=== PATIENT | male | born 1955 | race Caucasian/White ===

== ENCOUNTER 2021-09-15 10:16 | Emergency (ER) | payer OTHER, SELFPAY ==
[2021-09-15 10:17] VITALS: BP 161/89; PULSE 81; RESP 19; TEMP 36; O2SAT 94; BMI 31.6
--- NOTE | 2021-09-15 11:05 | RAD_ITS ---
STUDY: X-RAY - LEFT KNEE REASON FOR EXAM: Male, 66 years old. Pain following a fall. TECHNIQUE: 4 view(s) of the knee. COMPARISON: None. FINDINGS: Normal visualized distal femur. Normal visualized proximal tibia and fibula. Normal proximal tibiofibular articulation. Normal medial femorotibial compartment. Normal lateral femorotibial compartment. Normal patellofemoral articulation. Moderate size joint effusion. Prepatellar soft tissue swelling. RAD/Knee 4 or More Views IMPRESSION: Moderate size joint effusion with anterior knee swelling. Electronically Signed: Iván Andrew MD at 11:20 EDT , Service support ,
--- NOTE | 2021-09-15 11:51 | ED.VIS.LOWEX ---
HPI History of Present Illness Chief Complaint: Lower Extremity Injury Informant: patient Narrative Narrative: Patient fell through a luc[employer] board on a trailer couple days ago. He hit his left knee. No other injury. He states it swollen now and is a little bit more sore. No back pain. No break in the skin. No other injury. Motion and weightbearing makes it worse and rest makes it better. PFSH PFS Medical History Trigeminal neuralgia of right side of face Home Medications ciprofloxacin HCl 500 mg PO BID #20 tablet 05/21/15 [Rx Last Taken Unknown] hydrocodone-acetaminophen 1 - 2 tab PO Q4H PRN PRN #20 tablet 05/21/15 [Rx Last Taken Unknown] metronidazole 500 mg PO Q6H #40 tab 05/21/15 [Rx Last Taken Unknown] Allergy/AdvReac Type Severity Reaction Status Date / Time No Known Allergies Allergy Verified 09/15/21 10:19 Social History Smoking Status: Former smoker ROS ROS ED Cardiovascular Cardiovascular: Denies chest pain Respiratory/Chest Respiratory/Chest: Denies cough Gastrointestinal Gastrointestinal: Denies diarrhea or nausea Musculoskeletal Musculoskeletal: Reports other Details: See history of present illness. ; Denies back pain or neck pain Integumentary Denies Abrasions or rash Neurologic Neurologic: Denies paresthesias or weakness Hematologic/Lymphatic Hematologic/Lymphatic: Reports other Details: Patient is not on any anticoagulation. ; Denies easy bleeding or easy bruising EXAM Physical Exam Const Vital Signs: 09/15/21 10:17 Temperature 96.8 F L Temperature Source Temporal Pulse Rate 81 Respiratory Rate 19 H Blood Pressure 161/89 H Blood Pressure Mean 113 Pulse Ox 94 Oxygen Delivery Method Room Air Positive well nourished, well developed and obese General Appearance ED: well developed Nutritional Appearance: obese HEENT normocephalic and atraumatic Resp normal respiratory effort Cardio regular rate and regular rhythm GI non-tender Palpation: soft Extremity Extremity Narrative: Patient does have a visible effusion of the left knee. It has mild nonfocal tenderness. Extensor mechanism is intact. I see no abrasions punctures or lacerations. Distal pulses are intact. Distal sensation is intact. Neuro oriented x3 and no sensory deficits noted Sensorium / Orientation: alert Motor Exam: strength 5/5 throughout Psych mental status grossly normal Skin no wounds Lesions: no lesions Rashes: no rashes Trauma: Negative for abrasion, laceration or puncture MDM MDM MDM Narrative Medical decision making narrative: 4 view x-ray of the left knee . Looked at by me and read by radiology shows no sign of acute fracture. There is an effusion. Ice rest and time should get this better. Radiography Diagnostic Testing: Clinical Impression(s) from Imaging Studies Knee X-Ray 09/15/21 11:05 IMPRESSION: Moderate size joint effusion with anterior knee swelling. Electronically Signed: Iván Andrew MD at 11:20 EDT , Service support , Discharge Plan Triage Chief Complaint: Lower Extremity Injury ED Provider: Sloan Orr Dx/Rx/DC Orders Clinical Impression: Contusion of knee, left, Effusion of knee joint, left Instructions: ED Knee Effusion, ED Knee Sprain Prescriptions: No Action hydrocodone-acetaminophen 1 TABLET tablet 1 - 2 tab PO Q4H PRN PRN (Reason: Pain) Qty: 20 RF: 0 metronidazole 500 MG tablet 500 mg PO Q6H Qty: 40 RF: 0 ciprofloxacin HCl 500 MG tablet 500 mg PO BID Qty: 20 RF: 0 Primary Care Provider: Abelardo Lynn Referrals: Abelardo Lynn MD [Primary Care Provider] - 1 Week if not improving Disposition Disposition: Home, Self Care
[2021-09-15 12:27] VITALS: PULSE 76; RESP 17; O2SAT 95
== END 2021-09-15 12:31 | disposition home or self-care (01) ==
PROVIDERS: Emergency Provider Emergency Medicine; PCP Family Medicine
DX: S80.02XA Contusion of left knee, initial encounter (principal); M25.462 Effusion, left knee; W13.3XXA Fall through floor, initial encounter; Y93.9 Activity, unspecified; Y92.9 Unspecified place or not applicable; E66.9 Obesity, unspecified; Z68.31 Body mass index [BMI] 31.0-31.9, adult; G50.0 Trigeminal neuralgia; Z79.899 Other long term (current) drug therapy; Z87.891 Personal history of nicotine dependence
CPT/HCPCS: 73564; 99282

== ENCOUNTER → 2024-03-16 | Outpatient (CLI) | payer OTHER, SELFPAY ==
--- NOTE | 2024-03-16 10:08 | STRESSREP_ITS ---
Stress Test Report Date: 03/16/2024 Procedure: Exercise tolerance test/imaging study Indications: Dyspnea on exertion Consent: Per the patient Procedure: The patient exercised on a Micah protocol for 6 minutes achieving a peak heart rate of 121 bpm (80% predicted maximal heart rate) with a peak blood pressure 160/78 mmHg and a peak MET capacity of 7.0 METs. The baseline ECG demonstrated sinus rhythm with right bundle branch block. The peak exercise ECG was nondiagnostic secondary to baseline abnormality. Occasional PVCs noted during exercise. The functional capacity was considered average. There was significant shortness of breath reported during exercise. No chest pain. The examination was discontinued secondary to dyspnea. The patient was injected with 14.5 mCi of technetium 99m Cardiolite and subsequently rest SPECT Cardiolite nuclear imaging was obtained in the horizontal long, vertical long, and short axis views. Post-exercise, the patient was injected with 44.6 mCi of technetium 99m Cardiolite and subsequently stress SPECT Cardiolite nuclear imaging was obtained in the horizontal long, vertical long, and short axis views. A gated Cardiolite study at peak stress was obtained. Rest and stress SPECT Cardiolite nuclear imaging status post realignment, normalization, and attenuation correction, demonstrates a small to moderate apical defect which is predominantly fixed but with mild worsening post exercise. Gated images reveal apical hypokinesis. The reported LVEF is 41%. Impression: 1. Technically adequate exercise tolerance test 2. Peak exercise ECG nondiagnostic secondary to baseline changes 3. Occasional PVCs noted during exercise 4. Rest and stress SPECT Cardiolite nuclear imaging demonstrate a predominantly fixed apical defect consistent with prior apical infarct with mild amanda-infarct ischemia. 5. The gated Cardiolite study reports an LVEF of 41%. This note was generated with [employer] software. It may contain incorrect words, spelling, and punctuation that were not noted in checking the note before signing.
== END | disposition home or self-care (01) ==
PROVIDERS: PCP Family Medicine; Referring Provider Family Medicine; Visit Provider Family Medicine
DX: R06.09 Other forms of dyspnea (principal)
CPT/HCPCS: 78452; 93017; A9500; A4216

== ENCOUNTER 2024-06-05 09:43 | Inpatient (IN) | payer MEDICARE, SELFPAY ==
[2024-06-05] VITALS (17 sets, daily range): BP systolic 103–159; BP diastolic 6–100; PULSE 28–73; RESP 14–18; TEMP 36.4–36.8; O2SAT 93–98; BMI 34.2; BMI 34.6
--- NOTE | 2024-06-05 09:58 | EKG12_ITS ---
Test Reason : DIZZY/LOW HR Blood Pressure : / mmHG Vent. Rate : 029 BPM Atrial Rate : 029 BPM P-R Int : 152 ms QRS Dur : 158 ms QT Int : 628 ms P-R-T Axes : 063 023 -39 degrees QTc Int : 436 ms Critical Test Result: Low HR Marked sinus bradycardia -high grade AV block Left bundle branch block Abnormal ECG Confirmed by Mau Arreola ([id number]), sound editor FENG PHAN ([id number]) on 06/06/2024 12:51:24 PM Referred By: KIMMY/JOHANA Confirmed By:Mau Arreola
--- NOTE | 2024-06-05 09:59 | ED.RN ---
NO OLD EKGS
--- NOTE | 2024-06-05 10:05 | EX.ED.DYSGE1 ---
HPI History of Present Illness Chief Complaint: Dizziness Narrative Narrative: 69-year-old male who denies significant past medical history presents with shortness of breath that he has had for the last few months. Then, over the last few days he developed lightheadedness and near syncope. He denies any headaches. No chest pain. No fevers or chills but has had an occasional cough for months as well. Of note, he states that a few months ago he had a stress test, but never have the results. His primary care provider ordered it because of his shortness of breath. He does not have a history of congestive heart failure. He denies any leg swelling. Sometimes, his lightheadedness is worse with standing. He went to urgent care, and was noted to have bradycardia in the 30s. He does not take any medications. [facility] Medical History Trigeminal neuralgia of right side of face Home Medications ?Medication ?Instructions ?Recorded ?Last Taken ?Type NK 06/05/24 Unknown History Allergy/AdvReac Type Severity Reaction Status Date / Time No Known Allergies Allergy Verified 06/05/24 09:49 Social History Smoking Status: Former smoker ROS ROS ED ROS Narrative Constitutional: No fever, no chills. HEENT: No sore throat. No neck pain. No loss of vision. No rhinorrhea. Cardiovascular: No chest pain. No palpitations. No pedal edema. Respiratory: Occasional cough, positive shortness of breath times months. Abdominal: No abdominal pain. No nausea. No vomiting. Genitourinary: No dysuria. No hematuria. Musculoskeletal: No myalgias. No arthralgias. Neurologic: No headaches. No dizziness. Positive lightheadedness. Skin: No rash. No change in color. Psychiatric: No depression. No anxiety. EXAM Physical Exam Narrative Exam Narrative: Afebrile. Vital signs noted. HEENT: Normocephalic. Atraumatic. PERRL, EOMI. Neck soft and supple. No point tenderness or step off. Cardiovascular: Positive bradycardia no murmurs, rubs, or gallops appreciated. Respiratory: No tachypnea. Lungs clear to auscultation bilaterally. Gastrointestinal: Abdomen soft, nontender, with normoactive bowel sounds. No rebound or guarding. Neurological: Awake. Alert. Mentating well. Nonfocal, nonlateralizing. Skin: No rash. Normal color. No pallor. Musculoskeletal: No pedal edema appreciated. Full range of motion extremities. Const Vital Signs: 06/05/24 09:44 06/05/24 10:09 06/05/24 10:11 Temperature 97.6 F L Temperature Source Temporal Pulse Rate 29 L 31 L Respiratory Rate 17 18 Respiratory Effort Normal Non-Labored Respiratory Pattern Normal Blood Pressure 120/68 Blood Pressure Mean 85 Pulse Ox 96 98 Oxygen Delivery Method Room Air MDM MDM MDM Narrative Medical decision making narrative: Differential diagnosis includes but not limited to symptomatic bradycardia versus third-degree heart block versus dehydration. I have low concern for acute coronary syndrome or pulmonary embolism because the history and physical does not support the latter 2 diagnoses. Initially, there was difficulty in obtaining his blood pressure, but he has a palpable radial pulse. EKG was obtained and interpreted by myself independently as sinus bradycardia at 29 bpm with third-degree heart block. I did review his prior stress test which was as reviewed as normal with 41% ejection fraction. Initially 500 mL bolus was ordered, and he was placed on pacer pads. I contacted Dr. Mau Arreola with cardiology who is evaluating the patient in the ED. Laboratory work and chest x-ray are pending, but given his EKG findings, I feel that he probably requires admission, I reviewed his laboratory work, and he has slightly elevated white count of 12.0, hemoglobin normal at 14.8 with hematocrit 43.7, platelet count normal at 239. Sodium slightly low at 135 with chloride normal at 103, potassium 4.0, creatinine slightly elevated at 1.36 which is above his baseline, BUN normal at 15. Magnesium normal at 2.2. AST is low at 14 which I think is nonspecific with normal ALT of 23 and alk phos 76. High-sensitivity troponin normal at 59 initially. BNP is elevated at 618. Chest x-ray 1 view interpreted by myself independently shows chronic changes, but no blunting of the costophrenic angles, no pneumonia or pneumothorax. In discussion with Dr. Arreola with cardiology, patient requires admission and is currently getting an echocardiogram. Dr. Dee with cardiology will be placing pacemaker today. I will discuss the patient with the hospitalist for admission. It was not felt that he requires ICU because he is asymptomatic and has a higher heart rate in the 40s currently with a normal blood pressure of 120/68. Disposition is admit in stable condition. History & Record Review Discussion w/independent historian: Patient and Family Additional record(s) reviewed:: Prior ED visit and Prior labs Lab Data Attestation: I reviewed the patient's lab results. Labs: Laboratory Results - last 24 hr 06/05/24 10:00 WBC 12.0 H RBC 4.73 Hgb 14.8 Hct 43.7 MCV 92.4 MCH 31.3 MCHC 33.9 RDW Std Deviation 42.6 RDW Coeff of Gia 12.5 Plt Count 239 MPV 10.8 Immature Gran % (Auto) 0.400 Neut % (Auto) 65.3 Lymph % (Auto) 23.9 [place] % (Auto) 8.5 Eos % (Auto) 1.4 Baso % (Auto) 0.5 Absolute Neuts (auto) 7.8 H Absolute Lymphs (auto) 2.86 Nucleated RBC % 0 Sodium 135 L Potassium 4.0 Chloride 103 Carbon Dioxide 26.0 Anion Gap 6 BUN 15 Creatinine 1.36 H Estim Creat Clear Calc 67.02 Est GFR (MDRD) Af Amer 66 Est GFR (MDRD) Non-Af 55 L BUN/Creatinine Ratio 11.0 Glucose 325 H Calcium 8.8 Magnesium 2.2 Total Bilirubin 0.70 AST 14 L ALT 23 Alkaline Phosphatase 76 Troponin I High Sens 59 B-Natriuretic Peptide 618.1 H Total Protein 7.4 Albumin 3.4 Globulin 4.0 Albumin/Globulin Ratio 0.8 L Management Discussion w/another healthcare provider: Hospitalist (Dr. Jordy Colbert) and Glove Cutter (Dr. Mau Arreola) Discharge Plan Dx/Rx/DC Orders Clinical Impression: Third degree heart block, Bradycardia, Acute kidney injury, Elevated brain natriuretic peptide (BNP) level Disposition Disposition: Acute Care Hospital [facility]
[2024-06-05 10:13] LABS: Absolute Lymphocyte Count 2.86 X10^3/uL (0.83-4.51); Absolute Neutrophil Count 7.8 X10^3/uL (2.0-7.7); Basophil# 0.06 X10^3/uL; Basophil% 0.5 % (0-1); Eosinophil# 0.17 X10^3/uL; Eosinophils% 1.4 % (0-5); Hematocrit 43.7 % (40-54); Hemoglobin 14.8 g/dL (13.0-16.5); Lymphocyte # 2.86 X10^3/ul (0.83-4.51); Lymphocyte % 23.9 % (19-41); Mean Corp Hgb Conc 33.9 g/dL (32-36); Mean Corpuscular Hgb 31.3 pg (27.0-32.0); Mean Corpuscular Volume 92.4 fL (80-94); Mean Platelet Vol. 10.8 fl (6.2-12.0); Monocyte# 1.02 X10^3/uL; Monocyte% 8.5 % (0-10); NRBC Flagged by Analyzer 0 % (0-5); Neutrophil # 7.83 X10^3/uL (2.7-7.7); Neutrophil % 65.3 % (47-70); Platelet Count 239 K/mm3 (150-450); RBC Distribution Width CV 12.5 % (11.6-14.6); RBC Distribution Width SD 42.6 fl (35.1-43.9); Red Blood Count 4.73 M/mm3 (4.6-6.2)
[2024-06-05] MEDS: 0.9% Normal Saline (500mL Bag) 500 ML 1000 ML IV (10:14)
--- NOTE | 2024-06-05 10:14 | ED.RN ---
tania gracia in at bedside to see pt. pacer pads on.
--- NOTE | 2024-06-05 10:21 | ED.RN ---
This RN at bedside with Dr. Arreola. Dr. Arreola wanted to walk patient. This RN assisted pt. with ambulating while Dr. arreola watches heart rhythm. Rate varied between 33-40 while walking. Pt. dizzy/sob while walking, pt. assisted back to bed with no problems.
--- NOTE | 2024-06-05 10:26 | RAD_ITS ---
STUDY: X-RAY CHEST REASON FOR EXAM: Male, 69 years old. Shortness of breath . TECHNIQUE: Single AP portable view of the chest. COMPARISON: None. FINDINGS: EKG electrodes are seen. Minimal increased markings at the lung bases suggestive of linear atelectasis. There is no demonstrated pleural abnormality. Normal size heart. Normal mediastinum and erika. Normal visualized pulmonary arteries. Normal visualized aortic arch and descending thoracic aorta. Normal visualized thoracic spine. Normal visualized ribs, clavicles, and shoulders. There is no demonstrated abnormality of the visualized soft tissue structures of the upper abdomen. RAD/Chest 1 View (Portable) IMPRESSION: Minimal increased linear markings at the lung bases suggestive of atelectasis. Electronically Signed: Iván Andrew MD at 10:59 EDT ,
[2024-06-05 10:32] LABS: ALB/GLOB Ratio 0.8 RATIO (0.9-2.4); AST(SGOT) 14 U/L (15-37); Alanine Aminotransfer ALT/SGPT 23 U/L (16-61); Albumin, Serum 3.4 g/dL (3.2-5.0); Alkaline Phosphatase 76 U/L (45-117); Anion Gap 6 (5-15); BUN 15 mg/dL (7-18); Calcium,Total 8.8 mg/dL (8.5-10.1); Chloride 103 mmol/L (98-107); Creatinine, Serum 1.36 mg/dL (0.70-1.30); EST Glomerular Filtration Rate 55 mL/min (>60); Est Glom Filt Rate - Afr Amer 66 mL/min (>60); Estimated Creatinine Clearance 67.02 ml/min; Glucose 325 mg/dL (74-106); Magnesium 2.2 mg/dL (1.6-2.6); Protein, Total 7.4 g/dL (6.4-8.2); Sodium Level 135 mmol/L (136-145); Troponin-I HS (w/2H Reflex) 59 pg/mL (3.0-78.0)
--- NOTE | 2024-06-05 10:36 | ECHOD_ITS ---
Reason For Study: Arrhythmia, Bradycardia Procedure This was a 2D Doppler, Color Flow transthoracic echocardiogram. Exam performed portable in ED. Left Ventricle Normal LV size. The estimated ejection fraction is 55 %. No regional wall motion abnormalities noted. Right Ventricle Normal RV size. Normal systolic function. Atria Normal left atrium. Normal right atrium. Mitral Valve Normal mitral valve. Mild-Moderate (1-2+) eccentric mitral valve insufficiency. Tricuspid Valve Normal tricuspid valve. Aortic Valve The aortic valve is not well visualized. Great Vessels Normal aortic root. The pulmonary artery is normal size. Inferior vena cava collapse with respiration. Pericardium/Pleural No pericardial effusion. MMode/2D Measurements & Calculations LVIDd: 6.0 cm IVSd: 0.92 cm Ao root diam: 4.0 cm LVIDs: 3.9 cm LVPWd: 1.1 cm RVDd: 4.0 cm FS: 36.1 % LAV(MOD-bp): 84.7 ml LVAd ap4: 43.4 cm2 LVAd ap2: 36.3 cm2 LAV(MOD-bp) Indexed: 35.3 ml/m2 LVLd ap4: 9.5 cm LVLd ap2: 8.8 cm LAV(MOD-sp2): 83.6 ml EDV(MOD-sp4): 162.0 ml EDV(MOD-sp2): 125.9 ml LAV(MOD-sp4): 78.6 ml EDV(sp4-el): 168.2 ml EDV(sp2-el): 127.0 ml LVAs ap4: 22.4 cm2 LVAs ap2: 17.5 cm2 LVLs ap4: 7.6 cm LVLs ap2: 7.0 cm ESV(MOD-sp4): 55.1 ml ESV(MOD-sp2): 38.5 ml ESV(sp4-el): 55.5 ml ESV(sp2-el): 37.2 ml EF(MOD-sp4): 66.0 % EF(MOD-sp2): 69.4 % EF(sp4-el): 67.0 % SV(MOD-sp4): 106.9 ml SV(MOD-sp2): 87.4 ml SV(sp4-el): 112.6 ml LA dimension(2D): 4.5 cm LA A4 area: 23.9 cm2 RA A4 area: 17.3 cm2 Time Measurements MV dec time: 0.17 sec Doppler Measurements & Calculations MV E max renard: 98.2 cm/sec Lat Peak E' Renard: 15.0 cm/sec Med Peak E' Renard: 6.2 cm/sec MV A max renard: 91.7 cm/sec E/E' lat: 6.5 E/E' med: 15.7 MV E/A: 1.1 MV dec slope: 578.7 cm/sec2 Ao V2 max: 199.6 cm/sec LV V1 max: 143.6 cm/sec Ao max P.9 mmHg LV V1 max P.3 mmHg Ao V2 mean: 129.2 cm/sec Ao mean P.7 mmHg Ao V2 VTI: 36.4 cm PA V2 max: 105.2 cm/sec ECHO/Echo Complete Interpretation Summary Normal LV size. The estimated ejection fraction is 55 %. Mild-Moderate (1-2+) eccentric mitral valve insufficiency. Ordering Physician: Mau Arreola Referring Physician: Abelardo Lynn Performed By: Susanna Harris RDCS
[2024-06-05 10:40] LABS: BNP,B-Type NATRIURETIC PEPTIDE 618.1 pg/mL (0-100)
--- NOTE | 2024-06-05 11:10 | PCM.HP.STD ---
[facility] - General General Date of Admission: 06/05/24 Date of Service: 06/05/24 Chief Complaint: Lightheadedness HPI Narrative CALIN LIRA, is a 69 M in relatively good health with no chronic medical comorbidities who presented with lightheadedness. Patient symptoms started a week prior to his admission. He has noticed increasing lightheadedness with activity. Also did complain of some shortness of breath. In view of persistent symptoms patient presented to the emergency department. EKG obtained demonstrated significant bradycardia with third-degree heart block. Patient was also found to have elevated glucose levels. Denies being diabetic however did admit to polydipsia as well as polyuria. Decision was made to admit patient to a monitored bed for patient to undergo emergency pacemaker placement [facility], [facility] Medical History Trigeminal neuralgia of right side of face Home Medications ?Medication ?Instructions ?Recorded ?Last Taken ?Type NK 06/05/24 Unknown History Allergy/AdvReac Type Severity Reaction Status Date / Time No Known Allergies Allergy Verified 06/05/24 09:49 Social History Smoking Status: Former smoker Vital Signs Vital Signs Vital Signs: 06/05/24 09:44 06/05/24 10:09 06/05/24 10:11 Temperature 97.6 F L Temperature Source Temporal Pulse Rate 29 L 31 L Respiratory Rate 17 18 Respiratory Effort Normal Non-Labored Respiratory Pattern Normal Blood Pressure 120/68 Blood Pressure Mean 85 Pulse Ox 96 98 Oxygen Delivery Method Room Air Weight Weight: 117.934 kg Body Mass Index (BMI) 34.2 Physical Exam Narrative GENERAL: cooperative HEENT: Atraumatic; normocephalic EYES; Anicteric, Normal Conjunctiva NECK; supple, normal thyroid, RESPIRATORY: Diminished to auscultation CARDIOVASCULAR: Bradycardic GI: soft, normoactive bowel sounds, : No Renal angle tenderness; EXTREMITIES: No edema, no clubbing, MUSCULOSKELETAL: no muscle wasting NEURO: Awake; no lateralizing signs. SKIN: No Rash PSYCH; Flat affect Results Lab / Micro Data 06/05/24 10:00 06/05/24 10:00 Labs: Laboratory Results - last 24 hr 06/05/24 10:00: WBC 12.0 H, RBC 4.73, Hgb 14.8, Hct 43.7, MCV 92.4, MCH 31.3, MCHC 33.9, RDW Std Deviation 42.6, RDW Coeff of Gia 12.5, Plt Count 239, MPV 10.8, Immature Gran % (Auto) 0.400, Neut % (Auto) 65.3, Lymph % (Auto) 23.9, [place] % (Auto) 8.5, Eos % (Auto) 1.4, Baso % (Auto) 0.5, Absolute Neuts (auto) 7.8 H, Absolute Lymphs (auto) 2.86, Nucleated RBC % 0, Sodium 135 L, Potassium 4.0, Chloride 103, Carbon Dioxide 26.0, Anion Gap 6, BUN 15, Creatinine 1.36 H, Estim Creat Clear Calc 67.02, Est GFR (MDRD) Af Amer 66, Est GFR (MDRD) Non-Af 55 L, BUN/Creatinine Ratio 11.0, Glucose 325 H, Calcium 8.8, Magnesium 2.2, Total Bilirubin 0.70, AST 14 L, ALT 23, Alkaline Phosphatase 76, Troponin I High Sens 59, B-Natriuretic Peptide 618.1 H, Total Protein 7.4, Albumin 3.4, Globulin 4.0, Albumin/Globulin Ratio 0.8 L Imaging Radiology Impression Chest X-Ray 06/05/24 10:26 IMPRESSION: Minimal increased linear markings at the lung bases suggestive of atelectasis. Electronically Signed: Iván Andrew MD at 10:59 EDT , Assessment & Plan Assessment/Plan (1) Bradycardia: (2) Third degree heart block: (3) Acute kidney injury: PLAN: Plan Patient is a 69-year-old gentleman presenting with progressive shortness of breath as well as lightheadedness found to be bradycardic EKG demonstrated third-degree heart block 1. Pericardial secondary to third-degree heart block ? Patient has been admitted to a monitored bed placed on continuous telemetry monitoring consult was placed to cardiology plan is for patient to undergo pacemaker placement 2. Acute kidney injury ? Patient's baseline creatinine 1.1 creatinine on admission was 1.26 started on IV hydration with subsequent monitoring of electrolytes 3. Mild hyponatremia ?Secondary to suspected hypovolemic hyponatremia patient is being resuscitated with IV fluid 4. Hyperglycemia ? Patient is not a known diabetic patient. Ordered hemoglobin A1c please on Accu-Cheks before meals and at bedtime with sliding scale coverage 5. Class I obesity with BMI of 34.3 ? Weight loss advised 6. DVT prophylaxis ? Low risk Time spent in the patient's overall evaluation,decision-making process, review of diagnostic data, adjustment of management, discussion with other providers, nursing nursing and ancillary staff involved in patient's care documentation, 75 Minutes Advance planning; did discuss with the patient and family regarding advanced directives as well as CODE STATUS. Did explain the various scenarios involved ( FULL CODE, DNR CCA, DNR CCA with no intubation, and DNR CC and what each meant) patient elected to remain full code with CPR and intubation if needed. Order was placed. Time spent on discussion 18 minutes. Charges/Coding Multi Select Codes Visit Charges Visit Charges: 38782 Init Hosp Hospitalists' Procedures Procedures: 71088 Advncd Care Plan 30 Min
--- NOTE | 2024-06-05 11:16 | PCM.CONS.C ---
Assessment & Plan Assessment/Plan (1) High-grade atrioventricular block: PLAN: Patient's heart rate is 30 bpm it did slightly increase to 40 with increase in his atrial rate with ambulation. He denies any syncope or near syncope he is having dyspnea on exertion and some mild dizziness with activity. This started May 31, 2024 it has not progressed but has not resolved either. The patient is on no rate modulating medications he is taking no supplements and he has had no dietary modifications in the last several weeks. He denies any illicit drug use. The patient did have a stress test done January 2024 which showed adequate chronotropic response with a right bundle branch block at rest. I do not have an old EKG to compare the current EKG shows 4-1 AV conduction with a wide QRS complex. The patient stress test did show apical scar with questionable amanda-infarct ischemia. There is no prior history of coronary artery disease or any type of infarct or Takotsubo syndrome. A 2D echocardiogram is being done stat. The patient is being evaluated for urgent permanent pacemaker implantation. (2) Elevated brain natriuretic peptide (BNP) level: PLAN: BNP is slightly elevated as would be expected given his heart rate and dyspnea on exertion. He does have mild renal insufficiency with a creatinine increased to 1.36. (3) Acute kidney injury: PLAN: His creatinine is 1.36 is still has adequate glomerular filtration rate. Previous creatinine was 1.09. PLAN: Plan 1. Stat 2D echocardiogram. 2. Evaluate for urgent permanent pacemaker implantation by Dr. Dee. HPI Consult Data Date of Consult: 06/05/24 HPI Narrative Reason for Consultation: Bradycardia with symptoms. HPI Narrative: CALIN LIRA, is a 69 M who presents to the emergency department at [facility] with a heart rate of 30. His EKG is consistent with a high-grade AV block appears that he is in approximately 4-1 conduction. The patient reports that on May 01 his blood pressure machine noted that his heart rate was 30. He had taken his blood pressure because he felt dizzy upon trying to walk around and is noted some dyspnea on exertion. He denies any syncope or near syncope. He reports he had a stress test that he was told was normal January 2024. However, upon evaluation it was found the stress test did show normal chronotropic response to his heart rate however he had an apical scar with amanda-infarct ischemia on the nuclear scan. He denied any chest symptoms and denies any chest pain at this time. His EKG shows a wide-complex QRS. His previous EKG showed a right bundle branch block on his stress test. The patient is on no medications in his home environment. He denies tobacco use or any illicit drugs. He denies using any cldr-qwd-luqnkzl supplements. He has had no change in his dietary situation or oral intake in any way. He occasionally drinks a beer. The patient's blood work suggest some mild renal insufficiency the creatinine is gone from 1.09 historically to 1.36. His BNP is slightly elevated consistent with his dyspnea on exertion. His atrial rate was in the 100 to 120 bpm range. Ventricular rate 30 in the emergency department at rest. I did walk him in the spivey he walked about 50 feet became short of breath and his heart rate went from 30-40. There was no increase in AV conduction but the atrial rate increased. The patient reports his blood pressures been adequately controlled on no medical therapy. He does not smoke he quit smoking over 30 years ago, he is not diabetic, he does not know his lipid status, he does have a hip family history of brother with bypass graft surgery under age 60. [facility] Medical History Trigeminal neuralgia of right side of face Home Medications ?Medication ?Instructions ?Recorded ?Last Taken ?Type NK 06/05/24 Unknown History Allergy/AdvReac Type Severity Reaction Status Date / Time No Known Allergies Allergy Verified 06/05/24 09:49 Social History Smoking Status: Former smoker ROS Constitutional Constitutional: Reports as per HPI Eyes Eyes: Reports systems reviewed and no addt'l complaints, except as documented ENT HEENT: Reports systems reviewed and no addt'l complaints, except as documented Cardiovascular Cardiovascular: Reports as per HPI Respiratory/Chest Respiratory/Chest: Reports as per HPI Gastrointestinal Gastrointestinal: Reports systems reviewed and no addt'l complaints, except as documented Genitourinary Genitourinary: Reports systems reviewed and no addt'l complaints, except as documented Musculoskeletal Musculoskeletal: Reports systems reviewed and no addt'l complaints, except as documented Integumentary Integumentary: Reports systems reviewed and no addt'l complaints, except as documented Neurologic Neurologic: Reports systems reviewed and no addt'l complaints, except as documented Psychiatric Psychiatric: Reports systems reviewed and no addt'l complaints, except as documented Endocrine Endocrinology: Reports as per HPI Hematologic/Lymphatic Hematologic/Lymphatic: Reports systems reviewed and no addt'l complaints, except as documented Allergic/Immunologic Allergic/Immunologic: Reports systems reviewed and no addt'l complaints, except as documented Physical Exam Const alert and oriented x3 HEENT normocephalic Eyes EOMs intact bilaterally Neck Neck Narrative: A waves noted on his JVD at 30 degrees. Chest inspection of chest normal Resp normal respiratory effort and clear to auscultation bilaterally Auscultation: crackles bilateral base Cardio Rate: bradycardia Rhythm: abnormal rhythm regularly irregular Heart Sounds: S1 normal and S2 normal; Negative for click, gallop or murmur Peripheral Pulses: radial pulses present bilateral 2+ and posterior tibial pulses present bilateral 2+ GI normal to inspection, nondistended, normoactive bowel sounds Extremity normal to inspection General Extremity: Negative for edema Skin no rashes or lesions noted Neuro Neuro Narrative: Alert and oriented x 3 Psych mental status grossly normal Risk Stratification Risk Stratification Applicable: No Charges/Coding Visit Charges Inpatient E&M: 82224 Init Hosp L3 Objective Data Vital Signs: Vital Signs Temp Pulse Resp BP Pulse Ox O2 Del Method 97.6 F L 31 L 18 120/68 98 Room Air 06/05/24 09:44 06/05/24 10:09 06/05/24 10:09 06/05/24 10:09 06/05/24 10:09 06/05/24 10:09 Oxygen Delivery Method Room Air Weight: 260 lb Body Mass Index (BMI) 34.2 Intake & Output: Intake and Output for Last 24 Hours 06/03/24 06/04/24 06/05/24 23:59 23:59 23:59 Intake Total 0 / 0 Balance 0 / 0 Lab / Micro Data Attestation: I reviewed the patient's lab results. 06/05/24 10:00 06/05/24 10:00 Labs: Laboratory Results - last 24 hr 06/05/24 10:00: WBC 12.0 H, RBC 4.73, Hgb 14.8, Hct 43.7, MCV 92.4, MCH 31.3, MCHC 33.9, RDW Std Deviation 42.6, RDW Coeff of Gia 12.5, Plt Count 239, MPV 10.8, Immature Gran % (Auto) 0.400, Neut % (Auto) 65.3, Lymph % (Auto) 23.9, [place] % (Auto) 8.5, Eos % (Auto) 1.4, Baso % (Auto) 0.5, Absolute Neuts (auto) 7.8 H, Absolute Lymphs (auto) 2.86, Nucleated RBC % 0, Sodium 135 L, Potassium 4.0, Chloride 103, Carbon Dioxide 26.0, Anion Gap 6, BUN 15, Creatinine 1.36 H, Estim Creat Clear Calc 67.02, Est GFR (MDRD) Af Amer 66, Est GFR (MDRD) Non-Af 55 L, BUN/Creatinine Ratio 11.0, Glucose 325 H, Calcium 8.8, Magnesium 2.2, Total Bilirubin 0.70, AST 14 L, ALT 23, Alkaline Phosphatase 76, Troponin I High Sens 59, B-Natriuretic Peptide 618.1 H, Total Protein 7.4, Albumin 3.4, Globulin 4.0, Albumin/Globulin Ratio 0.8 L Rhythm Strip Rhythm Strip: High-grade AV block Rate: 30 Cardiology Labs/Tests 06/05/24 10:00: WBC 12.0 H, RBC 4.73, Hgb 14.8, Hct 43.7, MCV 92.4, MCH 31.3, MCHC 33.9, Plt Count 239, MPV 10.8, Immature Gran % (Auto) 0.400, Neut % (Auto) 65.3, Lymph % (Auto) 23.9, [place] % (Auto) 8.5, Eos % (Auto) 1.4, Baso % (Auto) 0.5, Absolute Neuts (auto) 7.8 H, Nucleated RBC % 0, Sodium 135 L, Potassium 4.0, Chloride 103, Carbon Dioxide 26.0, Anion Gap 6, BUN 15, Creatinine 1.36 H, Est GFR (MDRD) Af Amer 66, Est GFR (MDRD) Non-Af 55 L, BUN/Creatinine Ratio 11.0, Glucose 325 H, Calcium 8.8, Magnesium 2.2, Total Bilirubin 0.70, B-Natriuretic Peptide 618.1 H Rhythm: EKG: ECHO: Stress Test: Cardiac Cath: PCI: CT Surgery: Holter monitor: EPS: PPM: CXR: Chest CT Scan: Radiography Diagnostic Testing: Radiology Impression Chest X-Ray 06/05/24 10:26 IMPRESSION: Minimal increased linear markings at the lung bases suggestive of atelectasis. Electronically Signed: Iván Andrew MD at 10:59 EDT ,
[2024-06-05 12:05] LABS: Reflex Troponin-HS? (from REC) Y
[2024-06-05 12:54] LABS: Troponin-I HS 58 pg/mL (3.0-78.0)
--- NOTE | 2024-06-05 15:07 | CL.IE_ITS ---
Patient: CALIN LIRA Study Date: 06/05/2024 Performing: Jimenez Dee MD : 1955 Age: 69 Gender: male PROCEDURES PERFORMED LP13-(32780)TEMPORARY INTRAVENTRICULAR PACING LP04-(58779)INITIAL PACER INSERT+DUAL LEADS INDICATIONS complete heart block PROCEDURE DETAILS The patient was brought to the Catheterization Lab in the postabsorptive nonsedated state. Informed consent was obtained prior to anesthetic was given subcutaneously to the right groin region with Lidocaine 2%. Incision was made to the left subclavicular area. Access was achieved and a guidewire was advanced into the left subclavian vein. A peel-away sheath was inserted into the left subclavian vein. PPM ventricular lead was inserted / positioned to right ventricular apex. PPM ventricular lead testing performed. PPM ventricular lead testing performed. PPM atrial lead was inserted / positioned to the right atrial appendage. PPM atrial lead testing performed. PPM generator was attached to the lead(s) and inserted into the pocket. PPM generator was then interrogated by the senior db2 systems programmer. Device pocket was irrigated with antibiotic, Ancef 1gm. Subcutaneous closure was completed with 3-0 Vicryl. Skin closure was completed. Steri-strips applied to left subclavicular incision. Pressure dressing applied to left chest. Instrument, sponge, and needle counts were noted to be normal. The patient tolerated the procedure well. Estimated Blood Loss: 4 ml's IMPLANTED / EX-PLANTED DEVICES IMPLANTED DEVICE(S): PPM Ventricular lead - Printed Circuit Board Assembler: [employer], Model # 7842 , Serial # [id number] PPM Atrial lead - Printed Circuit Board Assembler: [employer], Model # 7841 , Serial # [id number] PPM Generator - Printed Circuit Board Assembler: [employer], Model # [id number] , Serial # [id number] DEVICE PARAMETERS ATRIAL LEAD PARAMETERS: P wave- 4.2 (mV) Current- 1.4 (mA) threshold- 583 (V) VENTRICULAR LEAD PARAMETERS: Current- .7 (mA) threshold- 948 (V) CS LEAD PARAMETERS: 10V test, no diaphragmatic capture DEVICE PARAMETERS: 60 Mode- ddd Lower rate- 60 Upper rate- 130 CONCLUSIONS / RECOMMENDATIONS Device Conclusions: Successful implantation of a dual chamber pacemaker Device Recommendations: Follow up with Primary Care Physician PROCEDURE MEDICATIONS Versed 1 mg IV Fentanyl 50 mcg IV Fentanyl 25 mcg IV Versed 1 mg IV Oxygen: 2 L/min via nasal cannula Ancef 2 Gm IV @ 06/05/2024 13:20:21 Signed By Jimenez Dee MD On 06/05/2024 15:07:19 Jimenez Dee MD
[2024-06-05] MEDS: 0.9% Normal Saline (1000mL) 1,000 ML 150 ML IV ×2 (16:21→23:13)
[2024-06-05] MEDS: Insulin Lispro 100 UNIT/ML INSULN.PEN SC ×2 (17:08→21:50)
[2024-06-05 17:21] LABS: Bedside Glucose 191 mg/dL (74-106)
[2024-06-05] MEDS: Acetaminophen 325 MG Tablet PO (21:58)
[2024-06-05] MEDS: MELATONIN 3 MG TABLET PO (22:09)
[2024-06-05 22:12] LABS: Bedside Glucose 230 mg/dL (74-106)
[2024-06-06 03:56] VITALS: BMI 34.9
[2024-06-06 04:00] VITALS: BP 155/79; PULSE 65; RESP 17; TEMP 36.4; O2SAT 94
[2024-06-06] MEDS: Acetaminophen 325 MG Tablet 650 MG PO (04:08)
--- NOTE | 2024-06-06 05:55 | RAD_ITS ---
INDICATION: Post permanant ICD/Pacemaker -- inspiration/expiration. Arms Down. Wet read to EXAMINATION/TECHNIQUE: X-RAY - XR Chest 2 Views 3 images. COMPARISON: 06/05/2024 FINDINGS: LINES/DEVICES: New pacemaker device overlying the left chest with dual leads terminating over the region of the right atrium and right ventricle. LUNGS: No consolidation. No pneumothorax. MEDIASTINUM: Unremarkable. CARDIAC SILHOUETTE: Not enlarged. BONES AND SOFT TISSUES: No acute abnormalities. RAD/Chest 3 View IMPRESSION: Pacemaker as described. No pneumothorax. Electronically Signed: Denisse Valdovinos MD at 4:55 EDT ,
[2024-06-06] MEDS: 0.9% Normal Saline (1000mL) 1,000 ML 150 ML IV (05:58)
[2024-06-06] MEDS: 0.9% Saline Lock 10 ML Syringe IV (05:58)
[2024-06-06] MEDS: Insulin Lispro 100 UNIT/ML INSULN.PEN SC ×2 (06:36→13:25)
[2024-06-06 06:43] LABS: Absolute Lymphocyte Count 1.77 X10^3/uL (0.83-4.51); Absolute Neutrophil Count 5.4 X10^3/uL (2.0-7.7); Basophil# 0.03 X10^3/uL; Basophil% 0.4 % (0-1); Eosinophil# 0.15 X10^3/uL; Eosinophils% 1.9 % (0-5); Hematocrit 38.8 % (40-54); Hemoglobin 12.9 g/dL (13.0-16.5); Lymphocyte # 1.77 X10^3/ul (0.83-4.51); Lymphocyte % 21.9 % (19-41); Mean Corp Hgb Conc 33.2 g/dL (32-36); Mean Corpuscular Hgb 30.3 pg (27.0-32.0); Mean Corpuscular Volume 91.1 fL (80-94); Mean Platelet Vol. 10.2 fl (6.2-12.0); Monocyte# 0.71 X10^3/uL; Monocyte% 8.8 % (0-10); NRBC Flagged by Analyzer 0 % (0-5); Neutrophil % 66.6 % (47-70); Platelet Count 176 K/mm3 (150-450); RBC Distribution Width CV 12.5 % (11.6-14.6); RBC Distribution Width SD 40.8 fl (35.1-43.9); Red Blood Count 4.26 M/mm3 (4.6-6.2); White Blood Count 8.1 K/mm3 (4.4-11.0)
[2024-06-06 06:55] LABS: Bedside Glucose 189 mg/dL (74-106)
[2024-06-06 07:20] LABS: Anion Gap 5 (5-15); BUN 11 mg/dL (7-18); BUN/Creat Ratio 12.5 RATIO (10-20); Calcium,Total 8.3 mg/dL (8.5-10.1); Chloride 110 mmol/L (98-107); Creatinine, Serum 0.88 mg/dL (0.70-1.30); EST Glomerular Filtration Rate 91 mL/min (>60); Est Glom Filt Rate - Afr Amer 110 mL/min (>60); Estimated Creatinine Clearance 104.61 ml/min; Glucose 192 mg/dL (74-106); Magnesium 2.1 mg/dL (1.6-2.6); Phosphorus 3.6 mg/dL (2.5-4.9); Sodium Level 138 mmol/L (136-145)
--- NOTE | 2024-06-06 07:47 | PCM.PN.HOSP ---
Reason for Visit Reason for Visit: Diagnoses Atrioventricular block, complete (06/05/24) Other atrioventricular block (06/05/24) Acute kidney failure, unspecified (06/05/24) Bradycardia, unspecified (06/05/24) Other specified abnormal findings of blood chemistry (06/05/24) Subjective Subjective Patient underwent successful implantation of a dual chamber pacemaker by Dr. Dee on 06/06/2024 Objective Data Objective Data Vital Signs: Vital Signs Temp Pulse Resp BP Pulse Ox O2 Del Method 97.5 F L 65 17 155/79 H 94 Room Air 06/06/24 04:00 06/06/24 04:00 06/06/24 04:00 06/06/24 04:00 06/06/24 04:00 06/06/24 04:00 Oxygen Delivery Method Room Air Weight: 120.3 kg Body Mass Index (BMI) 34.9 Intake & Output: Intake and Output for Last 24 Hours 06/04/24 06/05/24 06/06/24 23:59 23:59 23:59 Intake Total 1440 / 1440 1300 / 1300 Output Total 1250 / 1250 1175 / 1175 Balance 190 / 190 125 / 125 Lab / Micro Data 06/06/24 06:27 06/06/24 06:27 Labs: Laboratory Results - last 24 hr 06/05/24 10:00: WBC 12.0 H, RBC 4.73, Hgb 14.8, Hct 43.7, MCV 92.4, MCH 31.3, MCHC 33.9, RDW Std Deviation 42.6, RDW Coeff of Gia 12.5, Plt Count 239, MPV 10.8, Immature Gran % (Auto) 0.400, Neut % (Auto) 65.3, Lymph % (Auto) 23.9, [place] % (Auto) 8.5, Eos % (Auto) 1.4, Baso % (Auto) 0.5, Absolute Neuts (auto) 7.8 H, Absolute Lymphs (auto) 2.86, Nucleated RBC % 0, Sodium 135 L, Potassium 4.0, Chloride 103, Carbon Dioxide 26.0, Anion Gap 6, BUN 15, Creatinine 1.36 H, Estim Creat Clear Calc 67.02, Est GFR (MDRD) Af Amer 66, Est GFR (MDRD) Non-Af 55 L, BUN/Creatinine Ratio 11.0, Glucose 325 H, Calcium 8.8, Magnesium 2.2, Total Bilirubin 0.70, AST 14 L, ALT 23, Alkaline Phosphatase 76, Troponin I High Sens 59, B-Natriuretic Peptide 618.1 H, Total Protein 7.4, Albumin 3.4, Globulin 4.0, Albumin/Globulin Ratio 0.8 L 06/05/24 12:20: Troponin I High Sens 58 06/05/24 16:59: POC Glucose 191 H 06/05/24 21:45: POC Glucose 230 H 06/06/24 06:27: WBC 8.1, RBC 4.26 L, Hgb 12.9 L, Hct 38.8 L, MCV 91.1, MCH 30.3, MCHC 33.2, RDW Std Deviation 40.8, RDW Coeff of Gia 12.5, Plt Count 176, MPV 10.2, Immature Gran % (Auto) 0.400, Neut % (Auto) 66.6, Lymph % (Auto) 21.9, [place] % (Auto) 8.8, Eos % (Auto) 1.9, Baso % (Auto) 0.4, Absolute Neuts (auto) 5.4, Absolute Lymphs (auto) 1.77, Nucleated RBC % 0, Sodium 138, Potassium 4.0, Chloride 110 H, Carbon Dioxide 23.0, Anion Gap 5, BUN 11, Creatinine 0.88, Estim Creat Clear Calc 104.61, Est GFR (MDRD) Af Amer 110, Est GFR (MDRD) Non-Af 91, BUN/Creatinine Ratio 12.5, Glucose 192 H, Calcium 8.3 L, Phosphorus 3.6, Magnesium 2.1 06/06/24 06:33: POC Glucose 189 H Radiography Diagnostic Testing: Radiology Impression Chest X-Ray 06/05/24 10:26 IMPRESSION: Minimal increased linear markings at the lung bases suggestive of atelectasis. Electronically Signed: Iván Andrew MD at 10:59 EDT , Echocardiogram 06/05/24 10:36 Interpretation Summary Normal LV size. The estimated ejection fraction is 55 %. Mild-Moderate (1-2+) eccentric mitral valve insufficiency. Ordering Physician: Mau Arreola Referring Physician: Abelardo Lynn Performed By: Susanna Harris RDCS Chest X-Ray 06/06/24 05:55 IMPRESSION: Pacemaker as described. No pneumothorax. Electronically Signed: Denisse Valdovinos MD at 4:55 EDT , Rhythm Strip Rhythm Strip: High-grade AV block Rate: 30 Physical Exam Narrative GENERAL: cooperative HEENT: Atraumatic; normocephalic EYES; Anicteric, Normal Conjunctiva NECK; supple, normal thyroid, RESPIRATORY: Diminished to auscultation CARDIOVASCULAR: Bradycardic GI: soft, normoactive bowel sounds, : No Renal angle tenderness; EXTREMITIES: No edema, no clubbing, MUSCULOSKELETAL: no muscle wasting NEURO: Awake; no lateralizing signs. SKIN: No Rash PSYCH; Flat affect Assessment & Plan Assessment/Plan (1) Bradycardia: (2) Third degree heart block: (3) Acute kidney injury: PLAN: Plan Patient is a 69-year-old gentleman presenting with progressive shortness of breath as well as lightheadedness found to be bradycardic EKG demonstrated third-degree heart block 1. Bradycardia secondary to third-degree heart block ? Patient has been admitted to a monitored bed placed on continuous telemetry monitoring consult was placed to cardiology plan is for patient to undergo pacemaker placement ? 06/06/2024atient underwent successful implantation of a dual chamber pacemaker by Dr. Dee on 06/06/2024 2. Acute kidney injury ? Patient's baseline creatinine 1.1 creatinine on admission was 1.26 started on IV hydration with subsequent monitoring of electrolytes 3. Mild hyponatremia ?Secondary to suspected hypovolemic hyponatremia patient is being resuscitated with IV fluid 4. Hyperglycemia ? Patient is not a known diabetic patient. Ordered hemoglobin A1c please on Accu-Cheks before meals and at bedtime with sliding scale coverage 5. Class I obesity with BMI of 34.3 ? Weight loss advised 6. DVT prophylaxis ? Low risk Time spent in the patient's overall evaluation,decision-making process, review of diagnostic data, adjustment of management, discussion with other providers, nursing nursing and ancillary staff involved in patient's care documentation, 40 Minutes Charges/Coding Visit Charges Inpatient E&M: 87881 Subs Hosp L2
[2024-06-06 08:10] VITALS: BP 125/72; PULSE 58; RESP 14; TEMP 36.6; O2SAT 93
--- NOTE | 2024-06-06 09:24 | PCM.PN.CARD ---
Subjective Subjective Patient resting comfortably in bed. Denies any syncope or near syncope telemetry shows AV sequential paced rhythm at 60 bpm and occasional atrial tracking with ventricular pacing noted as well. Patient denies any shortness of breath denies any PND orthopnea. Device rep is at the bedside doing the device interrogation. Chest x-ray showed no pneumothorax and appropriate lead placement by radiology report. Objective Data Vital Signs: Vital Signs Temp Pulse Resp BP Pulse Ox O2 Del Method 97.8 F 58 L 14 125/72 H 93 Room Air 06/06/24 08:10 06/06/24 08:10 06/06/24 08:10 06/06/24 08:10 06/06/24 08:10 06/06/24 08:10 Oxygen Delivery Method Room Air Weight: 265 lb 3.457 oz Body Mass Index (BMI) 34.9 Intake & Output: Intake and Output for Last 24 Hours 06/04/24 06/05/24 06/06/24 23:59 23:59 23:59 Intake Total 1440 / 1440 1300 / 1300 Output Total 1250 / 1250 1175 / 1175 Balance 190 / 190 125 / 125 Lab / Micro Data Attestation: I reviewed the patient's lab results. 06/06/24 06:27 06/06/24 06:27 Labs: Laboratory Results - last 24 hr 06/05/24 10:00: WBC 12.0 H, RBC 4.73, Hgb 14.8, Hct 43.7, MCV 92.4, MCH 31.3, MCHC 33.9, RDW Std Deviation 42.6, RDW Coeff of Gia 12.5, Plt Count 239, MPV 10.8, Immature Gran % (Auto) 0.400, Neut % (Auto) 65.3, Lymph % (Auto) 23.9, [place] % (Auto) 8.5, Eos % (Auto) 1.4, Baso % (Auto) 0.5, Absolute Neuts (auto) 7.8 H, Absolute Lymphs (auto) 2.86, Nucleated RBC % 0, Sodium 135 L, Potassium 4.0, Chloride 103, Carbon Dioxide 26.0, Anion Gap 6, BUN 15, Creatinine 1.36 H, Estim Creat Clear Calc 67.02, Est GFR (MDRD) Af Amer 66, Est GFR (MDRD) Non-Af 55 L, BUN/Creatinine Ratio 11.0, Glucose 325 H, Calcium 8.8, Magnesium 2.2, Total Bilirubin 0.70, AST 14 L, ALT 23, Alkaline Phosphatase 76, Troponin I High Sens 59, B-Natriuretic Peptide 618.1 H, Total Protein 7.4, Albumin 3.4, Globulin 4.0, Albumin/Globulin Ratio 0.8 L 06/05/24 12:20: Troponin I High Sens 58 06/05/24 16:59: POC Glucose 191 H 06/05/24 21:45: POC Glucose 230 H 06/06/24 06:27: WBC 8.1, RBC 4.26 L, Hgb 12.9 L, Hct 38.8 L, MCV 91.1, MCH 30.3, MCHC 33.2, RDW Std Deviation 40.8, RDW Coeff of Gia 12.5, Plt Count 176, MPV 10.2, Immature Gran % (Auto) 0.400, Neut % (Auto) 66.6, Lymph % (Auto) 21.9, [place] % (Auto) 8.8, Eos % (Auto) 1.9, Baso % (Auto) 0.4, Absolute Neuts (auto) 5.4, Absolute Lymphs (auto) 1.77, Nucleated RBC % 0, Sodium 138, Potassium 4.0, Chloride 110 H, Carbon Dioxide 23.0, Anion Gap 5, BUN 11, Creatinine 0.88, Estim Creat Clear Calc 104.61, Est GFR (MDRD) Af Amer 110, Est GFR (MDRD) Non-Af 91, BUN/Creatinine Ratio 12.5, Glucose 192 H, Calcium 8.3 L, Phosphorus 3.6, Magnesium 2.1 06/06/24 06:33: POC Glucose 189 H Rhythm Strip Rhythm Strip: AV Paced rhythm Rate: 60 Cardiology Labs/Tests 06/05/24 10:00: WBC 12.0 H, RBC 4.73, Hgb 14.8, Hct 43.7, MCV 92.4, MCH 31.3, MCHC 33.9, Plt Count 239, MPV 10.8, Immature Gran % (Auto) 0.400, Neut % (Auto) 65.3, Lymph % (Auto) 23.9, [place] % (Auto) 8.5, Eos % (Auto) 1.4, Baso % (Auto) 0.5, Absolute Neuts (auto) 7.8 H, Nucleated RBC % 0, Sodium 135 L, Potassium 4.0, Chloride 103, Carbon Dioxide 26.0, Anion Gap 6, BUN 15, Creatinine 1.36 H, Est GFR (MDRD) Af Amer 66, Est GFR (MDRD) Non-Af 55 L, BUN/Creatinine Ratio 11.0, Glucose 325 H, Calcium 8.8, Magnesium 2.2, Total Bilirubin 0.70, B-Natriuretic Peptide 618.1 H 06/06/24 06:27: WBC 8.1, RBC 4.26 L, Hgb 12.9 L, Hct 38.8 L, MCV 91.1, MCH 30.3, MCHC 33.2, Plt Count 176, MPV 10.2, Immature Gran % (Auto) 0.400, Neut % (Auto) 66.6, Lymph % (Auto) 21.9, [place] % (Auto) 8.8, Eos % (Auto) 1.9, Baso % (Auto) 0.4, Absolute Neuts (auto) 5.4, Nucleated RBC % 0, Sodium 138, Potassium 4.0, Chloride 110 H, Carbon Dioxide 23.0, Anion Gap 5, BUN 11, Creatinine 0.88, Est GFR (MDRD) Af Amer 110, Est GFR (MDRD) Non-Af 91, BUN/Creatinine Ratio 12.5, Glucose 192 H, Calcium 8.3 L, Phosphorus 3.6, Magnesium 2.1 Rhythm: EKG: ECHO: Stress Test: Cardiac Cath: PCI: CT Surgery: Holter monitor: EPS: PPM: CXR: Chest CT Scan: Radiography Diagnostic Testing: Radiology Impression Chest X-Ray 06/05/24 10:26 IMPRESSION: Minimal increased linear markings at the lung bases suggestive of atelectasis. Electronically Signed: Iván Andrew MD at 10:59 EDT , Echocardiogram 06/05/24 10:36 Interpretation Summary Normal LV size. The estimated ejection fraction is 55 %. Mild-Moderate (1-2+) eccentric mitral valve insufficiency. Ordering Physician: Mau Arroela Referring Physician: Abelardo Lynn Performed By: Susanna Harris RDCS Chest X-Ray 06/06/24 05:55 IMPRESSION: Pacemaker as described. No pneumothorax. Electronically Signed: Denisse Valdovinos MD at 4:55 EDT , Physical Exam Const alert and oriented x3 HEENT normocephalic Eyes EOMs intact bilaterally Neck no JVD Chest Chest: left pectoral incision Resp normal respiratory effort and clear to auscultation bilaterally Cardio regular rate, regular rhythm, S1 normal heart sound, S2 normal heart sound, no murmurs, no rub and no gallops GI soft to palpation Extremity no pedal edema Neuro Neuro Narrative: Alert and oriented x 3 Psych mental status grossly normal Assessment & Plan Assessment/Plan (1) High-grade atrioventricular block: PLAN: Patient status post permanent pacemaker implantation 06/05/[address] Dee. Telemetry shows AV sequentially paced rhythm at 60 bpm. Chest x-ray shows no pneumothorax and leads in appropriate position per radiology report. Device labor service representative is in the room currently interrogating the device. Provide device interrogation is appropriate the patient can be discharged to home. He will follow-up with the [facility] in 1 to week to 10 days with Cara Nunez RN. PLAN: Plan 1. Discharge to home provided device check checks out appropriate. Dr. Dee to be notified of outcome of the device check. 2. Will follow-up with the [facility] in 7 to 10 days. Cara Nunez RN will notify the patient of the appropriate follow-up next week. 3. Patient is to avoid lifting anything with his left arm until he is reevaluated in the [facility]. He should be able to return to gainful employment after his evaluation in the device clinic in 7 to 10 days. Charges/Coding Visit Charges Inpatient E&M: 13083 Subs Hosp L2
--- NOTE | 2024-06-06 10:00 | CASEMGMT ---
RN CM Face to Face with patient for initial transition planning/care coordination assessment. RN CM introduced self and role at [facility]. Patient lying in bed in no distress, alert and oriented. Pt sitting at bedside, pt agreeable to discussing DC plan with in present. Patient willing to participate in assessment and is able to answer all questions appropriately. Care providers, pharmacy, and demographics verified. PCP: Shane Specialists: Denies Preferred Pharmacy: [facility] Insurance: [facility] Prescription Benefit: Yes Living Will/HPOA: Yes, HCPOA LNOK: , Step-daughter Living Arrangements: Pt lives with in a house with 2 steps to enter. Pt states I with ADLs and IADLs. Transportation: Pt drives self, states able to drive him home upon DC. DME/HHC: Pt denies DME at home, denies Hx of SNF or HHC. Patient wishes to discharge home, denies need for home health at this time. Patient states he has no further needs or concerns at this time. CM to follow for discharge planning needs that may arise. Disposition Plan: Home, will follow plan of care. Marlin Hudson MBA, RN, CM
--- NOTE | 2024-06-06 10:15 | DCINST_ITS ---
Discharge Instructions Diet Discharge Diet: No restrictions (as you feel able. No excessive stretching. No lifting your arm over your head (keep elbow below shoulder level) until seen for your pacemaker check. Do not lift your elbow away from your side until you are seen for your first visit. Keep the arm sling on if it helps remind you not to lift your arm.) Activity Discharge Activity: May Not Drive May shower in (days): 2 Additional Activity Instructions:: May shower or bathe on [day 3]. Do not scrub the incision or soak in the tub. Just wash with soap and let the water run over the incision. Gently pat dry with towel. Medications: Take your pain medication as directed. Refer to your discharge instruction sheet for a list of medications you are to take. Dressing / Incision Call your doctor if your incision/area has: Continuous Slow Oozing, Sudden Increased Bleeding, Increased Pain/ Swelling, Increased Redness, Foul Smelling Discharge and Swelling at the incision site Call your doctor if you observe: Fever of 101 or Higher, Shortness of breath, Dizziness, Fainting spells, Swelling in the ankles, Chest pain, Prolonged hiccupping and Increased palpitations (irregular heartbeat) Suture Line Care: Avoid Pulling/Pushing and Avoid Pinching/Bending Cleanse incision/area with: Do not get Incision Wet and Keep Dressing Clean & Dry Additional Dressing/Incision Instructions:: When dressing is removed, wash and dry incision. Keep covered with a light bandage if it is rubbing against your clothing. Do not cover the incision with an airtight bandage. Change the bandage daily. Do not remove steri strips. The strips will fall off on their own. Follow Up Care Please Follow Up With: Jimenez Dee MD When: Pacer follow-up on June 13 at 10 AM with a heart group office. Test Results: Test results from this visit will be discussed in further detail at your follow- up appointment, if applicable. Discharge Plan Admission Admit Date/Time: 06/05/24 10:56 Attending Provider: Jordy Colbert Primary Care Provider: Abelardo Lynn Consulting Providers: Mau Arreola Discharge Orders/Prescriptions Prescriptions: No Action NK Referrals / Follow Up: Abelardo Lynn MD [Primary Care Provider] -
--- NOTE | 2024-06-06 10:50 | PCM.DC.SUM ---
Providers Date of Admission: 06/05/24 Date of Discharge: 06/06/24 Primary Care Physician: Dr. Abelardo Lynn MD Consultations 06/05/24 15:34 Consult: Cardiology Routine Consulting Provider: Mau Arreola Reason for Consult: Third-degree heart block EMERGENT Consult: Yes MD Notified: Yes Date Notified: 06/05/24 Time Notified: 11:08 Method of Notification: ED Physician Initiated Reason For Visit: THIRD DEGREE HEART BLOCK Diagnosis Discharge Diagnosis (1) Bradycardia: Status: Acute Code(s): R00.1 - Bradycardia, unspecified (2) Third degree heart block: Status: Acute Code(s): I44.2 - Atrioventricular block, complete (3) Acute kidney injury: Status: Acute Code(s): N17.9 - Acute kidney failure, unspecified Plan Patient is a 69-year-old gentleman presenting with progressive shortness of breath as well as lightheadedness found to be bradycardic EKG demonstrated third-degree heart block 1. Bradycardia secondary to third-degree heart block ? Patient has been admitted to a monitored bed placed on continuous telemetry monitoring consult was placed to cardiology plan is for patient to undergo pacemaker placement ? 06/06/2024atient underwent successful implantation of a dual chamber pacemaker by Dr. Dee on 06/06/2024 2. Acute kidney injury ? Patient's baseline creatinine 1.1 creatinine on admission was 1.26 started on IV hydration with subsequent monitoring of electrolytes 3. Mild hyponatremia ?Secondary to suspected hypovolemic hyponatremia patient is being resuscitated with IV fluid 4. Hyperglycemia ? Patient is not a known diabetic patient. Ordered hemoglobin A1c please on Accu-Cheks before meals and at bedtime with sliding scale coverage 5. Class I obesity with BMI of 34.3 ? Weight loss advised 6. DVT prophylaxis ? Low risk Time spent in the patient's overall evaluation,decision-making process, review of diagnostic data, adjustment of management, discussion with other providers, nursing nursing and ancillary staff involved in patient's care documentation, 40 Minutes Medications at Discharge Home Medications atorvastatin 40 mg tablet (Lipitor) 40 mg PO QHS #60 tabs 06/06/24 insulin glargine 100 unit/mL (3 mL) subcutaneous pen (Basaglar KwikPen U-100 Insulin) 10 unit (0.1 mL) subcut QPM #45 mL 06/06/24 metformin 1,000 mg tablet 1,000 mg PO BID #120 tabs 06/06/24 pen needle, diabetic 31 gauge x 32 #100 ea 06/06/24 Physical Exam Narrative GENERAL: cooperative HEENT: Atraumatic; normocephalic EYES; Anicteric, Normal Conjunctiva NECK; supple, normal thyroid, RESPIRATORY: Diminished to auscultation CARDIOVASCULAR: Bradycardic GI: soft, normoactive bowel sounds, : No Renal angle tenderness; EXTREMITIES: No edema, no clubbing, MUSCULOSKELETAL: no muscle wasting NEURO: Awake; no lateralizing signs. SKIN: No Rash PSYCH; Flat affect Weight / BMI Weight Weight: 120.3 kg Body Mass Index (BMI) 34.9 ABG / Lab / Microbiology Data 06/06/24 06:27 06/06/24 06:27 Laboratory: Laboratory Results - last 24 hr 06/05/24 12:20: Troponin I High Sens 58 06/05/24 16:59: POC Glucose 191 H 06/05/24 21:45: POC Glucose 230 H 06/06/24 06:27: WBC 8.1, RBC 4.26 L, Hgb 12.9 L, Hct 38.8 L, MCV 91.1, MCH 30.3, MCHC 33.2, RDW Std Deviation 40.8, RDW Coeff of Gia 12.5, Plt Count 176, MPV 10.2, Immature Gran % (Auto) 0.400, Neut % (Auto) 66.6, Lymph % (Auto) 21.9, Harmon % (Auto) 8.8, Eos % (Auto) 1.9, Baso % (Auto) 0.4, Absolute Neuts (auto) 5.4, Absolute Lymphs (auto) 1.77, Nucleated RBC % 0, Sodium 138, Potassium 4.0, Chloride 110 H, Carbon Dioxide 23.0, Anion Gap 5, BUN 11, Creatinine 0.88, Estim Creat Clear Calc 104.61, Est GFR (MDRD) Af Amer 110, Est GFR (MDRD) Non-Af 91, BUN/Creatinine Ratio 12.5, Glucose 192 H, Calcium 8.3 L, Phosphorus 3.6, Magnesium 2.1 06/06/24 06:33: POC Glucose 189 H Radiography Diagnostic Testing: Radiology Impression Chest X-Ray 06/05/24 10:26 IMPRESSION: Minimal increased linear markings at the lung bases suggestive of atelectasis. Electronically Signed: Iván Andrew MD at 10:59 EDT , Echocardiogram 06/05/24 10:36 Interpretation Summary Normal LV size. The estimated ejection fraction is 55 %. Mild-Moderate (1-2+) eccentric mitral valve insufficiency. Ordering Physician: Mau Arreola Referring Physician: Abelardo Lynn Performed By: Susanna Harris RDCS Chest X-Ray 06/06/24 05:55 IMPRESSION: Pacemaker as described. No pneumothorax. Electronically Signed: Denisse Valdovinos MD at 4:55 EDT , D/C Instructions Discharge Diet: 1800 Calorie Control Diet Discharge Activity: Return to Normal Activity May shower in (days): 2 Additional Activity Instructions: May shower or bathe on [day 3]. Do not scrub the incision or soak in the tub. Just wash with soap and let the water run over the incision. Gently pat dry with towel. Medications: Take your pain medication as directed. Refer to your discharge instruction sheet for a list of medications you are to take. Call your doctor if your incision/area has: Continuous Slow Oozing, Sudden Increased Bleeding, Increased Pain/ Swelling, Increased Redness, Foul Smelling Discharge and Swelling at the incision site Call your doctor if you observe: Fever of 101 or Higher, Shortness of breath, Dizziness, Fainting spells, Swelling in the ankles, Chest pain, Prolonged hiccupping and Increased palpitations (irregular heartbeat) Suture Line Care: Avoid Pulling/Pushing and Avoid Pinching/Bending Cleanse incision/area with: Do not get Incision Wet and Keep Dressing Clean & Dry Additional Dressing/Incision Instructions: When dressing is removed, wash and dry incision. Keep covered with a light bandage if it is rubbing against your clothing. Do not cover the incision with an airtight bandage. Change the bandage daily. Do not remove steri strips. The strips will fall off on their own. Please Follow Up With: Jimenez Dee MD When: Pacer follow-up on June 13 at 10 AM with a heart group office. Meaningful Use Info Meaningful Use Meaningful Use Diagnoses (Choose all that apply): None applicable Ischemic Stroke Statin Dosing Therapy Reference: STATIN DOSE THERAPY REFERENCE: * Patients > 75 years receive moderate or high dose statin therapy. * Patients 75 years or YOUNGER should receive HIGH intensity statin dose unless contraindicated. You will be required to document reason for non-treatment if statin daily dose does not meet guidelines. HIGH DOSE STATIN THERAPY DAILY Atorvastatin > than or = to 40 mg Rosuvastatin > than or = to 20 mg Amlodipine + Atorvastatin > than or = to 2.5/40 mg Ezetimibe + Simvastatin 10/80 mg Simvastatin 80mg Discharge Plan Admission Admit Date/Time: 06/05/24 10:56 Attending Provider: Jordy Colbert Primary Care Provider: Abelardo Lynn Consulting Providers: Mau Arreola Instructions Patient Instructions: Living with a Pacemaker, Pacemaker Implant Dc Discharge Orders/Prescriptions Prescriptions: New metformin 1,000 mg tablet 1,000 mg PO BID Qty: 120 0RF insulin glargine [Basaglar KwikPen U-100 Insulin] 100 unit/mL (3 mL) insulin pen 10 unit subcut QPM Qty: 45 0RF (DME) pen needle, diabetic 31 gauge x 5/32 needle See Rx Instructions .ROUTE .MEDSUPPLY Qty: 100 0RF Rx Instructions: As directed atorvastatin [Lipitor] 40 mg tablet 40 mg PO QHS Qty: 60 0RF Other Ambulatory Orders: Glucometer (Routine) Timeframe: 1 Day Location: Determined by Patient Ordered By: Dr. Jordy Colbert Referrals / Follow Up: Mau Arreola MD [Med Staff - Active Staff] - Within 2 Weeks Abelardo Lynn MD [Primary Care Provider] - Within 1 Week Disposition Disposition (needs filled in before D/C Order can be placed): Home, Self Care Charges/Coding Visit Charges Inpatient E&M: 04094 Disch Hosp >30min
[2024-06-06 11:26] LABS: Hemoglobin A1c 9.4 % (3.8-5.6)
[2024-06-06 12:14] LABS: Bedside Glucose 192 mg/dL (74-106)
--- NOTE | 2024-06-06 13:07 | CHAPLAIN ---
Type of Pastoral Visit _x__ Initial Visit ___ Follow-up Visit ___ On-call Visit ___ General Patient Visit ___ Spiritual Assessment ___ Family Conference ___ Bereavement ___ Rapid Response ___ Code Blue ___ Other (describe below) Pastoral Care Referral From _x__ Patient _x__ Family ___ Nurse ___ Physician ___ Independent Trader ___ Audit Specialist ___ Other (describe below) Sacrament/Intervention _x__ Active listening ___ Anointing ___ Quaker ___ Bereavement ___ Communion _x__ Giulia exploration ___ ___ Life review _x__ Prayer ___ Reconciliation ___ Sacrament of Sick _x__ Supportive presence ___ Wedding ___ Other (describe below) Pastoral Comments patient and spouse are in the room and both give details of the day yesterday and the quick response for medical intervention; spouse left the room and pt continued to talk about his experience and how this may change his perspective on life; pt is open and is processing his giulia, his understanding of life and purpose, and his personal life moving forward; pt has questions; pt welcomed prayer and the presence of roller for this reflection time
[2024-06-06 13:17] VITALS: BP 148/82; PULSE 75; RESP 15; TEMP 36.5; O2SAT 92
[2024-06-06 13:23] LABS: Cholesterol 160 mg/dL (200); High Density Lipoprotein 37 mg/dL; Triglycerides 144 mg/dL; Very Low Density Lipoprotein 29 mg/dL (5-40)
--- NOTE | 2024-06-06 13:23 | CASEMGMT ---
Pt discharge in, pt will need glucometer at DC. Pt DC on insulin, [facility] retail pharmacy called, co-pay is $83.28. Script for glucometer obtained and provided to pt. LUCAS GARCIA updated Pt regarding cost of insulin. Pt denies further needs or help at DC. Pt had no further questions or concerns.
--- NOTE | 2024-06-06 13:37 | PHA.DC.MC.R ---
Pharmacy [facility] Service has performed discharge medication reconciliation and counseling for this patient. 1. ATORVASTATIN 40MG PO QHS 2. INSULIN GLARGINE 10UNITS PM 3. METFORMIN 1000MG PO BID The patient's discharge medication list was reviewed for discrepancies and discrepancies were resolved. The patient was counseled on the following discharge medications and changes in medications for homegoing were reviewed. The Reason for Use, instructions for use, and potential side effects were reviewed for all new medications. The patient's questions regarding all of their medications were answered. The patient was able to verbally demonstrate an understanding of their discharge medications. Patient counseled to by rn pediatric icuNathan. Medications at Discharge Home Medications atorvastatin 40 mg tablet (Lipitor) 40 mg PO QHS #60 tabs 06/06/24 insulin glargine 100 unit/mL (3 mL) subcutaneous pen (Basaglar KwikPen U-100 Insulin) 10 unit (0.1 mL) subcut QPM #45 mL 06/06/24 metformin 1,000 mg tablet 1,000 mg PO BID #120 tabs 06/06/24 pen needle, diabetic 31 gauge x /32 #100 ea 06/06/24
== END 2024-06-06 16:14 | disposition home or self-care (01) | DRG 243 ==
LOC: ED 11:05 → PCU 11:16
PROVIDERS: Admitting Provider Internal Medicine; Emergency Provider Emergency Medicine; PCP Family Medicine; Visit Provider Internal Medicine
DX: I44.2 Atrioventricular block, complete (principal); N17.9 Acute kidney failure, unspecified; E87.1 Hypo-osmolality and hyponatremia; E66.9 Obesity, unspecified; R73.9 Hyperglycemia, unspecified; Z68.34 Body mass index [BMI] 34.0-34.9, adult; Z87.891 Personal history of nicotine dependence; Z95.0 Presence of cardiac pacemaker
CPT/HCPCS: 33208; 33210; 36415; 71045; 71047; 80048; 80053; 80061; 82962; 83036; 83735; 83880; 84100; 84484; 85025; 93005; 93306; 94668; 99152; 99153; 99252; 99285; J7030; J7040; J7050; A4216; C1894; G0463

== ENCOUNTER 2025-10-09 07:48 | Inpatient (IN) | payer MEDICARE, OTHER, SELFPAY ==
[2025-10-09] VITALS (16 sets, daily range): BP systolic 96–138; BP diastolic 63–86; PULSE 64–87; RESP 12–24; TEMP 36.5–37; O2SAT 93–100; BMI 29.4; BMI 29.0
--- NOTE | 2025-10-09 07:50 | CT_ITS ---
PROCEDURE: STROKE BRAIN/HEAD WITHOUT CONT 10/09/2025 REASON FOR EXAM: NEURO DEFICIT, ACUTE, STROKE SUSPECTED TECHNIQUE: Procedure Code: CTBR.ST Modality: CT Procedure: STROKE BRAIN/HEAD WITHOUT CONT Coronal and Sagittal reconstruction series were provided. One or more dose reduction techniques were used (e.g., Automated exposure control, adjustment of the mA and/or kV according to patient size, use of iterative reconstruction technique. RADIATION DOSE SUMMARY: CTDlvol: 47.06 mGy DLP: 872.68 mGycm COMPARISON: None FINDINGS: Brain: Within normal limits for age punctate calcifications seen in the basal ganglia bilaterally. This is a normal variant for the patient's age. CSF Spaces: Mild generalized cerebral atrophy Sinuses/Mastoids: Clear at visualized levels Bones: Unremarkable. CT/STROKE Brain/Head without Cont IMPRESSION: Mild cerebral atrophy. No acute abnormality is seen. Stroke Alert: The critical findings in the findings and impression above were relayed directl y by me by telephone to Bernardino Pizano on 10/09/2025 at 8:04 am with readback verification. Reading Location: [id number]
--- NOTE | 2025-10-09 07:53 | EKG12_ITS ---
Test Reason : STROKE ALERT Blood Pressure : */* mmHG Vent. Rate : 74 BPM Atrial Rate : 74 BPM P-R Int : 158 ms QRS Dur : 168 ms QT Int : 500 ms P-R-T Axes : 42 -70 97 degrees QTcB Int : 555 ms Atrial-sensed ventricular-paced rhythm with occasional Premature ventricular complexes Abnormal ECG Confirmed by Mau Arreola ([id number]), medical transcription editor YENIFER PALMER ([id number]) on 10/10/2025 10:32:00 AM Referred By: Confirmed By: Mau Arreola
--- NOTE | 2025-10-09 07:54 | EDS_ITS ---
HPI History of Present Illness Chief Complaint: Confusion Informant: patient Onset/Context/Timing Onset: Today Context: Sudden Onset Timing: Continuous Onset: This morning Associated Symptoms Associated Symptoms: Positive for Headache; Negative for Nausea, Vomiting or Chest Pain Narrative Narrative: Patient presents with difficulty breathing that began this morning. Patient states he went to bed last night and was fine. Patient states he got up this morning and was trying to read but could not make out the words. Patient denies any loss of vision. Patient states he can see the words but he cannot process what the words say or mean. Patient admits to a mild left-sided headache. Isaiah rader denies any paresthesias or weakness. Patient denies any chest pain or shortness of breath. Patient denies any nausea or vomiting. [facility] Medical History Type 2 diabetes mellitus Presence of cardiac pacemaker Trigeminal neuralgia of right side of face Home Medications Medication Instructions Recorded Last Taken Type atorvastatin 40 mg tablet (Lipitor) 40 mg PO QHS #60 t abs 06/06/24 Unknown Rx pen needle, diabetic 31 gauge x #100 ea 06/06/24 Unkno wn Rx " metformin 500 mg tablet,extended 500 mg PO BID 4 Unknown History release 24 hr insulin glargine 100 unit/mL (3 16 unit subcut QPM 10/23 Unknown History mL) subcutaneous pen (Lantus Solostar U-100 Insulin) Allergy/AdvReac Type Severity Reaction Status Date / Time No Known Allergies Allergy Verified 07/09/25 09:12 Family History Father Heart disease Surgical History History of hand surgery Social History Smoking Status: Former smoker alcohol intake: current substance use type: does not use caffeine: Yes ROS ROS ED Constitutional Constitutional ED: Denies chills or fever(s) Eyes Eyes: Denies blurry vision or change in vision ENT ENT ED: Denies rhinorrhea or sore throat Cardiovascular Cardiovascular: Denies chest pain or palpitations Respiratory/Chest Respiratory/Chest: Denies cough or dyspnea Gastrointestinal Gastrointestinal: Denies nausea or vomiting Genitourinary Genitourinary ED: Denies dysuria or hematuria Musculoskeletal Musculoskeletal: Denies back pain or neck pain Integumentary Denies abscess or rash Neurologic Neurologic: Reports headache(s); Denies weakness Allergic/Immunologic Allergic/Immunologic ED: Denies mouth swelling or urticaria EXAM Physical Exam Const Vital Signs: 10/09/25 07:50 Temperature 98.6 F Temperature Source Oral Pulse Rate 87 Respiratory Rate 16 Blood Pressure 128/86 H Blood Pressure Mean 100 Pulse Ox 100 Positive well nourished and well developed General Appearance ED: well developed and NAD HEENT Reports moist mucous membranes Neck supple and no JVD Resp normal respiratory effort and clear to auscultation bilaterally Cardio Rate: regular rate Rhythm: regular rhythm GI soft to palpation, non-tender and non-distended Neuro oriented x3, CN's II-XII intact bilaterally and no sensory deficits noted Briana Coma Scale: document GCS findings Spontaneous Obeys Commands Oriented 15 Sensorium / Orientation: alert Speech: speech normal Motor Exam: strength 5/5 throughout Psych mental status grossly normal MDM MDM MDM Narrative Medical decision making narrative: Stroke alert was called in triage. Stroke order set was used. Differential diagnose includes stroke, intracranial bleeding, cardiac dysrhythmia, cardiac ischemia, pneumonia, bronchitis, electrolyte abnormality, dehydration, and coagulopathy. CT scan of the brain will be obtained to assess for intracranial bleeding and stroke. CTA of the head and neck will be obtained to assess for vascular stenosis and large vessel occlusion. Chest x-ray will be obtained to assess for pneumonia or bronchitis. EKG will be obtained to assess for cardiac dysrhythmia and cardiac ischemia. CBC will be obtained to assess for leukocytosis and anemia. Basic metabolic profile will be obtained to assess for electrolyte abnormality and renal function. PT with INR and PTT will be obtained to assess for coagulopathy. High-sensitivity troponin will be obtained to assess for cardiac ischemia. 2-hour repeat high-sensitivity troponin will be obtained to assess for ongoing cardiac ischemia. Discharge Plan Triage Chief Complaint: Confusion ED Provider: Bernardino Pizano Dx/Rx/DC Orders Prescriptions: No Action metformin 500 mg tablet extended release 24 hr 500 mg PO BID insulin glargine [Lantus Solostar U-100 Insulin] 100 unit/mL (3 mL) insulin pen 16 unit subcut QPM (DME) pen needle, diabetic 31 gauge x 5/32" needle See Rx Instructions .ROUTE .MEDSUPPLY Qty: 100 0RF Rx Instructions: As directed atorvastatin [Lipitor] 40 mg tablet 40 mg PO QHS Qty: 60 0RF Primary Care Provider: Abelardo Lynn Referrals: Abelardo Lynn MD [Primary Care Provider, [facility]] Print Language: Portuguese NIHSS NIHSS 1a. Level of Consciousness: 0 - Alert; keenly responsive 1b. LOC Questions: 0 - Answers BOTH questions correctly 1c. LOC Commands: 0 - Performs BOTH tasks correctly 2. Best Gaze: 0 - Normal 3. Visual: 0 - No visual loss 4. Facial Palsy: 0 - Normal symmetrical movements 5a. Left Arm: 0 - No drift; arm holds 90 (or 45) degrees for full 10 seconds 5b. Right Arm: 0 - No drift; arm holds 90 (or 45) degrees for full 10 seconds 6a. Left Le - No drift; leg holds 30-degree position for full 5 seconds 6b. Right Le - No drift; leg holds 30-degree position for full 5 seconds 7. Limb Ataxia: 0 - Absent 8. Sensory: 0 - Normal; no sensory loss 9. Best Language: 1 - [id number] aphasia; 10. Dysarthria: 0 - Normal Total: 1 Stroke Questions Stroke Team Activated: Yes Reviewed Inclusion/Exclusion criteria: Yes
--- NOTE | 2025-10-09 07:54 | CT_ITS ---
PROCEDURE: STROKE CTA HEAD AND NECK W/CON 10/09/2025 REASON FOR EXAM: NEURO DEFICIT, ACUTE, STROKE SUSPECTED TECHNIQUE: Procedure Code: CTCTA.ST.HN Modality: CT Procedure: STROKE CTA HEAD AND NECK W/CON Multiplanar Sagittal and Coronal images were obtained. CONTRAST: 100 cc Isovue 370 One or more dose reduction techniques were used (e.g., Automated exposure control, adjustment of the mA and/or kV according to patient size, use of iterative reconstruction technique). RADIATION DOSE SUMMARY: DLP: 965 mGycm COMPARISON: None FINDINGS: Aortic Arch: Patent Brachiocephalic and Subclavians: Patent RIGHT Carotid: Right CCA: Patent Right ICA: Patent Maximum stenosis (NASCET): 0 % Right ECA: Patent LEFT Carotid: Left CCA: Patent Left ICA: Patent Maximum stenosis (NASCET): 0 % Left ECA: Patent Vertebrals: Patent RIGHT Vertebral: Patent LEFT Vertebral: Patent Anatomy: The ascending aorta is dilated to 4.1 cm in AP diameter. Aneurysm or avm: None Anterior cerebral arteries: Patent Middle cerebral arteries: Patent Basilar artery: Patent Posterior cerebral arteries: Patent Other major branches of the posterior circulation: Patent Major venous structures: Patent Other findings: Neck: There is pathologic adenopathy in the upper mediastinum with the largest node measuring 1.4 by 2.7 cm in the right paratracheal space, image 98/570. Lungs: Bones: Cardiac wires and a left-sided device are noted. CT/STROKE CTA Head AND Neck W/Con IMPRESSION: There is pathologic adenopathy in the upper mediastinum with the largest node m easuring 1.4 by 2.7 cm in the right paratracheal space, image 98/570. The ascending aorta is dilated to 4.1 cm in AP diameter. There is no significant stenosis or occlusion identified in the carotid system in the head or neck. Reading Location: [facility]
--- NOTE | 2025-10-09 07:54 | ED.VIS.STROK ---
HPI History of Present Illness Chief Complaint: Confusion Informant: patient Onset/Context/Timing Onset: Today Context: Sudden Onset Timing: Continuous Onset: This morning (last known well was 10:30 PM last night) Associated Symptoms Associated Symptoms: Positive for Headache; Negative for Nausea, Vomiting or Chest Pain Narrative Narrative: Patient presents with difficulty breathing that began this morning. Patient states he went to bed last night at 10:30 PM and was fine. Patient states he got up this morning and was trying to read but could not make out the words. Patient denies any loss of vision. Patient states he can see the words but he cannot process what the words say or mean. Patient admits to a mild left-sided headache. Patient denies any paresthesias or weakness. Patient denies any chest pain or shortness of breath. Patient denies any nausea or vomiting. [facility] Medical History Type 2 diabetes mellitus Presence of cardiac pacemaker Trigeminal neuralgia of right side of face Home Medications Medication Instructions Recorded Last Taken Type atorvastatin 40 mg tablet (Lipitor) 40 mg PO QHS #60 tabs 06/06/24 Unknown Rx pen needle, diabetic 31 gauge x #100 ea 06/06/24 Unknown Rx 5/32" metformin 500 mg tablet,extended 500 mg PO BID 07/24/24 Unknown History release 24 hr insulin glargine 100 unit/mL (3 16 unit subcut QPM 07/09/25 Unknown History mL) subcutaneous pen (Lantus Solostar U-100 Insulin) Allergy/AdvReac Type Severity Reaction Status Date / Time No Known Allergies Allergy Verified 10/09/25 08:08 Family History Father Heart disease Surgical History History of hand surgery Social History Smoking Status: Former smoker alcohol intake: current substance use type: does not use caffeine: Yes ROS ROS ED Constitutional Constitutional ED: Denies chills or fever(s) Eyes Eyes: Denies blurry vision or change in vision ENT ENT ED: Denies rhinorrhea or sore throat Cardiovascular Cardiovascular: Denies chest pain or palpitations Respiratory/Chest Respiratory/Chest: Denies cough or dyspnea Gastrointestinal Gastrointestinal: Denies nausea or vomiting Genitourinary Genitourinary ED: Denies dysuria or hematuria Musculoskeletal Musculoskeletal: Denies back pain or neck pain Integumentary Denies abscess or rash Neurologic Neurologic: Reports headache(s); Denies weakness Allergic/Immunologic Allergic/Immunologic ED: Denies mouth swelling or urticaria EXAM Physical Exam Const Vital Signs: 10/09/25 07:50 10/09/25 07:53 10/09/25 07:53 Temperature 98.6 F Temperature Source Oral Pulse Rate 87 87 Respiratory Rate 16 16 Blood Pressure 128/86 H 138/86 H Blood Pressure Mean 100 103 Pulse Ox 100 98 99 Oxygen Delivery Method Room Air 10/09/25 08:03 10/09/25 08:23 10/09/25 08:30 Temperature 98.6 F Temperature Source Oral Pulse Rate 87 79 75 Respiratory Rate 16 20 H 12 Blood Pressure 128/86 H 117/74 106/75 Blood Pressure Mean 100 88 85 Pulse Ox 99 98 100 Oxygen Delivery Method Room Air 10/09/25 09:00 10/09/25 09:30 10/09/25 09:53 Temperature 98 F Temperature Source Pulse Rate 71 75 75 Respiratory Rate 20 H 16 14 Blood Pressure 98/78 105/74 105/74 Blood Pressure Mean 84 84 84 Pulse Ox 98 97 99 Oxygen Delivery Method Room Air Room Air 10/09/25 10:00 Temperature Temperature Source Pulse Rate 67 Respiratory Rate 24 H Blood Pressure 104/67 Blood Pressure Mean 77 Pulse Ox 96 Oxygen Delivery Method Positive well nourished and well developed General Appearance ED: well developed and NAD HEENT Reports moist mucous membranes Neck supple and no JVD Resp normal respiratory effort and clear to auscultation bilaterally Cardio Rate: regular rate Rhythm: regular rhythm GI soft to palpation, non-tender and non-distended Neuro oriented x3, CN's II-XII intact bilaterally and no sensory deficits noted Briana Coma Scale: document GCS findings Spontaneous Obeys Commands Oriented 15 Sensorium / Orientation: alert Speech: speech normal Motor Exam: strength 5/5 throughout Psych mental status grossly normal MDM MDM MDM Narrative Medical decision making narrative: Stroke alert was called in triage. Stroke order set was used. Differential diagnose includes stroke, intracranial bleeding, cardiac dysrhythmia, cardiac ischemia, pneumonia, bronchitis, electrolyte abnormality, dehydration, and coagulopathy. CT scan of the brain will be obtained to assess for intracranial bleeding and stroke. CTA of the head and neck will be obtained to assess for vascular stenosis and large vessel occlusion. Chest x-ray will be obtained to assess for pneumonia or bronchitis. EKG will be obtained to assess for cardiac dysrhythmia and cardiac ischemia. CBC will be obtained to assess for leukocytosis and anemia. Basic metabolic profile will be obtained to assess for electrolyte abnormality and renal function. PT with INR and PTT will be obtained to assess for coagulopathy. High-sensitivity troponin will be obtained to assess for cardiac ischemia. 2-hour repeat high-sensitivity troponin will be obtained to assess for ongoing cardiac ischemia. Lab Data Attestation: I reviewed the patient's lab results. Lab results narrative: CBC was reviewed and was within normal limits. Basic metabolic profile was reviewed and was within normal limits. Initial high-sensitivity troponin was reviewed and was slightly elevated at 31. PT with INR and PTT were reviewed. Pro time was 15.1 and INR is 1.2. PTT was normal at 28.2. Labs: Laboratory Results - last 24 hr 10/09/25 08:15 WBC 8.2 RBC 4.22 L Hgb 13.4 Hct 40.5 MCV 96.0 H MCH 31.8 MCHC 33.1 RDW Std Deviation 43.8 RDW Coeff of Gia 12.5 Plt Count 185 MPV 10.2 Immature Gran % (Auto) 0.200 Neut % (Auto) 69.1 Lymph % (Auto) 18.8 L [place] % (Auto) 9.6 Eos % (Auto) 1.8 Baso % (Auto) 0.5 Absolute Neuts (auto) 5.7 Absolute Lymphs (auto) 1.55 Nucleated RBC % 0 PT 15.1 H INR 1.2 APTT 28.2 Sodium 137 Potassium 4.2 Chloride 102 Carbon Dioxide 25.0 Anion Gap 10 BUN 21 H Creatinine 0.94 Estim Creat Clear Calc 88.82 Est GFR (MDRD) Non-Af 86 BUN/Creatinine Ratio 22.2 H Glucose 135 H Calcium 9.3 Troponin T High Sens 31 H Radiography Chest X-Ray - ED: 1 View, Read by ED Physician, Read by Radiologist, No Acute Disease and Cardiomegaly Diagnostic Testing: Clinical Impression(s) from Imaging Studies Brain CT 10/09/25 07:50 IMPRESSION: Mild cerebral atrophy. No acute abnormality is seen. Stroke Alert: The critical findings in the findings and impression above were relayed directly by me by telephone to Bernardino Pizano on 10/09/2025 at 8:04 am with readback verification. Reading Location: [facility] Head/Neck CTA 10/09/25 07:54 IMPRESSION: There is pathologic adenopathy in the upper mediastinum with the largest node measuring 1.4 by 2.7 cm in the right paratracheal space, image 98/570. The ascending aorta is dilated to 4.1 cm in AP diameter. There is no significant stenosis or occlusion identified in the carotid system in the head or neck. Reading Location: [facility] Chest X-Ray 10/09/25 08:35 IMPRESSION: Mild cardiomegaly. Increased markings at the lung bases as compared to prior study worse at the right lung base suggestive of atelectasis and/or scarring. Reading Location: [facility] CT scan of the brain was obtained. There is no acute intracranial abnormality. There is mild atrophy noted. This was interpreted by the radiologist and was also independently reviewed by myself. CTA of the head and neck was obtained. There is pathologic adenopathy in the upper mediastinum. The ascending aorta is dilated to 4.1 cm. There is no significant stenosis or vascular occlusion noted. This was interpreted by the radiologist and was also independently reviewed by myself. EKG Initial EKG: Attestation: I personally reviewed and interpreted this EKG as follows: Interpretation: Paced (74) and LBBB Comments: EKG was obtained. On my independent interpretation, it shows a atrial sensed ventricular paced rhythm with a rate of 74. GA interval was normal at 158 ms. QRS interval was prolonged at 168 ms. QTc interval was slightly prolonged at 555 ms. There is left axis deviation at -70. There is a left bundle branch block pattern noted. Prior EKG tracings: available for review Prior: Unchanged (06/05/2024) Management Discussion w/another healthcare provider: Hospitalist, Control Supervisor and Radiologist Treatment and Re-Evaluation Narrative: Stroke alert was called. Patient was advised of his findings. Patient states he is starting to feel better and able to read a little bit better. Case was discussed with stroke neurologist. She recommended admission to the hospital for further stroke workup. Case was discussed with the hospitalist. He will admit the patient to his service. Patient and spouse understood and were agreeable with plan. All questions were answered. Discharge Plan Dx/Rx/DC Orders Clinical Impression: Receptive aphasia, Type 2 diabetes mellitus, Presence of cardiac pacemaker Disposition Disposition: [facility] NIHSS NIHSS 1a. Level of Consciousness: 0 - Alert; keenly responsive 1b. LOC Questions: 0 - Answers BOTH questions correctly 1c. LOC Commands: 0 - Performs BOTH tasks correctly 2. Best Gaze: 0 - Normal 3. Visual: 0 - No visual loss 4. Facial Palsy: 0 - Normal symmetrical movements 5a. Left Arm: 0 - No drift; arm holds 90 (or 45) degrees for full 10 seconds 5b. Right Arm: 0 - No drift; arm holds 90 (or 45) degrees for full 10 seconds 6a. Left Le - No drift; leg holds 30-degree position for full 5 seconds 6b. Right Le - No drift; leg holds 30-degree position for full 5 seconds 7. Limb Ataxia: 0 - Absent 8. Sensory: 0 - Normal; no sensory loss 9. Best Language: 1 - Mwlo-ja-epinxkkj aphasia; 10. Dysarthria: 0 - Normal Total: 1 Stroke Questions Stroke Team Activated: Yes Reviewed Inclusion/Exclusion criteria: Yes IV Thrombolytic Administered: No No contraindications from thrombolytic administration: No
[2025-10-09 08:26] LABS: Hematocrit 40.5 % (40-54); Hemoglobin 13.4 g/dL (13.0-16.5); Immature Granulocytes Count 0.020 X10^3/uL (0.0-0.0); Mean Corp Hgb Conc 33.1 g/dL (32-36); Mean Corpuscular Volume 96.0 fL (80-94); Mean Platelet Vol. 10.2 fl (6.2-12.0); NRBC Flagged by Analyzer 0 % (0-5); Platelet Count 185 K/mm3 (150-450); RBC Distribution Width CV 12.5 % (11.6-14.6); RBC Distribution Width SD 43.8 fl (35.1-43.9); Red Blood Count 4.22 M/mm3 (4.6-6.2); White Blood Count 8.2 K/mm3 (4.4-11.0)
[2025-10-09 08:34] LABS: Partial Thromboplast Time 28.2 Seconds (24.1-36.2); Prothrombin Time (Protime)PT. 15.1 SECONDS (11.7-14.9)
--- NOTE | 2025-10-09 08:35 | RAD_ITS ---
PROCEDURE: CHEST 1 VIEW 10/09/2025 REASON FOR EXAM: NEURO DEFICIT, ACUTE, STROKE SUSPECTED TECHNIQUE: Frontal view of the chest. COMPARISON: June 06, 2024. FINDINGS: Hardware: EKG electrodes are seen. A left-sided dual-chamber pacemaker is present. Heart: Mild cardiomegaly. Lungs: Increased markings at the lung bases worse at the right lung base. These have progressed as compared to prior study. This may represent either scarring and/or atelectasis. Bones: Degenerative changes are identified within the thoracic spine. RAD/Chest 1 View IMPRESSION: Mild cardiomegaly. Increased markings at the lung bases as compared to prior study worse at the ri ght lung base suggestive of atelectasis and/or scarring. Reading Location: [id number]
[2025-10-09 08:54] LABS: Anion Gap 10 (5-15); BUN 21 mg/dL (4-19); BUN/Creat Ratio 22.2 RATIO (10-20); Calcium,Total 9.3 mg/dL (7.6-11.0); Carbon Dioxide 25.0 mmol/L (21.0-32.0); Chloride 102 mmol/L (98-108); Estimated Creatinine Clearance 88.82 ml/min (50-250); Glucose 135 mg/dL (70-99); Potassium 4.2 mmol/L (3.3-5.1); Troponin T High Sensitivity 31 ng/L (<=22)
--- NOTE | 2025-10-09 10:29 | HP.PCM.HOS_ITS ---
HPI - General General Date of Admission: 10/09/25 Date of Service: 10/09/25 Chief Complaint: Reading difficulty HPI Narrative CALIN LIRA, is a 70 M was brought to ED for not able to read after he woke up. His went to bed normal at 10:30 PM and was fine. LKW 10:30 PM on 10/08/2025. When he woke up in the morning he was not able to read or words could not make any sense. As per the he has a speech, verbalization, diction and forming the words and sentences were normal though he was realing with more stress with some slurring. No other focal neurological symptoms including loss of vision, focal weakness, paresthesia or change in sensation, disequilibrium. His denies that he was confused but may be more stressed out. No acute change in health in the last 1 or 2 weeks: Denies URI symptoms or fever. Mild headache on right side but was not severe or intense and does not have a history of chronic headache syndrome. Stroke alert was called in ED triage. Patient further admitted after initial blood work and imaging. Not candidate for IV thrombolytics/tenecteplase as his symptoms of bleeding was improving in the ED and NIH stroke scale of 1. [facility] Medical History Type 2 diabetes mellitus Presence of cardiac pacemaker Trigeminal neuralgia of right side of face Home Medications Medication Instructions Recorded Last Taken Type atorvastatin 40 mg tablet (Lipitor) 40 mg PO QHS #60 t abs 06/06/24 10/08/25 Rx pen needle, diabetic 31 gauge x #100 ea 06/06/24 Unkno wn Rx " metformin 500 mg tablet,extended 500 mg PO BID 4 10/09/25 History release 24 hr insulin glargine 100 unit/mL (3 16 unit subcut QPM 10/2310/08/25 History mL) subcutaneous pen (Lantus Solostar U-100 Insulin) Allergy/AdvReac Type Severity Reaction Status Date / Time No Known Allergies Allergy Verified 10/09/25 08:08 Family History Father Heart disease Surgical History History of hand surgery Social History Smoking Status: Former smoker alcohol intake: current substance use type: does not use caffeine: Yes ROS ROS Narrative Constitutional: Denies acute onset of fatigue and weakness. No fever. HEENT: Reports systems reviewed and no addt'l complaints, except as documented Respiratory/Chest: No acute shortness of breath or respiratory distress or wheezing. CVS: No chest pain, pressure or tightness. Has pacemaker inserted in 2023. Gastrointestinal: Denies coffee ground emesis, hematemesis or vomiting. No abdominal pain Genitourinary: Denies burning urination or new urinary tract symptoms Musculoskeletal: Denies acute joint pain or limited range of motion. No acute injury Neurologic: Denies seizure-like symptoms. Rest as described in HPI skin: No ulcer. No rash Endocrinology: Reports systems reviewed and no addt'l complaints, except as documented Hematologic/Lymphatic: Reports systems reviewed and no addt'l complaints, except as documented Rest 14 ROS are negative except as mentioned in HPI Vital Signs Vital Signs Vital Signs: 10/09/25 07:50 10/09/25 07:53 10/09/25 07:53 Temperature 98.6 F Temperature Source Oral Pulse Rate 87 87 Respiratory Rate 16 16 Blood Pressure 128/86 H 138/86 H Blood Pressure Mean 100 103 Pulse Ox 100 98 99 Oxygen Delivery Method Room Air 10/09/25 08:03 10/09/25 08:23 10/09/25 08:30 Temperature 98.6 F Temperature Source Oral Pulse Rate 87 79 75 Respiratory Rate 16 20 H 12 Blood Pressure 128/86 H 117/74 106/75 Blood Pressure Mean 100 88 85 Pulse Ox 99 98 100 Oxygen Delivery Method Room Air 10/09/25 09:00 10/09/25 09:30 10/09/25 09:53 Temperature 98 F Temperature Source Pulse Rate 71 75 75 Respiratory Rate 20 H 16 14 Blood Pressure 98/78 105/74 105/74 Blood Pressure Mean 84 84 84 Pulse Ox 98 97 99 Oxygen Delivery Method Room Air Room Air 10/09/25 10:00 Temperature Temperature Source Pulse Rate 67 Respiratory Rate 24 H Blood Pressure 104/67 Blood Pressure Mean 77 Pulse Ox 96 Oxygen Delivery Method Weight Weight: 223 lb Body Mass Index (BMI) 29.4 Physical Exam Narrative General: Alert, Oriented x3, Cooperative. BMI 29.0 kg/m² HEENT: Atraumatic, PERRLA, EOMI, Normocephalic. Oral: No Gingival or Mucosal Lesions/ Ulcerations Neck: Supple, No JVD, Negative Carotid Bruits Chest wall/Lungs: Air entry diminished in bilateral lung bases. No crepitation/rhonchi Cardiovascular: Regular rate and rhythm, Normal S1,S2, No M/G/R Abdomen: Bowel Sounds Present, Soft, Non Tender, Non-Distended : No dysuria. No renal angle tenderness. No suprapubic tenderness. Extremities: No edema, Capillary Refill Less than 3 Seconds Skin: No rashes, No breakdown Musculoskeletal: No Tenderness to Palpation of Joints or Extremities. NIH stroke scale 0. Can read the writing and picture. Neurological: Cranial nerves II-XII grossly intact, DTR 2+/4. No acute focal neurological deficit. Psych/Mental Status: Normal Affect, Appropriate. Results Lab / Micro Data 10/09/25 08:15 10/09/25 08:15 Labs: Laboratory Results - last 24 hr 10/09/25 08:15: WBC 8.2, RBC 4.22 L, Hgb 13.4, Hct 40.5, MCV 96.0 H, MCH 31.8, MCHC 33.1, RDW Std Deviation 43.8, RDW Coeff of Gia 12.5, Plt Count 185, MPV 10.2, Immature Gran % (Auto) 0.200, Neut % (Auto) 69.1, Lymph % (Auto) 18.8 L, [place] % (Auto) 9.6, Eos % (Auto) 1.8, Baso % (Auto) 0.5, Absolute Neuts (auto) 5.7, Absolute Lymphs (auto) 1.55, Nucleated RBC % 0, PT 15.1 H, INR 1.2, APTT 28.2, Sodium 137, Potassium 4.2, Chloride 102, Carbon Dioxide 25.0, Anion Gap 10, BUN 21 H, Creatinine 0.94, Estim Creat Clear Calc 88.82, Est GFR (MDRD) Non- Af 86, BUN/Creatinine Ratio 22.2 H, Glucose 135 H, Calcium 9.3, Troponin T High Sens 31 H Imaging Radiology Impression Brain CT 10/09/25 07:50 IMPRESSION: Mild cerebral atrophy. No acute abnormality is seen. Stroke Alert: The critical findings in the findings and impression above were relayed directly by me by telephone to Bernardino Pizano on 10/09/2025 at 8:04 am with readback verification. Reading Location: [facility] Head/Neck CTA 10/09/25 07:54 IMPRESSION: There is pathologic adenopathy in the upper mediastinum with the largest node measuring 1.4 by 2.7 cm in the right paratracheal space, image 98/570. The ascending aorta is dilated to 4.1 cm in AP diameter. There is no significant stenosis or occlusion identified in the carotid system in the head or neck. Reading Location[facility] Chest X-Ray 10/09/25 08:35 IMPRESSION: Mild cardiomegaly. Increased markings at the lung bases as compared to prior study worse at the right lung base suggestive of atelectasis and/or scarring. Reading Location: [facility] Assessment & Plan Assessment/Plan (1) Receptive aphasia: PLAN: Plan This is a 70-year-old gentleman being admitted after he could not read in the morning. LKW 10:30 PM on 09/07/2025 1. Mild to moderate aphasia, resolved possible TIA: Patient is being admitted in PCU. CT brain and CT head and neck does not show any acute abnormality or LVO. Ascending aorta dilated 4.1 cm in AP diameter. Pathologic adenopathy in upper mediastinum largest node measuring 1.4 x 2.7 cm right paratracheal space. PT, OT, speech therapy/swallow evaluation and management, nursing NIH stroke scale, BP and glucose monitoring and control as per stroke protocol. TSH, A1c fasting lipid profile tomorrow AM. MRI brain and 2D echo with bubble contrast study ordered. Serial troponins 31, 3331 does not show significant delta change therefore ACS ruled out. Patient does not have chest pain 2. Trigeminal neuralgia: Patient had history of trigeminal neuralgia in the past. Currently no acute symptoms; in remission. 3. Abnormal finding in CTA neck: As mentioned above. Advised follow-up with PCP to have outpatient CT chest for adenopathy in the upper mediastinum. He also had ascending aorta mild dilatation/ectasia 4. DM type II: Patient on Lantus insulin at home regimen. Accu-Chek before meals and at bedtime with Humalog sliding scale coverage and hypoglycemia protocol. 5. DVT prophylaxis, high risk: Lovenox 40 mL subcu daily. Bilateral SCDs Living will/advanced directive/end of life care: Patient does have living will or advanced directive. After discussion of benefits/risks procedures involved with full code, DNR CC arrest and DNR CC, the patient opted for DNR CC arrest with no intubation. Initially had different opinion of full code and he said he does not have much medical comorbidity but patient adamant of DNR CC arrest with no intubation and does not want to be vegetable. The patient doesn't want artificial life support including intubation, tube feed, ventilator and/chest compression, central venous catheter, vasopressor and DC shock if needed Total time spent in [id number] encounter in discussion of advanced directive 17 minutes. Laboratory Results 10/09/25 08:15: WBC 8.2, RBC 4.22 L, Hgb 13.4, Hct 40.5, MCV 96.0 H, MCH 31.8, MCHC 33.1, RDW Std Deviation 43.8, RDW Coeff of Gai 12.5, Plt Count 185, MPV 10.2, Immature Gran % (Auto) 0.200, Neut % (Auto) 69.1, Lymph % (Auto) 18.8 L, [place] % (Auto) 9.6, Eos % (Auto) 1.8, Baso % (Auto) 0.5, Absolute Neuts (auto) 5.7, Absolute Lymphs (auto) 1.55, Nucleated RBC % 0, PT 15.1 H, INR 1.2, APTT 28.2, Sodium 137, Potassium 4.2, Chloride 102, Carbon Dioxide 25.0, Anion Gap 10, BUN 21 H, Creatinine 0.94, Estim Creat Clear Calc 88.82, Est GFR (MDRD) Non- Af 86, BUN/Creatinine Ratio 22.2 H, Glucose 135 H, Calcium 9.3, Troponin T High Sens 31 H 10/09/25 10:11: Troponin T Hi Sens 2 Hr 33 H 10/09/25 11:59: Troponin T Hi Sens 4Hr 31 H Clinical Impression(s) from Imaging Studies Brain CT 10/09/25 07:50 IMPRESSION: Mild cerebral atrophy. No acute abnormality is seen. Head/Neck CTA 10/09/25 07:54 IMPRESSION: There is pathologic adenopathy in the upper mediastinum with the largest node measuring 1.4 by 2.7 cm in the right paratracheal space, image 98/570. The ascending aorta is dilated to 4.1 cm in AP diameter. There is no significant stenosis or occlusion identified in the carotid system in the head or neck. Reading Location: [facility] Chest X-Ray 10/09/25 08:35 IMPRESSION: Mild cardiomegaly. Increased markings at the lung bases as compared to prior study worse at the right lung base suggestive of atelectasis and/or scarring. Charges/Coding Visit Charges Inpatient E&M: 43569 Init Hosp L3 Procedures Hospitalists Procedures: 47517 Advncd Care Plan 30 Min D/C Safety Score for UGIB Assessment [place] Bleeding Score (GBS): Stratifies upper GI bleeding patients who are "low-risk" and candidates for outpatient management. Sex: Male Hemoglobin, BUN, Recent Vital Signs: Hgb 13.4 g/dL (13.0-16.5) 10/09/25 08:15 BUN 21 mg/dL (4-19) H 10/09/25 08:15 Pulse Rate 67 Blood Pressure 104/67 Total Risk Score: 3 Score Interpretation: Score of 0: A GBS of 0 is a “Low Risk” GI bleed, and is highly sensitive (99.6% in a 2007 retrospective study) for predicting which patients did not require any “medical intervention”: blood transfusion, endoscopy, or surgery. This was confirmed in a 2009 [facility] study where patients with a score of 0 were actually discharged and had no GI bleeding mortality at 6 month followup Score above 0: A GBS greater than zero suggests a “High Risk” GI bleed that is likely to require “medical intervention”: transfusion, endoscopy, or surgery. A higher GBS also correlated with a higher likelihood of needing intervention Scores >/= 6 are associated with >50% risk of needing intervention D/C Safety Score for LGIB Assessment Assessment Tool: Readmission and adverse event risk in patients with acute lower GI bleeding. Age, in years: >/= 70 Sex: Male Hemoglobin and Recent Vital Signs: Hgb 13.4 g/dL (13.0-16.5) 10/09/25 08:15 Pulse Rate 67 10/09/25 10:00 Blood Pressure 104/67 10/09/25 10:00 Probability of safe discharge: 98% Total Risk Score: 3 Score Interpretation: Probability Percentage of safe discharge (absence of rebleeding, blood transfusion, therapeutic intervention, 28 day readmission, or ) Score of 8 or below: Consider discharge, with appropriate precautions. Score of 9 or above: Discharge NOT recommended. Consider admission with further workup and resuscitation as necessary.
[2025-10-09 10:46] LABS: Troponin T High Sens 2 HR 33 ng/L (<=22)
[2025-10-09 12:36] LABS: Troponin T High Sens 4 HR 31 ng/L (<=22)
--- NOTE | 2025-10-09 13:10 | ECHOCS_ITS ---
Reason For Study : TIA/CVA Procedure This was a 2D Doppler, Color Flow transthoracic echocardiogram. Contrast injection was performed. Exam performed portable in patient room. Left Ventricle Normal left ventricular thickness. Moderate to severely dilated LV cavity. Severe LV systolic dysfunction. Estimated LVEF 5%. Stage III diastolic dysfunction. Right Ventricle Normal RV size. Moderate global right ventricular systolic dysfunction. Atria The left atrium is severely enlarged. ICD or pacer leads identified within the right atrium. Bubble contrast study is negative for PFO/ASD. Mitral Valve Severe (4+) mitral valve insufficiency. Tricuspid Valve Mild (1+) tricuspid valve insufficiency. Right ventricular systolic pressure estimated to be 55 mmHg. Aortic Valve Mild-Moderate (1-2+) aortic valve insufficiency. Pulmonic Valve The pulmonic valve is not well visualized. Great Vessels Normal sized aortic root. Pericardium/Pleural No pericardial effusion. Medication Performed a rapid injection of agitated mix of 9 cc saline and 1cc air to assess for atrial septal defect. Diluted definity 1ml given slow IV push to enhance endocardial definition. MMode/2D Measurements & Calculations LVIDd: 6.4 cm IVSd: 1.1 cm Ao root diam: 3.7 cm LVIDs: 6.0 cm LVPWd: 1.0 cm RVDd: 4.8 cm FS: 6.7 % LAV(MOD-bp): 88.7 ml LVAd ap4: 48.5 cm2 SV(MOD-sp4): 26.6 ml LAV(MOD-bp) Indexed: 40.4 ml/m2 LVLd ap4: 9.3 cm SI(MOD-sp4): 12.1 ml/m2 LAV(MOD-sp2): 95.4 ml EDV(MOD-sp4): 207.7 ml LAV(MOD-sp4): 74.1 ml EDV(sp4-el): 213.6 ml LVAs ap4: 45.7 cm2 LVLs ap4: 9.3 cm ESV(MOD-sp4): 181.2 ml ESV(sp4-el): 189.9 ml EF(MOD-sp4): 12.8 % EF(sp4-el): 11.1 % SV(sp4-el): 23.7 ml LA A4 area: 25.9 cm2 LA dimension(2D): 5.8 cm RA A4 area: 19.0 cm2 TAPSE: 1.4 cm Time Measurements MV dec time: 0.14 sec Doppler Measurements & Calculations MV E max renard: 89.2 cm/sec Lat Peak E' Renard: 4.9 cm/sec Med Peak E' Renard: 3.5 cm/sec MV A max renard: 45.4 cm/sec E/E' lat: 18.0 E/E' med: 25.4 MV E/A: 2.0 MV V2 max: 108.8 cm/sec MV dec slope: 633.3 cm/sec2 Ao V2 max: 117.8 cm/sec MV max P.7 mmHg Ao max P.5 mmHg MV V2 mean: 65.1 cm/sec Ao V2 mean: 91.2 cm/sec MV mean P.9 mmHg Ao mean P.5 mmHg MV V2 VTI: 27.1 cm Ao V2 VTI: 21.9 cm AI max renard: 319.5 cm/sec LV V1 max: 82.4 cm/sec PA V2 max: 56.9 cm/sec AI max P.8 mmHg LV V1 max P.7 mmHg AI dec slope: 158.4 cm/sec2 AI P1/2t: 590.7 msec PI end-d renard: 178.0 cm/sec TR max renard: 318.8 cm/sec TR max P.6 mmHg ECHO/Echo Complete W/ Contrast Interpretation Summary Moderate to severely dilated LV cavity. Severe LV systolic dysfunction. Estimat ed LVEF 5%. Stage III diastolic dysfunction. Moderate global right ventricular systolic dysfunction. The left atrium is severely enlarged. Severe (4+) mitral valve insufficiency. Mild (1+) tricuspid valve insufficiency. Right ventricular systolic pressure estimated to be 55 mmHg. Mild-Moderate (1-2+) aortic valve insufficiency. Bubble contrast study is negative for PFO/ASD. Ordering Physician: Nael Quintero Referring Physician: Abelardo Lynn Performed By: Eugenia Coley RDCS, MALU
[2025-10-09] MEDS: 0.9% Normal Saline (1000mL) 1,000 ML 75 ML IV (14:11)
--- NOTE | 2025-10-09 14:28 | CASEMGMT ---
Care Management Face to Face with patient for initial transition planning/care coordination assessment in the ED. This blog writer introduced self and role at [facility]. Patient alert and oriented. Patient willing to participate in assessment and is able to answer all questions appropriately. Care providers, pharmacy, and demographics verified. Admitting Diagnosis: Receptive Aphasia Other diagnosis history: Type 2 diabetes, cardiac pacemaker PCP: Shane Specialists: [facility] Pharmacy: [facility] Insurance: Medicare Prescription Benefit: yes Living Will/HPOA: completed LNOK: Living Arrangements: patient lives with in a one story home, independent with ADLs and IADLs Transportation: patient drives DME: blood pressure cuff HHC: none SNF/Rehab: none Community Resources: none Behavioral Health History: none Patient goals: Patient wishes to discharge home, denies need for home health care at this time. Patient denies any further needs or concerns at this time. Disposition Plan: admission to acute; RN CM/SW to follow for discharge planning needs that may arise. Natalie Wheeler, COGNOS LEAD, REDUCTION PLANT SUPERVISOR
[2025-10-09] MEDS: Insulin Glargine-YFGN 100 UNIT/ML Pen 16 UNIT SC (21:01)
[2025-10-10] VITALS (14 sets, daily range): BP systolic 94–113; BP diastolic 60–78; PULSE 67–85; RESP 16–20; TEMP 36.4–36.8; O2SAT 93–97; BMI 29.0; BMI 28.9
--- NOTE | 2025-10-10 04:11 | NURSING ---
Pt has complaint of heartburn that has been persistant for 20 minutes at this time. This RN notified MD, supported pt with 2L NC to help decrease cardiac demand and ordered EKG.
--- NOTE | 2025-10-10 04:21 | EKG12_ITS ---
Test Reason : CP Blood Pressure : */* mmHG Vent. Rate : 73 BPM Atrial Rate : 73 BPM P-R Int : 162 ms QRS Dur : 212 ms QT Int : 514 ms P-R-T Axes : 48 -71 97 degrees QTcB Int : 566 ms Atrial-sensed ventricular-paced rhythm with occasional Premature ventricular complexes Abnormal ECG When compared with ECG of 09-Oct-2025 08:29, MANUAL COMPARISON REQUIRED DATA IS UNCONFIRMED Confirmed by Mau Arreola ([id number]), video editor YENIFER PALMER ([id number]) on 10/10/2025 8:36:06 AM Referred By: DR CHAPMAN Confirmed By: Mau Arreola
[2025-10-10 06:27] LABS: Cholesterol 105 mg/dL (<=200); Low Density Lipoprotein Calc. 42 mg/dL; Triglycerides 73 mg/dL; Very Low Density Lipoprotein 15 mg/dL (5-40); cholesterol:hdl ratio screen 2.20
--- NOTE | 2025-10-10 07:00 | MRI_ITS ---
PROCEDURE: MRI BRAIN W/WO CONTRAST 10/10/2025 REASON FOR EXAM: SUSPECTED STROKE TECHNIQUE: Procedure Code: MRIBRWW Modality: MR Procedure: BRAIN W/WO CONTRAST Multiplanar and multisequence images were obtained. CONTRAST: Clariscan VOLUME: 20 mL COMPARISON: CT head/angiography 10/09/2025. FINDINGS: Small areas of cortical-subcortical restricted diffusion in the posterior left temporo-occipital lobes compatible with acute infarcts. Additional punctate focus of probable acute infarct in the superior left cerebellar hemisphere. No significant mass-effect or midline shift. No evidence of acute intracranial hemorrhage/hemorrhagic conversion. Mild age-appropriate generalized brain parenchymal volume loss and chronic microangiopathic changes elsewhere in the supratentorial white matter. Major intracranial vascular flow voids appear grossly preserved. Postoperative changes of right lateral suboccipital craniotomy. Nonspecific small fluid collection at the craniotomy surgical bed. Grossly unremarkable orbits. Well-aerated paranasal sinuses and bilateral mastoid air cells. No intracranial mass lesion or pathologic enhancement. MRI/Brain W/WO Contrast IMPRESSION: Acute cortical-subcortical infarcts in the left posterior temporo-parietal lobe s. Additional punctate focus of acute infarct in the superior left cerebellar hemisphere. No mass-effect or hemorrhage. Reading Location: [id number]
--- NOTE | 2025-10-10 09:16 | PCM.CONS.C ---
Assessment & Plan Assessment/Plan (1) High-grade atrioventricular block: PLAN: Patient carries a history of diagnosis of complete AV block. He has a permanent pacemaker in place is current rate is 68 bpm and is atrially sensed and ventricularly paced. We will have the device interrogated this afternoon to determine if he is having any high rate responses such as atrial fibrillation that could explain some of his deterioration. 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 If he does have atrial fibrillation he would need to be on oral anticoagulation. (2) Type 2 diabetes mellitus: QUALIFIERS: Diabetes mellitus mcc insulin use: with manager intermediate use Diabetes mellitus complication status: without complication Qualified Code(s): E11.9 - Type 2 diabetes mellitus without complications; Z79.4 - senior living (current) use of insulin PLAN: Patient's hemoglobin A1c is 5.6 representing excellent control. Given his current LV function I would recommend we stop the metformin or decrease the metformin and add Jardiance 10 mg daily to his medical regiment. I will defer this decision to the primary service. (3) LV dysfunction: PLAN: Patient's EF was estimated 5% by echo I reviewed the echo myself visually it looks to me to be in the 10% range but it is severely globally dilated and depressed. I cannot come up with an etiology of this deterioration in his LV function. Clinically he does not appear to be impaired. He climbed a 20 foot ladder into a deer recruitment intern the last 48 hours. He also was riding his bicycle and has had no change in his exercise tolerance. He denies any PND orthopnea denies any lower extremity edema. The patient does report a cough and he does have some crackles in his lung bases. His chest x-ray did not show any signs of edema but his CT scan did show what were described as pathologic lymph nodes in his upper mediastinum. At this time given his blood pressure in the 100–110 systolic range we will try to gingerly start guideline directed medical therapy starting with low-dose lisinopril and then adding metoprolol. PLAN: Plan 1. Recommend further evaluation of the pathologic described lymph nodes in the mediastinum per the primary service. 2. Request primary service to determine dosing of metformin so that we can add Jardiance to his medical regimen. 3. Will start lisinopril 10 mg daily and add metoprolol this afternoon with hold parameters. 4. Will titrate guideline directed medical therapy and after 6 weeks we will reinvestigate with limited echocardiogram for LV recovery. 5. Will obtain pacemaker device check today to look for health trans as a marker for decompensation for heart failure. Will also check for atrial fibrillation. 6. If atrial fibrillation is documented on the device check would recommend oral anticoagulation therapy. 7. Will follow-up with you with further recommendations once some of this investigation and response to therapy is available. 8. Dr. Arthur will be assuming the inpatient service tomorrow. 9. I did discuss these plans with the patient's family he is not happy about having to stay in the hospital. HPI Consult Data Date of Consult: 10/10/25 HPI Narrative Reason for Consultation: New LV dysfunction on echo. HPI Narrative: CALIN LIRA, is a 70 M who presents presented with an inability to over read. This was on 10/09/2025. Workup is failed to show any significant carotid or interval cerebral vascular disease. CT of the brain did not show any definitive infarcts. MRI is planned for later today. An echocardiogram shows that his ejection fraction was measured at 5%. This is a drop from 55% in May 2024. The patient does have a history of conduction system disease with complete heart block resulting in acute renal failure that was treated back in May 2024 with DDD pacemaker implant. The last device check showed that his heart failure indices were normal on his device September 12, 2025. And he had less than 1% atrial high rates. The patient's chest x-ray on exam on admission was negative for edema. He does have a history of diabetes his hemoglobin A1c is 5.6. His lipids are at goal. The patient's troponins were . His GFR is 86. ECGs have shown AV paced rhythms. His telemetry has shown atrial sensed ventricular paced rhythms currently is at 68 bpm. The patient actually went deer hunting on Wednesday evening where he climbed a 20 foot ladder up to his deer stand he did get some shortness of breath but that is normal for him. He rode his electric bicycle out to his deer stand. He specifically denies any change in his exercise tolerance. He denies any PND orthopnea. The patient denies any recent viral infection although his family member did report that he has been having a cough. He denies that this is increased with recumbency but it does occur when he is sitting down and resting and does not occur when he is up moving around. He denies any fevers or chills and denies any lower extremity edema. [facility] Medical History Type 2 diabetes mellitus Presence of cardiac pacemaker Trigeminal neuralgia of right side of face Home Medications Medication Instructions Recorded Last Taken Type atorvastatin 40 mg tablet (Lipitor) 40 mg PO QHS #60 tabs 06/06/24 10/08/25 Rx pen needle, diabetic 31 gauge x #100 ea 06/06/24 Unknown Rx " metformin 500 mg tablet,extended 500 mg PO BID 07/24/24 10/09/25 History release 24 hr insulin glargine 100 unit/mL (3 16 unit subcut QPM 07/09/25 10/08/25 History mL) subcutaneous pen (Lantus Solostar U-100 Insulin) Allergy/AdvReac Type Severity Reaction Status Date / Time No Known Allergies Allergy Verified 10/09/25 08:08 Family History Father Heart disease Surgical History History of hand surgery Social History Smoking Status: Former smoker alcohol intake: current substance use type: does not use caffeine: Yes ROS Constitutional Constitutional: Reports as per HPI Eyes Eyes: Reports systems reviewed and no addt'l complaints, except as documented ENT HEENT: Reports systems reviewed and no addt'l complaints, except as documented Cardiovascular Cardiovascular: Reports as per HPI Respiratory/Chest Respiratory/Chest: Reports as per HPI Gastrointestinal Gastrointestinal: Reports systems reviewed and no addt'l complaints, except as documented Genitourinary Genitourinary: Reports as per HPI Musculoskeletal Musculoskeletal: Reports as per HPI Integumentary Integumentary: Reports systems reviewed and no addt'l complaints, except as documented Neurologic Neurologic: Reports as per HPI Psychiatric Psychiatric: Reports systems reviewed and no addt'l complaints, except as documented Endocrine Endocrinology: Reports as per HPI Hematologic/Lymphatic Hematologic/Lymphatic: Reports systems reviewed and no addt'l complaints, except as documented Allergic/Immunologic Allergic/Immunologic: Reports systems reviewed and no addt'l complaints, except as documented Physical Exam Const alert and oriented x3 HEENT normocephalic Eyes EOMs intact bilaterally Neck no JVD and no carotid bruits Chest inspection of chest normal Resp normal respiratory effort Auscultation: crackles bilateral base Cardio Rate: regular rate Rhythm: regular rhythm Heart Sounds: S1 normal and S2 normal; Negative for click, gallop or murmur GI soft to palpation Extremity no pedal edema Neuro Neuro Narrative: Alert and oriented x 3 Psych mental status grossly normal Charges/Coding Visit Charges Inpatient E&M: 24646 Init Hosp L3 Objective Data Vital Signs: Vital Signs Temp Pulse Resp BP Pulse Ox O2 Del Method 97.5 F L 75 18 113/73 94 Room Air 10/10/25 03:30 10/10/25 07:20 10/10/25 07:20 10/10/25 07:20 10/10/25 07:20 10/10/25 08:15 Oxygen Delivery Method Room Air Weight: 219 lb 2.232 oz Body Mass Index (BMI) 28.9 Intake & Output: Intake and Output for Last 24 Hours 10/08/25 10/09/25 10/10/25 23:59 23:59 23:59 Intake Total 480 / 480 1000 / 1000 Balance 480 / 480 1000 / 1000 Lab / Micro Data Attestation: I reviewed the patient's lab results. 10/09/25 08:15 10/09/25 08:15 Labs: Laboratory Results - last 24 hr 10/09/25 10:11: Troponin T Hi Sens 2 Hr 33 H 10/09/25 11:59: Troponin T Hi Sens 4Hr 31 H 10/09/25 13:19: POC Glucose 101 10/09/25 17:32: POC Glucose 128 H 10/09/25 21:00: POC Glucose 119 H 10/10/25 05:07: Hemoglobin A1c 5.6, Triglycerides 73, Cholesterol 105, LDL Cholesterol, Calc 42, VLDL Cholesterol 15, HDL Cholesterol 48, Cholesterol/HDL Ratio 2.20, TSH 3.550 Rhythm Strip Rhythm Strip: Atrial sensed ventricular paced rhythm Rate: 68 Cardiology Labs/Tests 10/10/25 05:07: Hemoglobin A1c 5.6, Triglycerides 73, Cholesterol 105, VLDL Cholesterol 15, HDL Cholesterol 48, Cholesterol/HDL Ratio 2.20 Rhythm: EKG: ECHO: Stress Test: Cardiac Cath: PCI: CT Surgery: Holter monitor: EPS: PPM: CXR: Chest CT Scan: Radiography Diagnostic Testing: Radiology Impression Echocardiogram 10/09/25 13:10 Interpretation Summary Moderate to severely dilated LV cavity. Severe LV systolic dysfunction. Estimated LVEF 5%. Stage III diastolic dysfunction. Moderate global right ventricular systolic dysfunction. The left atrium is severely enlarged. Severe (4+) mitral valve insufficiency. Mild (1+) tricuspid valve insufficiency. Right ventricular systolic pressure estimated to be 55 mmHg. Mild-Moderate (1-2+) aortic valve insufficiency. Bubble contrast study is negative for PFO/ASD. Ordering Physician: Nael Quintero Referring Physician: Abelardo Lynn Performed By: Eugenia Coley, FELICIANO, RVT A Risk Score for UA/STEMI Assesmment (YES = 1) Risk Stratification Applicable: No
--- NOTE | 2025-10-10 10:08 | CASEMGMT ---
Social Work Per physician pt negative for stroke, therefore PHQ9 not completed. DEWAYNE Meehan
--- NOTE | 2025-10-10 10:20 | CT_ITS ---
PROCEDURE: CHEST WITH CONTRAST 10/10/2025 REASON FOR EXAM: PATHOLGIC MEDIASTINAL ADENOPATHY ON CTA NECK TECHNIQUE: Procedure Code: CTCHW Modality: CT Procedure: CHEST WITH CONTRAST Coronal and Sagittal reconstruction series were provided. CONTRAST: Isovue 370 VOLUME: 100 mL One or more dose reduction techniques were used (e.g., Automated exposure control, adjustment of the mA and/or kV according to patient size, use of iterative reconstruction technique). RADIATION DOSE SUMMARY: CTDlvol: 18.5 mGy DLP: 608.56 mGycm COMPARISON: Prior chest radiograph dated October 09, 2000 25. FINDINGS: Hardware: EKG electrodes are seen. Lymph nodes: Mildly enlarged mediastinal lymph nodes. Enlargement of the right hilar lymph node. Heart and Vasculature: Dual-chamber pacemaker is seen. Borderline cardiomegaly. Mild coronary artery calcification. Lungs and Airways: Small bilateral pleural effusions right slightly greater than left with evidence of increased interstitial markings and subpleural cystic changes worse in the right lower lobe suggestive of chronic interstitial fibrosis. Upper Abdomen: Gallstones. Multiple calcified splenic granulomas. Bones: Degenerative changes of the thoracic spine. CT/Chest WITH Contrast IMPRESSION: Coronary artery calcification (CAC) is is present Mediastinal and right hilar lymphadenopathy. Bilateral pleural effusions right greater than left with evidence of chronic in terstitial fibrosis worse in the right lower lobe. Reading Location: [place] [id number]
[2025-10-10 10:27] LABS: Pro- Brain NATRIURETIC PEPTIDE 4295 pg/mL (<=900)
--- NOTE | 2025-10-10 10:37 | CASEMGMT ---
SNEED Met with patient to complete SNEED form. SNEED form and its content were verbally explained and patient's questions were answered to the best of my ability. Patient voiced understanding and signed SNEED form. Patient provided a copy of signed SNEED form and original placed in patient's chart. Patient had no further questions. Laurel Marsh, Discharge Planning Asst
[2025-10-10 11:57] LABS: Anion Gap 13 (5-15); BUN 15 mg/dL (4-19); BUN/Creat Ratio 17.7 RATIO (10-20); Calcium,Total 8.9 mg/dL (7.6-11.0); Carbon Dioxide 21.3 mmol/L (21.0-32.0); Chloride 105 mmol/L (98-108); Estimated Creatinine Clearance 96.31 ml/min (50-250); Glucose 103 mg/dL (70-99); Potassium 4.1 mmol/L (3.3-5.1)
--- NOTE | 2025-10-10 12:18 | PN.HOSP_ITS ---
Reason for Visit Chief Complaint: Reading difficulty Objective Data Objective Data Vital Signs: Vital Signs Temp Pulse Resp BP Pulse Ox O2 Del Method 98.2 F 77 18 106/77 96 Room Air 10/10/25 11:05 10/10/25 11:05 10/10/25 11:05 10/10/25 11:05 10/10/25 11:05 10/10/25 11:05 Oxygen Delivery Method Room Air Weight: 219 lb 2.232 oz Body Mass Index (BMI) 28.9 Intake & Output: Intake and Output for Last 24 Hours 10/08/25 10/09/25 10/10/25 23:59 23:59 23:59 Intake Total 480 / 480 1500 / 1500 Balance 480 / 480 1500 / 1500 Lab / Micro Data 10/09/25 08:15 10/10/25 05:07 Labs: Laboratory Results - last 24 hr 10/09/25 11:59: Troponin T Hi Sens 4Hr 31 H 10/09/25 13:19: POC Glucose 101 10/09/25 17:32: POC Glucose 128 H 10/09/25 21:00: POC Glucose 119 H 10/10/25 05:07: Sodium 140, Potassium 4.1, Chloride 105, Carbon Dioxide 21.3, Anion Gap 13, BUN 15, Creatinine 0.86, Estim Creat Clear Calc 96.31, Est GFR (MDRD) Non-Af 92, BUN/Creatinine Ratio 17.7, Glucose 103 H, Hemoglobin A1c 5.6, Calcium 8.9, NT pro BNP II 4295 H, Triglycerides 73, Cholesterol 105, LDL Cholesterol, Calc 42, VLDL Cholesterol 15, HDL Cholesterol 48, Cholesterol/HDL Ratio 2.20, TSH 3.550 10/10/25 11:25: POC Glucose 148 H Radiography Diagnostic Testing: Radiology Impression Echocardiogram 10/09/25 13:10 Interpretation Summary Moderate to severely dilated LV cavity. Severe LV systolic dysfunction. Estimated LVEF 5%. Stage III diastolic dysfunction. Moderate global right ventricular systolic dysfunction. The left atrium is severely enlarged. Severe (4+) mitral valve insufficiency. Mild (1+) tricuspid valve insufficiency. Right ventricular systolic pressure estimated to be 55 mmHg. Mild-Moderate (1-2+) aortic valve insufficiency. Bubble contrast study is negative for PFO/ASD. Ordering Physician: Nael Quintero Referring Physician: Abelardo Lynn Performed By: Eugenia Coley, RDCS, RVT Chest CT 10/10/25 10:20 IMPRESSION: Coronary artery calcification (CAC) is is present Mediastinal and right hilar lymphadenopathy. Bilateral pleural effusions right greater than left with evidence of chronic interstitial fibrosis worse in the right lower lobe. Reading Location: [place] [address] Rhythm Strip Rhythm Strip: Atrial sensed ventricular paced rhythm Rate: 68 Physical Exam Narrative Clinically no acute change. Patient did not have a recent or in last 6-month and a cardiac event but echo done for stroke protocol found EF 5% patient denies any acute chest pain or shortness of breath last 6 months. 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 BMI 29.0 kg/m² HEENT: Atraumatic, PERRLA, EOMI, Normocephalic. Oral: No Gingival or Mucosal Lesions/ Ulcerations Neck: Supple, No JVD, Negative Carotid Bruits Chest wall/Lungs: Air entry diminished in bilateral lung bases. No crepitation/rhonchi Cardiovascular: Regular rate and rhythm, Normal S1,S2, No M/G/R Abdomen: Bowel Sounds Present, Soft, Non Tender, Non-Distended : No dysuria. No renal angle tenderness. No suprapubic tenderness. Extremities: No edema, Capillary Refill Less than 3 Seconds Skin: No rashes, No breakdown Musculoskeletal: No Tenderness to Palpation of Joints or Extremities. NIH stroke scale 0. Can read the writing and picture. Neurological: Cranial nerves II-XII grossly intact, DTR 2+/4. No acute focal neurological deficit. Psych/Mental Status: Normal Affect, Appropriate. Assessment & Plan Assessment/Plan (1) Receptive aphasia: PLAN: Plan This is a 70-year-old gentleman being admitted after he could not read in the morning. LKW 10:30 PM on 09/07/2025 1. Mild to moderate aphasia, resolved possible TIA: Patient is being admitted in PCU. CT brain and CT head and neck does not show any acute abnormality or LVO. Ascending aorta dilated 4.1 cm in AP diameter. Pathologic adenopathy in upper mediastinum largest node measuring 1.4 x 2.7 cm right paratracheal space. PT, OT, speech therapy/swallow evaluation and management, nursing NIH stroke scale, BP and glucose monitoring and control as per stroke protocol. TSH, A1c fasting lipid profile tomorrow AM. MRI brain and 2D echo with bubble contrast study ordered. Serial troponins 31, 3331 does not show significant delta change therefore ACS ruled out. Patient does not have chest pain 10/10: Discussed with the equipment service technician and found that MRI will be done later today when specific person for pacemaker is available. A1c 5.6%. Twelve-lead EKG shows paced rhythm. Patient had some chest tightness last night and Maalox was ordered. Twelve-lead EKG was done which did not show acute changes but paced rhythm. 10/10: chronic combined HFrEF and HFpEF: Echo which was done as a stroke protocol found moderately to severely dilated LV cavity with severe LV systolic dysfunction EF 5%. Stage III diastolic dysfunction. Moderate global RV systolic dysfunction, 4+ MR 1+ TR RVSP 55 mmHg and 1-2+ AI. Bubble contrast study negative for PFO. Yesterday after the echo reporting I discussed with Dr. Armas and confirmed about the echo report. Meat Counter Worker Dr. Jasso is consulted. Previous echo in June 21 reported EF 55% with diastolic dysfunction. Patient denies any recent cardiac event including IA or myocarditis or pericarditis since then. Patient has good exercise capacity. Patient does not have features of acute heart failure including leg swelling shortness of breath pulmonary edema. Dr. ArreolaOrdered proBNP and found elevated at 4295. Lipid profile LDL 42, HDL 48 in normal limit. TSH normal. Serial troponins 31, 33 and 31 are flat intermittent therefore ACS ruled out. He ordered limited echo. Patient wanted to go home but advised to stay 2. Trigeminal neuralgia: Patient had history of trigeminal neuralgia in the past. Currently no acute symptoms; in remission. 3. Abnormal finding in CTA neck: As mentioned above. Advised follow-up with PCP to have outpatient CT chest for adenopathy in the upper mediastinum. He also had ascending aorta mild dilatation/ectasia 4. DM type II: Patient on Lantus insulin at home regimen. Accu-Chek before meals and at bedtime with Humalog sliding scale coverage and hypoglycemia protocol. 5. DVT prophylaxis, high risk: Lovenox 40 mL subcu daily. Bilateral SCDs Living will/advanced directive/end of life care: Patient does have living will or advanced directive. After discussion of benefits/risks procedures involved with full code, DNR CC arrest and DNR CC, the patient opted for DNR CC arrest with no intubation. Initially had different opinion of full code and he said he does not have much medical comorbidity but patient adamant of DNR CC arrest with no intubation and does not want to be vegetable. The patient doesn't want artificial life support including intubation, tube feed, ventilator and/chest compression, central venous catheter, vasopressor and DC shock if needed Total time spent in [id number] encounter in discussion of advanced directive 17 minutes. Laboratory Results 10/09/25 08:15: WBC 8.2, RBC 4.22 L, Hgb 13.4, Hct 40.5, MCV 96.0 H, MCH 31.8, MCHC 33.1, RDW Std Deviation 43.8, RDW Coeff of Gia 12.5, Plt Count 185, MPV 10.2, Immature Gran % (Auto) 0.200, Neut % (Auto) 69.1, Lymph % (Auto) 18.8 L, [place] % (Auto) 9.6, Eos % (Auto) 1.8, Baso % (Auto) 0.5, Absolute Neuts (auto) 5.7, Absolute Lymphs (auto) 1.55, Nucleated RBC % 0, PT 15.1 H, INR 1.2, APTT 28.2, Sodium 137, Potassium 4.2, Chloride 102, Carbon Dioxide 25.0, Anion Gap 10, BUN 21 H, Creatinine 0.94, Estim Creat Clear Calc 88.82, Est GFR (MDRD) Non- Af 86, BUN/Creatinine Ratio 22.2 H, Glucose 135 H, Calcium 9.3, Troponin T High Sens 31 H 10/09/25 10:11: Troponin T Hi Sens 2 Hr 33 H 10/09/25 11:59: Troponin T Hi Sens 4Hr 31 H Clinical Impression(s) from Imaging Studies Brain CT 10/09/25 07:50 IMPRESSION: Mild cerebral atrophy. No acute abnormality is seen. Stroke Alert: The critical findings in the findings and impression above were relayed directly by me by telephone to Bernardino Pizano on 10/09/2025 at 8:04 am with readback verification. Reading Location: [id number] Head/Neck CTA 10/09/25 07:54 IMPRESSION: There is pathologic adenopathy in the upper mediastinum with the largest node measuring 1.4 by 2.7 cm in the right paratracheal space, image 98/570. The ascending aorta is dilated to 4.1 cm in AP diameter. There is no significant stenosis or occlusion identified in the carotid system in the head or neck. Reading Location: [facility] Chest X-Ray 10/09/25 08:35 IMPRESSION: Mild cardiomegaly. Increased markings at the lung bases as compared to prior study worse at the right lung base suggestive of atelectasis and/or scarring. Reading Location: [id number] Echocardiogram 10/09/25 13:10 Interpretation Summary Moderate to severely dilated LV cavity. Severe LV systolic dysfunction. Estimated LVEF 5%. Stage III diastolic dysfunction. Moderate global right ventricular systolic dysfunction. The left atrium is severely enlarged. Severe (4+) mitral valve insufficiency. Mild (1+) tricuspid valve insufficiency. Right ventricular systolic pressure estimated to be 55 mmHg. Mild-Moderate (1-2+) aortic valve insufficiency. Bubble contrast study is negative for PFO/ASD. Ordering Physician: Nael Quintero Referring Physician: Abelardo Lynn Performed By: Eugenia Coley, FELICIANO, RVT Chest CT 10/10/25 10:20 IMPRESSION: Coronary artery calcification (CAC) is is present Mediastinal and right hilar lymphadenopathy. Bilateral pleural effusions right greater than left with evidence of chronic interstitial fibrosis worse in the right lower lobe. Reading Location: [id number] Charges/Coding Addendum Addendum: Total time of the visit including total time spent in counseling or coordination of care, (more than 50% of the total time, spent in obtaining medical information from nurses and other ancillary care providers ,explaining to the patient about labs, imaging, diagnosis and management of active complex medical conditions), discussion with supervisor backfilling for abnormal echo, clinical update given to patient and his review of labs and imaging is 40 minutes. Visit Charges Inpatient E&M: 12797 Subs Hosp L3 NIHSS NIHSS Nursing Documentation NIHSS Nursing Documentation: NIHSS: Ischemic Stroke/TIA Start: 10/09/25 11:32 Text: For PCU Patients: NIH and Neuro Check every 4 Status: Active hours, PRN and with change in RN caregiver. Freq: [id number] Protocol: Activity Type Activity Date Activity User E-sign Co-sign Detail Recorded Client Recorded Date Recorded By Document 10/10/25 11:05 pcu 10/10/25 11:09 10/10/25 11:05 NIH Stroke Scale [NIHSS] A score of 0 is "normal" or asymptomatic . Total possible score is 42. Inpatient: RN or Physician to activate a stroke alert for onset of new stroke symptoms or with NIHSS increase >/= 3 points. Following change in neurological status, NIHSS will be performed per physician order or more frequently PRN. -1a. Level of Consciousness 0 - Alert; keenly responsive -1b. LOC Questions 0 - Answers BOTH questions correctly -1c. LOC Commands 0 - Performs BOTH tasks correctly -2. Best Gaze 0 - Normal -3. Visual 0 - No visual loss -4. Facial Palsy 0 - Normal symmetrical movements -5a. Left Arm 0 - No drift; arm holds 90 ( or 45) degrees for full 10 seconds -5b. Right Arm 0 - No drift; arm holds 90 ( or 45) degrees for full 10 seconds -6a. Left Leg 0 - No drift; leg holds 30- degree position for full 5 seconds -6b. Right Leg 0 - No drift; leg holds 30- degree position for full 5 seconds -7. Limb Ataxia 0 - Absent -8. Sensory 0 - Normal; no sensory loss -9. Best Language 0 - No aphasia; normal -10. Dysarthria 0 - Normal -11. Extinction and Inattention 0 - No abnormality -Total 0 Query Text:A score of 0 is "normal" or asymptomatic. Total possible score is 42 . ED: Notify Physician for NIHSS increase by > / = 3 points. Inpatient: RN or Physician to activate a stroke alert for NIHSS increase of > / = 3 points. Coma Scale [Assess] -Eye Opening Spontaneous -Motor Obeys Commands -Verbal Oriented [Total] -Coma Scale Total 15
--- NOTE | 2025-10-10 12:56 | STROKE.CONS ---
Assessment and Plan: Stroke Assessment/Plan Transient difficulties with reading and speech may represent stroke/TIA though non-ischemic etiologies remain possible. His exam has since resolved with NIHSS 0. - Agree with ASA 81mg daily + high intensity statin - CTA without significant vascular lesions, MRI Brain pending - PPM interrogation planned for this afternoon HPI Consult Data Date of Consult: 10/10/25 HPI Narrative HPI Narrative: CALIN LIRA, is a 70 M who presents [ ] FOR[facility]LY [facility], [facility]–1983 Medical History Type 2 diabetes mellitus Presence of cardiac pacemaker Trigeminal neuralgia of right side of face Home Medications Medication Instructions Recorded Last Taken Type atorvastatin 40 mg tablet (Lipitor) 40 mg PO QHS #60 tabs 06/06/24 10/08/25 Rx pen needle, diabetic 31 gauge x #100 ea 06/06/24 Unknown Rx " metformin 500 mg tablet,extended 500 mg PO BID 07/24/24 10/09/25 History release 24 hr insulin glargine 100 unit/mL (3 16 unit subcut QPM 07/09/25 10/08/25 History mL) subcutaneous pen (Lantus Solostar U-100 Insulin) Allergy/AdvReac Type Severity Reaction Status Date / Time No Known Allergies Allergy Verified 10/09/25 08:08 Family History Father Heart disease Surgical History History of hand surgery Social History Smoking Status: Former smoker alcohol intake: current substance use type: does not use caffeine: Yes Vital Signs Vital Signs Vital Signs: 10/09/25 14:20 10/09/25 17:30 10/09/25 17:30 Temperature 97.8 F 98.3 F Temperature Source Oral Oral Pulse Rate 64 72 Respiratory Rate 18 16 Respiratory Effort Normal Non-Labored Respiratory Depth Normal Respiratory Pattern Normal Blood Pressure 97/77 96/73 Blood Pressure Mean 83 80 Blood Pressure Source Monitor Monitor Blood Pressure Position Semi-Fowlers Semi-Fowlers Blood Pressure Location Right Arm Right Arm Pulse Ox 93 94 Oxygen Delivery Method Room Air Room Air Room Air 10/09/25 18:04 10/09/25 19:00 10/09/25 19:32 Temperature 98.4 F Temperature Source Oral Pulse Rate 79 78 Respiratory Rate 16 Respiratory Effort Respiratory Depth Respiratory Pattern Blood Pressure 100/77 Blood Pressure Mean 84 Blood Pressure Source Monitor Blood Pressure Position Semi-Fowlers Blood Pressure Location Right Arm Pulse Ox 98 95 Oxygen Delivery Method Room Air Room Air 10/09/25 19:35 10/09/25 23:30 10/10/25 03:00 Temperature 97.7 F L Temperature Source Oral Pulse Rate 72 72 Respiratory Rate 16 Respiratory Effort Normal Non-Labored Respiratory Depth Normal Respiratory Pattern Normal Blood Pressure 100/63 Blood Pressure Mean 75 Blood Pressure Source Monitor Blood Pressure Position Semi-Fowlers Blood Pressure Location Right Arm Pulse Ox 94 Oxygen Delivery Method Room Air Room Air 10/10/25 03:28 10/10/25 03:30 10/10/25 07:20 Temperature 97.5 F L Temperature Source Oral Pulse Rate 67 75 Respiratory Rate 16 18 Respiratory Effort Respiratory Depth Respiratory Pattern Blood Pressure 101/73 113/73 Blood Pressure Mean 82 86 Blood Pressure Source Monitor Blood Pressure Position Semi-Fowlers Blood Pressure Location Right Arm Pulse Ox 97 94 Oxygen Delivery Method Room Air Room Air Room Air 10/10/25 08:15 10/10/25 08:20 10/10/25 11:05 Temperature 98.2 F Temperature Source Oral Pulse Rate 77 Respiratory Rate 18 Respiratory Effort Normal Non-Labored Normal Non-Labored Respiratory Depth Normal Normal Respiratory Pattern Normal Normal Blood Pressure 106/77 Blood Pressure Mean 86 Blood Pressure Source Blood Pressure Position Blood Pressure Location Pulse Ox 96 Oxygen Delivery Method Room Air Room Air Room Air 10/10/25 12:30 Temperature Temperature Source Pulse Rate 78 Respiratory Rate Respiratory Effort Respiratory Depth Respiratory Pattern Blood Pressure 99/74 Blood Pressure Mean 82 Blood Pressure Source Blood Pressure Position Blood Pressure Location Pulse Ox 95 Oxygen Delivery Method Room Air Weight Weight: 99.4 kg Body Mass Index (BMI) 28.9 EEG Results Procedure Details EEG Procedure Details: CALIN LIRA is a 70 year old M with a past medical history of , who presents for evaluation of Electroencephalogram on DATE at TIME Lab / Micro Data 10/09/25 08:15 10/10/25 05:07 Labs: Laboratory Results - last 24 hr 10/09/25 13:19: POC Glucose 101 10/09/25 17:32: POC Glucose 128 H 10/09/25 21:00: POC Glucose 119 H 10/10/25 05:07: Sodium 140, Potassium 4.1, Chloride 105, Carbon Dioxide 21.3, Anion Gap 13, BUN 15, Creatinine 0.86, Estim Creat Clear Calc 96.31, Est GFR (MDRD) Non-Af 92, BUN/Creatinine Ratio 17.7, Glucose 103 H, Hemoglobin A1c 5.6, Calcium 8.9, NT pro BNP II 4295 H, Triglycerides 73, Cholesterol 105, LDL Cholesterol, Calc 42, VLDL Cholesterol 15, HDL Cholesterol 48, Cholesterol/HDL Ratio 2.20, TSH 3.550 10/10/25 11:25: POC Glucose 148 H Rhythm Strip Rhythm Strip: Atrial sensed ventricular paced rhythm Rate: 68 Imaging Radiology Impression Echocardiogram 10/09/25 13:10 Interpretation Summary Moderate to severely dilated LV cavity. Severe LV systolic dysfunction. Estimated LVEF 5%. Stage III diastolic dysfunction. Moderate global right ventricular systolic dysfunction. The left atrium is severely enlarged. Severe (4+) mitral valve insufficiency. Mild (1+) tricuspid valve insufficiency. Right ventricular systolic pressure estimated to be 55 mmHg. Mild-Moderate (1-2+) aortic valve insufficiency. Bubble contrast study is negative for PFO/ASD. Ordering Physician: Nael Quintero Referring Physician: Abelardo Lynn Performed By: Eugenia Coley, FELICIANO, RVT Chest CT 10/10/25 10:20 IMPRESSION: Coronary artery calcification (CAC) is is present Mediastinal and right hilar lymphadenopathy. Bilateral pleural effusions right greater than left with evidence of chronic interstitial fibrosis worse in the right lower lobe. Reading Location: [place] [address] Active Medications Active Medications Active Medications: Current Medications Generic Name Dose Route Start Last Admin Trade Name Freq PRN Reason Stop Dose Admin Acetaminophen 650 mg 10/09/25 11:32 10/09/25 21:05 Acetaminophen 325 Mg Tablet PO 650 mg Q4H PRN PRN Administration Pain 1-10 Or Fever>99.6 Al Hydroxide/Mg Hydroxide 15 ml 10/10/25 04:09 Mag Hydrox/Al Hydrox/Simeth 30 Ml Udc PO Q4H PRN PRN DYSPEPSIA/INDIGESTION Aspirin 81 mg 10/10/25 08:00 10/10/25 08:05 Aspirin 81 Mg Tab.Chew PO 81 mg BREAKFAST MIRTA Administration Atorvastatin Calcium 80 mg 10/09/25 22:00 10/09/25 20:58 Atorvastatin Calcium 80 Mg Tablet PO 80 mg QHS MIRTA Administration Empagliflozin 10 mg 10/10/25 13:00 Empagliflozin 10 Mg Tablet PO DAILY [facility] Enoxaparin Sodium 40 mg 10/09/25 11:32 10/10/25 08:05 Enoxaparin 40 Mg/0.4 Ml Syringe SC 40 mg Q24 MIRTA Administration Famotidine 20 mg 10/09/25 22:00 10/10/25 08:05 Famotidine 20 Mg Tablet PO Not Given BID MIRTA Glucagon 1 mg 10/09/25 13:11 Glucagon 1 Mg/Ml Syringe IM X1 PRN Hypoglycemia Protocol Dextrose 250 mls @ 0 mls/hr 10/09/25 13:11 Dextrose 10%-Water IV .Q0M PRN HYPOGLYCEMIA Protocol As Directed Insulin Glargine 16 unit 10/09/25 21:00 10/09/25 21:01 Insulin Glargine-Yfgn 100 Unit/Ml Pen SC 16 unit QPM MIRTA Administration Lisinopril 5 mg 10/10/25 10:00 10/10/25 11:11 Lisinopril 5 Mg Tablet PO 5 mg DAILY IMRTA Administration Protocol Metoprolol Succinate 12.5 mg 10/10/25 12:00 Metoprolol(Xl)Succ 25 Mg Tablet PO DAILY [facility] Protocol Ondansetron HCl 4 mg 10/09/25 11:32 Ondansetron 4 Mg/2 Ml Vial IV Q6H PRN PRN NAUSEA/VOMITING Senna/Docusate Sodium 2 tablet 10/09/25 11:32 Senna/Docusate Sodium 1 Tablet PO BID PRN PRN Constipation Sodium Chloride 10 - 40 ml 10/09/25 12:53 0.9% Saline Lock 10 Ml Syringe IV UD PRN SALINE FLUSH NIHSS NIHSS Nursing Documentation NIHSS Nursing Documentation: NIHSS: Ischemic Stroke/TIA Start: 10/09/25 11:32 Text: For PCU Patients: NIH and Neuro Check every 4 Status: Active hours, PRN and with change in RN caregiver. Freq: [id number] Protocol: Activity Type Activity Date Activity User E-sign Co-sign Detail Recorded Client Recorded Date Recorded By Document 10/10/25 11:05 [facility] 10/10/25 11:09 10/10/25 11:05 NIH Stroke Scale [NIHSS] A score of 0 is "normal" or asymptomatic . Total possible score is 42. Inpatient: RN or Physician to activate a stroke alert for onset of new stroke symptoms or with NIHSS increase >/= 3 points. Following change in neurological status, NIHSS will be performed per physician order or more frequently PRN. -1a. Level of Consciousness 0 - Alert; keenly responsive -1b. LOC Questions 0 - Answers BOTH questions correctly -1c. LOC Commands 0 - Performs BOTH tasks correctly -2. Best Gaze 0 - Normal -3. Visual 0 - No visual loss -4. Facial Palsy 0 - Normal symmetrical movements -5a. Left Arm 0 - No drift; arm holds 90 ( or 45) degrees for full 10 seconds -5b. Right Arm 0 - No drift; arm holds 90 ( or 45) degrees for full 10 seconds -6a. Left Leg 0 - No drift; leg holds 30- degree position for full 5 seconds -6b. Right Leg 0 - No drift; leg holds 30- degree position for full 5 seconds -7. Limb Ataxia 0 - Absent -8. Sensory 0 - Normal; no sensory loss -9. Best Language 0 - No aphasia; normal -10. Dysarthria 0 - Normal -11. Extinction and Inattention 0 - No abnormality -Total 0 Query Text:A score of 0 is "normal" or asymptomatic. Total possible score is 42 . ED: Notify Physician for NIHSS increase by > / = 3 points. Inpatient: RN or Physician to activate a stroke alert for NIHSS increase of > / = 3 points. Coma Scale [Assess] -Eye Opening Spontaneous -Motor Obeys Commands -Verbal Oriented [Total] -Coma Scale Total 15
[2025-10-10] MEDS: Metoprolol(XL)Succ 25 MG Tablet 12.5 MG PO (14:12)
[2025-10-10] MEDS: 0.9% Saline Lock 10 ML Syringe IV (22:03)
[2025-10-11 02:49] VITALS: BMI 28.8
[2025-10-11 04:09] VITALS: BMI 28.8
[2025-10-11 04:15] VITALS: BP 97/66; PULSE 63; RESP 17; TEMP 36.2; O2SAT 95
[2025-10-11 09:23] VITALS: BP 101/74; PULSE 66; RESP 18; TEMP 36.4; O2SAT 96
[2025-10-11 09:27] VITALS: PULSE 66
[2025-10-11] MEDS: Metoprolol(XL)Succ 25 MG Tablet 12.5 MG PO (09:27)
--- NOTE | 2025-10-11 09:51 | ECHOLC_ITS ---
Reason For Study Reason For Study: CHF Procedure This was a 2D Doppler, Color Flow transthoracic echocardiogram. Contrast injection was performed. Exam performed portable in patient room. Medication Diluted definity 2.0ml given slow IV push to enhance endocardial definition. MMode/2D Measurements & Calculations LVIDd: 6.9 cm IVSd: 0.96 cm Ao root diam: 4.2 cm LVIDs: 6.4 cm LVPWd: 1.0 cm RVDd: 3.6 cm FS: 6.9 % LAV(MOD-bp): 126.8 ml LVAd ap4: 62.4 cm2 SV(MOD-sp4): 44.5 ml LAV(MOD-bp) Indexed: 56.8 ml/m2 LVLd ap4: 10.4 cm SI(MOD-sp4): 19.9 ml/m2 LAV(MOD-sp2): 132.9 ml EDV(MOD-sp4): 308.2 ml LAV(MOD-sp4): 119.5 ml EDV(sp4-el): 318.2 ml LVAs ap4: 57.3 cm2 LVLs ap4: 10.4 cm ESV(MOD-sp4): 263.7 ml ESV(sp4-el): 269.3 ml EF(MOD-sp4): 14.4 % EF(sp4-el): 15.4 % SV(sp4-el): 48.9 ml LA dimension(2D): 5.7 cm LA A4 area: 31.2 cm2 RA A4 area: 18.5 cm2 ECHO/Echo Limited w/Contrast Interpretation Summary Limited study performed to reassess LV function. LVEF is 10% with severe global hypokinesis. Ordering Physician: Mau Arreola Referring Physician: Abelardo Lynn Performed By: Vidhi Hughes, FELICIANO, RVT
[2025-10-11 10:24] VITALS: O2SAT 94; O2SAT 97
--- NOTE | 2025-10-11 11:38 | DCINST_ITS ---
Discharge Instructions DC O2, CPAP, BIPAP needs Home O2 Discharge instructions: No Dressing / Incision Discharge Activity: Return to Normal Activity Weight Bearing Status: Weight bearing as tolerated Dressing / Incision Call your doctor if you observe: Fever of 101 or Higher, Coldness, Increased Pain, Numbness or Tingling, Change in Color, Inability to urinate, Inability to have a bowel movement, Shortness of breath, Dizziness, Fainting spells, Swelling in the ankles, Chest pain, Prolonged hiccupping, Increased palpitations (irregular heartbeat) and Calf discomfort Follow Up Care When: IN 2 WEEKS Test Results: Test results from this visit will be discussed in further detail at your follow- up appointment, if applicable. Discharge Plan Admission Admit Date/Time: 10/10/25 11:56 Primary Reason for Your Visit: Receptive aphasia. Severe LV dysfunction Attending Provider: Nael Quintero Primary Care Provider: Abelardo Lynn Consulting Providers: Mau Arreola Instructions Additional Instructions / Restrictions: Outpatient speech therapy 3 times a week. Prescription signed. Discharge Orders/Prescriptions Prescriptions: New atorvastatin 80 mg Tablet 80 mg PO QHS 30 Days Qty: 30 2RF aspirin 81 mg Tablet,Chewable 81 mg PO BREAKFAST 30 Days Qty: 30 2RF Jardiance 10 mg Tablet 10 mg PO DAILY 30 Days Qty: 30 2RF lisinopril 5 mg Tablet 5 mg PO DAILY 30 Days Qty: 30 2RF Rx Instructions: Mild decrease lisinopril 2.5 mg daily if SBP is less than 100 mmHg consistently for 3 days metoprolol succinate 25 mg Tablet Extended Release 24 Hr 12.5 mg PO DAILY 30 Days Qty: 15 2RF Continued insulin glargine [Lantus Solostar U-100 Insulin] 100 unit/mL (3 mL) insulin pen 16 unit subcut QPM Discontinued metformin 500 mg tablet extended release 24 hr 500 mg PO BID (DME) pen needle, diabetic 31 gauge x 5/32" needle See Rx Instructions .ROUTE .MEDSUPPLY Qty: 100 0RF Rx Instructions: As directed atorvastatin [Lipitor] 40 mg tablet 40 mg PO QHS Qty: 60 0RF Referrals / Follow Up: Mau Arreola MD [Med Staff - Active Staff, Cardiology] - Within 2 Weeks Abelardo Powell MD [Non-Staff -Ordering Privileges, Neurology] - Within 1 Month Referral Note: For stroke Abelardo Lynn MD [Primary Care Provider, Family Practice] Disposition Disposition (needs filled in before D/C Order can be placed): Home, Self Care
[2025-10-11 13:06] VITALS: BMI 28.8
--- NOTE | 2025-10-11 14:09 | DS.PCM_ITS ---
Providers Date of Admission: 10/10/25 Date of Discharge: 10/11/25 Primary Care Physician: Dr. Abelardo Lynn MD Consultations 10/09/25 11:32 Consult: Tele-Neurology Routine Consulting Provider: [facility] Reason for Consult: Acute Ischemic Stroke/TIA EMERGENT Consult: No Notified: Yes Date Notified: 10/09/25 Time Notified: 10:20 Method of Notification: Answering Service Nursing Unit Staff Notify [facility] of Tele-Neurology Consult: Yes 10/10/25 08:34 Consult: Cardiology Routine Consulting Provider: Mau Arreola Reason for Consult: Recent decrease in EF 5%, HF EMERGENT Consult: No Notified: Yes Date Notified: 10/10/25 Time Notified: 08:34 Method of Notification: Text Reason For Visit: STROKE RULE OUT Diagnosis Discharge Diagnosis (1) Receptive aphasia: Status: Acute Code(s): R47.01 - Aphasia Plan This is a 70-year-old gentleman being admitted after he could not read in the morning. LKW 10:30 PM on 09/07/2025 1. 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 CT brain and CT head and neck does not show any acute abnormality or LVO. Ascending aorta dilated 4.1 cm in AP diameter. Pathologic adenopathy in upper mediastinum largest node measuring 1.4 x 2.7 cm right paratracheal space. PT, OT, speech therapy/swallow evaluation and management, nursing NIH stroke scale, BP and glucose monitoring and control as per stroke protocol. TSH, A1c fasting lipid profile tomorrow AM. MRI brain and 2D echo with bubble contrast study ordered. Serial troponins 31, 3331 does not show significant delta change therefore ACS ruled out. Patient does not have chest pain 10/10: Discussed with the neurodiagnostic technologist and found that MRI will be done later today when specific person for pacemaker is available. A1c 5.6%. Twelve-lead EKG shows paced rhythm. Patient had some chest tightness last night and Maalox was ordered. Twelve-lead EKG was done which did not show acute changes but paced rhythm. 10/11: MRI findings discussed with the patient and his . MRI brain reported as acute cortical-subcortical infarcts in the left posterior temporo-parietal lobes. Additional punctate focus of acute infarct in the superior left cerebellar hemisphere. No mass-effect or hemorrhage. Patient was evaluated by speech therapy and recommended outpatient speech therapy 3 times a week. Almost resolution of the receptive aphasia. Lipid profile within normal limit, LDL 42. TSH normal. A1c 5.6. 10/10: chronic combined HFrEF and HFpEF: Echo which was done as a stroke protocol found moderately to severely dilated LV cavity with severe LV systolic dysfunction EF 5%. Stage III diastolic dysfunction. Moderate global RV systolic dysfunction, 4+ MR 1+ TR RVSP 55 mmHg and 1-2+ AI. Bubble contrast study negative for PFO. Yesterday after the echo reporting I discussed with Dr. Armas and confirmed about the echo report. Certified Legal Secretary Specialist Dr. Jasso is consulted. Previous echo in June 21 reported EF 55% with diastolic dysfunction. Patient denies any recent cardiac event including [place] or myocarditis or pericarditis since then. Patient has good exercise capacity. Patient does not have features of acute heart failure including leg swelling shortness of breath pulmonary edema. Dr. ArreolaOrdered proBNP and found elevated at 4295. Lipid profile LDL 42, HDL 48 in normal limit. TSH normal. Serial troponins 31, 33 and 31 are flat intermittent therefore ACS ruled out. He ordered limited echo. Patient wanted to go home but advised to stay 10/11: Repeat limited echo shows EF 10% with severe global hypokinesis similar to the first one. Discussed with the raisin separator operator and information relayed to patient and his near the bedside. Dr. Arreola discussed with the advanced heart failure physician and [facility]. For now guideline directed optimization of heart failure medications including metoprolol succinate, lisinopril, Jardiance and statin. Patient on baby aspirin for stroke. 2. Trigeminal neuralgia: Patient had history of trigeminal neuralgia in the past. Currently no acute symptoms; in remission. 3. Abnormal finding in CTA neck: As mentioned above. Advised follow-up with PCP to have outpatient CT chest for adenopathy in the upper mediastinum. He also had ascending aorta mild dilatation/ectasia 4. DM type II: Patient on Lantus insulin at home regimen. Accu-Chek before meals and at bedtime with Humalog sliding scale coverage and hypoglycemia protocol. 5. DVT prophylaxis, high risk: Lovenox 40 mL subcu daily. Bilateral SCDs Living will/advanced directive/end of life care: Patient does have living will or advanced directive. After discussion of benefits/risks procedures involved with full code, DNR CC arrest and DNR CC, the patient opted for DNR CC arrest with no intubation. Initially had different opinion of full code and he said he does not have much medical comorbidity but patient adamant of DNR CC arrest with no intubation and does not want to be vegetable. The patient doesn't want artificial life support including intubation, tube feed, ventilator and/chest compression, central venous catheter, vasopressor and DC shock if needed Discharge medication reconciliation done. Discharge follow-up instructions completed. Discharge process discussed with the patient and all questions were answered to patient's satisfaction. Follow with PCP in 1 to 2 weeks Total time spent, exact 35 minutes on discharge meds reconciliation, examination, coordination of care with nurses and ancillary staff, review of imaging and blood test and discussion with the patient on follow-up instructions. Laboratory Results 10/09/25 08:15: WBC 8.2, RBC 4.22 L, Hgb 13.4, Hct 40.5, MCV 96.0 H, MCH 31.8, MCHC 33.1, RDW Std Deviation 43.8, RDW Coeff of Gia 12.5, Plt Count 185, MPV 10.2, Immature Gran % (Auto) 0.200, Neut % (Auto) 69.1, Lymph % (Auto) 18.8 L, Terry % (Auto) 9.6, Eos % (Auto) 1.8, Baso % (Auto) 0.5, Absolute Neuts (auto) 5.7, Absolute Lymphs (auto) 1.55, Nucleated RBC % 0, PT 15.1 H, INR 1.2, APTT 28.2, Sodium 137, Potassium 4.2, Chloride 102, Carbon Dioxide 25.0, Anion Gap 10, BUN 21 H, Creatinine 0.94, Estim Creat Clear Calc 88.82, Est GFR (MDRD) Non- Af 86, BUN/Creatinine Ratio 22.2 H, Glucose 135 H, Calcium 9.3, Troponin T High Sens 31 H 10/09/25 10:11: Troponin T Hi Sens 2 Hr 33 H 10/09/25 11:59: Troponin T Hi Sens 4Hr 31 H Clinical Impression(s) from Imaging Studies Brain CT 10/09/25 07:50 IMPRESSION: Mild cerebral atrophy. No acute abnormality is seen. Stroke Alert: The critical findings in the findings and impression above were relayed directly by me by telephone to Bernardino Pizano on 10/09/2025 at 8:04 am with readback verification. Reading Location: [facility] Head/Neck CTA 10/09/25 07:54 IMPRESSION: There is pathologic adenopathy in the upper mediastinum with the largest node measuring 1.4 by 2.7 cm in the right paratracheal space, image 98/570. The ascending aorta is dilated to 4.1 cm in AP diameter. There is no significant stenosis or occlusion identified in the carotid system in the head or neck. Reading Location: [facility] Chest X-Ray 10/09/25 08:35 IMPRESSION: Mild cardiomegaly. Increased markings at the lung bases as compared to prior study worse at the right lung base suggestive of atelectasis and/or scarring. Reading Location: [facility] Echocardiogram 10/09/25 13:10 Interpretation Summary Moderate to severely dilated LV cavity. Severe LV systolic dysfunction. Estimated LVEF 5%. Stage III diastolic dysfunction. Moderate global right ventricular systolic dysfunction. The left atrium is severely enlarged. Severe (4+) mitral valve insufficiency. Mild (1+) tricuspid valve insufficiency. Right ventricular systolic pressure estimated to be 55 mmHg. Mild-Moderate (1-2+) aortic valve insufficiency. Bubble contrast study is negative for PFO/ASD. Ordering Physician: Nael Quintero Referring Physician: Abelardo Lynn Performed By: Eugenia Coley, RDCS, RVT Chest CT 10/10/25 10:20 IMPRESSION: Coronary artery calcification (CAC) is is present Mediastinal and right hilar lymphadenopathy. Bilateral pleural effusions right greater than left with evidence of chronic interstitial fibrosis worse in the right lower lobe. [facility] Medications at Discharge Home Medications insulin glargine 100 unit/mL (3 mL) subcutaneous pen (Lantus Solostar U-100 Insulin) 16 unit subcut QPM diabetes 07/09/25 aspirin 81 mg chewable tablet 81 mg PO BREAKFAST 30 days #30 tabs 10/11/25 atorvastatin 80 mg tablet 80 mg PO QHS 30 days #30 tabs 10/11/25 empagliflozin 10 mg tablet (Jardiance) 10 mg PO DAILY 30 days #30 tabs 10/11/25 lisinopril 5 mg tablet 5 mg PO DAILY 30 days #30 tabs 10/11/25 metoprolol succinate 25 mg tablet,extended release 24 hr 12.5 mg (1/2 x 25 mg) PO DAILY 30 days #15 tabs 10/11/25 Hospital Course Summary of Care Provided Hospital Course: Laboratory Results 10/09/25 07:50: POC Glucose 138 H 10/10/25 16:53: POC Glucose 120 H 10/10/25 22:01: POC Glucose 91 10/11/25 06:11: POC Glucose 95 10/11/25 11:23: POC Glucose 161 H Physical Exam Narrative Clinically no acute change. No acute change or event last night. Patient wants to go home. Limited echo was done today. Result discussed in assessment plan Physical exam: General: Alert, Oriented x3, Cooperative. BMI 29.0 kg/m² HEENT: Atraumatic, PERRLA, EOMI, Normocephalic. Oral: No Gingival or Mucosal Lesions/ Ulcerations Neck: Supple, No JVD, Negative Carotid Bruits Chest wall/Lungs: Air entry diminished in bilateral lung bases. No crepitation/rhonchi Cardiovascular: Regular rate and rhythm, Normal S1,S2, No M/G/R Abdomen: Bowel Sounds Present, Soft, Non Tender, Non-Distended : No dysuria. No renal angle tenderness. No suprapubic tenderness. Extremities: No edema, Capillary Refill Less than 3 Seconds Skin: No rashes, No breakdown Musculoskeletal: No Tenderness to Palpation of Joints or Extremities. NIH stroke scale 0. Can read the writing and picture. Neurological: Cranial nerves II-XII grossly intact, DTR 2+/4. No acute focal neurological deficit. Psych/Mental Status: Normal Affect, Appropriate. Weight / BMI Weight Weight: 218 lb 4.122 oz Body Mass Index (BMI) 28.8 ABG / Lab / Microbiology Data 10/09/25 08:15 10/10/25 05:07 Laboratory: Laboratory Results - last 24 hr 10/09/25 07:50: POC Glucose 138 H 10/10/25 16:53: POC Glucose 120 H 10/10/25 22:01: POC Glucose 91 10/11/25 06:11: POC Glucose 95 10/11/25 11:23: POC Glucose 161 H Radiography Diagnostic Testing: Radiology Impression Brain MRI 10/10/25 07:00 IMPRESSION: Acute cortical-subcortical infarcts in the left posterior temporo-parietal lobes. Additional punctate focus of acute infarct in the superior left cerebellar hemisphere. No mass-effect or hemorrhage. Reading Location: [facility] Echocardiogram 10/11/25 09:51 Interpretation Summary Limited study performed to reassess LV function. LVEF is 10% with severe global hypokinesis. Ordering Physician: Mau Arreola Referring Physician: Abelardo Lynn Performed By: Vidhi Hughes, ROGERCS, RVT D/C Instructions Weight Bearing Status: Weight bearing as tolerated Call your doctor if you observe: Fever of 101 or Higher, Coldness, Increased Pain, Numbness or Tingling, Change in Color, Inability to urinate, Inability to have a bowel movement, Shortness of breath, Dizziness, Fainting spells, Swelling in the ankles, Chest pain, Prolonged hiccupping, Increased palpitations (irregular heartbeat) and Calf discomfort DC O2, CPAP, BIPAP Needs Home O2 Discharge instructions: No When: IN 2 WEEKS Meaningful Use Info Meaningful Use Meaningful Use Diagnoses (Choose all that apply): Ischemic CVA CVA Therapy Assessed for PT,OT and/or ST?: Yes Ischemic Stroke Antithrombotic order at d/c?: Yes Dx of Atrial fib/flutter?: No Anticoagulant at discharge?: Yes Statins at discharge?: Yes If patient is 75 or younger, pt will be discharged on HIGH intensity statin.: Y es Primary Dx Acute Ischemic CVA?: Yes IV thrombolytic ordered during stay?: No Reason IV thrombolytic not ordered: Procedure not Indicated and Treatment not Indicated Discharge Plan Admission Admit Date/Time: 10/10/25 11:56 Primary Reason for Your Visit: Receptive aphasia. Severe LV dysfunction Attending Provider: Nael Quintero Primary Care Provider: Abelardo Lynn Consulting Providers: Mau Arreola Instructions Additional Instructions / Restrictions: Outpatient speech therapy 3 times a week. Prescription signed. Discharge Orders/Prescriptions Prescriptions: New atorvastatin 80 mg Tablet 80 mg PO QHS 30 Days Qty: 30 2RF aspirin 81 mg Tablet,Chewable 81 mg PO BREAKFAST 30 Days Qty: 30 2RF Jardiance 10 mg Tablet 10 mg PO DAILY 30 Days Qty: 30 2RF lisinopril 5 mg Tablet 5 mg PO DAILY 30 Days Qty: 30 2RF Rx Instructions: Mild decrease lisinopril 2.5 mg daily if SBP is less than 100 mmHg consistently for 3 days metoprolol succinate 25 mg Tablet Extended Release 24 Hr 12.5 mg PO DAILY 30 Days Qty: 15 2RF Continued insulin glargine [Lantus Solostar U-100 Insulin] 100 unit/mL (3 mL) insulin pen 16 unit subcut QPM Discontinued metformin 500 mg tablet extended release 24 hr 500 mg PO BID (DME) pen needle, diabetic 31 gauge x 5/32" needle See Rx Instructions .ROUTE .MEDSUPPLY Qty: 100 0RF Rx Instructions: As directed atorvastatin [Lipitor] 40 mg tablet 40 mg PO QHS Qty: 60 0RF Referrals / Follow Up: Mau Arreola MD [Med Staff - Active Staff, Cardiology] - Within 2 Weeks Abelardo Powell MD [Non-Staff -Ordering Privileges, Neurology] - Within 1 Month Referral Note: For stroke Abelardo Lynn MD [Primary Care Provider, Family Practice] Disposition Disposition (needs filled in before D/C Order can be placed): Home, Self Care Charges/Coding Visit Charges Inpatient E&M: 97662 Disch Hosp >30min
[2025-10-11 15:23] VITALS: BP 94/63; PULSE 68; RESP 18; TEMP 36.7; O2SAT 96
--- NOTE | 2025-10-11 15:27 | CASEMGMT ---
Patient has order for discharge. Patient will need outpatient ST at discharge, script received. Patient is discharging on Jardiance. LUCAS GARCIA called pharmacy, copay is $388.06. LUCAS GARCIA updated hospitalist to cost. Per hospitalist, if patient cannot afford medication, patient not to fill prescription and to follow-up with senior sales operations analyst as an outpatient. LUCAS GARCIA in to updated patient regarding ST and Jardiance, at bedside. wishes to schedule outpatient ST at facility of choice. LUCAS GARCIA updated patient regarding cost of Jardiance. Patient states he cannot afford, LUCAS GARCIA updated regarding hospitalist suggestion to not fill and to follow-up with senior sales operations analyst as outpatient. Patient voiced understanding and had no further questions or concerns.
--- NOTE | 2025-10-11 16:03 | PHA.DC_ITS ---
Pharmacy [facility] has performed discharge medication counseling for this patient. The patient was counseled on the following discharge medications and changes in medications for homegoing review. - Aspirin 81 mg tablet, Atorvastatin 80 mg tablet, Jardiance 10 mg tablet, Lisinopril 5 mg tablet, Metoprolol succinate 25 mg tablet The Reason for Use, instructions for use, and potential side effects were reviewed for all new medications. The patient's questions regarding all of their medications were answered. The patient was able to verbally demonstrate an understanding of their discharge medications. Medications at Discharge Home Medications insulin glargine 100 unit/mL (3 mL) subcutaneous pen (Lantus Solostar U-100 Insulin) 16 unit subcut QPM diabetes 07/09/25 aspirin 81 mg chewable tablet 81 mg PO BREAKFAST 30 days #30 tabs 10/11/25 atorvastatin 80 mg tablet 80 mg PO QHS 30 days #30 tabs 10/11/25 empagliflozin 10 mg tablet (Jardiance) 10 mg PO DAILY 30 days #30 tabs 10/11/25 lisinopril 5 mg tablet 5 mg PO DAILY 30 days #30 tabs 10/11/25 metoprolol succinate 25 mg tablet,extended release 24 hr 12.5 mg (1/2 x 25 mg) PO DAILY 30 days #15 tabs 10/11/25
--- NOTE | 2025-10-11 16:48 | PCM.PN.CARD ---
Subjective Subjective Patient is resting comfortably in the bed. He has been up in the halls without any dyspnea on exertion. He does have this chronic cough that he has had for a month timeframe. He denies any lower extremity edema denies any lightheaded or dizzy spells. His blood pressures been in the 95–110 systolic range. He has been on low-dose LAZARA and beta-dimitri therapy. The Jardiance is going to cost him over $300 a month and he cannot financially afford that. According to pharmacy there is no other alternative that would be any cheaper for him with his given coverage. The patient is anxious to be discharged to home. Objective Data Vital Signs: Vital Signs Temp Pulse Resp BP Pulse Ox O2 Del Method 98.1 F 68 18 94/63 96 Room Air 10/11/25 15:23 10/11/25 15:23 10/11/25 15:23 10/11/25 15:23 10/11/25 15:23 10/11/25 15:23 Oxygen Delivery Method Room Air Weight: 218 lb 4.122 oz Body Mass Index (BMI) 28.8 Intake & Output: Intake and Output for Last 24 Hours 10/09/25 10/10/25 10/11/25 23:59 23:59 23:59 Intake Total 480 / 480 1500 / 1500 Balance 480 / 480 1500 / 1500 Lab / Micro Data Attestation: I reviewed the patient's lab results. 10/09/25 08:15 10/10/25 05:07 Labs: Laboratory Results - last 24 hr 10/10/25 16:53: POC Glucose 120 H 10/10/25 22:01: POC Glucose 91 10/11/25 06:11: POC Glucose 95 10/11/25 11:23: POC Glucose 161 H Rhythm Strip Rhythm Strip: Atrial sensed ventricular paced rhythm Rate: 68 Cardiology Labs/Tests Rhythm: EKG: ECHO: Stress Test: Cardiac Cath: PCI: CT Surgery: Holter monitor: EPS: PPM: CXR: Chest CT Scan: Radiography Diagnostic Testing: Radiology Impression Echocardiogram 10/11/25 09:51 Interpretation Summary Limited study performed to reassess LV function. LVEF is 10% with severe global hypokinesis. Ordering Physician: Mau Arreola Referring Physician: Abelardo Lynn Performed By: Vidhi Hughes RDCS, RVT Physical Exam Const alert and oriented x3 Eyes EOMs intact bilaterally Neck no JVD Chest inspection of chest normal Resp normal respiratory effort Cardio Rate: regular rate Rhythm: regular rhythm Extremity no pedal edema Psych mental status grossly normal Assessment & Plan Assessment/Plan (1) LV dysfunction: PLAN: Patient is newly diagnosed severe LV dysfunction EF in the 10% range. His blood pressure is on the low side which makes it difficult to titrate his medical regiment currently he is tolerating lisinopril 5 mg and needing metoprolol 12.5 mg succinate in the morning. Blood pressures running 90–110. The patient is not financially able to afford Jardiance. We will work through the office see if we can find alternative financial assistance. The plan is for the patient to be discharged to home today. He will follow-up in the [facility] in 7 to 10 days with the advanced practitioner in that time we will see if we can titrate medications based on his clinical presentation. Currently the patient is walking the halls with no dyspnea on exertion he has no lower extremity edema and denies any dizziness or lightheadedness. The patient does have a "chronic cough" that started about a month ago. 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 Currently he is atrially sensed and ventricular paced rhythm. He also has severe mitral regurgitation. The patient's LV function is dilated in a global fashion. There is an uncertain etiology of this LV dysfunction. The patient has been able to climb a 20 foot ladder into his deer stand without restrictions just 24 hours prior to admission. 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 His receptive aphasia is improving. At this point in time the plan is to try and titrate guideline directed medical therapy as aggressive as possible. We will then reevaluate him with a full echocardiogram to evaluate his LV function as well as mitral regurgitation. Pending the outcome of that evaluation after 6 to 12 weeks would consider [employer] D implant as the patient is almost totally paced and resynchronization therapy may be of some benefit. I also would consider referring him to advanced heart failure for further evaluation if these options do not gavin out. The patient is to follow-up in the office in 7 to 10 days. (2) Receptive aphasia: PLAN: The patient receptive aphasia is almost totally resolved he is being evaluated and treated by speech therapy which will be continued in the outpatient setting. Neurology had recommended continue aspirin and intensive statin therapy. (3) High-grade atrioventricular block: PLAN: Patient has high-grade AV block with a 30-40 bpm escape rhythm he has a permanent pacemaker implanted. This was interrogated during this visit and he had short runs of atrial tachycardia that did not appear to be flutter by evaluations that he grams. He does not have known atrial fibrillation. He is not orally anticoagulated at this time neurology had recommended aggressive statin therapy and aspirin. (4) Mitral regurgitation: QUALIFIERS: Cardiac valve disease etiology: nonrheumatic Qualified Code(s): I34.0 - Nonrheumatic mitral (valve) insufficiency PLAN: Patient's initial echocardiogram October 09, 2025 showed 4+ mitral regurgitation. This is in the presence of a 5-10% EF. The patient does not have any significant signs or symptoms of congestion other than this chronic cough. It is not worse in the recumbent position and does not increase with activity. PLAN: Plan 1. Recommend the patient continue metoprolol 12.5 mg every morning. Hold if systolic blood pressures less than 90. 2. Lisinopril 5 mg at suppertime hold if systolic less than 90. The patient is adept at taking his own blood pressure in his home environment. 3. Patient to weigh himself daily if up 3 pounds he is to call the office. Currently the patient is on no diuretic therapy. His renal function is normal. 4. Patient to be reevaluated in the office in 7 to 10 days at the [facility]. 5. When the patient seen in the office depending on his clinical status and his hemodynamics would consider adding spironolactone 12.5 mg daily to his medical regimen. 6. Once the patient is maximally titrated on guideline directed medical therapy would recommend repeat echocardiogram as a full echo to evaluate the mitral regurgitation as well as his LV function in 6-12 weeks. 7. Recommend the patient continue with his active lifestyle. He was instructed to call the office if he has dyspnea on exertion, any lower extremity edema, or 3 pound weight gain in 1 day. Charges/Coding Visit Charges Inpatient E&M: 90445 Subs Hosp L3
== END 2025-10-11 17:11 | disposition home or self-care (01) | DRG 65 ==
LOC: ED 10:32 → PCU 10:44
PROVIDERS: Internal Medicine Cardiovascular Disease; Admitting Provider Internal Medicine; Emergency Provider Emergency Medicine; PCP Family Medicine; Visit Provider Internal Medicine
DX: I63.9 Cerebral infarction, unspecified (principal); I50.42 Chronic combined systolic (congestive) and diastolic (congestive) heart failure; R47.01 Aphasia; Z66 Do not resuscitate; E11.9 Type 2 diabetes mellitus without complications; I34.0 Nonrheumatic mitral (valve) insufficiency; Z79.4 Long term (current) use of insulin; G50.0 Trigeminal neuralgia; I44.30 Unspecified atrioventricular block; Z87.891 Personal history of nicotine dependence; Z79.899 Other long term (current) drug therapy; Z79.84 Long term (current) use of oral hypoglycemic drugs; Z95.0 Presence of cardiac pacemaker; R29.700 NIHSS score 0; Z79.82 Long term (current) use of aspirin
CPT/HCPCS: 36415; 70450; 70496; 70498; 70553; 71045; 71260; 80048; 80061; 82962; 83036; 83880; 84443; 84484; 85025; 85610; 85730; 92507; 92523; 93005; 93306; 93308; 94668; 94762; 97802; 99285; A9575; Q9957; Q9967; A4216; C8924; C8929

== ENCOUNTER → 2025-10-15 | Outpatient (CLI) | payer MEDICARE, OTHER, SELFPAY ==
[2025-10-15 11:02] LABS: Hematocrit 42.4 % (40-54); Hemoglobin 14.0 g/dL (13.0-16.5); Immature Granulocytes Count 0.030 X10^3/uL (0.0-0.0); Mean Corp Hgb Conc 33.0 g/dL (32-36); Mean Corpuscular Volume 95.9 fL (80-94); Mean Platelet Vol. 10.4 fl (6.2-12.0); NRBC Flagged by Analyzer 0 % (0-5); Platelet Count 167 K/mm3 (150-450); RBC Distribution Width CV 12.5 % (11.6-14.6); RBC Distribution Width SD 44.1 fl (35.1-43.9); Red Blood Count 4.42 M/mm3 (4.6-6.2); White Blood Count 9.1 K/mm3 (4.4-11.0)
[2025-10-15 12:00] LABS: AST(SGOT) 100 U/L (<=37); Alanine Aminotransfer ALT/SGPT 121 U/L (<=46); Albumin, Serum 3.8 g/dL (3.4-4.8); Alkaline Phosphatase 84 U/L (40-129); Anion Gap 9 (5-15); BUN 15 mg/dL (4-19); BUN/Creat Ratio 16.4 RATIO (10-20); Calcium,Total 8.7 mg/dL (7.6-11.0); Carbon Dioxide 23.9 mmol/L (21.0-32.0); Chloride 103 mmol/L (98-108); Globulin 3.8 g/dL (2.2-4.2); Glucose 125 mg/dL (70-99); Potassium 4.8 mmol/L (3.3-5.1); Pro- Brain NATRIURETIC PEPTIDE 4465 pg/mL (<=900)
--- OUTSIDE RECORDS SUMMARY | 2025-10-15 12:24 | XMS RPT_ITS | CCD ---
Author Organization [facility] Care Team Providers Care Patient Sitter Name Role Phone Free, Text Entry Unavailable Unavailable Tucker Salmon Unavailable Unavailsriram RAYA, DR SARY Cohen Attending Unavailjamie RAYA, DR SARY Cohen Primary Care Unavailjamie RAYA, DR SARY Cohen Admitting Unavaila Sheba Ricketts MD Primary Care Provider Sheba Jimenez MD Primary Care Provider Sheba Jimenez MD Primary Care Provider Dr. Sheba Jimenez Primary Care Provider Dr. Sheba Jimenez Referring Provider Dr. Sheba Jimenez Other Provider Dr. Cher Armas Attending Provider Sheba Jimenez MD Primary Care Provider Royal RN, Abigail Unavailable Unavailable Royal RN, Abigail Unavailable Unavailable BARBARASHEBA Referring Unavailable BARBARA SHEBA Primary Care Unavailable BARBARA SHEBA Referring Unavailable BARBARA SHEBA Primary Care Unavailable BARBARA SHEBA Referring Unavailable BARBARA SHEBA Primary Care Unavailable BARBARA SHEBA Primary Care Unavailable BARBARASHEBA Referring Unavailable SHEBA JIMENEZ Primary Care Unavailable TEMSIC, ALEXIS K Referring Unavailable SHEBA JIMENEZ Primary Care Unavailable BARBARA SHEBA Referring Unavailable SHEBA JIMENEZ Primary Care Unavailable Dr. Sheba Jimenez MD Primary Care Provider Leila NUR, Dr. Gaona Attending Provider Dr. Sheba Jimenez MD Primary Care Provider Leila NUR, Dr. Gaona Attending Provider Dr. Sheba Jimenez MD Referring Provider Frances Nunez Attending Provider Unavailable Stephenie Mai Attending Provider Barbara NUR, Dr. Zhou Primary Care Physician Leila NUR, Dr. Gaona Attending Physician Stephenie Mai Attending Physician SHEBA JIMENEZ Attending Unavailab le BARBARA, SHEBA JAE Primary Care Unavailab le SHEBA JIMENEZ Attending Unavailab le BARBARA, SHEBA JAE Primary Care Unavailab le Jose Arthur Attending Unavailabl e Barbara, Sheba Primary Care Unavailable Barbara, Sheba Attending Unavailable Barbara, Sheba Primary Care Unavailable Leon, Nael Admitting Unavailable Mau Arreola Consulting Unavailable Barbara, Sheba Primary Care Unavailable Leon, Nael Attending Unavailable Barbara, Sheba Primary Care Unavailable Leila Jimenez Attending Unavailable Leila, Brusett Attending Unavailable Barbara, Sheba Primary Care Unavailable Leila, Brusett Attending Unavailable Barbara, Sheba Primary Care Unavailable Leila, Brusett Attending Unavailable Barbara, Sheba Primary Care Unavailable Leila, Brusett Attending Unavailable Barbara, Sheba Primary Care Unavailable Barbara, Sheba Referring Unavailable Barbara, Sheba Primary Care Unavailable Frances Nunez Attending Unavailable Cher Armas Attending Unavailable Barbara, Sheba Primary Care Unavailable Leon, Nael Admitting Unavailable Leon, Nael Attending Unavailable Richard Arrington Consulting Unavailable Barbara, Sheba Primary Care Unavailable Adeli, Amir Consulting Unavailable Hinduja, Angie Consulting Unavailable Miguel, Obdulia Consulting Unavailable Zha, Nevaeh Consulting Unavailable Conrado, Moreno Consulting Unavailable Jimena, Lore Consulting Unavailable Nilton Sam Consulting Unavailable Landon Amezcua Consulting Unavailable Sina Sylvester Consulting Unavailable Humaira Keating Consulting Unavailable Mariluz Ybarra Consulting Unavailable Abhijit Parker Consulting Unavailable Danielle Olson Consulting Unavailable Ridha, Mohamed Consulting Unavailable Zaghlouleh, Mhd Marcelo Consulting UnavailSloan Resendez Consulting Unavailable Grant, Rami Consulting Unavailable Papa, Shade Consulting Unavailable Dm, Nahomy Consulting Unavailable Hanmiguel, Yousef Consulting Unavailable Nael Quintero Consulting Unavailable Mau Arreola Attending Unavailable Mau Arreola Consulting Unavailable Richard Arrington Consulting Unavailable Jena, Rogers Consulting Unavailable Lisa, Angie Consulting Unavailable Obdulia Rivera Consulting Unavailable Michael, Nevaeh Consulting Unavailable Conrado, Moreno Consulting Unavailable Jimena, Lore Consulting Unavailable Bittar, Nilton Consulting Unavailable Landon Amezcua Consulting Unavailable Sina Sylvester Consulting Unavailable Zuri, Humaira Consulting Unavailable Mariluz Ybarra Consulting Unavailable Abhijit Parker Consulting Unavailable Danielle Olson Consulting Unavailable Ridha, Mohamed Consulting Unavailable Zaghlouleh, Mhd Marcelo Consulting UnavailSloan Resendez Consulting Unavailable Grant, Rami Consulting Unavailable Papa, Shade Consulting Unavailable Dm, Nahomy Consulting Unavailable Christophernamaxine, Yousef Consulting Unavailable Nael Quintero Consulting Unavailable Jimenez Dee Attending Unavailable Sheba Jimenez Primary Care Unavailable Sheba Jimenez Primary Care Unavailable Stephenie Brody NP Attending Unavailable Sheba Jimenez Referring Unavailable Jimenez Dee Attending Unavailable Sheba Jimenez Primary Care Unavailable Sheba Jimenez Referring Unavailable Jimenez Dee Attending Unavailable Sheba Jimenez Primary Care Unavailable Barbara NUR, Dr. Zhou Primary Care Physician Dr. hSeba Jimenez MD Referring Provider Dr. Jimenez Dee MD Attending Physician Ronn LOVE-CStephenie Attending Physician Dr. Bernardino Pizano DO Emergency Department Physi [facility] Leon NUR, Dr. Nayak Admitting Physician Dr. Nael Quintero MD Attending Physician Richard Arrington MD Nurse Practitioner Unavailable Jena NUR, Dr. Mccloud Nurse Practitioner Angie Gonzalez MD Nurse Practitioner Unavailab Dr. Obdulia Camacho DO Nurse Practitioner Michael NUR, Dr. Herring Nurse Practitioner Conrado NUR, Dr. Mayer Nurse Practitioner Jimena NUR, Dr. Torrez Nurse Practitioner Cecy NUR, Dr. Callaway Nurse Practitioner Seven NUR, Dr. Ambrocio Nurse Practitioner Higinio NUR, Dr. Andino Nurse Practitioner Zuri BROUSSARD, Dr. Gerarod Nurse Practitioner Amada NUR, Mariluz Nurse Practitioner [phone] Keith NUR, Dr. Lacey Nurse Practitioner Wesley NUR, Dr. Santos Nurse Practitioner David NUR, Dr. Darling Nurse Practitioner Etelvina NUR, Dr. William Robertson Nurse Practitioner Jae NUR, Dr. Lisa Nurse Practitioner Rudy NUR, Dr. Lao Nurse Practitioner Papa NUR, Dr. Laguerre Nurse Practitioner Dm NUR, Dr. Corea Nurse Practitioner Sarah Romo MD, [facility] Nurse Practitioner Sarah Arreola MD, Dr. León Nurse Practitioner Leon NUR, Dr. Nayak Nurse Practitioner [phone] Pawel NUR, Dr. Kwon Attending Physician [phone] Elba NUR, Dr. León Attending Physician Medications Current Medications Medication Drug Class(es) Dates Sig (Normalized) Sig (Original) atorvastatin 40 mg oral tablet (20 sources) HMG-CoA Reductase Inhibitor Start: 06-06-2024 End: 08-03-2025 take 1 tablet by mouth at bedtime Atorvastatin (Lipitor) 40 mg tablet Active 40 mg PO AT BEDTIME 60 0 June 05, 2024 11:00pm Complies with drug therapy 3 ml insulin glargine 100 unt/ml pen injector (20 sources) Insulin Analog Start: 07-09-2025 Insulin Glargine (Lantus Solostar U-100 Insulin) 100 unit/mL (3 mL) insulin pen Active 16 U SC EVERY EVENING July 08, 2025 11:00pm Complies with drug therapy Start: 08-07-2024 End: 08-07-2025 LANTUS SOLOSTAR U-100 INSULI N 100 unit/mL (3 mL) Inject 16 Units subcutaneously daily at bedtime. 4.8 mL 11 08/07/2024 08/07/2025 Active Start: 06-06-2024 End: 07-05-2025 inject 10 [IU] by subcutaneous injection once daily at bedtime LANTUS SOLOSTAR U-100 INSULIN 100 unit/mL (3 mL) Inject 10 Units subcutaneously daily at bedtime. 06/06/2024 07/05/2024 Discontinued Start: 06-06-2024 End: 07-09-2025 Insulin Glargine (Basaglar K wikpen U-100 Insulin) 100 unit/mL (3 mL) insulin pen Discontinued 10 U SC EVERY EVENING 45 0 June 05, 2024 11:00pm July 09, 2025 8:12am 24 hr metFORMIN hydrochloride 500 mg extended release oral tablet (20 sources) Biguanide Start: 07-24-2024 take 1 tablet by mouth twice daily Metformin 500 mg tablet extended release 24 hr Active 500 mg PO TWICE A DAY July 23, 2024 11:00pm Complies with drug therapy Start: 07-05-2024 End: 08-07-2025 take 2 tablets by mouth once daily at breakfast metFORMIN ER (GLUCOPHAGE XR) 500 mg 24 hr tablet Take 2 tablets by mouth daily with breakfast. 180 tablet 3 08/07/2024 08/07/2025 Active Start: 06-06-2024 End: 07-24-2024 take 1 tablet by mouth twice daily Metformin 1,000 mg tablet Discontinued 1000 mg PO TWICE A DAY 120 0 June 05, 2024 11:00pm July 24, 2024 8:49am ondansetron 4 mg disintegrating oral tablet (2 sources) Serotonin-3 Receptor Antagonist Start: 07-05-2023 End: 07-12-2023 take 1 tablet by mouth every six hours as needed ondansetron orally disintegrating (ZOFRAN ODT) 4 mg disintegrating tablet Take 1 tablet by mouth every 6 hours as needed for nausea/vomiting for up to 7 days. 20 tablet 0 07/05/2023 07/12/2023 Active Comment on above: Take 1 tablet by mich th every 6 hours as needed for nausea/vomiting for up to 7 days. Completed/Discontinued Medications Medication Drug Class(es) Dates Sig (Normalized) Sig (Original) acetaminophen 325 mg / HYDROcodone bitartrate 5 mg oral tablet (7 sources) Opioid Agonist Start: 05-21-2015 End: 06-05-2024 Hydrocodone-Acetami nophen 1 TABLET tablet Discontinued 1 - 2 {tbl} PO EVERY 4 HOURS NEEDED as needed for Pain May 20, 2015 11:00pm June 05, 2024 8:59am Start: 05-21-2015 take 1 tablet by mich th every four hours as needed Hydrocodone-Acetaminophen Active 1 - 2 TABLET PO EVERY 4 HOURS NEEDED May 21, 2015 12:00am ciprofloxacin 500 mg oral tablet (7 sources) Quinolone Antimicrobial Start: 05-21-2015 End: 06-05-2024 take 1 tablet by mouth twice daily Ciprofloxacin Hcl 500 MG tablet Discontinued 500 mg PO TWICE A DAY May 20, 2015 11:00pm June 05, 2024 8:59am metroNIDAZOLE 500 mg oral tablet (7 sources) Nitroimidazole Antimicrobial Start: 05-21-2015 End: 06-05-2024 take 1 tablet by mouth every six hours Metronidazole 500 MG tablet Discontinued 500 mg PO EVERY 6 HOURS May 20, 2015 11:00pm June 05, 2024 8:59am predniSONE 20 mg oral tablet (4 sources) Start: 01-19-2023 End: 07-05-2023 predniSONE (DELTASONE) 20 mg tablet Instructions: 3 tablets by mouth daily for 3 days, then take 2 tablets by mouth daily for 3 days, then take 1 tablet by mouth daily for 3 days then take a 1/2 tablet by mouth daily for 3 days, then stop. 20 tablet 0 01/19/2023 07/05/2023 Discontinued Start: 08-19-2021 End: 08-21-2021 take 3 tablets by mouth once daily at mealtime predniSONE 10 mg oral tablet ; 3 tab(s) orally once a day Quantity: 9 Refills: 0 Ordered: 19-Aug-2021 Tucker Salmon Start: 19-Aug-2021 End: 21-Aug-2021 Generic Substitution Allowed Comments: It is very important that you take or use this exactly as directed. Do not skip doses or discontinue unless directed by your doctor.Obtain medical advice before taking any non-prescription drugs as some may affect the action of this medication.Take with food or milk. End: 01-19-2023 take 0.5 tablet by mouth once daily predniSONE (DELTASONE) 20 mg tablet 20 mg. Instructions: 3 tabs by mouth daily for 3 days then 2 tabs by mouth daily for 3 days then 1 tab by mouth daily for 3 days then 1/2 tab by mouth daily for 3 days 0 01/19/2023 Discontinued Comment on above: It is very important that you take or use this exactly as directed. Do not skip doses or discontinue unless directed by your doctor.Obtain medical advice before taking any non-prescription drugs as some may affect the action of this medication.Take with food or milk. Instructions: 3 tabl ets by mouth daily for 3 days, then take 2 tablets by mouth daily for 3 days, then take 1 tablet by mouth daily for 3 days then take a 1/2 tablet by mouth daily for 3 days, then stop. 20 mg. Instructions: 3 tabs by mouth daily for 3 days then 2 tabs by mouth daily for 3 days then 1 tab by mouth daily for 3 days then 1/2 tab by mouth daily for 3 days 72 hr scopolamine 0.0139 mg/hr transdermal system (17 sources) Anticholinergic Start: 2022 End: 2023 scopolamine (TRANSDERM-SCOP) patch 1.5 mg/72 hr (delivers 1 mg over 3 days) Apply 1 Patch as directed as directed. BEHIND THE EAR AT LEAST 4 HOURS PRIOR TO EXPOSURE AND EVERY 3 DAYS NEEDED. 1 Patch 3 07/05/2023 06/12/2024 Discontinued Comment on above: Apply 1 Patch as dir ected as directed. BEHIND THE EAR AT LEAST 4 HOURS PRIOR TO EXPOSURE AND EVERY 3 DAYS NEEDED. tirzepatide (MOUNJARO) 2.5 mg/0.5 mL pen injector (13 sources) Start: 2023 End: 2024 inject 2.5 mg by subcutaneous injection every week tirzepatide (MOUNJARO) 2.5 mg/0.5 mL pen injector Inject 2.5 mg subcutaneously one time a week. 2 mL 1 07/05/2024 02/19/2025 Discontinued (Cost of medication) Start: 07-05-2024 inject 2.5 mg by sub cutaneous injection every week tirzepatide (MOUNJARO) 2.5 mg/0.5 mL pen injector Inject 2.5 mg subcutaneously one time a week. 2 mL 1 07/05/2024 Active Problems Active Problems Problem Classification Problem Date Documented Date Episodic/Chronic Acute and unspecified renal failure (15 sources) Acute renal failure syndrome; Translations: [Acute kidney failure, unspecified] Onset: 08-04-2024 06-12-2024 Episodic Administrative/socia l admission (10 sources) Patient encounter status; Translations: [Other specified counseling] Onset: 08-22-2025 07-05-2023 Episodic Allergic reactions (2 sources) Contact dermatitis; Translations: [Contact dermatitis and other eczema, unspecified cause] 08-19-2021 Episodic Cardiac dysrhythmias (15 sources) Bradycardia; Translations: [Bradycardia, unspecified] Onset: 08-30-2024 06-05-2024 Episodic Conduction disorders (20 sources) Complete atrioventricular block; Translations: [Atrioventricular block, complete] Onset: 08-30-2024 08-30-2024 Chronic Diabetes mellitus without complication (20 sources) Type 2 diabetes mellitus; Translations: [Type 2 diabetes mellitus without complications] Onset: 07-09-2024 07-09-2024 Chronic Disorders of lipid metabolism (20 sources) Hyperlipidemia; Translations: [Hyperlipidemia, unspecified] Onset: 07-01-2017 09-07-2022 Chronic Diverticulosis and diverticulitis (20 sources) Diverticulitis; Translations: [Diverticulitis of intestine, part unspecified, without perforation or abscess without bleeding] Onset: 08-19-2017 09-07-2022 Chronic Gout and other crystal arthropathies (20 sources) 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; Translations: [Idiopathic chronic gout, unspecified ankle and foot, without tophus (tophi)] Onset: 06-08-2019 09-07-2022 Chronic Other aftercare (1 source) 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; Translations: [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] Onset: 10-11-2025 Episodic Other and ill-defined heart disease (1 source) Heart disease, unspecified; Translations: [Heart disease, unspecified] Onset: 10-11-2025 Chronic Other and ill-defined heart disease (2 sources) Left ventricular cardiac dysfunction; Translations: [Heart disease, unspecified] 10-10-2025 Chronic Other connective tissue disease (1 source) Dupuytren contracture of left palm; Translations: [Palmar fascial fibromatosis [Dupuytren]] 07-05-2023 Episodic Other liver diseases (1 source) Elevated liver enzymes level; Translations: [Abnormal levels of other serum enzymes] 05-09-2025 Episodic Other liver diseases (1 source) Abnormal levels of other serum enzymes; Translations: [Elevated liver enzymes] Onset: 05-23-2025 Episodic Other lower respiratory disease (2 sources) Cough; Translations: [Cough] Onset: 08-29-2021 Episodic Other lower respiratory disease (1 source) Dyspnea on exertion; Translations: [Other forms of dyspnea] 02-16-2024 Episodic Other nervous system disorders (1 source) Aphasia; Translations: [Aphasia] Onset: 10-11-2025 Chronic Other nervous system disorders (2 sources) Receptive dysphasia; Translations: [Aphasia] 10-09-2025 Chronic Other non-traumatic joint disorders (7 sources) Effusion of joint of left knee; Translations: [Effusion, left knee] 09-23-2021 Episodic Other screening for suspected conditions (not mental disorders or infectious disease) (14 sources) Other specified abnormal findings of blood chemistry; Translations: [Other abnormal blood chemistry] Onset: 09-22-2024 05-24-2025 Episodic Screening and history of mental health and substance abuse codes (2 sources) Encounter for screening for depression; Translations: [Encounter for screening examination for other mental health and behavioral disorders] Onset: 08-22-2025 Episodic Superficial injury; contusion (7 sources) Contusion of left knee; Translations: [Contusion of left knee, initial encounter] 09-23-2021 Episodic Unclassified (2 sources) RASH 08-19-2021 Comment on above: RASH Unclassified (1 source) Elevated LFTs 05-24-2025 Viral infection (1 source) COVID-19; Translations: [COVID-19] Onset: 08-29-2021 Past or Other Problems Problem Classification Problem Date Documented Da te Episodic/Chronic Other circulatory disease (20 sources) Elevated blood-pressure reading without diagnosis of hypertension; Translations: [Elevated blood-pressure reading, without diagnosis of hypertension] Onset: 02-07-2018 09-07-2022 Episodic Other nervous system disorders (20 sources) Trigeminal neuralgia; Translations: [Trigeminal neuralgia] Onset: 07-03-2008 07-03-2008 Episodic Results Test Name Value Interpretation Reference Range Facility Bedside Glucoseon 10-11-2025 FINGERSTICK GLU 161 mg/dL High 74-106 [facility] Comment on above: Result Comment: IZABELLA GEMENT OF PATIENT CARE PER NURSING PROTOCOL Performed By: #### L 501.080 #### [facility] [address] [place], [address] FINGERSTICK GLU 95 mg/dL Normal 74-106 [facility] Comment on above: Result Comment: IZABELLA GEMENT OF PATIENT CARE PER NURSING PROTOCOL Performed By: #### L 501.080 #### [facility] [address] [place], [address] Discharge Instructionon 09-29 Discharge Instruction [facility] Medical Records Department [address] [place] [address] Instructions for Home/Discharge Instructions 10/11/25 1138 MR#: [id number] Acct: [id number] Name: CALIN LIRA Rep #: [id number] : 1955 70 From: Nael Quintero MD PCP: Dr. Sheba Jimenez MD Status:ADM IN Discharge Instructions DC O2, CPAP, BIPAP needs Home O2 Discharge instructions: No Dressing / Incision Discharge Activity: Return to Normal Activity Weight Bearing Status: Weight bearing as tolerated Dressing / Incision Call your doctor if you observe: Fever of 101 or Higher, Coldness, Increased Pain, Numbness or Tingling, Change in Color, Inability to urinate, Inability to have a bowel movement, Shortness of breath, Dizziness, Fainting spells, Swelling in the ankles, Chest pain, Prolonged hiccupping, Increased palpitations (irregular heartbeat) and Calf discomfort Follow Up Care When: IN 2 WEEKS Test Results: Test results from this visit will be discussed in further detail at your follow-up appointment, if applicable. Discharge Plan Admission Admit Date/Time: 10/10/25 11:56 Primary Reason for Your Visit: Receptive aphasia. Severe LV dysfunction Attending Provider: Nael Quintero Primary Care Provider: Sheba Jimenez Consulting Providers: Mau Arreola Instructions Additional Instructions / Restrictions: Outpatient speech therapy 3 times a week. Prescription signed. Discharge Orders/Prescriptions Prescriptions: New atorvastatin 80 mg Tablet 80 mg PO QHS 30 Days Qty: 30 2RF aspirin 81 mg Tablet,Chewable 81 mg PO BREAKFAST 30 Days Qty: 30 2RF Jardiance 10 mg Tablet 10 mg PO DAILY 30 Days Qty: 30 2RF lisinopril 5 mg Tablet 5 mg PO DAILY 30 Days Qty: 30 2RF Rx Instructions: Mild decrease lisinopril 2.5 mg daily if SBP is less than 100 mmHg consistently for 3 days metoprolol succinate 25 mg Tablet Extended Release 24 Hr 12.5 mg PO DAILY 30 Days Qty: 15 2RF Continued insulin glargine [Lantus Solostar U-100 Insulin] 100 unit/mL (3 mL) insulin pen 16 unit subcut QPM Discontinued metformin 500 mg tablet extended release 24 hr 500 mg PO BID (DME) pen needle, diabetic 31 gauge x 5/32 needle See Rx Instructions .ROUTE .MEDSUPPLY Qty: 100 0RF Rx Instructions: As directed atorvastatin [Lipitor] 40 mg tablet 40 mg PO QHS Qty: 60 0RF Referrals / Follow Up: Mau Arreola MD [Med Staff - Active Staff, Cardiology] - Within 2 Weeks Sheba Powell MD [Non-Staff -Ordering Privileges, Neurology] - Within 1 Month Referral Note: For stroke Sheba Jimenez MD [Primary Care Provider, Family Practice] Disposition Disposition (needs filled in before D/C Order can be placed): Home, Self Care 10/11/25 6394 Nael Quintero MD CC: Dr. Mau Arreola MD; Dr. Sheba Jimenez MD Signed Normal [facility] Echo Limited w/Contraston Echo Limited w/Contrast [facility] [address] [place] [address] Echo Limited w/Contrast 10/11/25 0800 MR#: [id number] Acct: [id number] Name: CALIN LIRA Rep #: [id number] : 1955 70 From: Jose Arthur MD Attending Dr: Dr. Nael Quintero MD Status: ADM IN Ordering Dr: Mau Arreola MD Date: 10/11/25 Location: [facility] Sex: M C Admitted: 10/10/25 Reason For Study Reason For Study: CHF Procedure This was a 2D Doppler, Color Flow transthoracic echocardiogram. Contrast injection was performed. Exam performed portable in patient room. Medication Diluted definity 2.0ml given slow IV push to enhance endocardial definition. MMode/2D Measurements Calculations LVIDd: 6.9 cm IVSd: 0.96 cm Ao root diam: 4.2 cm LVIDs: 6.4 cm LVPWd: 1.0 cm RVDd: 3.6 cm FS: 6.9 % LAV(MOD-bp): 126.8 ml LVAd ap4: 62.4 cm2 SV(MOD-sp4): 44.5 ml LAV(MOD-bp) Indexed: 56.8 ml/m2 LVLd ap4: 10.4 cm SI(MOD-sp4): 19.9 ml/m2 LAV(MOD-sp2): 132.9 ml EDV(MOD-sp4): 308.2 ml LAV(MOD-sp4): 119.5 ml EDV(sp4-el): 318.2 ml LVAs ap4: 57.3 cm2 LVLs ap4: 10.4 cm ESV(MOD-sp4): 263.7 ml ESV(sp4-el): 269.3 ml EF(MOD-sp4): 14.4 % EF(sp4-el): 15.4 % SV(sp4-el): 48.9 ml LA dimension(2D): 5.7 cm LA A4 area: 31.2 cm2 RA A4 area: 18.5 cm2 ECHO/Echo Limited w/Contrast Interpretation Summary Limited study performed to reassess LV function. LVEF is 10% with severe global hypokinesis. Ordering Physician: Mau Arreola Referring Physician: Sheba Jimenez Performed By: Vidhi Hughes RDCS, RVT 10/11/25 1208 Date Jose Arthur MD CC: Dr. Mau Arreola MD; Dr. Nael Quintero MD; Dr. Sheba Jimenez MD Date Dictated: 10/11/25 0800 Date Transcribed: 10/11/25 1208 Wound Care Technician: Signed Normal [facility] 12 Lead EKGon 10-10-2025 12 Lead EKG [facility] Services [address] [place] [address] 12 Lead EKG 10/10/25 0415 MR#: [id number] Acct: [id number] Name: CALIN LIRA Rep #: [id number] : 1955 70 From: Mau Arreola MD Attending Dr: Dr. Nael Quintero MD Status: ADM CHELSEY Ordering Dr: Negrita Coe MD Date: 10/10/25 Location: [facility] Sex: M C Admitted: 10/09/25 Test Reason : CP Blood Pressure : */* mmHG Vent. Rate : 73 BPM Atrial Rate : 73 BPM P-R Int : 162 ms QRS Dur : 212 ms QT Int : 514 ms P-R-T Axes : 48 -71 97 degrees QTcB Int : 566 ms Atrial-sensed ventricular-paced rhythm with occasional Premature ventricular complexes Abnormal ECG When compared with ECG of 09-Oct-2025 08:29, MANUAL COMPARISON REQUIRED DATA IS UNCONFIRMED Confirmed by Mau Arreola ([id number]), newspaper editor YENIFER PALMER ([id number]) on 10/10/2025 8:36:06 AM Referred By: DR COE Confirmed By: Mau Arreola 10/10/25 0836 Date Mau Arreola MD CC: Dr. Negrita Coe MD; Dr. Nael Quintero MD; Dr. Sheba Jimenez MD Signed Normal [facility] Basic Metabolic Profile (BMP )on 10-10-2025 BUN/CRE 17.7 RATIO Normal - [facility] Comment on above: Performed By: #### L 500.2500 #### [facility] [address] [place], [address] Calcium [Mass/Vol] 8.9 mg/dL Normal 7.6-11.0 [facility] Comment on above: Performed By: #### L 500.2500 #### [facility] [address] [place], [address] Chloride [Moles/Vol] 105 mmol/L Normal 98-108 [facility] Comment on above: Performed By: #### L 500.2500 #### [facility] [address] [place], [address] CO2 [Moles/Vol] 21.3 mmol/L Normal 21.0-32.0 [facility] Comment on above: Performed By: #### L 500.2500 #### [facility] [address] [place], [address] Creatinine [Mass/Vol] 0.86 mg/dL Normal 0.70-1.20 [facility] Comment on above: Performed By: #### L 500.2500 #### [facility] [facility] [address] [place], [address] ECRCL 96.31 ml/min Normal 50-250 [facility] Comment on above: Performed By: #### L 500.2500 #### [facility] [address] [place], [address] GAP 13 Normal 5-15 [facility] Comment on above: Performed By: #### L 500.2500 #### [facility] [address] [place], [address] GFR/1.73 sq M.predicted among non-blacks MDRD (S/P/Bld) [Vol rate/Area] 92 mL/min/{1.73_m2} Normal >60 [facility] Comment on above: Result Comment: mL/m in/1.73m2 CKD-EPI Creatinine Equation (2020) Performed By: #### L 500.2500 #### [facility] [address] [place], [address] Glucose [Mass/Vol] 103 mg/dL High 70-99 [facility] Comment on above: Performed By: #### L 500.2500 #### [facility] [address] [place], [address] Potassium [Moles/Vol] 4.1 mmol/L Normal 3.3-5.1 [facility] Comment on above: Performed By: #### L 500.2500 #### [facility] [address] [place], [address] Sodium [Moles/Vol] 140 mmol/L Normal 133-145 [facility] Comment on above: Performed By: #### L 500.2500 #### [facility] [address] [place], [address] Urea nitrogen [Mass/Vol] 15 mg/dL Normal 4-19 [facility] Comment on above: Performed By: #### L 500.2500 #### [facility] [address] [place], [address] Bedside Glucoseon 10-10-2025 FINGERSTICK GLU 91 mg/dL Normal 74-106 [facility] Comment on above: Result Comment: IAZBELLA GEMENT OF PATIENT CARE PER NURSING PROTOCOL Performed By: #### L 501.080 #### [facility] [address] [place], [address] FINGERSTICK GLU 120 mg/dL High 74-106 [facility] Comment on above: Result Comment: IZABELLA GEMENT OF PATIENT CARE PER NURSING PROTOCOL Performed By: #### L 501.080 #### [facility] [address] [place], [address] FINGERSTICK GLU 138 mg/dL High 74-106 [facility] Comment on above: Result Comment: IZABELLA GEMENT OF PATIENT CARE PER NURSING PROTOCOL Performed By: #### L 501.080 #### [facility] [address] [place], [address] FINGERSTICK GLU 148 mg/dL High 74-106 [facility] Comment on above: Result Comment: IZABELLA MONDRAGON OF PATIENT CARE PER NURSING PROTOCOL Performed By: #### L 501.080 #### [facility] [address] [place], [place], [address] Brain W/WO Contraston 2024 Brain W/WO Contrast [facility] [address] [place], [place] [address] Brain W/WO Contrast MR#: [id number] Acct: [id number] Name: CALIN LIRA Rep #: [id number] : 1955 M 70 From: Hoang Mccullough MD PCP: Dr. Sheba Jimenez MD Status: ADM IN Study: Brain W/WO Contrast Date of Exam: 10/10/25 Exam# [id number] Ordering Dr: Nael Quintero MD PROCEDURE: MRI BRAIN W/WO CONTRAST 10/10/2025 REASON FOR EXAM: SUSPECTED STROKE TECHNIQUE: Procedure Code: MRIBRWW Modality: MR Procedure: BRAIN W/WO CONTRAST Multiplanar and multisequence images were obtained. CONTRAST: Clariscan VOLUME: 20 mL COMPARISON: CT head/angiography 10/09/2025. FINDINGS: Small areas of cortical-subcortical restricted diffusion in the posterior left temporo-occipital lobes compatible with acute infarcts. Additional punctate focus of probable acute infarct in the superior left cerebellar hemisphere. No significant mass-effect or midline shift. No evidence of acute intracranial hemorrhage/hemorrhagic conversion. Mild age-appropriate generalized brain parenchymal volume loss and chronic microangiopathic changes elsewhere in the supratentorial white matter. Major intracranial vascular flow voids appear grossly preserved. Postoperative changes of right lateral suboccipital craniotomy. Nonspecific small fluid collection at the craniotomy surgical bed. Grossly unremarkable orbits. Well-aerated paranasal sinuses and bilateral mastoid air cells. No intracranial mass lesion or pathologic enhancement. MRI/Brain W/WO Contrast IMPRESSION: Acute cortical-subcortical infarcts in the left posterior temporo-parietal lobes. Additional punctate focus of acute infarct in the superior left cerebellar hemisphere. No mass-effect or hemorrhage. Reading Location: [facility] CC: Dr. Nael Quintero MD; Dr. Sheba Jimenez MD Wound Care Technician: Signed Normal [facility] Juanito 10-10-2025 TIBURCIO Telephone (FAMLAURAA) -- SORAYACALIN CANTOR ([id number]) 1955 M Date Time Provider Department 10/10/25 SHEBA JIMENEZ During your visit today, we recorded the following information about you: Robert Finney LPN 10/10/2025 7:45 AM Signed Orders faxed per patient request to [facility]. Robert Finney LPN October 10, 2025 7:45 AM Allergies As of Date: 10/10/2025 (No Known Allergies) Date Reviewed: 08/22/2025 Reviewed by: Gabrielle Trevino LPN - Fully Assessed Prescriptions as of 10/10/2025 - LANTUS SOLOSTAR U-100 INSULIN 100 unit/mL (3 mL) INJECT 16 UNITS SUBCUTANEOUSLY DAILY AT BEDTIME. - atorvastatin (LIPITOR) 40 mg tablet TAKE 1 TABLET BY MOUTH EVERYDAY AT BEDTIME - metFORMIN ER (GLUCOPHAGE XR) 500 mg 24 hr tablet Take 2 tablets by mouth daily with breakfast. - blood sugar diagnostic test strip Monitor blood glucose twice a day. - Lancets Use with blood glucose to test twice a day Problem List As Of Date 10/10/2025 Noted Resolved TRIGEMINAL NEURALGIA [G50.0] 07/03/2008 Diverticulitis [K57.92] 08/19/2017 Elevated blood-pressure reading, without diagno*02/07/2018 Hyperlipidemia [E78.5] 07/01/2017 Idiopathic chronic gout, unspecified ankle and *06/08/2019 Diabetes beginning in adulthood (type 2/adult o*07/09/2024 Bradycardia [R00.1] 08/30/2024 Third degree heart block (HCC) [I44.2] 08/30/2024 Atrioventricular block [I44.30] 08/30/2024 TARIK (acute kidney injury) (HCC) [N17.9] 08/30/2024 Encounter Status:Closed by ROBERT FINNEY on 10/10/25 [facility] Calculated very low density lipoprotein (VLDL) cholesterol measurementOrdered By: Nael Quintero on 10-10-2025 Calculated very low density lipoprotein (VLDL) cholesterol measurement 15 mg/dL 5-40 [facility] Chest WITH Contraston 2024 Chest WITH Contrast [facility] Imaging Services [address] [place] [address] Chest WITH Contrast MR#: [id number] Acct: [id number] Name: CALIN LIRA Rep #: [id number] : 1955 M 70 From: Iván pham MD PCP: Dr. Sheba Jimenez MD Status: ADM CHELSEY Study: Chest WITH Contrast Date of Exam: 10/10/25 Exam# [id number] Ordering Dr: Nael Quintero MD PROCEDURE: CHEST WITH CONTRAST 10/10/2025 REASON FOR EXAM: PATHOLGIC MEDIASTINAL ADENOPATHY ON CTA NECK TECHNIQUE: Procedure Code: CTCHW Modality: CT Procedure: CHEST WITH CONTRAST Coronal and Sagittal reconstruction series were provided. CONTRAST: Isovue 370 VOLUME: 100 mL One or more dose reduction techniques were used (e.g., Automated exposure control, adjustment of the mA and/or kV according to patient size, use of iterative reconstruction technique). RADIATION DOSE SUMMARY: CTDlvol: 18.5 mGy DLP: 608.56 mGycm COMPARISON: Prior chest radiograph dated October 09, 2000. FINDINGS: Hardware: EKG electrodes are seen. Lymph nodes: Mildly enlarged mediastinal lymph nodes. Enlargement of the right hilar lymph node. Heart and Vasculature: Dual-chamber pacemaker is seen. Borderline cardiomegaly. Mild coronary artery calcification. Lungs and Airways: Small bilateral pleural effusions right slightly greater than left with evidence of increased interstitial markings and subpleural cystic changes worse in the right lower lobe suggestive of chronic interstitial fibrosis. Upper Abdomen: Gallstones. Multiple calcified splenic granulomas. Bones: Degenerative changes of the thoracic spine. CT/Chest WITH Contrast IMPRESSION: Coronary artery calcification (CAC) is is present Mediastinal and right hilar lymphadenopathy. Bilateral pleural effusions right greater than left with evidence of chronic interstitial fibrosis worse in the right lower lobe. Reading Location: [place] [address] CC: Dr. Nael Quintero MD; Dr. Sheba Jimenez MD Wound Care Technician: Signed Normal [facility] Consultation - Cardiologyon 10-10-2025 Consultation - Cardiology [facility] Medical Records Department [address] [place] [address] Consultation - Cardiology 10/10/25 0916 MR#: [id number] Acct: [id number] Name: CALIN LIRA Rep #: [id number] : 1955 70 From: Mau Arreola MD PCP: Dr. Sheba Jimenez MD Status:ADM CHELSEY Location: [place] [address] Assessment Plan Assessment/Plan (1) High-grade atrioventricular block: PLAN: Patient carries a history of diagnosis of complete AV block. He has a permanent pacemaker in place is current rate is 68 bpm and is atrially sensed and ventricularly paced. We will have the device interrogated this afternoon to determine if he is having any high rate responses such as atrial fibrillation that could explain some of his deterioration. This also if he is having atrial fibrillation might explain his HEALTHCARE ADVISORY SERVICES MANAGER issues. If he does have atrial fibrillation he would need to be on oral anticoagulation. (2) Type 2 diabetes mellitus: QUALIFIERS: Diabetes mellitus terminal block assembler insulin use: with terminal block assembler use Diabetes mellitus complication status: without complication Qualified Code(s): E11.9 - Type 2 diabetes mellitus without complications; Z79.4 - FCI (current) use of insulin PLAN: Patient's hemoglobin A1c is 5.6 representing excellent control. Given his current LV function I would recommend we stop the metformin or decrease the metformin and add Jardiance 10 mg daily to his medical regiment. I will defer this decision to the primary service. (3) LV dysfunction: PLAN: Patient's EF was estimated 5% by echo I reviewed the echo myself visually it looks to me to be in the 10% range but it is severely globally dilated and depressed. I cannot come up with an etiology of this deterioration in his LV function. Clinically he does not appear to be impaired. He climbed a 20 foot ladder into a deer snuff container inspector the last 48 hours. He also was riding his bicycle and has had no change in his exercise tolerance. He denies any PND orthopnea denies any lower extremity edema. The patient does report a cough and he does have some crackles in his lung bases. His chest x-ray did not show any signs of edema but his CT scan did show what were described as pathologic lymph nodes in his upper mediastinum. At this time given his blood pressure in the 100???110 systolic range we will try to gingerly start guideline directed medical therapy starting with low-dose lisinopril and then adding metoprolol. PLAN: Plan 1. Recommend further evaluation of the pathologic described lymph nodes in the mediastinum per the primary service. 2. Request primary service to determine dosing of metformin so that we can add Jardiance to his medical regimen. 3. Will start lisinopril 10 mg daily and add metoprolol this afternoon with hold parameters. 4. Will titrate guideline directed medical therapy and after 6 weeks we will reinvestigate with limited echocardiogram for LV recovery. 5. Will obtain pacemaker device check today to look for health trans as a marker for decompensation for heart failure. Will also check for atrial fibrillation. 6. If atrial fibrillation is documented on the device check would recommend oral anticoagulation therapy. 7. Will follow-up with you with further recommendations once some of this investigation and response to therapy is available. 8. Dr. Arthur will be assuming the inpatient service tomorrow. 9. I did discuss these plans with the patient's family he is not happy about having to stay in the hospital. HPI Consult Data Date of Consult: 10/10/25 HPI Narrative Reason for Consultation: New LV dysfunction on echo. HPI Narrative: CALIN LIRA, is a 70 M who presents presented with an inability to over read. This was on 10/09/2025. Workup is failed to show any significant carotid or interval cerebral vascular disease. CT of the brain did not show any definitive infarcts. MRI is planned for later today. An echocardiogram shows that his ejection fraction was measured at 5%. This is a drop from 55% in May 2024. The patient does have a history of conduction system disease with complete heart block resulting in acute renal failure that was treated back in May 2024 with DDD pacemaker implant. The last device check showed that his heart failure indices were normal on his device September 12, 2025. And he had less than 1% atrial high rates. The patient's chest x-ray on exam on admission was negative for edema. He does have a history of diabetes his hemoglobin A1c is 5.6. His lipids are at goal. The patient's troponins were . His GFR is 86. ECGs have shown AV paced rhythms. His telemetry has shown atrial sensed ventricular paced rhythms currently is at 68 bpm. The patient actually went deer hunting on Wednesday evening where he climbed a 20 foot ladder up to his deer stand he did get some shortness of breath but that is normal for him. H (more content not included)... Normal [facility] Hemoglobin A1con 10-10-2025 HbA1c (Bld) [Mass fraction] 5.6 % Normal <=5.6 [facility] Comment on above: Result Comment: Norm al < 5.7 % Prediabetic 5.7 - 6.4 % Diabetic >or= 6.5 % Please note range changes. Performed By: #### L 501.9985, L500.4100, L501.9520 #### [facility] [address] [place], [place], [id number] Hemoglobin A1c percentageOrd ered By: Nael Quintero on 10-10-2025 HbA1c (Bld) [Mass fraction] 5.6 % <5.7 [facility] Comment on above: Normal < 5.7 % Predi abetic 5.7 - 6.4 % Diabetic >or= 6.5 % Please note range changes. High density lipoprotein (HD L) measurementOrdered By: Nael Quintero on 10-10-2025 Cholesterol in HDL [Mass/Vol] 48 mg/dL >40 [facility] Comment on above: National Cholesterol Education Program (NCEP) guidelines:<40 mg/dL: Low HDL-cholesterol (major risk factor for CHD)>= 60 mg/dL: High HDL-cholesterol (negative risk factor for CHD)HDL-cholesterol is affected by a number of factors, e.g. smoking, exercise, hormones, sex and age. LDL calc ser/plasOrdered By: Nael Quintero on 10-10-2025 Cholesterol in LDL [Mass/Vol] 42 mg/dL [facility] Comment on above: Vzvvcxrkjd=241-156 m g/dL & Higher Chht=208 mg/dL or greaterSampson Equation 2020 for LDL-C Lipid Profileon 10-10-2025 CHOL:HDL 2.20 Normal [facility] Comment on above: Order Comment: Comme nts: NPO at [place] prior to lipid panel Performed By: #### L 501.080 #### [facility] [address] [place], [address] Cholesterol [Mass/Vol] 105 mg/dL Normal <=200 [facility] Comment on above: Order Comment: Comme nts: NPO at [place] prior to lipid panel Result Comment: Chol esterol level, Desirable <200 mg/dL Borderline high cholesterol 200-239 mg/dL High cholesterol >=240 mg/dL Recommendations of the NCEP Adult Treatment Panel for the following risk-cutoff thresholds for the [place] population. Performed By: #### L 501.080 #### [facility] [address] [place], [place], [address] Cholesterol in HDL [Mass/Vol] 48 mg/dL Normal [facility] Comment on above: Order Comment: Comme nts: NPO at [place] prior to lipid panel Result Comment: Celsa onal Cholesterol Education Program (NCEP) guidelines: <40 mg/dL: Low HDL-cholesterol (major risk factor for CHD) >= 60 mg/dL: High HDL-cholesterol (negative risk factor for CHD) HDL-cholesterol is affected by a number of factors, e.g. smoking, exercise, hormones, sex and age. Performed By: #### L 501.080 #### [facility] [address] [place], [place], [id number] (111) Cholesterol in LDL [Mass/Vol] 42 mg/dL Normal [facility] Comment on above: Order Comment: Comme nts: NPO at [place] prior to lipid panel Result Comment: Bord wvqksd=632-500 mg/dL Higher Bbfp=506 mg/dL or greater Davis Equation 2020 for LDL-C Performed By: #### L 501.080 #### [facility] [address] [place], [address] Cholesterol in VLDL [Mass/Vol] 15 mg/dL Normal 5-40 [facility] Comment on above: Order Comment: Comme nts: NPO at [place] prior to lipid panel Performed By: #### L 501.080 #### [facility] [address] [place], [address] Triglyceride [Mass/Vol] 73 mg/dL Normal [facility] Comment on above: Order Comment: Comme nts: NPO at [place] prior to lipid panel Result Comment: The drugs N-Acetylcysteine and Metamizole may falsely depress this assay. Normal range: <150 mg/dL Borderline High: 150-199 mg/dL High: 200-499 mg/dL Very High: >500 mg/dL Performed By: #### L 501.080 #### [facility] [address] [place], [address] MR/CON.PCM.NEon 10-10-2025 MR/CON.PCM.NE [facility] Medical Records Department [address] [place] [address] Consultation - Neurology 10/10/25 1256 MR#: [id number] Acct: [id number] Name: CALIN LIRA Rep #: [id number] : 1955 70 From: Richard Arrington MD PCP: Dr. Sheba Jimenez MD Status:ADM IN Location: [place] [address] Assessment and Plan: Stroke Assessment/Plan Transient difficulties with reading and speech may represent stroke/TIA though non-ischemic etiologies remain possible. His exam has since resolved with NIHSS 0. - Agree with ASA 81mg daily + high intensity statin - CTA without significant vascular lesions, MRI Brain pending - PPM interrogation planned for this afternoon HPI Consult Data Date of Consult: 10/10/25 HPI Narrative HPI Narrative: CALIN LIRA, is a 70 M who presents [ ] [facility] Medical History Type 2 diabetes mellitus Presence of cardiac pacemaker Trigeminal neuralgia of right side of face Home Medications ???Medication ???Instructions ???Recorded ???Last Taken ???Type atorvastatin 40 mg tablet (Lipitor) 40 mg PO QHS #60 tabs 06/06/24 10/08/25 Rx pen needle, diabetic 31 gauge x #100 ea 06/06/24 Unknown Rx metformin 500 mg tablet,extended 500 mg PO BID 07/24/24 10/09/25 Hi story release 24 hr insulin glargine 100 unit/mL (3 16 unit subcut QPM 07/09/25 History mL) subcutaneous pen (Lantus Solostar U-100 Insulin) Allergy/AdvReac Type Severity Reaction Status Date / Time No Known Allergies Allergy Verified 10/09/25 08:08 Family History Father Heart disease Surgical History History of hand surgery Social History Smoking Status: Former smoker alcohol intake: current substance use type: does not use caffeine: Yes Vital Signs Vital Signs Vital Signs: 10/09/25 14:20 10/09/25 17:30 10/09/25 17:30 Temperature 97.8 F 98.3 F Temperature Source Oral Oral Pulse Rate 64 72 Respiratory Rate 18 16 Respiratory Effort Normal Non-Labored Respiratory Depth Normal Respiratory Pattern Normal Blood Pressure 97/77 96/73 Blood Pressure Mean 83 80 Blood Pressure Source Monitor Monitor Blood Pressure Position Semi-Fowlers Semi-Fowlers Blood Pressure Location Right Arm Right Arm Pulse Ox 93 94 Oxygen Delivery Method Room Air Room Air Room Air 10/09/25 18:04 10/09/25 19:00 10/09/25 19:32 Temperature 98.4 F Temperature Source Oral Pulse Rate 79 78 Respiratory Rate 16 Respiratory Effort Respiratory Depth Respiratory Pattern Blood Pressure 100/77 Blood Pressure Mean 84 Blood Pressure Source Monitor Blood Pressure Position Semi-Fowlers Blood Pressure Location Right Arm Pulse Ox 98 95 Oxygen Delivery Method Room Air Room Air 10/09/25 19:35 10/09/25 23:30 10/10/25 03:00 Temperature 97.7 F L Temperature Source Oral Pulse Rate 72 72 Respiratory Rate 16 Respiratory Effort Normal Non-Labored Respiratory Depth Normal Respiratory Pattern Normal Blood Pressure 100/63 Blood Pressure Mean 75 Blood Pressure Source Monitor Blood Pressure Position Semi-Fowlers Blood Pressure Location Right Arm Pulse Ox 94 Oxygen Delivery Method Room Air Room Air 10/10/25 03:28 10/10/25 03:30 10/10/25 07:20 Temperature 97.5 F L Temperature Source Oral Pulse Rate 67 75 Respiratory Rate 16 18 Respiratory Effort Respiratory Depth Respiratory Pattern Blood Pressure 101/73 113/73 Blood Pressure Mean 82 86 Blood Pressure Source Monitor Blood Pressure Position Semi-Fowlers Blood Pressure Location Right Arm Pulse Ox 97 94 Oxygen Delivery Method Room Air Room Air Room Air 10/10/25 08:15 10/10/25 08:20 10/10/25 11:05 Temperature 98.2 F Temperature Source Oral Pulse Rate 77 Respiratory Rate 18 Respiratory Effort Normal Non-Labored Normal Non-Labored Respiratory Depth Normal Normal Respiratory Pattern Normal Normal Blood Pressure 106/77 Blood Pressure Mean 86 Blood Pressure Source Blood Pressure Position Blood Pressure Location Pulse Ox 96 Oxygen Delivery Method Room Air Room Air Room Air 10/10/25 12:30 Temperature Temperature Source Pulse Rate 78 Respiratory Rate Respiratory Effort Respiratory Depth Respiratory Pattern Blood Pressure 99/74 Blood Pressure Mean 82 Blood Pressure Source Blood Pressure Position Blood Pressure Location Pulse Ox 95 Oxygen Delivery Method Room Air Weight Weight: 99.4 kg Bod (more content not included)... Normal [facility] Natriuretic peptide.B prohor reji N-Terminal [Mass/volume] in Serum or PlasmaOrdered By: Mau Arreola on 10-10-2025 Natriuretic peptide.B prohormone N-Terminal [Mass/Vol] 4295 pg/mL High <900 [facility] Comment on above: Heart Failure Unlike ly: < 300 pg/mLHeart Failure Likely< 50 Years: > 450 pg/mL50-75 Years: > 900 pg/mL>75 Years: > 1800 pg/mL Pacemaker Checkon 10-10-[address] [facility] [address] [place], [place] [address] Pacemaker Check Date of Service: 10/10/25 173 MR#: [id number] Acct: [id number] Name: SORAYACALIN CANTOR GUEVARA Rep #: [id number] : 1955 From: Frances Nunez Age/Sex: 70/M [place] [facility] [place] Signed Billing Codes MRI: 15926 Pacmeaker (Programming after MRI) Assessment and Plan Assessment and Plan (1) High-grade atrioventricular block: Status: Chronic (2) Presence of cardiac pacemaker: Status: Acute 10/10/251736 Date Frances Rothman Signature: Date (if applicable) CC: Normal [facility] Pacemaker Check [facility] [address] [place] [address] Pacemaker Check Date of Service: 10/10/251735 MR#: [id number] Acct: [id number] Name: CALIN LIRA Rep #: [id number] : 1955 From: Frances Nunez Age/Sex: 70/M [place] [facility] [place]: Signed Billing Codes MRI: 46085 Pacmeaker (programming before MRI) Assessment and Plan Assessment and Plan (1) High-grade atrioventricular block: Status: Chronic (2) Presence of cardiac pacemaker: Status: Acute 10/10/251736 Date Frances Giraldoigner Signature: Date (if applicable) CC: Normal [facility] Pro- Brain NATRIURETIC PEPTI Hasmukh 10-10-2025 Natriuretic peptide B (Bld) [Mass/Vol] 4295 pg/mL High <=900 [facility] Comment on above: Order Comment: WG1 5 O Result Comment: Hear t Failure Unlikely: < 300 pg/mL Heart Failure Likely < 50 Years: > 450 pg/mL 50-75 Years: > 900 pg/mL >75 Years: > 1800 pg/mL Performed By: #### L 499.0043 #### [facility] [address] [place], [place], [address] Screening total cholesterol/ high density lipoprotein (HDL) cholesterol ratioOrdered By: Nael Quintero on 10-10-2025 Cholesterol.total/Chol esterol in HDL [Mass ratio] 2.20 {ratio} [facility] Serum or plasma cholesterol measurement (mass/volume)Ordered By: Nael Quintero on 10-10-2025 Cholesterol [Mass/Vol] 105 mg/dL <201 [facility] Comment on above: Cholesterol level, D esirable <200 mg/dLBorderline high cholesterol 200-239 mg/dLHigh cholesterol >=240 mg/dLRecommendations of the NCEP Adult Treatment Panel for the following risk-cutoff thresholds for the [place] population. TSH DL <= 0.005 mIU/L QnOrde red By: Nael Quintero on 10-10-2025 TSH Qn 3.550 uIU/mL 0.300-4.200 [facility] Thyroid Stim Hormone (TSH)on 10-10-2025 TSH 3.550 uIU/mL Normal 0.300-4.200 [facility] Comment on above: Order Comment: Comme nts: NPO at [place] prior to lipid panel Performed By: #### L 501.080 #### [facility] [address] [place], [place], [address] Triglycerides measurementOrd ered By: Nael Quintero on 10-10-2025 Triglyceride [Mass/Vol] 73 mg/dL <199 [facility] Comment on above: The drugs N-Acetylcy steine and Metamizole may falsely depress this assay. Normal range: <150 mg/dLBorderline High: 150-199 mg/dLHigh: 200-499 mg/dLVery High: >500 mg/dL 12 Lead EKGon 10-09-2025 12 Lead EKG [facility] Cardiovascular Services [address] [place] [address] 12 Lead EKG 10/09/25 0829 MR#: [id number] Acct: [id number] Name: CALIN LIRA Rep #: [id number] : 1955 70 From: Mau Arreola MD Attending Dr: Dr. Nael Quintero MD Status: ADM CHELSEY Ordering Dr: Bernardino Pizano DO Date: 10/09/25 Location: [facility] Sex: M C Admitted: 10/09/25 Test Reason : STROKE ALERT Blood Pressure : */* mmHG Vent. Rate : 74 BPM Atrial Rate : 74 BPM P-R Int : 158 ms QRS Dur : 168 ms QT Int : 500 ms P-R-T Axes : 42 -70 97 degrees QTcB Int : 555 ms Atrial-sensed ventricular-paced rhythm with occasional Premature ventricular complexes Abnormal ECG Confirmed by Mau Arreola ([id number]), newspaper editor YENIFER PALMER ([id number]) on 10/10/2025 10:32:00 AM Referred By: Confirmed By: Mau Arreola 10/10/25 1032 Date Mau Arreola MD CC: Dr. Bernardino Pizano DO; Dr. Nael Quintero MD; Dr. Sheba Jimenez MD Signed Normal [facility] Absolute lymphocyte countOrd ered By: Bernardino Pizano on 10-09-2025 Lymphocytes Auto (Unsp spec) [#/Vol] 1.55 10*3/uL 0.83-4.51 [facility] Absolute neutrophil countOrd ered By: Bernardino Pizano on 10-09-2025 Neutrophils (Bld) [#/Vol] 5.7 10*3/uL 2.0-7.7 [facility] Activated partial thrombopla stin time (aPTT) in platelet poor plasma by coagulation aOrdered By: Bernardino Pizano on 10-09-2025 aPTT Coag (PPP) [Time] 28.2 s 24.1-36.2 [facility] Anion gap in Serum or Plasma Ordered By: Bernardino Pizano on 10-09-2025 Anion gap [Moles/Vol] 10 mmol/L 5-15 [facility] Automated lymphocyte count a s percentage of total leukocytesOrdered By: Bernardino Pizano on 10-09-2025 Lymphocytes/100 WBC Auto (Unsp spec) 18.8 % Low 19-41 [facility] Basic Metabolic Profile (BMP )on 10-09-2025 BUN/CRE 22.2 RATIO High 10-20 [facility] Comment on above: Performed By: #### L 501.080 #### [facility] [address] [place], [address] Calcium [Mass/Vol] 9.3 mg/dL Normal 7.6-11.0 [facility] Comment on above: Performed By: #### L 501.080 #### [facility] [address] [place], [address] Chloride [Moles/Vol] 102 mmol/L Normal 98-108 [facility] Comment on above: Performed By: #### L 501.080 #### [facility] [address] [place], [address] CO2 [Moles/Vol] 25.0 mmol/L Normal 21.0-32.0 [facility] Comment on above: Performed By: #### L 501.080 #### [facility] [address] [place], [address] Creatinine [Mass/Vol] 0.94 mg/dL Normal 0.70-1.20 [facility] Comment on above: Performed By: #### L 501.080 #### [facility] [address] [place], [address] ECRCL 88.82 ml/min Normal 50-250 [facility] Comment on above: Performed By: #### L 501.080 #### [facility] [address] [place], [address] GAP 10 Normal 5-15 [facility] Comment on above: Performed By: #### L 501.080 #### [facility] [address] [place], [address] GFR/1.73 sq M.predicted among non-blacks MDRD (S/P/Bld) [Vol rate/Area] 86 mL/min/{1.73_m2} Normal >60 [facility] Comment on above: Result Comment: mL/m in/1.73m2 CKD-EPI Creatinine Equation (2020) Performed By: #### L 501.080 #### [facility] [address] [place], [address] Glucose [Mass/Vol] 135 mg/dL High 70-99 [facility] Comment on above: Performed By: #### L 501.080 #### [facility] [address] [place], [address] Potassium [Moles/Vol] 4.2 mmol/L Normal 3.3-5.1 [facility] Comment on above: Performed By: #### L 501.080 #### [facility] [address] [place], [address] Sodium [Moles/Vol] 137 mmol/L Normal 133-145 [facility] Comment on above: Performed By: #### L 501.080 #### [facility] [address] [place], [address] Urea nitrogen [Mass/Vol] 21 mg/dL High 4-19 [facility] Comment on above: Performed By: #### L 501.080 #### [facility] [address] [place], [address] Basophil percentageOrdered B y: Bernardino Pizano on 10-09-2025 Basophils/100 WBC (Bld) 0.5 % 0-1 [facility] Bedside Glucoseon 10-09-2025 FINGERSTICK GLU 119 mg/dL High 74-106 [facility] Comment on above: Result Comment: IZABELLA GEMENT OF PATIENT CARE PER NURSING PROTOCOL Performed By: #### L 501.080 #### [facility] [address] [place], [address] FINGERSTICK GLU 128 mg/dL High 74-106 [facility] Comment on above: Result Comment: IZABELLA GEMENT OF PATIENT CARE PER NURSING PROTOCOL Performed By: #### L 501.080 #### [facility] [address] [place], [address] FINGERSTICK GLU 101 mg/dL Normal 74-106 [facility] Comment on above: Result Comment: IZABELLA GEMENT OF PATIENT CARE PER NURSING PROTOCOL Performed By: #### L 499.0043 #### [facility] [address] [place], [address] Blood urea nitrogen (BUN)/cr eatinine ratioOrdered By: Bernardino Pizano on 10-09-2025 Urea nitrogen/Creatinine [Mass ratio] 22.2 mg/mg High 10-20 [facility] CBC W/Diff, Automatedon 09-29 Absolute Lymph 1.55 X10 3/uL Normal 0.83-4.51 [facility] Comment on above: Performed By: #### L 501.080 #### [facility] [address] [place], [address] Absolute Neut 5.7 X10 3/uL Normal 2.0-7.7 [facility] Comment on above: Performed By: #### L 501.080 #### [facility] [address] [place], [address] Basophils/100 WBC (Bld) 0.5 % Normal 0-1 [facility] Comment on above: Performed By: #### L 501.080 #### [facility] [address] [place], [address] Eosinophils/100 WBC (Bld) 1.8 % Normal 0-5 [facility] Comment on above: Performed By: #### L 501.080 #### [facility] [address] [place], [address] Erythrocyte distribution width (RBC) [Ratio] 12.5 % Normal 11.6-14.6 [facility] Comment on above: Performed By: #### L 501.080 #### [facility] [address] [place], [address] Hematocrit (Bld) [Volume fraction] 40.5 % Normal 40-54 [facility] Comment on above: Performed By: #### L 501.080 #### [facility] [address] [place], [address] Hemoglobin (Bld) [Mass/Vol] 13.4 g/dL Normal 13.0-16.5 [facility] Comment on above: Performed By: #### L 501.080 #### [facility] [address] [place], [address] IG% 0.200 Normal 0.0-0.9 [facility] Comment on above: Result Comment: IG% - Immature Granulocytes (promyelocytes, myelocytes and metamyelocytes) > 1% indicates that a LEFT SHIFT is Present. Performed By: #### L 501.080 #### [facility] [address] [place], [address] Lymphocytes/100 WBC (Bld) 18.8 % Low 19-41 [facility] Comment on above: Performed By: #### L 501.080 #### [facility] [address] [place], [address] MCH (RBC) [Entitic mass] 31.8 pg Normal 27.0-32.0 [facility] Comment on above: Performed By: #### L 501.080 #### [facility] [address] [place], [address] MCHC (RBC) [Mass/Vol] 33.1 g/dL Normal 32-36 [facility] Comment on above: Performed By: #### L 501.080 #### [facility] [address] [place], [address] MCV (RBC) [Entitic vol] 96.0 fL High 80-94 [facility] Comment on above: Performed By: #### L 501.080 #### [facility] [address] [place], [address] Monocytes/100 WBC (Bld) 9.6 % Normal 0-10 [facility] Comment on above: Performed By: #### L 501.080 #### [facility] [address] [place], [address] Neutrophils/100 WBC (Bld) 69.1 % Normal 47-70 [facility] Comment on above: Performed By: #### L 501.080 #### [facility] [address] [place], [address] Nucleated RBC (Bld) [#/Vol] 0 10*3/uL Normal 0-5 [facility] Comment on above: Performed By: #### L 501.080 #### [facility] [address] [place], [address] Platelet mean volume (Bld) [Entitic vol] 10.2 fL Normal 6.2-12.0 [facility] Comment on above: Performed By: #### L 501.080 #### [facility] [address] [place], [address] Platelets (Bld) [#/Vol] 185 10*3/uL Normal 150-450 [facility] Comment on above: Performed By: #### L 501.080 #### [facility] [address] [place], [address] RBC (Bld) [#/Vol] 4.22 10*6/uL Low 4.6-6.2 [facility] Comment on above: Performed By: #### L 501.080 #### [facility] [address] [place], [place], [address] RDW SD 43.8 fl Normal 35.1-43.9 [facility] Comment on above: Performed By: #### L 501.080 #### [facility] [address] [place], [place], [address] WBC (Bld) [#/Vol] 8.2 10*3/uL Normal 4.4-11.0 [facility] Comment on above: Performed By: #### L 501.080 #### [facility] [address] [place], [place], [address] [facility] Telephone (FAMMAS) -- CALIN LIRA ([id number]) 1955 M Date Time Provider Department 10/09/25 SHEBA JIMENEZ [facility] During your visit today, we recorded the following information about you: Jenny Knapp 10/09/2025 1:15 PM Signed Patients spouse left voicemail @ 12:08 pm requesting lab orders to be faxed to [facility] [phone] was there for other testing today and would like to get this done as well. Robert Maier LPN 10/10/2025 7:46 AM Signed Orders faxed per request. Robert Finney LPN October 10, 2025 7:46 AM Allergies As of Date: 10/09/2025 (No Known Allergies) Date Reviewed: 08/22/2025 Reviewed by: Gabrielle Trevino LPN - Fully Assessed Reason for Visit: Orders [681] Prescriptions as of 10/10/2025 - LANTUS SOLOSTAR U-100 INSULIN 100 unit/mL (3 mL) INJECT 16 UNITS SUBCUTANEOUSLY DAILY AT BEDTIME. - atorvastatin (LIPITOR) 40 mg tablet TAKE 1 TABLET BY MOUTH EVERYDAY AT BEDTIME - metFORMIN ER (GLUCOPHAGE XR) 500 mg 24 hr tablet Take 2 tablets by mouth daily with breakfast. - blood sugar diagnostic test strip Monitor blood glucose twice a day. - Lancets Use with blood glucose to test twice a day Problem List As Of Date 10/09/2025 Noted Resolved TRIGEMINAL NEURALGIA [G50.0] 07/03/2008 Diverticulitis [K57.92] 08/19/2017 Elevated blood-pressure reading, without diagno*02/07/2018 Hyperlipidemia [E78.5] 07/01/2017 Idiopathic chronic gout, unspecified ankle and *06/08/2019 Diabetes beginning in adulthood (type 2/adult o*07/09/2024 Bradycardia [R00.1] 08/30/2024 Third degree heart block (HCC) [I44.2] 08/30/2024 Atrioventricular block [I44.30] 08/30/2024 TARIK (acute kidney injury) (HCC) [N17.9] 08/30/2024 Encounter Status:Closed by ROBERT FINNEY on 10/10/25 [facility] Carbon dioxide measurementOr dered By: Bernardino Pizano on 10-09-2025 CO2 [Moles/Vol] 25.0 mmol/L 21.0-32.0 [facility] Chest 1 Viewon 10-09-2025 Chest 1 View [facility] Imaging Services [address] [place] [address] Chest 1 View MR#: [id number] Acct: [id number] Name: CALIN LIRA Rep #: [id number] : 1955 M 70 From: Iván pham MD PCP: Dr. Sheba Jimenez MD Status: REG ER Study: Chest 1 View Date of Exam: 10/09/25 Exam# [id number] Ordering Dr: Bernardino Pizano DO PROCEDURE: CHEST 1 VIEW 10/09/2025 REASON FOR EXAM: NEURO DEFICIT, ACUTE, STROKE SUSPECTED TECHNIQUE: Frontal view of the chest. COMPARISON: June 06, 2024. FINDINGS: Hardware: EKG electrodes are seen. A left-sided dual-chamber pacemaker is present. Heart: Mild cardiomegaly. Lungs: Increased markings at the lung bases worse at the right lung base. These have progressed as compared to prior study. This may represent either scarring and/or atelectasis. Bones: Degenerative changes are identified within the thoracic spine. RAD/Chest 1 View IMPRESSION: Mild cardiomegaly. Increased markings at the lung bases as compared to prior study worse at the right lung base suggestive of atelectasis and/or scarring. Reading Location: [id number] CC: Dr. Bernardino Pizano DO; Dr. Sheba Jimenez MD Wound Care Technician: Signed Normal [facility] Chloride assayOrdered By: Dale Pizano on 10-09-2025 Chloride [Moles/Vol] 102 mmol/L 98-108 [facility] Echo Complete W/ Contraston 10-09-2025 Echo Complete W/ Contrast [facility] [address] [place] [address] Echo Complete W/ Contrast 10/09/25 1322 MR#: [id number] Acct: [id number] Name: CALIN LIRA Rep #: [id number] : 1955 70 From: Cher Armas MD Attending Dr: Dr. Nael Quintero MD Status: ADM CHELSEY Ordering Dr: Nael Quintero MD Date: 10/09/25 Location: PCU Sex: M C Admitted: 10/09/25 Reason For Study : TIA/CVA Procedure This was a 2D Doppler, Color Flow transthoracic echocardiogram. Contrast injection was performed. Exam performed portable in patient room. Left Ventricle Normal left ventricular thickness. Moderate to severely dilated LV cavity. Severe LV systolic dysfunction. Estimated LVEF 5%. Stage III diastolic dysfunction. Right Ventricle Normal RV size. Moderate global right ventricular systolic dysfunction. Atria The left atrium is severely enlarged. ICD or pacer leads identified within the right atrium. Bubble contrast study is negative for PFO/ASD. Mitral Valve Severe (4+) mitral valve insufficiency. Tricuspid Valve Mild (1+) tricuspid valve insufficiency. Right ventricular systolic pressure estimated to be 55 mmHg. Aortic Valve Mild-Moderate (1-2+) aortic valve insufficiency. Pulmonic Valve The pulmonic valve is not well visualized. Great Vessels Normal sized aortic root. Pericardium/Pleural No pericardial effusion. Medication Performed a rapid injection of agitated mix of 9 cc saline and 1cc air to assess for atrial septal defect. Diluted definity 1ml given slow IV push to enhance endocardial definition. MMode/2D Measurements Calculations LVIDd: 6.4 cm IVSd: 1.1 cm Ao root diam: 3.7 cm LVIDs: 6.0 cm LVPWd: 1.0 cm RVDd: 4.8 cm FS: 6.7 % LAV(MOD-bp): 88.7 ml LVAd ap4: 48.5 cm2 SV(MOD-sp4): 26.6 ml LAV(MOD-bp) Indexed: 40.4 ml/m2 LVLd ap4: 9.3 cm SI(MOD-sp4): 12.1 ml/m2 LAV(MOD-sp2): 95.4 ml EDV(MOD-sp4): 207.7 ml LAV(MOD-sp4): 74.1 ml EDV(sp4-el): 213.6 ml LVAs ap4: 45.7 cm2 LVLs ap4: 9.3 cm ESV(MOD-sp4): 181.2 ml ESV(sp4-el): 189.9 ml EF(MOD-sp4): 12.8 % EF(sp4-el): 11.1 % SV(sp4-el): 23.7 ml LA A4 area: 25.9 cm2 LA dimension(2D): 5.8 cm RA A4 area: 19.0 cm2 TAPSE: 1.4 cm Time Measurements MV dec time: 0.14 sec Doppler Measurements Calculations MV E max german: 89.2 cm/sec Lat Peak E' German: 4.9 cm/sec Med Peak E' German: 3.5 cm/sec MV A max german: 45.4 cm/sec E/E' lat: 18.0 E/E' med: 25.4 MV E/A: 2.0 MV V2 max: 108.8 cm/sec MV dec slope: 633.3 cm/sec2 Ao V2 max: 117.8 cm/sec MV max P.7 mmHg Ao max P.5 mmHg MV V2 mean: 65.1 cm/sec Ao V2 mean: 91.2 cm/sec MV mean P.9 mmHg Ao mean P.5 mmHg MV V2 VTI: 27.1 cm Ao V2 VTI: 21.9 cm AI max german: 319.5 cm/sec LV V1 max: 82.4 cm/sec PA V2 max: 56.9 cm/sec AI max P.8 mmHg LV V1 max P.7 mmHg AI dec slope: 158.4 cm/sec2 AI P1/2t: 590.7 msec PI end-d german: 178.0 cm/sec TR max german: 318.8 cm/sec TR max P.6 mmHg ECHO/Echo Complete W/ Contrast Interpretation Summary Moderate to severely dilated LV cavity. Severe LV systolic dysfunction. Estimated LVEF 5%. Stage III diastolic dysfunction. Moderate global right ventricular systolic dysfunction. The left atrium is severely enlarged. Severe (4+) mitral valve insufficiency. Mild (1+) tricuspid valve insufficiency. Right ventricular systolic pressure estimated to be 55 mmHg. Mild-Moderate (1-2+) aortic valve insufficiency. Bubble contrast study is negative for PFO/ASD. Ordering Physician: Nael Quintero Referring Physician: Sheba Jimenez Performed By: Roof, Eugenia, RDCS, RVT 10/09/25 1515 Date Cher Armas MD CC: Dr. Nael Quintero MD; Dr. Sheba Jimenez MD Date Dictated: 10/09/25 1322 Date Transcribed: 10/09/25 1508 Wound Care Technician: Signed Normal [facility] Emergency Department Summary on 10-09-2025 Emergency Department Summary [facility] Medical Records Department [address] [place] [address] Emergency Department Summary 10/09/25 MR#: [id number] Acct: [id number] Name: CALIN LIRA Rep #: [id number] : 1955 70 From: Bernardino Pizano DO PCP: Dr. Sheba Jimenez MD Status:ADM CHELSEY Location: [address] History of Present Illness Chief Complaint: Confusion Informant: patient Onset/Context/Timing Onset: Today Context: Sudden Onset Timing: Continuous Onset: This morning (last known well was 10:30 PM last night) Associated Symptoms Associated Symptoms: Positive for Headache; Negative for Nausea, Vomiting or Chest Pain Narrative Narrative: Patient presents with difficulty breathing that began this morning. Patient states he went to bed last night at 10:30 PM and was fine. Patient states he got up this morning and was trying to read but could not make out the words. Patient denies any loss of vision. Patient states he can see the words but he cannot process what the words say or mean. Patient admits to a mild left-sided headache. Patient denies any paresthesias or weakness. Patient denies any chest pain or shortness of breath. Patient denies any nausea or vomiting. [facility] Medical History Type 2 diabetes mellitus Presence of cardiac pacemaker Trigeminal neuralgia of right side of face Home Medications ???Medication ???Instructions ???Recorded ???Last Taken ???Type atorvastatin 40 mg tablet (Lipitor) 40 mg PO QHS #60 tabs 06/06/24 Unknown Rx pen needle, diabetic 31 gauge x #100 ea 06/06/24 Unknown Rx metformin 500 mg tablet,extended 500 mg PO BID 07/24/24 Unknown His tory release 24 hr insulin glargine 100 unit/mL (3 16 unit subcut QPM 07/09/25 Unknow n History mL) subcutaneous pen (Lantus Solostar U-100 Insulin) Allergy/AdvReac Type Severity Reaction Status Date / Time No Known Allergies Allergy Verified 10/09/25 08:08 Family History Father Heart disease Surgical History History of hand surgery Social History Smoking Status: Former smoker alcohol intake: current substance use type: does not use caffeine: Yes ROS ROS ED Constitutional Constitutional ED: Denies chills or fever(s) Eyes Eyes: Denies blurry vision or change in vision ENT ENT ED: Denies rhinorrhea or sore throat Cardiovascular Cardiovascular: Denies chest pain or palpitations Respiratory/Chest Respiratory/Chest: Denies cough or dyspnea Gastrointestinal Gastrointestinal: Denies nausea or vomiting Genitourinary Genitourinary ED: Denies dysuria or hematuria Musculoskeletal Musculoskeletal: Denies back pain or neck pain Integumentary Denies abscess or rash Neurologic Neurologic: Reports headache(s); Denies weakness Allergic/Immunologic Allergic/Immunologic ED: Denies mouth swelling or urticaria EXAM Physical Exam Const Vital Signs: 10/09/25 07:50 10/09/25 07:53 10/09/25 07:53 Temperature 98.6 F Temperature Source Oral Pulse Rate 87 87 Respiratory Rate 16 16 Blood Pressure 128/86 H 138/86 H Blood Pressure Mean 100 103 Pulse Ox 100 98 99 Oxygen Delivery Method Room Air 10/09/25 08:03 10/09/25 08:23 10/09/25 08:30 Temperature 98.6 F Temperature Source Oral Pulse Rate 87 79 75 Respiratory Rate 16 20 H 12 Blood Pressure 128/86 H 117/74 106/75 Blood Pressure Mean 100 88 85 Pulse Ox 99 98 100 Oxygen Delivery Method Room Air 10/09/25 09:00 10/09/25 09:30 10/09/25 09:53 Temperature 98 F Temperature Source Pulse Rate 71 75 75 Respiratory Rate 20 H 16 14 Blood Pressure 98/78 105/74 105/74 Blood Pressure Mean 84 84 84 Pulse Ox 98 97 99 Oxygen Delivery Method Room Air Room Air 10/09/25 10:00 Temperature Temperature Source Pulse Rate 67 Respiratory Rate 24 H Blood Pressure 104/67 Blood Pressure Mean 77 Pulse Ox 96 Oxygen Delivery Method Positive well nourished and well developed General Appearance ED: well developed and NAD HEENT Reports moist mucous membranes Neck supple and no JVD Resp normal respiratory effort and clear to auscultation bilaterally Cardio Rate: regular rate Rhythm: regular rhythm GI soft to palpation, non-tender and non-distended Neuro oriented x3, CN's II-XII intact bilaterally and no sensory deficits noted Briana Coma Scale: document GCS findings Spontaneous Obeys Commands Oriented 15 Sensorium / Orientation: alert Speech: speech normal Motor Exam: strength 5/5 throughout Psych mental status grossly normal MDM MDM (more content not included)... Normal [facility] Eosinophil percentageOrdered By: Bernardino Pizano on 10-09-2025 Eosinophils/100 WBC (Bld) 1.8 % 0-5 [facility] Erythrocyte distribution wid th ratioOrdered By: Bernardino Pizano on 10-09-2025 Erythrocyte distribution width (RBC) [Ratio] 12.5 % 11.6-14.6 [facility] Erythrocyte distribution wid th standard deviationOrdered By: Bernardino Pizano on 10-09-2025 Erythrocyte distribution width (RBC) [Ratio] 43.8 fl 35.1-43.9 [facility] Glomerular filtration rate ( GFR) estimation/1.73 sq m using serum, plasma, or whole bOrdered By: Bernardino Pizano on 10-09-2025 GFR/1.73 sq M.predicted among non-blacks MDRD (S/P/Bld) [Vol rate/Area] 86 mL/min/{1.73_m2} >60 [facility] Comment on above: mL/min/1.73m2 CKD-EP I Creatinine Equation (2020) [facility] deOrdered By: Nael Quintero on 10-09-2025 Glucose [Mass/Vol] 119 mg/dL High 74-106 [facility] Comment on above: MANAGEMENT OF PATIEN T CARE PER NURSING PROTOCOL H AND P Exam - [facility] 10-09-2025 H&P Exam - Hospitalist [facility] Medical Records Department [address] [place] [address] H P Exam - Hospitalist 10/09/25 1029 MR#: [id number] Acct: [id number] Name: CALIN LIRA Rep #: [id number] : 1955 70 From: Nael Quintero MD PCP: Dr. Sheba Jimenez MD Status:ADM CHELSEY Location: [place] [address] HPI - General General Date of Admission: 10/09/25 Date of Service: 10/09/25 Chief Complaint: Reading difficulty HPI Narrative CALIN LIRA, is a 70 M was brought to ED for not able to read after he woke up. His went to bed normal at 10:30 PM and was fine. LKW 10:30 PM on 10/08/2025. When he woke up in the morning he was not able to read or words could not make any sense. As per the he has a speech, verbalization, diction and forming the words and sentences were normal though he was realing with more stress with some slurring. No other focal neurological symptoms including loss of vision, focal weakness, paresthesia or change in sensation, disequilibrium. His denies that he was confused but may be more stressed out. No acute change in health in the last 1 or 2 weeks: Denies URI symptoms or fever. Mild headache on right side but was not severe or intense and does not have a history of chronic headache syndrome. Stroke alert was called in ED triage. Patient further admitted after initial blood work and imaging. Not candidate for IV thrombolytics/tenecteplase as his symptoms of bleeding was improving in the ED and NIH stroke scale of 1. [facility] Medical History Type 2 diabetes mellitus Presence of cardiac pacemaker Trigeminal neuralgia of right side of face Home Medications ???Medication ???Instructions ???Recorded ???Last Taken ???Type atorvastatin 40 mg tablet (Lipitor) 40 mg PO QHS #60 tabs 06/06/24 10/08/25 Rx pen needle, diabetic 31 gauge x #100 ea 06/06/24 Unknown Rx metformin 500 mg tablet,extended 500 mg PO BID 07/24/24 10/09/25 Hi story release 24 hr insulin glargine 100 unit/mL (3 16 unit subcut QPM 07/09/25 History mL) subcutaneous pen (Lantus Solostar U-100 Insulin) Allergy/AdvReac Type Severity Reaction Status Date / Time No Known Allergies Allergy Verified 10/09/25 08:08 Family History Father Heart disease Surgical History History of hand surgery Social History Smoking Status: Former smoker alcohol intake: current substance use type: does not use caffeine: Yes ROS ROS Narrative Constitutional: Denies acute onset of fatigue and weakness. No fever. HEENT: Reports systems reviewed and no addt'l complaints, except as documented Respiratory/Chest: No acute shortness of breath or respiratory distress or wheezing. CVS: No chest pain, pressure or tightness. Has pacemaker inserted in 2023. Gastrointestinal: Denies coffee ground emesis, hematemesis or vomiting. No abdominal pain Genitourinary: Denies burning urination or new urinary tract symptoms Musculoskeletal: Denies acute joint pain or limited range of motion. No acute injury Neurologic: Denies seizure-like symptoms. Rest as described in HPI skin: No ulcer. No rash Endocrinology: Reports systems reviewed and no addt'l complaints, except as documented Hematologic/Lymphatic: Reports systems reviewed and no addt'l complaints, except as documented Rest 14 ROS are negative except as mentioned in HPI Vital Signs Vital Signs Vital Signs: 10/09/25 07:50 10/09/25 07:53 10/09/25 07:53 Temperature 98.6 F Temperature Source Oral Pulse Rate 87 87 Respiratory Rate 16 16 Blood Pressure 128/86 H 138/86 H Blood Pressure Mean 100 103 Pulse Ox 100 98 99 Oxygen Delivery Method Room Air 10/09/25 08:03 10/09/25 08:23 10/09/25 08:30 Temperature 98.6 F Temperature Source Oral Pulse Rate 87 79 75 Respiratory Rate 16 20 H 12 Blood Pressure 128/86 H 117/74 106/75 Blood Pressure Mean 100 88 85 Pulse Ox 99 98 100 Oxygen Delivery Method Room Air 10/09/25 09:00 10/09/25 09:30 10/09/25 09:53 Temperature 98 F Temperature Source Pulse Rate 71 75 75 Respiratory Rate 20 H 16 14 Blood Pressure 98/78 105/74 105/74 Blood Pressure Mean 84 84 84 Pulse Ox 98 97 99 Oxygen Delivery Method Room Air Room Air 10/09/25 10:00 Temperature Temperature Source Pulse Rate 67 Respiratory Rate 24 H Blood Pressure 104/67 Blood Pressure Mean 77 Pulse Ox 96 Oxygen Delivery Method Weight Weight: 223 lb Body Mass Index (BMI) 29.4 Physical Exam Narrative General: Alert, Oriented x3, Cooperative. BMI 29.0 kg/m??? HEENT: (more content not included)... Normal [facility] Hematocrit Auto (Bld) [Volum e fraction]Ordered By: Bernardino Pizano on 10-09-2025 Hematocrit (Bld) [Volume fraction] 40.5 % 40-54 [facility] Hemoglobin measurementOrdere d By: Bernardino Pizano on 10-09-2025 Hemoglobin (Bld) [Mass/Vol] 13.4 g/dL 13.0-16.5 [facility] Immature granulocytes/100 WB C Auto (Bld)Ordered By: Bernardino Pizano on 10-09-2025 Immature granulocytes/100 WBC (Bld) 0.200 % 0.0-0.9 [facility] Comment on above: IG% - Immature Granu locytes (promyelocytes, myelocytes and metamyelocytes) > 1% indicates that a LEFT SHIFT is Present. International normalized rat io (INR) calculationOrdered By: Bernardino Pizano on 10-09-2025 INR Coag (Bld) [Relative time] 1.2 {INR} [facility] L501.4021on 10-09-2025 Trop T High Sen 31 ng/L High <=22 [facility] Comment on above: Performed By: #### L 501.080 #### [facility] [address] [place], [place], [id number] MCV (mean corpuscular volume ) determinationOrdered By: Bernardino Pizano on 10-09-2025 MCV (RBC) [Entitic vol] 96.0 fL High 80-94 [facility] Mean corpuscular hemoglobin (MCH) determinationOrdered By: Bernardino Pizano on 10-09-2025 MCH (RBC) [Entitic mass] 31.8 pg 27.0-32.0 [facility] Mean corpuscular hemoglobin concentration (MCHC) determinationOrdered By: Bernardino Pizano on 10-09-2025 MCHC (RBC) [Mass/Vol] 33.1 g/dL 32-36 [facility] Mean platelet volume determi nationOrdered By: Bernardino Pizano on 10-09-2025 Platelet mean volume (Bld) [Entitic vol] 10.2 fL 6.2-12.0 [facility] Monocyte percentageOrdered B y: Bernardino Pizano on 10-09-2025 Monocytes/100 WBC (Bld) 9.6 % 0-10 [facility] Neutrophil percentageOrdered By: Bernardino Pizano on 10-09-2025 Neutrophils/100 WBC (Bld) 69.1 % 47-70 [facility] Nucleated red blood cell per centageOrdered By: Bernardino Pizano on 10-09-2025 Nucleated RBC/100 WBC (Bld) [Ratio] 0 % 0-5 [facility] Partial Thromboplast Timeon 10-09-2025 aPTT Coag (Bld) [Time] 28.2 s Normal 24.1-36.2 [facility] Comment on above: Performed By: #### L 501.080 #### [facility] [address] [place] [address], [address] Platelet countOrdered By: Dale Pizano on 10-09-2025 Platelets (Bld) [#/Vol] 185 10*3/uL 150-450 [facility] Potassium measurement (mass/ volume)Ordered By: Bernardino Pizano on 10-09-2025 Potassium (Unsp spec) [Mass/Vol] 4.2 mmol/L 3.3-5.1 [facility] Prothrombin Time w/INRon INR Coag (PPP) [Relative time] 1.2 {INR} Normal [facility] Comment on above: Performed By: #### L 501.080 #### [facility] [address] [place], [address] PT Coag (PPP) [Time] 15.1 s High 11.7-14.9 [facility] Comment on above: Performed By: #### L 501.080 #### [facility] [address] [place], [address] Prothrombin timeOrdered By: Bernardino Pizano on 10-09-2025 PT Coag (PPP) [Time] 15.1 s High 11.7-14.9 [facility] RBC Auto (Bld) [#/Vol]Ordere d By: Bernardino Pizano on 10-09-2025 RBC (Bld) [#/Vol] 4.22 10*6/uL Low 4.6-6.2 [facility] STROKE Brain/Head without Co nton 10-09-2025 STROKE Brain/Head without Cont [facility] Imaging Services [address] [place], [place] [address] STROKE Brain/Head without Cont MR#: [id number] Acct: [id number] Name: CALIN LIRA Rep #: [id number] : 1955 M 70 From: Iván pham MD PCP: Dr. Sheba Jimenez MD Status: REG ER Study: STROKE Brain/Head without Cont Date of Exam: 12/09/24 Exam# [id number] Ordering Dr: Bernardino Pizano DO PROCEDURE: STROKE BRAIN/HEAD WITHOUT CONT 10/09/2025 REASON FOR EXAM: NEURO DEFICIT, ACUTE, STROKE SUSPECTED TECHNIQUE: Procedure Code: CTBR.ST Modality: CT Procedure: STROKE BRAIN/HEAD WITHOUT CONT Coronal and Sagittal reconstruction series were provided. One or more dose reduction techniques were used (e.g., Automated exposure control, adjustment of the mA and/or kV according to patient size, use of iterative reconstruction technique. RADIATION DOSE SUMMARY: CTDlvol: 47.06 mGy DLP: 872.68 mGycm COMPARISON: None FINDINGS: Brain: Within normal limits for age punctate calcifications seen in the basal ganglia bilaterally. This is a normal variant for the patient's age. CSF Spaces: Mild generalized cerebral atrophy Sinuses/Mastoids: Clear at visualized levels Bones: Unremarkable. CT/STROKE Brain/Head without Cont IMPRESSION: Mild cerebral atrophy. No acute abnormality is seen. Stroke Alert: The critical findings in the findings and impression above were relayed directly by me by telephone to Bernardino Pizano on 10/09/2025 at 8:04 am with readback verification. Reading Location: [id number] CC: Dr. Bernardino Pizano DO; Dr. Sheba Jimenez MD Wound Care Technician: Signed Normal [facility] STROKE CTA Head AND Neck W/C onon 10-09-2025 STROKE CTA Head AND Neck W/Con [facility] Imaging Services [address] [place], [place] [id number] STROKE CTA Head AND Neck W/Con MR#: [id number] Acct: [id number] Name: CALIN LIRA Rep #: [id number] : 1955 70 From: Giovanni Perez MD PCP: Dr. Sheba Jimenez MD Status: [facility] ER Study: STROKE CTA Head AND Neck W/Con Date of Exam: 12/09/24 Exam# [id number] Ordering Dr: Bernardino Pizano DO PROCEDURE: STROKE CTA HEAD AND NECK W/CON 10/09/2025 REASON FOR EXAM: NEURO DEFICIT, ACUTE, STROKE SUSPECTED TECHNIQUE: Procedure Code: CTCTA.ST.HN Modality: CT Procedure: STROKE CTA HEAD AND NECK W/CON Multiplanar Sagittal and Coronal images were obtained. CONTRAST: 100 cc Isovue 370 One or more dose reduction techniques were used (e.g., Automated exposure control, adjustment of the mA and/or kV according to patient size, use of iterative reconstruction technique). RADIATION DOSE SUMMARY: DLP: 965 mGycm COMPARISON: None FINDINGS: Aortic Arch: Patent Brachiocephalic and Subclavians: Patent RIGHT Carotid: Right CCA: Patent Right ICA: Patent Maximum stenosis (NASCET): 0 % Right ECA: Patent LEFT Carotid: Left CCA: Patent Left ICA: Patent Maximum stenosis (NASCET): 0 % Left ECA: Patent Vertebrals: Patent RIGHT Vertebral: Patent LEFT Vertebral: Patent Anatomy: The ascending aorta is dilated to 4.1 cm in AP diameter. Aneurysm or avm: None Anterior cerebral arteries: Patent Middle cerebral arteries: Patent Basilar artery: Patent Posterior cerebral arteries: Patent Other major branches of the posterior circulation: Patent Major venous structures: Patent Other findings: Neck: There is pathologic adenopathy in the upper mediastinum with the largest node measuring 1.4 by 2.7 cm in the right paratracheal space, image 98/570. Lungs: Bones: Cardiac wires and a left-sided device are noted. CT/STROKE CTA Head AND Neck W/Con IMPRESSION: There is pathologic adenopathy in the upper mediastinum with the largest node measuring 1.4 by 2.7 cm in the right paratracheal space, image 98/570. The ascending aorta is dilated to 4.1 cm in AP diameter. There is no significant stenosis or occlusion identified in the carotid system in the head or neck. Reading Location: [facility] CC: Dr. Bernardino Pizano DO; Dr. Sheba Jimenez MD Wound Care Technician: Signed Normal [facility] Serum creatinine measurement (mass/volume)Ordered By: Bernardino Pizano on 10-09-2025 Creatinine [Mass/Vol] 0.94 mg/dL 0.70-1.20 [facility] Serum glucose measurement (m ass/volume)Ordered By: Bernardino Pizano on 10-09-2025 Glucose [Mass/Vol] 135 mg/dL High 70-99 [facility] Serum or plasma calcium wilber urement (mass/volume)Ordered By: Bernardino Pizano on 10-09-2025 Calcium [Mass/Vol] 9.3 mg/dL 7.6-11.0 [facility] Serum or plasma urea nitroge n measurement (mass/volume)Ordered By: Bernardino Pizano on 10-09-2025 Urea nitrogen [Mass/Vol] 21 mg/dL High 4-19 [facility] Sodium levelOrdered By: Bernardino Pizano on 10-09-2025 Sodium [Moles/Vol] 137 mmol/L 133-145 [facility] Troponin T HS 2 HRon 025 Trop T High Sen 33 ng/L High <=22 [facility] Comment on above: Performed By: #### L 499.0043 #### [facility] [address] [place], [place], [id number] Troponin T HS 4 HRon 025 Trop T High Sen 31 ng/L High <=22 [facility] Comment on above: Performed By: #### L 499.0043 #### [facility] [address] [place], [place], [id number] Troponin T.cardiac [Mass/vol ume] in Serum or Plasma by High sensitivity methodOrdered By: Bernardino Pizano on 10-09-2025 Troponin T.cardiac High sensitivity method [Mass/Vol] 31 ng/L High <22 [facility] Troponin T.cardiac High sensitivity method [Mass/Vol] 33 ng/L High <22 [facility] Troponin T.cardiac High sensitivity method [Mass/Vol] 31 ng/L High <22 [facility] White blood cell (WBC) count Ordered By: Bernardino Pizano on 10-09-2025 WBC (Bld) [#/Vol] 8.2 10*3/uL 4.4-11.0 [facility] CNOVon 08-22-2025 CNOV Office Visit (RENETTAS ) -- CALIN LIRA ([id number]) 1955 M Date Time Provider Department 08/22/25 10:40 AM SHEBA JIMENEZ During your visit today, we recorded the following information about you: Temperature Pulse Respiration Blood pressure 97.1 degrees 62/minute 18/minute 110/72 Weight Height 102.5 kg 1.854 m Gabrielle Trevino LPN 08/26/2025 1:40 PM Signed [employer] Abdominal Aortic Aneurysm Screening declined Urine Albumin:Creatinine Ratio declined Dilated Retinal Exam [facility] Diabetic Foot Exam declined DTaP,Tdap,Td Vaccine(1 - Tdap) declined Pneumococcal Vaccine: 50+(1 of 2 - PCV) declined Shingrix Vaccine(1 of 2) declined RSV Vaccine(1 - Risk 60-74 years 1-dose series) declined Influenza Vaccine(1) declined Patient states he has occasional productive cough. Gabrielle Trevino LPN August 22, 2025 10:59 AM Sheba Jimenez MD 08/26/2025 1:40 PM Signed Subjective Chief Complaint: Calin Lira is a 70-year-old male with a history of type 2 diabetes mellitus, pacemaker, and hepatic steatosis, presenting for a Medicare Annual Wellness Visit. History of Present Illness: Calin reports a persistent daily cough, primarily in the mornings, characterized by expectoration of clear to slightly green sputum. He denies postnasal drip or known allergies. He uses a CPAP machine at night. He also experiences nightly hyperhidrosis, which he attributes to vivid dreams. He reports feeling overheated during sleep, necessitating the use of a fan, fewer covers, and sleeping on his side with one leg exposed to maintain comfort. He denies the ability to sleep on his back. Calin has a pacemaker and recently underwent a [facility] physical examination, which he passed except for the requirement of a letter from his [employer] confirming his fitness to drive with a pacemaker. He expresses frustration about this requirement. He has lost 55 lbs over the past year and aims to lose an additional 10 lbs. He adheres to a strict diet, avoiding candy, soda, and sweetened beverages. His most recent HbA1c was 5.5%. He currently takes metformin BID and Lantus 16 units daily. He expresses a preference for continuing Lantus over increasing metformin dosage. Recent laboratory results showed elevated liver enzymes, and an abdominal ultrasound revealed hepatic steatosis and cholelithiasis. A hepatitis panel was negative. Review of Systems GENERAL: Positive for night sweats and sleep disturbance. Negative for weight loss, malaise, or fever. HEENT: Negative for frequent or significant headaches, no changes in vision or hearing, no nose bleeds or other nasal problems. NECK: Negative for lumps, goiter, pain, and significant neck swelling. RESPIRATORY: Positive for daily cough with occasional clear to green sputum, negative for dyspnea or shortness of breath. CARDIOVASCULAR: Negative for chest pain, leg swelling, CHF, or palpitations. GI: No nausea, vomiting, diarrhea, heartburn, abdominal pain, blood in stool, or black stool. GENITOURINARY: No history of dysuria, frequency, or incontinence. MUSCULOSKELETAL: Negative for joint pain or swelling, or muscle pain. No back pain. SKIN: Negative for lesions, rash, and itching. PSYCH: Negative for anxiety or depression. HEMATOLOGY/LYMPHOLOGY: No bleeding concerns. NEURO: No history of headaches, syncope, paralysis, seizures, or tremors. ENDOCRINE: No history of polydipsia, increased thirst, or other endocrine symptoms. History reviewed. No pertinent surgical history. History reviewed. No pertinent past medical history. History reviewed. No pertinent family history. SOCIAL HISTORY[1] ALLERGIES No Known Allergies MEDICATIONS: LANTUS SOLOSTAR U-100 INSULIN 100 unit/mL (3 mL) INJECT 16 UNITS SUBCUTANEOUSLY DAILY AT BEDTIME. atorvastatin (LIPITOR) 40 mg tablet TAKE 1 TABLET BY MOUTH EVERYDAY AT BEDTIME metFORMIN ER (GLUCOPHAGE XR) 500 mg 24 hr tablet Take 2 tablets by mouth daily with breakfast. blood sugar diagnostic test strip Monitor blood glucose twice a day. Lancets Use with blood glucose to test twice a day Allergies, past surgical history, family history and past medical history were reviewed per this encounter. Medications were reviewed and verified. 02/19/2025 08/22/2025 INTAKE PAIN ASSESSMENT Are you having pain associated with your visit today? No No If pain assessment is 0, no action needed. If pain assessment is positive, please see assessment and plain. Objective Labs: - Liver enzymes: Elevated - Hepatitis Panel: Negative - Hemoglobin A1c: 5.5 (normal) Imaging: - Ultrasound of the liver: Fatty liver and gallstones BP 110/72 (BP Site: Left Arm, BP Position: Sitting, BP Cuff Size: Regular Adult) Pulse 62 Temp 36.2 ?C (97.1 ?F) (Temporal) Resp 18 Ht 185.4 cm (6' 1) Wt 102.5 kg (more content not included)... [facility] Juanito 07-16-2025 [place] Telephone (FAMMAS) -- CALIN LIRA ([id number]) 1955 M Date Time Provider Department 07/16/25 SHEBA JIMENEZ During your visit today, we recorded the following information about you: Jacquie Araya MA 07/16/2025 9:12 AM Signed Pt called desiring lab and imaging results from the last week of April. Please advise. SHOBHA De La Paz July 16, 2025 9:12 AM Kelsey Beltre MA 07/17/2025 2:41 PM Signed Patient has been notified and expressed understanding. Kelsey Beltre MA July 17, 2025 2:41 PM Allergies As of Date: 07/16/2025 (No Known Allergies) Date Reviewed: 02/19/2025 Reviewed by: Joe Perea LPN - Fully Assessed Reason for Visit: Results [95] Prescriptions as of 07/17/2025 - LANTUS SOLOSTAR U-100 INSULIN 100 unit/mL (3 mL) Inject 16 Units subcutaneously daily at bedtime. - metFORMIN ER (GLUCOPHAGE XR) 500 mg 24 hr tablet Take 2 tablets by mouth daily with breakfast. - UNIFINE PENTIPS 31 gauge x 5/16 Inject 1 Each subcutaneously once daily. - blood sugar diagnostic test strip Monitor blood glucose twice a day. - Lancets Use with blood glucose to test twice a day - atorvastatin (LIPITOR) 40 mg tablet Take 1 tablet by mouth daily at bedtime. Problem List As Of Date 07/16/2025 Noted Resolved TRIGEMINAL NEURALGIA [G50.0] 07/03/2008 Diverticulitis [K57.92] 08/19/2017 Elevated blood-pressure reading, without diagno*02/07/2018 Hyperlipidemia [E78.5] 07/01/2017 Idiopathic chronic gout, unspecified ankle and *06/08/2019 Diabetes beginning in adulthood (type 2/adult o*07/09/2024 Bradycardia [R00.1] 08/30/2024 Third degree heart block (HCC) [I44.2] 08/30/2024 Atrioventricular block [I44.30] 08/30/2024 TARIK (acute kidney injury) (HCC) [N17.9] 08/30/2024 Encounter Status:Closed by BLAYNE BELTRE ASHLEY A on 07/17/25 [facility] Cardiology Visit Reporton Cardiology Visit Report [facility] [address] [place] [address] OFFICE VISIT Date of Service: 07/09/25 MR#: [id number] Acct: [id number] Name: CALIN LIRA Rep #: [id number] : 1955 Provider: LOWELL jeong Age/Sex: 70/M Location: [facility] Status: Signed HPI HPI History of Present Illness Details: This is a 70-year-old male who presents today for cardiovascular follow-up visit. He underwent pacemaker implantation June 05, 2024. The patient presented with complete heart block and heart rate of 30 bpm and he had acute renal insufficiency. The patient was also diagnosed with diabetes and has been treated with metformin and is on insulin. This is managed by Dr. Stoner. From a cardiac standpoint, the patient is doing well. He denies any palpitations, chest pain, pressure or heaviness. He denies SOB, Orthopnea, and PND. He does not have bleeding issues; no blood in urine, stool, or nosebleeds. He denies any decrease in energy level, myalgias, or claudication. He does not have edema, or sudden weight gain. He denies lightheadedness, dizziness, syncopal or near syncopal episodes, and headaches. Intake Vital Signs 07/24/24 09:47 07/09/25 07:42 07/09/25 08:47 Height 6 ft 1 in 6 ft 1 in 6 ft 1 in Weight: 229 lb BMI 30.2 BP 107/71 Blood Pressure Location Lt brachial Position Sitting Respiration 18 Pulse 60 Pulse Source Monitor Pulse Oximetry (%) 96 Intake Visit Reasons: 1 Y FU/Sees Cara @ 8:30 [employer] Required: No Is patient in pain?: No Allergies No Known Allergies Allergy (Verified 07/09/25 09:12) Medications ???Medication ???Instructions ???Recorded ???Confirmed ???Type atorvastatin 40 mg tablet (Lipitor) 40 mg PO QHS #60 tabs 06/06/24 07/09/25 Rx pen needle, diabetic 31 gauge x #100 ea 06/06/24 07/09/25 Rx metformin 500 mg tablet,extended 500 mg PO BID 07/24/24 07/09/25 Hi story release 24 hr insulin glargine 100 unit/mL (3 16 unit subcut QPM 07/09/25 History mL) subcutaneous pen (Lantus Solostar U-100 Insulin) Ejection fraction %: 55 Have you fallen in the past year?: No PFSH Medical History Type 2 diabetes mellitus Presence of cardiac pacemaker Trigeminal neuralgia of right side of face Surgical History History of hand surgery Family History Father Heart disease Social History Smoking Status: Former smoker alcohol intake: current substance use type: does not use caffeine: Yes ROS Const Const: Negative for fatigue, weakness, headache(s) or frequent falls Eyes Eyes: Negative for blurry vision ENT ENT: Negative for headache(s), dizziness or Nosebleed/epistaxis Cardio Chest Pain: No Palpitations: No Edema: None Muscle aches with walking: None Resp Respiratory: Negative for SOB with activity, SOB at rest or SOB orthopnea SOB lying down GI GI: Negative nausea, vomiting, heartburn, bright, red blood in stools or black,tarry stools : Negative for hematuria Neuro Neuro: Negative for dizziness, lightheadedness, near syncope, syncope, frequent falls, headache(s), weakness or blurry vision Endo Endo: Negative for fatigue Cardiology Exam Const Appearance: cooperative, comfortable, no acute distress and well developed Nutritional Appearance: obese Orientation: alert and oriented x3 Head Head: normal to inspection Ears: hearing grossly normal bilaterally Nose: external nose normal Face and Sinus: face symmetric Eyes General: appearance normal, both eyes and all related structures Eyelids: eyelids normal Conjunctivae: conjunctivae normal Pupils: PERRL and pupil size EOM: EOM intact bilaterally Neck Neck: no JVD Carotids: Negative bruit Chest Chest inspection: normal inspection of the chest and Pacemaker/ICD Yes left pectoral incision Auscultation: Bilateral: Clear to Auscultation Cardio Palpation: normal PMI Rate: regular rate Rhythm: regular rhythm Heart sounds: Negative S1 normal, S2 normal, rub, gallop or murmur GI GI: normal to inspection, soft and obese Neuro General: patient alert and patient oriented x3 Skin Skin: no rashes or lesions noted Extremities Pulses: Normal: Right Posterior Tibial Pulse, Left Posterior Tibial Pulse, Right Radial Pulse and Left Radial Pulse Lower Extremity Edema: None: Bilateral Psych Psychological: normal affect Supplemental Info Supplemental Information Echocardiogram 06/05/2024 Interpretation Summary Normal LV size. The estimated ejection fraction is 55 %. Mild-Moderate (1-2+) eccentric mitral va (more content not included)... Normal [facility] Pacemaker Checkon 07-09-[address] [facility] [address] [place] [address] Pacemaker Check Date of Service: 07/09/251401 MR#: [id number] Acct: [id number] Name: CALIN LIRA Rep #: [id number] : 1955 From: Frances Nunez Age/Sex: 70/M [place] [facility] [place]: Signed Billing Codes PM Device Codes: 76217 PM Dev Prog Eval, Dual Assessment and Plan Assessment and Plan (1) High-grade atrioventricular block: Status: Chronic (2) Presence of cardiac pacemaker: Status: Acute 07/09/251402 Date Frances Nunez Cosigner Signature: Date (if applicable) CC: Normal [facility] HAV IgM Ser Qlon 05-25-2025 HAV IgM Ql (S) Negative Normal Negative [facility] Comment on above: Order Comment: Louie harley Type: BLOOD SPECIMEN Ordering Facility: [facility] Address: [address] [place] [address] Result Comment: No e vidence of recent infection with Hepatitis A virus. Performed By: #### 3 1204-1, 29368-1, 5194-3 #### [facility] CLIA [id number] [address] [place] [address] [place] HBV core IgM Ser Qlon 2024 HBV core IgM Ql (S) Negative Normal Negative [facility] Comment on above: Order Comment: Speci men Type: BLOOD SPECIMEN Ordering Facility: [facility] Address: [address] [place] [address] Result Comment: No e vidence of recent infection with Hepatitis B virus. Should recent infection be suspected, repeat testing may be considered 3-4 weeks after this draw. Performed By: #### 3 1204-1, 54211-6, 5194-3 #### [facility] CLIA [id number] [address] [place] [address] [place] HBV surface Ag Ser Qlon 04-30 HBV surface Ag Ql (S) Negative Normal Negative [facility] Comment on above: Order Comment: Savannahi men Type: BLOOD SPECIMEN Ordering Facility: [facility] Address: [address] [place] [address] Performed By: #### 3 1204-1, 30411-6, 5194-3 #### [facility] CLIA [id number] [address] [place] [address] [place] HCV Ab Ser Qlon 05-25-2025 HCV Ab Ql (S) Negative Normal Negative [facility] Comment on above: Order Comment: Speci men Type: BLOOD SPECIMEN Ordering Facility: [facility] Address: [address] [place] [address] Result Comment: The result suggests no evidence of infection with Hepatitis C virus. Should recent infection be suspected, repeat testing may be considered 4-6 weeks after this draw. Performed By: #### 1 6128-1 #### [facility] CLIA [id number] [address] [place] [address] [place] [address] [place] US ABD RIGHT UPPER QUADRANTo n 05-25-2025 US ABD RIGHT UPPER QUADRANT * * *Final Report* * * DATE OF EXAM: May 25 2025 8:02AM WRU 1032 - US ABD RIGHT UPPER QUADRANT / PROCEDURE REASON: Elevated LFTs * * * * Physician Interpretation * * * * EXAMINATION: RIGHT UPPER QUADRANT ULTRASOUND CLINICAL HISTORY: A limited LFTs TECHNIQUE: Sonography of the right upper quadrant was performed. Images were obtained and stored in a permanent archive. MQ: [id number] COMPARISON: None. RESULT: Pancreas: Completely obscured Liver: Echotexture: Normal, homogeneous. Echogenicity: Mildly increased Surface contour: Smooth Lesions: None. Biliary: No intrahepatic biliary duct dilation. CBD: 0.4 cm at the hilum. Gallbladder: Normal caliber -Contents: Cholelithiasis -Wall: Normal -Other: No pericholecystic fluid. Right Kidney: No hydronephrosis. Ascites: None. IMPRESSION: Cholelithiasis. Mild hepatic steatosis Nonvisualization of the pancreas Wound Care Technician: [facility] Transcribe Date/Time: May 27 2025 7:48A Dictated by : LANDON JOSÉ MD This examination was interpreted and the report reviewed and electronically signed by: LANDON JOSÉ MD on May 27 2025 7:50AM EST [id number] Normal [facility] Hepatic function 2000 panelo n 05-23-2025 Albumin [Mass/Vol] 3.8 g/dL Low 3.9-4.9 [facility] Comment on above: Order Comment: Speci men Type: BLOOD SPECIMEN Ordering Facility: [facility] Address: [address] [place] [address] Performed By: #### 2 4325-3 #### [facility] CL[facility] [id number] [address] [place] [address] [place] ALP [Catalytic activity/Vol] 92 U/L Normal 38-113 [facility] Comment on above: Order Comment: Speci men Type: BLOOD SPECIMEN Ordering Facility: [facility] Address: [address] [place] [address] Performed By: #### 2 4325-3 #### [facility] CLIA [id number] [address] [place] [address] [place] ALT [Catalytic activity/Vol] 159 U/L High 10-54 [facility] Comment on above: Order Comment: Speci men Type: BLOOD SPECIMEN Ordering Facility: [facility] Address: [address] [place] [address] Performed By: #### 2 4325-3 #### [facility] CLIA [id number] [address] [place] [address] [place] AST [Catalytic activity/Vol] 112 U/L High 14-40 [facility] Comment on above: Order Comment: Speci men Type: BLOOD SPECIMEN Ordering Facility: [facility] Address: [address] [place] [address] Performed By: #### 2 4325-3 #### [facility] [id number] [address] [place] [address] [place] Bilirubin [Mass/Vol] 1.2 mg/dL Normal 0.2-1.3 [facility] Comment on above: Order Comment: Speci men Type: BLOOD SPECIMEN Ordering Facility: [facility] Address: [address] [place], [place] [address] Performed By: #### 2 4325-3 #### [facility] CLIA [id number] [address] [place] [address] [place] Bilirubin.conjugated [Mass/Vol] 0.5 mg/dL High <0.3 [facility] Comment on above: Order Comment: Speci men Type: BLOOD SPECIMEN Ordering Facility: [facility] Address: [address] [id number] Performed By: #### 2 4325-3 #### [facility] CLIA [id number] [address] [place] [address] [place] Protein [Mass/Vol] 7.2 g/dL Normal 6.3-8.0 [facility] Comment on above: Order Comment: Speci men Type: BLOOD SPECIMEN Ordering Facility: [facility] Address: [address] [place], [place] [id number] Performed By: #### 2 4325-3 #### [facility] CLIA [id number] [address] [place] [address] [place] Comprehensive metabolic 2000 panelon 05-07-2025 Albumin [Mass/Vol] 4.2 g/dL Normal 3.9-4.9 [facility] Comment on above: Order Comment: Speci men Type: BLOOD SPECIMEN Ordering Facility: [facility] Address: [address] [place] [address] Performed By: #### 2 4323-8 #### [facility] CLIA [id number] [address] [place] [address] [place] ALP [Catalytic activity/Vol] 108 U/L Normal 38-113 [facility] Comment on above: Order Comment: Speci men Type: BLOOD SPECIMEN Ordering Facility: [facility] Address: [address] [place] [address] Performed By: #### 2 4323-8 #### [facility] CLIA [id number] [address] [place] [address] [place] ALT [Catalytic activity/Vol] 176 U/L High 10-54 [facility] Comment on above: Order Comment: Speci men Type: BLOOD SPECIMEN Ordering Facility: [facility] Address: [address] [place] [address] Performed By: #### 2 4323-8 #### [facility] CL[facility] [id number] [address] [place] [address] [place] Anion gap [Moles/Vol] 14 mmol/L Normal 8-[address] [facility] Comment on above: Order Comment: Speci men Type: BLOOD SPECIMEN Ordering Facility: [facility] Address: [address] [place] [address] Performed By: #### 2 4323-8 #### [facility] CLIA [id number] [address] [place] [address] [place] AST [Catalytic activity/Vol] 114 U/L High 14-40 [facility] Comment on above: Order Comment: Speci men Type: BLOOD SPECIMEN Ordering Facility: [facility] Address: [address] [place] [address] Performed By: #### 2 4323-8 #### [facility] CLIA [id number] [address] [place] [address] [place] Bilirubin [Mass/Vol] 0.6 mg/dL Normal 0.2-1.3 [facility] Comment on above: Order Comment: Speci men Type: BLOOD SPECIMEN Ordering Facility: [facility] Address: [address] [place] [address] Performed By: #### 2 4323-8 #### [facility] CLIA [id number] [address] [place] [address] [place] Calcium [Mass/Vol] 9.4 mg/dL Normal 8.5-10.2 [facility] Comment on above: Order Comment: Speci men Type: BLOOD SPECIMEN Ordering Facility: [facility] Address: [address] [place] [address] Performed By: #### 2 4323-8 #### [facility] CLIA [id number] [address] [place] [address] [place] Chloride [Moles/Vol] 108 mmol/L High 98-107 [facility] Comment on above: Order Comment: Speci men Type: BLOOD SPECIMEN Ordering Facility: [facility] Address: [address] [place] [address] Performed By: #### 2 4323-8 #### [facility] CLIA [id number] [address] [place] [address] [place] CO2 [Moles/Vol] 20 mmol/L Low 22-30 [facility] Comment on above: Order Comment: Speci men Type: BLOOD SPECIMEN Ordering Facility: [facility] Address: [address] [place] [address] Performed By: #### 2 4323-8 #### [facility] [id number] [address] [place] [address] [place] Creatinine [Mass/Vol] 1.04 mg/dL Normal 0.73-1.[address] [facility] Comment on above: Order Comment: Speci men Type: BLOOD SPECIMEN Ordering Facility: [facility] Address: [address] [place] [address] Performed By: #### 2 4323-8 #### [facility] [id number] [address] [place] [address] OF [facility] Creatinine and Glomerular filtration rate.predicted panel (S/P/Bld) 76 mL/min/1.73m??? Normal >=60 [facility] Comment on above: Order Comment: Speci men Type: BLOOD SPECIMEN Ordering Facility: [facility] Address: [address] [place] [address] Result Comment: Destini mated Glomerular Filtration Rate (eGFR) is calculated using the 2020 CKD-EPI creatinine equation. This equation utilizes serum creatinine, sex, and age as parameters. The creatinine assay has traceable calibration to isotope dilution-mass spectrometry. Refer to KDIGO guidelines for clinical interpretation. In patients with unstable renal function, e.g. those with acute kidney injury, the eGFR may not accurately reflect actual GFR. Performed By: #### 2 4323-8 #### [facility] CLIA [id number] [address] [place] [address] [place] Glucose [Mass/Vol] 123 mg/dL High 74-99 [facility] Comment on above: Order Comment: Louie harley Type: BLOOD SPECIMEN Ordering Facility: [facility] Address: [address] [place], [place] [address] Result Comment: The [place] Diabetes Association (ADA) provides guidance for cutoff values for fasting glucose and random glucose. The ADA defines fasting as no caloric intake for at least 8 hours. Fasting plasma glucose results between 100 to 125 mg/dL indicate increased risk for diabetes (prediabetes). Fasting plasma glucose results greater than or equal to 126 mg/dL meet the criteria for diagnosis of diabetes. In the absence of unequivocal hyperglycemia, results should be confirmed by repeat testing. In a patient with classic symptoms of hyperglycemia or hyperglycemic crisis, random plasma glucose results greater than or equal to 200 mg/dL meet the criteria for diagnosis of diabetes. Reference: Standards of Medical Care in Diabetes 2016, [place] Diabetes Association. Diabetes Care. 2016.39(Suppl 1). Performed By: #### 2 4323-8 #### [facility] [id number] [address] [place] [address] [place] Potassium [Moles/Vol] 4.6 mmol/L Normal 3.7-5.[address] [facility] Comment on above: Order Comment: Louie harley Type: BLOOD SPECIMEN Ordering Facility: [facility] Address: [address] [place] [address] Performed By: #### 2 4323-8 #### [facility] [id number] [address] [place] [address] [place] Protein [Mass/Vol] 7.5 g/dL Normal 6.3-8.0 [facility] Comment on above: Order Comment: Louie harley Type: BLOOD SPECIMEN Ordering Facility: [facility] Address: [address] [place] [address] Performed By: #### 2 4323-8 #### [facility] CLIA [id number] [address] [place] [address] [place] Sodium [Moles/Vol] 142 mmol/L Normal 136-144 [facility] Comment on above: Order Comment: Louie harley Type: BLOOD SPECIMEN Ordering Facility: [facility] Address: [address] [place] [address] Performed By: #### 2 4323-8 #### [facility] CLIA [id number] [address] [place] [address] [place] Urea nitrogen [Mass/Vol] 18 mg/dL Normal 9-24 [facility] Comment on above: Order Comment: Louie harley Type: BLOOD SPECIMEN Ordering Facility: [facility] Address: [address] [place] [address] Performed By: #### 2 4323-8 #### [facility] CLIA [id number] [address] [place] [address] [place] HbA1c (Bld)on 05-07-2025 Average glucose Estimated from glycated hemoglobin (Bld) [Mass/Vol] 111 mg/dL Normal [facility] Comment on above: Order Comment: Louie harley Type: BLOOD SPECIMEN Ordering Facility: [facility] Address: [address] [place] [address] Result Comment: eAG: (Estimated average glucose) is a calculated value from HgbA1c and is member service representative of the average blood glucose level in the last 2-3 month period. Performed By: #### 5 5454-3 #### [facility] CLIA [id number] [address] [place] [address] [place] HbA1c (Bld) [Mass fraction] 5.5 % Normal 4.3-5.6 [facility] Comment on above: Order Comment: Louie harley Type: BLOOD SPECIMEN Ordering Facility: [facility] Address: [address] [place] [address] Result Comment: Amer [place] Diabetes Association guidelines indicate that patients with HgbA1c in the range 5.7-6.4% are at increased risk for development of diabetes, and intervention by lifestyle modification may be beneficial. HgbA1c greater or equal to 6.5% is considered diagnostic of diabetes. Performed By: #### 5 5454-3 #### [facility] CLIA [id number] [address] [place] [address] [place] Lipid 1996 panelon 5 Cholesterol [Mass/Vol] 133 mg/dL Normal <200 [facility] Comment on above: Order Comment: Speci men Type: BLOOD SPECIMEN Ordering Facility: [facility] Address: [address] [place] [address] Result Comment: <200 mg/dL, Desirable 200-239 mg/dL, Borderline high >239 mg/dL, High Performed By: #### 2 4325-3 #### [facility] CLIA [id number] [address] [place] [address] OF [facility] Cholesterol in HDL [Mass/Vol] 50 mg/dL Normal >39 [facility] Comment on above: Order Comment: Louie men Type: BLOOD SPECIMEN Ordering Facility: [facility] Address: [address] [place] [address] Result Comment: 40-5 9 mg/dL, Acceptable >59 mg/dL, High: Negative risk factor for coronary heart disease <40 mg/dL, Low: Positive risk factor for coronary heart disease Performed By: #### 2 4325-3 #### [facility] CLIA [id number] [address] [place] [address] OF [facility] Cholesterol in LDL [Mass/Vol] 66 mg/dL Normal <100 [facility] Comment on above: Order Comment: Savannahi [facility] Type: BLOOD SPECIMEN Ordering Facility: [facility] Address: [address] [place] [address] Result Comment: <100 mg/dL, Optimal 100-129 mg/dL, Near optimal/above optimal 130-159 mg/dL, Borderline high 160-189 mg/dL, High >189 mg/dL, Very high Secondary prevention optimal LDL Cholesterol levels are recommended to be <70 mg/dL LDL cholesterol is calculated using the Davis-NIH equation. Performed By: #### 2 4325-3 #### [facility] CLIA [id number] [address] [place] [address] [place] Cholesterol in LDL/Cholesterol in HDL [Mass ratio] 1.32 {ratio} Normal <2.54 [facility] Comment on above: Order Comment: Louie harley Type: BLOOD SPECIMEN Ordering Facility: [facility] Address: [address] [place] [address] Result Comment: Refe darrelce: 1. National Cholesterol Education Program ATP III Guideline At-A-Glance Quick Desk Reference: National Heart, Lung, and Blood Pearson. National Institutes of Health. 2001: NIH Publication No. 01-3305. 2. An International Atherosclerosis Society position paper: global recommendations for the management of dyslipidemia: executive summary, Atherosclerosis. 2014: 232(2):410-413. Performed By: #### 2 4325-3 #### [facility] CLIA [id number] [address] [place] [address] [place] Cholesterol in VLDL [Mass/Vol] 13 mg/dL Normal <30 [facility] Comment on above: Order Comment: Louei harley Type: BLOOD SPECIMEN Ordering Facility: [facility] Address: [address] [place] [address] Performed By: #### 2 4325-3 #### [facility] CLIA [id number] [address] [place] [address] [place] Cholesterol non HDL [Mass/Vol] 83 mg/dL Normal <130 [facility] Comment on above: Order Comment: Louie harley Type: BLOOD SPECIMEN Ordering Facility: [facility] Address: [address] [place] [address] Result Comment: <130 mg/dL, Optimal 130-159 mg/dL, Near optimal/above optimal 160-189 mg/dL, Borderline high 190-219 mg/dL, High >219 mg/dL, Very high Secondary prevention optimal non HDL Cholesterol levels are recommended to be <100 mg/dL Performed By: #### 2 4325-3 #### [facility] CLIA [id number] [address] [place] [address] Cholesterol.total/Chol esterol in HDL [Mass ratio] 2.66 {ratio} Normal <5.10 [facility] Comment on above: Order Comment: Louie men Type: BLOOD SPECIMEN Ordering Facility: [facility] Address: [address] [place] [address] Performed By: #### 2 4325-3 #### [facility] CLIA [id number] [address] [place] [address] FASTING TIME 14 hrs Normal [facility] Comment on above: Order Comment: Savannahi men Type: BLOOD SPECIMEN Ordering Facility: [facility] Address: [address] [place] [address] Performed By: #### 2 4325-3 #### [facility] CLIA [id number] [address] [place] [address] OF [place] Triglyceride [Mass/Vol] 90 mg/dL Normal <150 [facility] Comment on above: Order Comment: Louie men Type: BLOOD SPECIMEN Ordering Facility: [facility] Address: [address] [place] [address] Result Comment: <150 mg/dL, Normal 150-199 mg/dL, Borderline high 200-499 mg/dL, High >499 mg/dL, Very high Performed By: #### 2 4325-3 #### [facility] CLIA [id number] [address] [place] [address] OF [place] CNOVon 02-19-2025 CNOV Office Visit ([facility] ) -- CALIN LIRA ([id number]) 1955 Date Time Provider Department 02/19/25 10:00 AM SHEBA JIMENEZ During your visit today, we recorded the following information about you: Temperature Pulse Respiration Blood pressure 98.1 degrees 65/minute 20/minute 104/68 Weight Height 106.6 kg 1.854 m Joe Perea LPN 02/19/2025 9:59 AM Signed Patient is here for a 6-month follow-up. Joe Perea LPN February 19, 2025 9:59 AM Sheba Jimenez MD 02/19/2025 2:46 PM Signed Subjective Calin Lira is a 69 year old male.Patient presents today for follow-up for multiple medical problems. See list. His chronic medical problems been stable. He is compliant with his medications. Sugars have been under good control on current regimen. Averaging between 100-120. He continues on his Lipitor. He is getting some occasional leg aching at night. Review of Systems Constitutional: Negative. HENT: Negative. Eyes: Negative. Respiratory: Negative. Cardiovascular: Negative. Gastrointestinal: Negative. Endocrine: Negative. Genitourinary: Negative. Musculoskeletal: Negative. Skin: Negative. Allergic/Immunologic: Negative. Neurological: Negative. Hematological: Negative. Psychiatric/Behavioral: Negative. History reviewed. No pertinent surgical history. History reviewed. No pertinent past medical history. History reviewed. No pertinent family history. Social History Tobacco Use Smoking status: Former Types: Cigarettes Smokeless tobacco: Never Tobacco comments: quit 20 yrs ago Substance Use Topics Alcohol use: Yes Comment: occasional Drug use: Not Currently ALLERGIES No Known Allergies MEDICATIONS: LANTUS SOLOSTAR U-100 INSULIN 100 unit/mL (3 mL) Inject 16 Units subcutaneously daily at bedtime. metFORMIN ER (GLUCOPHAGE XR) 500 mg 24 hr tablet Take 2 tablets by mouth daily with breakfast. UNIFINE PENTIPS 31 gauge x 5/16 Inject 1 Each subcutaneously once daily. blood sugar diagnostic test strip Monitor blood glucose twice a day. Lancets Use with blood glucose to test twice a day atorvastatin (LIPITOR) 40 mg tablet Take 1 tablet by mouth daily at bedtime. Allergies, past surgical history, family history and past medical history were reviewed per this encounter. Medications were reviewed and verified. 08/07/2024 02/19/2025 INTAKE PAIN ASSESSMENT Are you having pain associated with your visit today? No No If pain assessment is 0, no action needed. If pain assessment is positive, please see assessment and plain. Objective BP 104/68 Pulse 65 Temp 36.7 ?C (98.1 ?F) (Temporal) Resp 20 Ht (!) 274.3 cm (9') Wt 106.6 kg (235 lb) SpO2 97% BMI 14.17 kg/m? Physical Exam Vitals reviewed. Constitutional: Appearance: Normal appearance. HENT: Head: Normocephalic and atraumatic. Nose: Nose normal. Eyes: Extraocular Movements: Extraocular movements intact. Pupils: Pupils are equal, round, and reactive to light. Cardiovascular: Rate and Rhythm: Normal rate and regular rhythm. Pulmonary: Effort: Pulmonary effort is normal. Breath sounds: Normal breath sounds. Abdominal: General: Bowel sounds are normal. Palpations: Abdomen is soft. Musculoskeletal: General: Normal range of motion. Cervical back: Normal range of motion and neck supple. Skin: General: Skin is warm and dry. Capillary Refill: Capillary refill takes less than 2 seconds. Neurological: General: No focal deficit present. Mental Status: He is alert and oriented to person, place, and time. Mental status is at baseline. Psychiatric: Mood and Affect: Mood normal. Behavior: Behavior normal. Procedures Assessment and Plan Encounter Diagnosis ICD-10-CM 1. Diabetes beginning in adulthood (type 2/adult onset) ([facility]) E11.9 COMPREHENSIVE METABOLIC PANEL HEMOGLOBIN A1C Continue present meds. Check A1c. Continue low carbohydrate diet. 2. Pure hypercholesterolemia E78.00 COMPREHENSIVE METABOLIC PANEL LIPID PANEL, FASTING Continue atorvastatin. Check cholesterol panel. Continue present medications. Check labs as above. Monitor blood pressure regularly. Exercise as tolerated. Maintain good diet. Follow-up in 6 months. Sheba Jimenez MD February 19, 2025 02/19/2025 Allergies As of Date: 02/19/2025 (No Known Allergies) Date Reviewed: 02/19/2025 Reviewed by: Joe Perea LPN - Fully Assessed Reason for Visit: 6 Month Exam [189] Primary Visit Diagnosis:Diabetes beginning in adulthood (type 2/adult onset) ([facility]) [E11.9] Comment:Continue present meds. Check A1c. Continue low carbohydrate diet. Other Visit Diagnosis:Pure hypercholesterolemia [E78.00] Comment:Continue atorvastatin. Check cholesterol panel. Order(s):COMPREHENSIVE METABOLIC PANEL [SQCMP] Order #: [id number] FUTURE LIPID PANEL, FASTING [SQLIPB] Order #: [id number] FUTURE (more content not included)... Normal [facility] Comprehensive metabolic 2000 panelon 09-22-2024 Albumin [Mass/Vol] 4.3 g/dL Normal 3.9-4.9 [facility] Comment on above: Order Comment: Speci men Type: BLOOD SPECIMEN Ordering Facility: [facility] Address: [address] [place] [address] Performed By: #### 2 4325-3 #### [facility] CLIA [id number] [address] [place] [address] [place] ALP [Catalytic activity/Vol] 72 U/L Normal 38-113 [facility] Comment on above: Order Comment: Speci men Type: BLOOD SPECIMEN Ordering Facility: [facility] Address: [address] [place] [address] Performed By: #### 2 4325-3 #### [facility] CLIA [id number] [address] [place] [address] [place] ALT [Catalytic activity/Vol] 22 U/L Normal 10-54 [facility] Comment on above: Order Comment: Speci men Type: BLOOD SPECIMEN Ordering Facility: [facility] Address: [address] [place] [address] Performed By: #### 2 4325-3 #### [facility] CLIA [id number] [address] [place] [address] [place] Anion gap [Moles/Vol] 12 mmol/L Normal 8-[address] [facility] Comment on above: Order Comment: Speci men Type: BLOOD SPECIMEN Ordering Facility: [facility] Address: [address] [place] [address] Performed By: #### 2 4325-3 #### [facility] [place] CLIA [id number] [address] [place] [address] [place] AST [Catalytic activity/Vol] 20 U/L Normal 14-40 [facility] Comment on above: Order Comment: Speci men Type: BLOOD SPECIMEN Ordering Facility: [facility] Address: [address] [place] [address] Performed By: #### 2 4325-3 #### [facility] CLIA [id number] [address] [place] [address] [place] Bilirubin [Mass/Vol] 0.6 mg/dL Normal 0.2-1.3 [facility] Comment on above: Order Comment: Speci men Type: BLOOD SPECIMEN Ordering Facility: [facility] Address: [address] [place] [address] Performed By: #### 2 4325-3 #### [id number] [address] [place] [address] [place] Calcium [Mass/Vol] 9.4 mg/dL Normal 8.5-10.2 [facility] Comment on above: Order Comment: Speci men Type: BLOOD SPECIMEN Ordering Facility: [facility] Address: [address] [place] [address] Performed By: #### 2 4325-3 #### [facility] [id number] [address] [place] [address] [place] Chloride [Moles/Vol] 104 mmol/L Normal 98-107 [facility] Comment on above: Order Comment: Speci men Type: BLOOD SPECIMEN Ordering Facility: [facility] Address: [address] [place] [address] Performed By: #### 2 4325-3 #### [facility] [id number] [address] [place] [address] [place] CO2 [Moles/Vol] 21 mmol/L Low 22-30 [facility] Comment on above: Order Comment: Speci men Type: BLOOD SPECIMEN Ordering Facility: [facility] Address: [address] [place] [address] Performed By: #### 2 4325-3 #### [facility] CLIA [id number] [address] [place] [address] [place] Creatinine [Mass/Vol] 0.88 mg/dL Normal 0.73-1.[address] [facility] Comment on above: Order Comment: Louie harley Type: BLOOD SPECIMEN Ordering Facility: [facility] Address: [address] [place] [address] Performed By: #### 2 4325-3 #### [facility] [id number] [address] [place] [address] [place] Creatinine and Glomerular filtration rate.predicted panel (S/P/Bld) 92 mL/min/1.73m??? Normal >=60 [facility] Comment on above: Order Comment: Louie harley Type: BLOOD SPECIMEN Ordering Facility: [facility] Address: [address] [place] [address] Result Comment: Destini mated Glomerular Filtration Rate (eGFR) is calculated using the 2020 CKD-EPI creatinine equation. This equation utilizes serum creatinine, sex, and age as parameters. The creatinine assay has traceable calibration to isotope dilution-mass spectrometry. Refer to KDIGO guidelines for clinical interpretation. In patients with unstable renal function, e.g. those with acute kidney injury, the eGFR may not accurately reflect actual GFR. Performed By: #### 2 4325-3 #### [facility] [id number] [address] [place] [address] [place] Glucose [Mass/Vol] 109 mg/dL High 74-99 [facility] Comment on above: Order Comment: Louie harley Type: BLOOD SPECIMEN Ordering Facility: [facility] Address: [address] [place] [address] Result Comment: The [place] Diabetes Association (ADA) provides guidance for cutoff values for fasting glucose and random glucose. The ADA defines fasting as no caloric intake for at least 8 hours. Fasting plasma glucose results between 100 to 125 mg/dL indicate increased risk for diabetes (prediabetes). Fasting plasma glucose results greater than or equal to 126 mg/dL meet the criteria for diagnosis of diabetes. In the absence of unequivocal hyperglycemia, results should be confirmed by repeat testing. In a patient with classic symptoms of hyperglycemia or hyperglycemic crisis, random plasma glucose results greater than or equal to 200 mg/dL meet the criteria for diagnosis of diabetes. Reference: Standards of Medical Care in Diabetes 2016, [place] Diabetes Association. Diabetes Care. 2016.39(Suppl 1). Performed By: #### 2 4325-3 #### [facility] [place] CLIA [id number] [address] [place] [address] [place] Potassium [Moles/Vol] 3.9 mmol/L Normal 3.7-5.[address] [facility] Comment on above: Order Comment: Speci men Type: BLOOD SPECIMEN Ordering Facility: [facility] Address: [address] [place] [address] Performed By: #### 2 4325-3 #### [facility] CLIA [id number] [address] [place] [address] [place] Protein [Mass/Vol] 7.2 g/dL Normal 6.3-8.0 [facility] Comment on above: Order Comment: Savannahi cricket Type: BLOOD SPECIMEN Ordering Facility: [facility] Address: [address] [place] [address] Performed By: #### 2 4325-3 #### [facility] CLIA [id number] [address] [place] [address] [place] Sodium [Moles/Vol] 137 mmol/L Normal 136-144 [facility] Comment on above: Order Comment: Speci men Type: BLOOD SPECIMEN Ordering Facility: [facility] Address: [address] [place] [address] Performed By: #### 2 4325-3 #### [facility] CLIA [id number] [address] [place] [address] [place] Urea nitrogen [Mass/Vol] 17 mg/dL Normal 9-24 [facility] Comment on above: Order Comment: Speci men Type: BLOOD SPECIMEN Ordering Facility: [facility] Address: [address] [place] [address] Performed By: #### 2 4325-3 #### [facility] CLIA [id number] [address] [place] [address] [place] HbA1c (Bld)on 09-22-2024 Average glucose Estimated from glycated hemoglobin (Bld) [Mass/Vol] 120 mg/dL Normal [facility] Comment on above: Order Comment: Louie harley Type: BLOOD SPECIMEN Ordering Facility: [facility] Address: [address] [place] [address] Result Comment: eAG: (Estimated average glucose) is a calculated value from HgbA1c and is member service representative of the average blood glucose level in the last 2-3 month period. Performed By: #### 5 5454-3 #### [facility] CLIA [id number] [address] [place] [address] [place] HbA1c (Bld) [Mass fraction] 5.8 % High 4.3-5.6 [facility] Comment on above: Order Comment: Louie harley Type: BLOOD SPECIMEN Ordering Facility: [facility] Address: [address] [place] [address] Result Comment: Janessa ican Diabetes Association guidelines indicate that patients with HgbA1c in the range 5.7-6.4% are at increased risk for development of diabetes, and intervention by lifestyle modification may be beneficial. HgbA1c greater or equal to 6.5% is considered diagnostic of diabetes. Performed By: #### 5 5454-3 #### [facility] CLIA [id number] [address] [place] [address] [place] Lipid 1996 panelon Cholesterol [Mass/Vol] 132 mg/dL Normal <200 [facility] Comment on above: Order Comment: Louie harley Type: BLOOD SPECIMEN Ordering Facility: [facility] Address: [address] [place] [address] Result Comment: <200 mg/dL, Desirable 200-239 mg/dL, Borderline high >239 mg/dL, High Performed By: #### 2 4331-1 #### [facility] CLIA [id number] [facility] [place] [id number] [place] [facility] CLIA [id number] [address] [place] [address] [place] Cholesterol in HDL [Mass/Vol] 63 mg/dL Normal >39 [facility] Comment on above: Order Comment: Speci men Type: BLOOD SPECIMEN Ordering Facility: [facility] Address: [address] [place] [address] Result Comment: 40-5 9 mg/dL, Acceptable >59 mg/dL, High: Negative risk factor for coronary heart disease <40 mg/dL, Low: Positive risk factor for coronary heart disease Performed By: #### 2 4331-1 #### [facility] CLIA [id number] [address] [place], [place] [address] [place] [facility] CLIA [id number] [address] [place] [address] [place] Cholesterol in LDL [Mass/Vol] 53 mg/dL Normal <100 [facility] Comment on above: Order Comment: Savannahi men Type: BLOOD SPECIMEN Ordering Facility: [facility] Address: [address] [place], [place] [address] Result Comment: <100 mg/dL, Optimal 100-129 mg/dL, Near optimal/above optimal 130-159 mg/dL, Borderline high 160-189 mg/dL, High >189 mg/dL, Very high Secondary prevention optimal LDL Cholesterol levels are recommended to be < 70 mg/dL Performed By: #### 2 4331-1 #### [facility] CLIA [id number] [address] [place], [place] [address] [place] [facility] CLIA [id number] [address] [place] [address] [place] Cholesterol in LDL/Cholesterol in HDL [Mass ratio] 0.84 {ratio} Normal <2.54 [facility] Comment on above: Order Comment: Louie harley Type: BLOOD SPECIMEN Ordering Facility: [facility] Address: [address] [place] [address] Result Comment: Gabriella ni: 1. National Cholesterol Education Program ATP III Guideline At-A-Glance Quick Desk Reference: National Heart, Lung, and Blood Pearson. National Institutes of Health. 2001: NIH Publication No. 01-3305. 2. An International Atherosclerosis Society position paper: global recommendations for the management of dyslipidemia: executive summary, Atherosclerosis. 2014: 232(2):410-413. Performed By: #### 2 4331-1 #### [facility] CLIA [id number] [address] [place] [address] [place] [facility] CLIA [id number] [address] [place] [address] [place] Cholesterol in VLDL [Mass/Vol] 16 mg/dL Normal <30 [facility] Comment on above: Order Comment: Louie harley Type: BLOOD SPECIMEN Ordering Facility: [facility] Address: [address] [place] [address] Performed By: #### 2 4331-1 #### [facility] CLIA [id number] [address] [place] [address] [place] [facility] CLIA [id number] [address] [place] [address] [place] Cholesterol non HDL [Mass/Vol] 69 mg/dL Normal <130 [facility] Comment on above: Order Comment: Louie harley Type: BLOOD SPECIMEN Ordering Facility: [facility] Address: [address] [place] [address] Result Comment: <130 mg/dL, Optimal 130-159 mg/dL, Near optimal/above optimal 160-189 mg/dL, Borderline high 190-219 mg/dL, High >219 mg/dL, Very high Secondary prevention optimal non HDL Cholesterol levels are recommended to be <100 mg/dL Performed By: #### 2 4331-1 #### [facility] CLIA [id number] [address] [place] [address] [place] [facility] CLIA [id number] [address] [place] [address] [place] Cholesterol.total/Chol esterol in HDL [Mass ratio] 2.10 {ratio} Normal <5.10 [facility] Comment on above: Order Comment: Speci men Type: BLOOD SPECIMEN Ordering Facility: [facility] Address: [address] [place] [address] Performed By: #### 2 4331-1 #### [facility] CLIA [id number] [address] [place] [address] [place] [facility] CLIA [id number] [address] [place] [address] [place] FASTING TIME 12 hrs Normal [facility] Comment on above: Order Comment: Speci men Type: BLOOD SPECIMEN Ordering Facility: [facility] Address: [address] [place] [address] Performed By: #### 2 4331-1 #### [facility] CLIA [id number] [address] [place] [address] [place] [facility] [id number] [address] [place] [address] [place] Triglyceride [Mass/Vol] 82 mg/dL Normal <150 [facility] Comment on above: Order Comment: Speci men Type: BLOOD SPECIMEN Ordering Facility: [facility] Address: [address] [place], [place] [address] Result Comment: <150 mg/dL, Normal 150-199 mg/dL, Borderline high 200-499 mg/dL, High >499 mg/dL, Very high Performed By: #### 2 4331-1 #### [facility] CLIA [id number] [address] [place] [address] [place] [facility] CLIA [id number] [address] [place] [address] [place] PSA/PROSTATE SPECIFIC ANTIGE N SCREENINGon 09-22-2024 Prostate specific Ag [Mass/Vol] 0.33 ng/mL Normal <2.60 [facility] Comment on above: Order Comment: Speci men Type: BLOOD SPECIMEN Ordering Facility: [facility] Address: [address] [place] [address] Result Comment: Tota l PSA test methodology used is the Electrochemiluminescence Immunoassay by [employer]. Total PSA values by differing methodologies cannot be interchanged. Performed By: #### 2 4325-3 #### [facility] CLIA [id number] [address] [place] [address] [place] Comprehensive metabolic 2000 panelOrdered By: Marlin Blake on 08-04-2024 Albumin [Mass/Vol] 4.3 g/dL 3.9 - 4.9 g/dL [facility] ALP [Catalytic activity/Vol] 79 U/L 38 - 113 U/L [facility] ALT [Catalytic activity/Vol] 21 U/L 10 - 54 U/L [facility] Anion gap [Moles/Vol] 13 mmol/L 8 - 15 mmol/L [facility] AST [Catalytic activity/Vol] 18 U/L 14 - 40 U/L [facility] Bilirubin [Mass/Vol] 0.8 mg/dL 0.2 - 1 .3 mg/dL [facility] Calcium [Mass/Vol] 9.4 mg/dL 8.5 - 10. 2 mg/dL [facility] Chloride [Moles/Vol] 102 mmol/L 98 - 10 7 mmol/L [facility] CO2 [Moles/Vol] 22 mmol/L 22 - 30 mmol/L [facility] Creatinine [Mass/Vol] 0.90 mg/dL 0.73 - 1.22 mg/dL [facility] GFR/1.73 sq M.predicted among non-blacks MDRD (S/P/Bld) [Vol rate/Area] 91 mL/min/{1.73_m2} - PINF [facility] Comment on above: Estimated Glomerular Filtration Rate (eGFR) is calculated using the 2020 CKD-EPI creatinine equation. This equation utilizes serum creatinine, sex, and age as parameters. The creatinine assay has traceable calibration to isotope dilution-mass spectrometry. Refer to KDIGO guidelines for clinical interpretation. In patients with unstable renal function, e.g. those with acute kidney injury, the eGFR may not accurately reflect actual GFR. Glucose [Mass/Vol] 121 mg/dL High 74 - 99 mg/dL [facility] Comment on above: The [place] Diabete s Association (ADA) provides guidance for cutoff values for fasting glucose and random glucose. The ADA defines fasting as no caloric intake for at least 8 hours. Fasting plasma glucose results between 100 to 125 mg/dL indicate increased risk for diabetes (prediabetes). Fasting plasma glucose results greater than or equal to 126 mg/dL meet the criteria for diagnosis of diabetes. In the absence of unequivocal hyperglycemia, results should be confirmed by repeat testing. In a patient with classic symptoms of hyperglycemia or hyperglycemic crisis, random plasma glucose results greater than or equal to 200 mg/dL meet the criteria for diagnosis of diabetes. Reference: Standards of Medical Care in Diabetes 2016, [place] Diabetes Association. Diabetes Care. 2016.39(Suppl 1). Interpretation and review of laboratory results Abnormal [facility] Potassium [Moles/Vol] 4.1 mmol/L 3.7 - 5.1 mmol/L [facility] Protein [Mass/Vol] 7.3 g/dL 6.3 - 8.0 g/dL [facility] Sodium [Moles/Vol] 137 mmol/L 136 - 144 mmol/L [facility] Urea nitrogen [Mass/Vol] 16 mg/dL 9 - 24 mg/dL [facility] Comprehensive metabolic 2000 panelon 08-04-2024 Albumin [Mass/Vol] 4.3 g/dL Normal 3.9-4.9 [facility] Comment on above: Order Comment: Louie harley Type: BLOOD SPECIMEN Ordering Facility: [facility] Address: [address] [place] [address] Performed By: #### 2 4323-8 #### [facility] [place] [id number] [address] [place] [address] [place] ALP [Catalytic activity/Vol] 79 U/L Normal 38-113 [facility] Comment on above: Order Comment: Louie harley Type: BLOOD SPECIMEN Ordering Facility: [facility] Address: [address] [place] [address] Performed By: #### 2 4323-8 #### [facility] [place] CLIA [id number] [address] [place] [address] [place] ALT [Catalytic activity/Vol] 21 U/L Normal 10-54 [facility] Comment on above: Order Comment: Speci men Type: BLOOD SPECIMEN Ordering Facility: [facility] Address: [address] [facility] [place] [place] [address] Performed By: #### 2 4323-8 #### [facility] CLIA [id number] [address] [place] [address] [place] Anion gap [Moles/Vol] 13 mmol/L Normal 8-[address] [facility] Comment on above: Order Comment: Speci men Type: BLOOD SPECIMEN Ordering Facility: [facility] Address: [address] [facility] [facility] [facility] [place] [place] [address] Performed By: #### 2 4323-8 #### [facility] CLIA [id number] [address] [place] [address] [place] AST [Catalytic activity/Vol] 18 U/L Normal 14-40 [facility] Comment on above: Order Comment: Speci men Type: BLOOD SPECIMEN Ordering Facility: [facility] Address: [address] [place] [address] Performed By: #### 2 4323-8 #### [facility] CLIA [id number] [address] [place] [address] [place] Bilirubin [Mass/Vol] 0.8 mg/dL Normal 0.2-1.3 [facility] Comment on above: Order Comment: Speci men Type: BLOOD SPECIMEN Ordering Facility: [facility] Address: [address] [place] [address] Performed By: #### 2 4323-8 #### [facility] CLIA [id number] [address] [place] [address] [place] Calcium [Mass/Vol] 9.4 mg/dL Normal 8.5-10.2 [facility] Comment on above: Order Comment: Speci men Type: BLOOD SPECIMEN Ordering Facility: [facility] Address: [address] [place] [address] Performed By: #### 2 4323-8 #### [facility] CLIA [id number] [address] [place] [address] [place] Chloride [Moles/Vol] 102 mmol/L Normal 98-107 [facility] Comment on above: Order Comment: Speci men Type: BLOOD SPECIMEN Ordering Facility: [facility] Address: [address] [place] [address] Performed By: #### 2 4323-8 #### [facility] CLIA [id number] [address] [place] [address] [place] CO2 [Moles/Vol] 22 mmol/L Normal 22-30 [facility] Comment on above: Order Comment: Speci men Type: BLOOD SPECIMEN Ordering Facility: [facility] Address: [address] [place] [address] Performed By: #### 2 4323-8 #### [facility] CLIA [id number] [address] [place] [address] [place] Creatinine [Mass/Vol] 0.90 mg/dL Normal 0.73-1.[address] [facility] Comment on above: Order Comment: Speci men Type: BLOOD SPECIMEN Ordering Facility: [facility] Address: [address] [place] [address] Performed By: #### 2 4323-8 #### [facility] CLIA [id number] [address] [place] [address] [place] Creatinine and Glomerular filtration rate.predicted panel (S/P/Bld) 91 mL/min/1.73m??? Normal >=60 [facility] Comment on above: Order Comment: Speci men Type: BLOOD SPECIMEN Ordering Facility: [facility] Address: [address] [place] [id number] Result Comment: Destini mated Glomerular Filtration Rate (eGFR) is calculated using the 2020 CKD-EPI creatinine equation. This equation utilizes serum creatinine, sex, and age as parameters. The creatinine assay has traceable calibration to isotope dilution-mass spectrometry. Refer to KDIGO guidelines for clinical interpretation. In patients with unstable renal function, e.g. those with acute kidney injury, the eGFR may not accurately reflect actual GFR. Performed By: #### 2 4323-8 #### [id number] [address] [place] [address] [place] Glucose [Mass/Vol] 121 mg/dL High 74-99 [facility] Comment on above: Order Comment: Louie harley Type: BLOOD SPECIMEN Ordering Facility: [facility] Address: [address] [place] [address] Result Comment: The [place] Diabetes Association (ADA) provides guidance for cutoff values for fasting glucose and random glucose. The ADA defines fasting as no caloric intake for at least 8 hours. Fasting plasma glucose results between 100 to 125 mg/dL indicate increased risk for diabetes (prediabetes). Fasting plasma glucose results greater than or equal to 126 mg/dL meet the criteria for diagnosis of diabetes. In the absence of unequivocal hyperglycemia, results should be confirmed by repeat testing. In a patient with classic symptoms of hyperglycemia or hyperglycemic crisis, random plasma glucose results greater than or equal to 200 mg/dL meet the criteria for diagnosis of diabetes. Reference: Standards of Medical Care in Diabetes 2016, [place] [employer]. Diabetes Care. 2016.39(Suppl 1). Performed By: #### 2 4323-8 #### [facility] [id number] [address] [place] [address] [place] Potassium [Moles/Vol] 4.1 mmol/L Normal 3.7-5.[address] [facility] Comment on above: Order Comment: Louie harley Type: BLOOD SPECIMEN Ordering Facility: [facility] Address: [address] [id number] Performed By: #### 2 4323-8 #### [facility] CLIA [id number] [address] [place] [address] [place] Protein [Mass/Vol] 7.3 g/dL Normal 6.3-8.0 [facility] Comment on above: Order Comment: Speci men Type: BLOOD SPECIMEN Ordering Facility: [facility] Address: [address] [place] [address] Performed By: #### 2 4323-8 #### [facility] CLIA [id number] [address] [place] [address] [place] Sodium [Moles/Vol] 137 mmol/L Normal 136-144 [facility] Comment on above: Order Comment: Speci men Type: BLOOD SPECIMEN Ordering Facility: [facility] Address: [address] [place] [address] Performed By: #### 2 4323-8 #### [facility] CLIA [id number] [address] [place] [address] [place] Urea nitrogen [Mass/Vol] 16 mg/dL Normal 9-24 [facility] Comment on above: Order Comment: Speci men Type: BLOOD SPECIMEN Ordering Facility: [facility] Address: [address] [place] [address] Performed By: #### 2 4323-8 #### [facility] [id number] [address] [place] [address] [place] CNOVon 06-05-2024 CNOV Office Visit ([facility] ) -- CALIN LIRA ([id number]) 1955 M Date Time Provider Department 06/05/24 9:45 AM ABHI VILLASENOR [facility] During your visit today, we recorded the following information about you: Abhi Villasenor MD 06/05/2024 9:45 AM Signed Express Care Triage Note: Patient presents to the express care with complaint of pulse of 30, dyspnea, and dizziness the last 3 days. He is alert and has no conversational dyspnea. Radial pulse is approximately 30. His will take him to the [facility] for further evaluation. Allergies As of Date: 06/05/2024 (No Known Allergies) Date Reviewed: 02/16/2024 Reviewed by: Gabrielle Trevino LPN - Fully Assessed Primary Visit Diagnosis:Bradycardia [R00.1] Prescriptions as of 06/05/2024 - scopolamine (TRANSDERM-SCOP) patch 1.5 mg/72 hr (delivers 1 mg over 3 days) Apply 1 Patch as directed as directed. BEHIND THE EAR AT LEAST 4 HOURS PRIOR TO EXPOSURE AND EVERY 3 DAYS NEEDED. Problem List As Of Date 06/05/2024 Noted Resolved TRIGEMINAL NEURALGIA [G50.0] 07/03/2008 Diverticulitis [K57.92] 08/19/2017 Elevated blood-pressure reading, without diagno*02/07/2018 Hyperlipidemia [E78.5] 07/01/2017 Idiopathic chronic gout, unspecified ankle and *06/08/2019 Encounter Status:Closed by ABHI VILLASENOR on 06/05/24 Normal [facility] CORONAVIRUS PCR - [facility] 08-29-2021 SARS-CoV-2 (COVID-19) RNA COURTNEY+probe Ql (Unsp spec) Positive Critically abnormal NORMAL: NEGATIVE [facility] Comment on above: Result Comment: { CA LLED TO FAXED TO AG { READ BACK BY Performed By: #### 2 [id number] #### [facility],[address] [place] [address] SEND TO IC? YES Normal [facility] Comment on above: Result Comment: RESU LTS FAXED TO INFECTION CONTROL. SARS-CoV-2 THIS TEST IS BEING USED UNDER THE FDA EUA PROCEDURE. THIS ASSAY HAS BEEN VALIDATED IN THE [facility] FOR USE WITH NASOPHARYNGEAL SPECIMENS IN [facility]. INTERPRETIVE DATA LABORATORY TEST RESULTS SHOULD ALWAYS BE CONSIDERED IN THE CONTEXT OF CLINICAL OBSERVATIONS AND EPIDEMIOLOGICAL DATA IN MAKING FINAL DIAGNOSIS AND PATIENT MANAGEMENT DECISIONS. PATIENT MANAGEMENT SHOULD FOLLOW CURRENT CDC GUIDELINES. A POSITIVE TEST RESULT FOR COVID-19 INDICATES THAT RNA FROM SARS-CoV-2 WAS DETECTED, AND THE PATIENT IS INFECTED WITH THE VIRUS AND PRESUMED TO BE CONTAGIOUS. A NEGATIVE TEST RESULT FOR THIS TEST MEANS THAT SARS-CoV-2 RNA WAS NOT PRESENT IN THE SPECIMEN ABOVE THE LIMIT OF DETECTION. HOWEVER, A NEGATVIE RESULT DOES NOT RULE OUT COVID-19 AND SHOULD NOT BE USED THE SOLE BASIS FOR TREATMENT OR PATIENT MANAGEMENT DECISIONS. A NEGATIVE RESULT DOES NOT EXCLUDE THE POSSIBILITY OF COVID-19. WHEN DIAGNOSTIC TESTING IS NEGATIVE, THE POSSIBLILTY OF A FALSE NEGATIVE RESULT SHOULD BE CONSIDERED IN THE CONTEXT OF A PATIENT'S RECENT EXPOSURES AND THE PRESENCE OF CLINICAL SIGNS AND SYMPTOMS CONSISTENT WITH COVID-19. THE POSSIBILITY OF A FALSE NEGATIVE RESULT SHOULD ESPECIALLY BE CONSIDERED IF THE PATIENT'S RECENT EXPOSURES OR CLINICAL PRESENTATION INDICATE THAT COVID-19 IS LIKELY, AND DIAGNOSTIC TESTS FOR OTHER CAUSES OF ILLNESS (e.g., OTHER RESPIRATORY ILLNESS) ARE NEGATIVE. IF COVID-19 IS STILL SUSPECTED BASED ON EXPOSURE HISTORY TOGETHER WITH OTHER CLINICAL FINDINGS, RE-TESTED SHOULD BE CONSIDERED BY HEALTHCARE PROVIDERS IN CONSULTATION WITH PUBLIC HEALTH AUTHORITIES. Performed By: #### 2 [id number] #### [facility],[address] [place], [place] [id number] Provider Note - ED v3on 07-31 Provider Note - ED v3 Provider Note: Chart Review: ED NOTES ED NOTES: Nontoxic-appearing male presents to urgent care chief complaint rash. Duration of symptoms 24 hours associated symptoms red pruritic rash. Patient states he believes he came in contact with a white caterpillar. has had a similar rash years ago when he came in contact with a white caterpillar. states he has used Benadryl cream this has helped with the itching. Most predominant symptom is itching. Denies any pain. Denies any environmental or allergy changes. Denies any recent antibiotic use or travel. Denies any fever, chills, nausea, vomiting, abdominal pain, chest pain, shortness of breath, pleuritic pain change in bowel or bladder habits. Past medical history prescription medications allergies reviewed HISTORY OF PRESENTING ILLNESS CALIN is a 66 year old Male and was seen by me at 19-Aug-2021 14:33. Triage Information: Most recent Vital Sign Value Date PAST MEDICAL HISTORY ALLERGIES/INTOLERANCES: No Known Allergies HEALTH HISTORY: No documented data. OUTPATIENT MEDICATIONS: Home Medications Review Status for Reconciliation: Complete Med Status: No Current Medications SIGNIFICANT EVENTS: No documented data. REVIEW OF SYSTEMS CONSTITUTIONAL: Negative for: anorexia, chills, diaphoresis, fever, malaise, weakness and weight loss EYES: Negative for: pain, photophobia, redness and vision changes ENMTEars: Negative for: discharge, itching and pain Nose: Negative for: congestion and discharge Throat/Neck: Negative for: dysphagia, hoarseness, throat pain, neck pain and neck stiffness CARDIOVASCULAR: Negative for: chest pain RESPIRATORY: Negative for: cough, dyspnea, hemoptysis, pleuritic chest pain and wheezing GASTROINTESTINAL: Negative for: abdominal pain, constipation, diarrhea, nausea and vomiting; MUSCULOSKELETAL: Negative for: pain INTEGUMENTARY: POSITIVE for: itching; rash NEUROLOGICAL: Negative for: altered mental status, dizziness and headache; PHYSICAL EXAM CONSTITUTIONAL: Well appearing, well nourished, awake, alert, oriented to person, place, time/situation and in no apparent distress. HENMT: Airway patent Nasal mucosa clear. Mouth with normal mucosa. Throat has no vesicles, no oropharyngeal exudates and uvula is midline. Face with no lymph node enlargement. EYES: Clear bilaterally, pupils equal, round and reactive to light. CARDIOVASCULAR: Normal rate, regular rhythm. Normal peripheral perfusion RESPIRATORY: Breath sounds clear and equal bilaterally. GASTROINTESTINAL: Abdomen soft, non-distended, no rebound, no guarding. NEUROLOGICAL: Alert and oriented, no focal deficits, no motor or sensory deficits. SKIN: Urticarial rash noted on patient's left forearm and torso. Small amount urticarial rash noted on right torso and right forearm. No evidence of skin degradation or desquamation. Rash is blanching. No remote redness. No pain. No drainage. No mucosal membrane involvement. No palms of hand involvement. HEME/LYMPH: Negative cervical adenopathy. CRITICAL CARE VITAL SIGNS: T PRBP SpO2O2(LPM) %FiO2 Method 19-Aug-2021 14:17:[id number] DISPOSITION Diagnosis/Annotation: ED Dx Name:Contact dermatitis Code:L25.9 Disposition: discharged Type: home CONSULT Comments/Additional Findings: Patient diagnosed a contact dermatitis believe this is irritant form. Patient was educated on supportive therapies using tape to remove hair of Caterpillar. Patient will use second-generation antihistamines. If rash is not improving patient will use prednisone. Educated on proper use of medication. Will follow up with PCP 2 to 3 days if symptoms are not improving. Red flags reevaluation discussed. Patient will be seen in ED for any new, worsening or symptoms lasting longer than anticipated. Supportive therapy discussed with patient. Patient verbalized understanding and agrees with plan of careCRITICAL CARE TIME Is this a critically ill patient: no Electronic Signatures: Tucker Salmon (UPHOLSTERY TRIMMER-SALES SERVICE COORDINATOR) (Signed 19-Aug-2021 15:02) Authored: ED Notes, HPI, PMH, ROS, PE, Results/Vital Signs, Clinical Impression, Attestation, Chart Review, Scores Last Updated: 19-Aug-2021 15:02 by Tucker Salmon (UPHOLSTERY TRIMMER-SALES SERVICE COORDINATOR) [facility] Vital Signs Date Time Vital Sign Value Performing Clinician Facility 10-10-2025 11:05-0500 Body temperature 98.2 [degF] Dr. Sheba Jimenez MD Work Phone: [facility] 10-10-2025 11:05-0500 Diastolic blood pressure 77 mm[Hg] Dr. Sheba Jimenez MD Work Phone: [facility] 10-10-2025 11:05-0500 Heart rate 77 /min Dr. Sheba Jimenez MD Work Phone: [facility] 10-10-2025 11:05-0500 Respiratory rate 18 /min Dr. Sheba Jimenez MD Work Phone: [facility] 10-10-2025 11:05-0500 SaO2% (BldA) [Mass fraction] 96 % Dr. Sheba Jimenez MD Work Phone: [facility] 10-10-2025 11:05-0500 Systolic blood pressure 106 mm[Hg] Dr. Sheba Jimenez MD Work Phone: [facility] 10-10-2025 02:50-0500 Body mass index (BMI) [Ratio] 28.9 kg/m2 Dr. Sheba Jimenez MD Work Phone: [facility] 10-10-2025 02:50-0500 Body weight 99.[address] Sheba Jimenez MD Work Phone: [facility] 10-09-2025 11:32-0500 Body height 185.[address] Sheba Jimenez MD Work Phone: [facility] 07-09-2025 08:47-0400 Body height 185.[address] Sheba Jimenez MD Work Phone: [facility] 07-09-2025 08:47-0400 Body mass index (BMI) [Ratio] 30.2 kg/m2 Dr. Sheba Jimenez MD Work Phone: [facility] 07-09-2025 08:47-0400 Body weight 103.[address] Sheba Jimenez MD Work Phone: [facility] 07-09-2025 08:47-0400 Diastolic blood pressure 71 mm[Hg] Dr. Sheba Jimenez MD Work Phone: [facility] 07-09-2025 08:47-0400 Heart rate 60 /min Dr. Sheba Jimenez MD Work Phone: [facility] 07-09-2025 08:47-0400 Respiratory rate 18 /min Dr. Sheba Jimenez MD Work Phone: [facility] 07-09-2025 08:47-0400 SaO2% (BldA) [Mass fraction] 96 % Dr. Sheba Jimenez MD Work Phone: [facility] 07-09-2025 08:47-0400 Systolic blood pressure 107 mm[Hg] Dr. Sheba Jimenez MD Work Phone: [facility] 02-19-2025 09:58-0400 Body height 185.4 cm Sheba Jimenez MD Work Phone: [facility] 02-19-2025 09:58-0400 Body mass index (BMI) [Ratio] 31 kg/m2 Sheba Jimenez MD Work Phone: [facility] 02-19-2025 09:58-0400 Body temperature 98.1 [degF] Sheba Jimenez MD Work Phone: [facility] 02-19-2025 09:58-0400 Body weight 106.59 kg Sheba Jimenez MD Work Phone: [facility] 02-19-2025 09:58-0400 Diastolic blood pressure 68 mm[Hg] Sheba Jimenez MD Work Phone: [facility] 02-19-2025 09:58-0400 Heart rate 65 /min Sheba Jimenez MD Work Phone: [facility] 02-19-2025 09:58-0400 Respiratory rate 20 /min Sheba Jimenez MD Work Phone: [facility] 02-19-2025 09:58-0400 SaO2% (BldA) [Mass fraction] 97 % Sheba Jimenez MD Work Phone: [facility] 02-19-2025 09:58-0400 Systolic blood pressure 104 mm[Hg] Sheba Jimenez MD Work Phone: [facility] 08-07-2024 09:14-0400 Body height 185.4 cm Sheba Jimenez MD Work Phone: [facility] 08-07-2024 09:14-0400 Body mass index (BMI) [Ratio] 32.9 kg/m2 Sheba Jimenez MD Work Phone: [facility] 08-07-2024 09:14-0400 Body temperature 97.2 [degF] Sheba Jimenez MD Work Phone: [facility] 08-07-2024 09:14-0400 Body weight 113.12 kg Sheba Jimenez MD Work Phone: [facility] 08-07-2024 09:14-0400 Diastolic blood pressure 82 mm[Hg] Sheba Jimenez MD Work Phone: [facility] 08-07-2024 09:14-0400 Heart rate 71 /min Sheba Jimenez MD Work Phone: [facility] 08-07-2024 09:14-0400 Respiratory rate 16 /min Sheba Jimenez MD Work Phone: [facility] 08-07-2024 09:14-0400 SaO2% (BldA) [Mass fraction] 94 % Sheba Jimenez MD Work Phone: [facility] 08-07-2024 09:14-0400 Systolic blood pressure 124 mm[Hg] Sheba Jimenez MD Work Phone: [facility] 07-05-2024 08:22-0400 Body height 185.4 cm Sheba Jimenez MD Work Phone: [facility] 07-05-2024 08:22-0400 Body mass index (BMI) [Ratio] 33.26 kg/m2 Sheba Jimenez MD Work Phone: [facility] 07-05-2024 08:22-0400 Body temperature 98.01 [degF] Sheba Jimenez MD Work Phone: [facility] 07-05-2024 08:22-0400 Body weight 114.36 kg Sheba Jimenez MD Work Phone: [facility] 07-05-2024 08:22-0400 Diastolic blood pressure 70 mm[Hg] Sheba Jimenez MD Work Phone: [facility] 07-05-2024 08:22-0400 Heart rate 66 /min Sheba Jimenez MD Work Phone: [facility] 07-05-2024 08:22-0400 Respiratory rate 18 /min Sheba Jimenez MD Work Phone: [facility] 07-05-2024 08:22-0400 SaO2% (BldA) [Mass fraction] 98 % Sheba Jimenez MD Work Phone: [facility] 07-05-2024 08:22-0400 Systolic blood pressure 110 mm[Hg] Sheba Jimenez MD Work Phone: [facility] 06-12-2024 13:14-0400 Body height 185.4 cm Alexis Temsic UPHOLSTERY TRIMMER.SALES SERVICE COORDINATOR Work Phone: [facility] 06-12-2024 13:14-0400 Body mass index (BMI) [Ratio] 33.83 kg/m2 Alexis Temsic UPHOLSTERY TRIMMER.SALES SERVICE COORDINATOR Work Phone: [facility] 06-12-2024 13:14-0400 Body temperature 97.39 [degF] Alexis Temsic UPHOLSTERY TRIMMER.SALES SERVICE COORDINATOR Work Phone: [facility] 06-12-2024 13:14-0400 Body weight 116.3 kg Alexis Temsic UPHOLSTERY TRIMMER.SALES SERVICE COORDINATOR Work Phone: [facility] 06-12-2024 13:14-0400 Diastolic blood pressure 80 mm[Hg] Alexis Temsic UPHOLSTERY TRIMMER.SALES SERVICE COORDINATOR Work Phone: [facility] 06-12-2024 13:14-0400 Heart rate 60 /min Alexis Temsic UPHOLSTERY TRIMMER.SALES SERVICE COORDINATOR Work Phone: [facility] 06-12-2024 13:14-0400 Respiratory rate 16 /min Alexis Temsic UPHOLSTERY TRIMMER.SALES SERVICE COORDINATOR Work Phone: [facility] 06-12-2024 13:14-0400 SaO2% (BldA) [Mass fraction] 98 % Alexis Temsic UPHOLSTERY TRIMMER.SALES SERVICE COORDINATOR Work Phone: [facility] 06-12-2024 13:14-0400 Systolic blood pressure 118 mm[Hg] Alexis Temsic UPHOLSTERY TRIMMER.SALES SERVICE COORDINATOR Work Phone: [facility] 02-16-2024 08:43-0400 Body height 185.4 cm Sheba Jimenez MD Work Phone: [facility] 02-16-2024 08:43-0400 Body temperature 97.59 [degF] Sheba Jimenez MD Work Phone: [facility] 03-20-2024 08:43-0400 Body weight 117.94 kg Sheba Jimenez MD Work Phone: [facility] 02-16-2024 08:43-0400 Diastolic blood pressure 80 mm[Hg] Sheba Jimenez MD Work Phone: [facility] 02-16-2024 08:43-0400 Heart rate 80 /min Sheba Jimenez MD Work Phone: [facility] 02-16-2024 08:43-0400 SaO2% (BldA) [Mass fraction] 97 % Sheba Jimenez MD Work Phone: [facility] 02-16-2024 08:43-0400 Systolic blood pressure 136 mm[Hg] Sheba Jimenez MD Work Phone: [facility] 07-05-2023 11:25-0400 Body height 185.4 cm Sheba Jimenez MD Work Phone: [facility] 07-05-2023 11:25-0400 Body temperature 97.3 [degF] Sheba Jimenez MD Work Phone: [facility] 07-05-2023 11:25-0400 Body weight 119.93 kg Sheba Jimenez MD Work Phone: [facility] 07-05-2023 11:25-0400 Diastolic blood pressure 72 mm[Hg] Sheba Jimenez MD Work Phone: [facility] 07-05-2023 11:25-0400 Heart rate 76 /min Sheba Jimenez MD Work Phone: [facility] 07-05-2023 11:25-0400 Respiratory rate 18 /min Sheba Jimenez MD Work Phone: [facility] 07-05-2023 11:25-0400 SaO2% (BldA) [Mass fraction] 98 % Sheba Jimenez MD Work Phone: [facility] 07-05-2023 11:25-0400 Systolic blood pressure 128 mm[Hg] Sheba Jimenez MD Work Phone: [facility] 08-19-2021 16:17-0400 Body height 185.4 cm Text Entry [facility] 08-19-2021 16:17-0400 Body temperature 98.24 [degF] Text Entry [facility] 08-19-2021 16:17-0400 Diastolic blood pressure 91 mm[Hg] Text Entry [facility] 08-19-2021 16:17-0400 Heart rate 70 /min Text Entry [facility] 08-19-2021 16:17-0400 Respiratory rate 16 /min Text Entry [facility] 08-19-2021 16:17-0400 SaO2% (BldA) [Mass fraction] 99 % Text Entry [facility] 08-19-2021 16:17-0400 Systolic blood pressure 136 mm[Hg] Text Entry [facility] Encounters Encounter Date Encounter Type Care Provider Facility Start: 10-11-2025 ambulatory Jose Arthur Facility:[facility] Start: 10-10-2025 End: 10-10-2025 ambulatory Sheba Jimenez Facility:[facility] Start: 10-10-2025 ambulatory Richard Arrington Facility:[facility] Start: 10-10-2025 [facility] Start: 10-09-2025 ambulatory Sheba Barbara Facility: [facility] Start: 09-10-2025 End: 09-10-2025 ambulatory Jimenez Dee Facility:[facility] Start: 09-10-2025 End: 09-10-[address] Jimenez Dee MD -[facility] Work Phone: Start: 08-22-2025 End: 08-22-2025 ambulatory SHEBA JIMENEZ Facility:[id number] Start: 08-22-2025 Encounter for genera l adult medical examination without abnormal findings SHEBA ROWE BARBARA [facility] Start: 07-19-2025 End: 07-19-2025 Refill [facility] Comment on above: Refill Request Start: 07-16-2025 End: 07-17-2025 Telephone encounter Sheba Jimenez MD Work Phone: [facility] Comment on above: Results Start: 07-10-2025 End: 07-10-[address] Sheba Jimenez MD Work Phone: -[facility] Start: 07-10-2025 End: 07-10-[address] Jim[facility] Dee [facility] Work Phone: Start: 07-09-2025 End: 07-09-2025 Patient encounter procedure Stephenie Brody NP-C [facility] Work Phone: Start: 07-09-2025 End: 07-09-[address] Sheba Jimenez MD Work Phone: [facility] Start: 06-04-2025 End: 06-04-[address] Sheba Jimenez MD Work Phone: -[facility] Start: 06-04-2025 End: 06-04-[address] Jim[facility] Dee MD [facility] Work Phone: Start: 05-25-2025 End: 05-25-2025 ambulatory SHEBA JIMENEZ Facility:[facility] Start: 05-25-2025 End: 05-25-2025 Subsequent hospital visit by physician [facility] Work Phone: Radiology Comment on above: Elevated LFTs [R79.8 9] Start: 05-24-2025 End: 05-24-2025 Follow-up encounter Sheba Jimenez MD Work Phone: [facility] Start: 05-23-2025 End: 05-23-2025 ambulatory SHEBA JIMENEZ Facility:[facility] Start: 05-09-2025 End: 05-09-2025 Follow-up encounter Sheba Jimenez MD Work Phone: [facility] Start: 05-07-2025 End: 05-07-2025 ambulatory SHEBA JIMENEZ Facility:[facility] Start: 03-05-2025 End: 03-05-[facility] Start: 03-05-2025 End: 03-05-[address] [facility] Dee MD [facility] Work Phone: Start: 02-19-2025 End: 02-19-2025 Office outpatient visit 15 minutes Sheba Jimenez MD Work Phone: [facility] Comment on above: Diabetes beginning i n adulthood (type 2/adult onset) ([facility]) (Primary Dx); Pure hypercholesterolemia Start: 02-19-2025 End: 02-19-2025 ambulatory SHEBA JIMENEZ Facility:[id number] Start: 01-03-2025 End: 01-03-2025 ambulatory Jimenez Leila Facility:[facility] Start: 12-04-2024 End: 12-04-2024 ambulatory Jimenez Dee Facility:[facility] Start: 09-22-2024 End: 09-22-2024 ambulatory SHEBA JIMENEZ Facility:[facility] Start: 08-10-2024 End: 08-10-2024 Telephone encounter Sheba Jimenez MD Work Phone: [facility] Comment on above: Approved, Andre [facility] un albe to get Mounjaro in stock Patient notified perlita mitch Powell has been approved via Start: 08-09-2024 End: 08-09-2024 Telephone encounter Sheba Jimenez MD Work Phone: [facility] Comment on above: Pending, [facility] No PA required for M ounjaro Start: 08-07-2024 End: 08-07-2024 Refill Sheba Jimenez MD Work Phone: [facility] Comment on above: Refill Request Start: 08-07-2024 End: 08-07-2024 Office outpatient visit 25 minutes Sheba Jimenez MD Work Phone: [facility] Comment on above: Diabetes beginning i n adulthood (type 2/adult onset) ([facility]) (Primary Dx); Pure hypercholesterolemia; Screening PSA (prostate specific antigen); Elevated blood-pressure reading, without diagnosis of hypertension Start: 08-04-2024 End: 08-04-2024 ambulatory ALEXIS PASCAL Facility:[facility] Start: 08-02-2024 End: 08-03-2024 Refill Sheba Jimenez MD Work Phone: [facility] Comment on above: Refill Request Start: 07-13-2024 Telephone encounter Sheba Jimenez MD Work Phone: [facility] Comment on above: Medication Problem Start: 07-10-2024 Patient encounter procedure [facility] Prov ider [facility] Department Start: 07-06-2024 ambulatory Sheba Greer MD Work Phone: [facility] Start: 07-06-2024 Patient encounter procedure Ra dena Jimenez MD Work Phone: [facility] Comment on above: Soraya communicati ean with Dr. Jimenez's office Start: 07-05-2024 End: 07-05-2024 Patient encounter procedure Sheba Jimenez MD Work Phone: [facility] Comment on above: Wellness examination (Primary Dx); Encounter for screening examination for other mental health and behavioral disorders; Screening for depression; Diabetes beginning in adulthood (type 2/adult onset) (HCC); Pure hypercholesterolemia; Elevated blood-pressure reading, without diagnosis of hypertension; Medicare annual wellness visit, subsequent Start: 07-05-2024 End: 07-05-2024 Patient encounter status Sheba Jimenez MD Work Phone: [facility] Start: 06-22-2024 Patient Outreach Abigail Paige RN [facility] Senior Writer Comment on above: Started Bi-weekly ph one contact (Recurring) for Transitional Care Management Start: 06-19-2024 Refill Sheba Greer MD Work Phone: [facility] Comment on above: Refill Request Start: 06-13-2024 Patient encounter procedure [facility] Start: 06-12-2024 End: 06-12-2024 Transitional care manage srvc 7 day discharge Alexis Pascal APRN.SALES SERVICE COORDINATOR Work Phone: [facility] Comment on above: Encounter for suppor t and coordination of transition of care (Primary Dx); Bradycardia; Third degree heart block (HCC); Atrioventricular block; New onset type 2 diabetes mellitus (HCC); TARIK (acute kidney injury) (HCC) Start: 06-08-2024 Patient Outreach Abigail Paige RN M [facility] Senior Writer Comment on above: Initial phone contac t for Transitional Care Management Start: 06-07-2024 Patient Outreach Abigail Paige RN M [facility] Senior Writer Comment on above: Started Initial phon e contact for Transitional Care Management Start: 06-06-2024 Patient encounter procedure [facility] Start: 06-05-2024 End: 06-05-2024 Patient encounter procedure Abhi Villasenor MD Work Phone: [facility] Comment on above: Bradycardia (Primary Dx) Start: 06-05-2024 Telephone encounter Sheba Jimenez MD Work Phone: [facility] Comment on above: Returning Patient's Call (Regarding Low Pulse x 3 days) Start: 06-05-2024 End: 06-05-2024 ambulatory SHEBA JIMENEZ Facility:[facility] Start: 03-16-2024 Non-patient / Non-visit Dr. Ra dena Jimenez Work Phone: [facility] Start: 03-16-2024 End: 03-16-[address] Sheba Jimenez Work Phone: [facility] Work Phone: Start: 03-16-2024 End: 03-16-[address] [facility] Work Phone: Start: 03-15-2024 Patient encounter procedure [facility] Prov ider [facility] Department Start: 03-14-2024 Telephone encounter Sheba Jimenez MD Work Phone: [facility] Start: 03-13-2024 Telephone encounter Sheba Jimenez MD Work Phone: [facility] Comment on above: Stress Test does no require a PA Start: 02-16-2024 Telephone encounter Sheba Jimenez MD Work Phone: [facility] Comment on above: Results Start: 02-16-2024 End: 02-16-2024 Office outpatient visit 25 minutes Sheba Jimenez MD Work Phone: [facility] Comment on above: CARCAMO (dyspnea on exer tion) (Primary Dx) Start: 07-05-2023 Telephone encounter Sheba Jimenez MD Work Phone: [facility] Comment on above: Referral Information Start: 07-05-2023 End: 07-05-2023 Patient encounter status Sheba Jimenez MD Work Phone: [facility] Work Phone: Start: 07-05-2023 End: 07-05-2023 Periodic preventive med est patient 65yrs& older Sheba Jimenez MD Work Phone: [facility] Comment on above: Wellness examination (Primary Dx); Encounter for counseling regarding advance directives; Encounter for screening for depression; Hyperlipidemia, unspecified hyperlipidemia type; Screening for deficiency anemia; Screening PSA (prostate specific antigen); Screening for colon cancer; Dupuytren's contracture of left hand Start: 01-18-2023 Refill Sheba Greer MD Work Phone: [facility] Comment on above: Refill Request; Refi ll Request Start: 08-29-2021 End: 08-29-[address] SARY RAYA [facility] Start: 08-19-2021 End: 08-19-2021 Emergency department patient visit [facility] 02 Procedures Date Procedure Procedure Detail Performing Clinician Start: 10-09-[address] Sheba Jimenez MD Work Phone: Start: 07-05-2024 Adult depression scr eening assessment Sheba Jimenez MD Work Phone: Start: 03-16-2024 Radionuclide imaging of perfusion of myocardium under exercise stress Dr. Sheba Jimenez Work Phone: Plan of Treatment Date Care Activity Detail Author Start: 08-09-2026 Screening for malignant neoplasm of colon [facility] Start: 05-07-2026 Hepatitis B surface antibody level LDL Cholesterol [facility] Start: 02-19-2026 Annual PCP Team Chronic Disease Visit Annual PCP Team Chronic Disease Visit [facility] Start: 11-06-2025 Hemoglobin A1c measurement HbA1C [facility] Start: 10-11-2025 US Heart limited [facility] Start: 10-10-2025 [facility] Start: 10-10-2025 CT Chest W contrast IV [facility] Start: 10-10-2025 CT of thorax with contrast Chest WITH Contrast [facility] Start: 10-10-2025 [facility] Start: 10-10-2025 Non-patient / Non-visit Non-patient / Non-visit -[facility] Start: 10-10-2025 Referral to egg crater [facility] Start: 10-10-2025 MRI of brain without contrast Brain without Contrast [facility] Start: 10-09-2025 Non-patient / Non-visit Non-patient / Non-visit -[facility] Start: 10-09-2025 End: 10-09-2025 [facility] Start: 10-09-2025 Care regimes management [facility] Start: 10-09-2025 Notification of physician [facility] Start: 10-09-2025 Following clinical pathway protocol [facility] Start: 10-09-2025 Verification routine [facility] Start: 10-09-2025 Ambulation without limitation [facility] Start: 10-09-2025 Aspiration precautions [facility] Start: 10-09-2025 Assessment of risk of venous thromboembolism [facility] Start: 10-09-2025 Cardiac monitoring [facility] Start: 10-09-2025 Catheterization of vein [facility] Start: 10-09-2025 Consultation [facility] Start: 10-09-2025 Continuous pulse oximetry [facility] Start: 10-09-2025 Elevation of head of bed [facility] Start: 10-09-2025 Exercises [facility] Start: 10-09-2025 Incentive spirometry [facility] Start: 10-09-2025 Insertion of catheter into peripheral vein [facility] Start: 10-09-2025 Measuring intake and output [facility] Start: 10-09-2025 Notification of physician [facility] Start: 10-09-2025 Oxygen therapy [facility] Start: 10-09-2025 Patient referral to dietitian [facility] Start: 10-09-2025 Providing care according to standard [facility] Start: 10-09-2025 Referral for physical therapy [facility] Start: 10-09-2025 Referral to occupational therapist [facility] Start: 10-09-2025 Referral to service [facility] Start: 10-09-2025 Speech therapy assessment [facility] Start: 10-09-2025 Telemedicine consultation with patient [facility] Start: 10-09-2025 Tobacco use cessation education [facility] Start: 10-09-2025 End: 10-09-2025 [facility] Start: 10-09-2025 Vital signs measurements [facility] Start: 10-09-2025 Non-patient / Non-visit Non-patient / [facility] Work Phone: Start: 10-09-2025 Admission procedure [facility] Start: 10-09-2025 Evaluation and management of inpatient LV dysfunction -Progressive Care Unit Work Phone: Start: 10-09-2025 Plain chest X-ray Chest 1 View [facility] Start: 10-09-2025 CT angiography of head and neck STROKE CTA Head AND Neck W/Con [facility] Start: 10-09-2025 [facility] Start: 10-09-2025 CT of head without contrast STROKE Brain/Head without Cont [facility] Start: 09-22-2025 Hepatitis B surface antibody level LDL Cholesterol [facility] Start: 09-10-2025 End: 09-10-2025 Patient encounter procedure Departed Physician/Provider Office Visit -[facility] Work Phone: Start: 08-22-2025 End: 08-22-2025 Patient encounter procedure 08/22/2025 10:40 AM EDT Office Visit [facility] [address] [place] [address] Sheba Jimenez MD [address] [place], [place] [id number] [facility] Comment on above: AM Start: 08-07-2025 Annual PCP Team Chronic Disease Visit Annual PCP Team Chronic Disease Visit [facility] Start: 07-30-2025 Influenza vaccination [facility] Start: 07-05-2025 Annual PCP Team Chronic Disease Visit Annual PCP Team Chronic Disease Visit [facility] Start: 07-05-2025 Anxiety Screening Anxiety Screening [facility] Start: 07-05-2025 Depression Screening Depression Screening [facility] Start: 07-05-2025 Medicare Annual Wellness Visit Medicare Annual Wellness Visit [facility] Start: 05-25-2025 End: 05-25-2025 Patient encounter procedure 05/25/2025 7:30 AM EDT Appointment Radiology [address] [place] [address] left vm confirming appt and prep. jk Radiology Comment on above: left vm confirming appt and prep. jk Start: 05-24-2025 End: 08-23-2025 Acute hepatitis 2000 panel - Serum HEP ACUTE PANEL BL Lab Routine Elevated LFTs Expected: 05/24/2025, Expires: 08/23/2025 [facility] Work Phone: Comment on above: Expected: 05/24/2025, Expires: Start: 05-09-2025 End: 08-08-2025 Hepatic function 2000 panel - Serum or Plasma HEPATIC FUNCTION PNL Lab Routine Elevated liver enzymes Expected: 05/09/2025, Expires: 08/08/2025 [facility] Work Phone: Comment on above: Expected: 05/09/2025, Expires: Start: 03-23-2025 Hemoglobin A1c measurement HbA1C [facility] Start: 02-19-2025 End: 05-21-2025 Comprehensive metabolic 2000 panel - Serum or Plasma COMPREHENSIVE METABOLIC PANEL Lab Routine Diabetes beginning in adulthood (type 2/adult onset) (HCC) Pure hypercholesterolemia Expected: 02/19/2025, Expires: 05/21/2025 [facility] Work Phone: Comment on above: Expected: 02/19/2025, Expires: Start: 02-19-2025 End: 05-21-2025 Hemoglobin A1c in Blood HEMOGLOBIN A1C Lab Routine Diabetes beginning in adulthood (type 2/adult onset) (HCC) Expected: 02/19/2025, Expires: 05/21/2025 [facility] Comment on above: Expected: 02/19/2025, Expires: Start: 02-19-2025 End: 05-21-2025 Lipid 1996 panel - Serum or Plasma LIPID PANEL, FASTING Lab Routine Pure hypercholesterolemia Expected: 02/19/2025, Expires: 05/21/2025 [facility] Comment on above: Expected: 02/19/2025, Expires: Start: 02-05-2025 End: 02-05-2025 Patient encounter procedure 02/05/2025 10:00 AM EDT Office Visit [facility] [address] [place] [phone] Sheba Jimenez MD [address] [place] [address] 6 month Follow Up [facility] Comment on above: 6 month Follow Up Start: 11-29-2024 Advance Directive Discussion Advance Directive Discussion [facility] Start: 08-07-2024 End: 11-06-2024 Comprehensive metabolic 2000 panel - Serum or Plasma COMPREHENSIVE METABOLIC PANEL Lab Routine Diabetes beginning in adulthood (type 2/adult onset) (HCC) Pure hypercholesterolemia Expected: 08/07/2024, Expires: 11/06/2024 [facility] Comment on above: Expected: 08/07/2024, Expires: 4 Start: 08-07-2024 End: 11-06-2024 Hemoglobin A1c in Blood HEMOGLOBIN A1C Lab Routine Diabetes beginning in adulthood (type 2/adult onset) (HCC) Expected: 08/07/2024, Expires: 11/06/2024 [facility] Work Phone: Comment on above: Expected: 08/07/2024, Expires: 4 Start: 08-07-2024 End: 11-06-2024 Lipid 1996 panel - Serum or Plasma LIPID PANEL BASIC Lab Routine Pure hypercholesterolemia Expected: 08/07/2024, Expires: 11/06/2024 [facility] Comment on above: Expected: 08/07/2024, Expires: 4 Start: 08-07-2024 End: 11-06-2024 PSA/PROSTATE SPECIFIC ANTIGEN SCREENING PSA/PROSTATE SPECIFIC ANTIGEN SCREENING Lab Routine Screening PSA (prostate specific antigen) Expected: 08/07/2024, Expires: 11/06/2024 [facility] Comment on above: Expected: 08/07/2024, Expires: 4 Start: 08-07-2024 End: 08-07-2024 Patient encounter procedure 08/07/2024 9:00 AM EDT [facility] [address] [place] [phone] Sheba Jimenez MD [address] [place], [place] [address] Annual Wellness [facility] Comment on above: Annual Wellness Start: 07-30-2024 Covid-19 Vaccine ( season) Covid-19 Vaccine () [facility] Start: 07-30-2024 Covid-19 Vaccine () Covid-19 Vaccine () [facility] Start: 07-30-2024 Influenza vaccination [facility] Start: 07-05-2024 End: 07-05-2024 Patient encounter procedure 07/05/2024 8:00 AM EDT Office Visit [facility] [address] [place] [phone] Sheba Jimenez MD [address] [place], [place] [id number] Yearly Wellness [facility] Comment on above: Yearly Wellness Start: 06-12-2024 End: 06-12-2024 Patient encounter procedure [facility] Comment on above: TCM-Third Degree Heart Block, Pace Maker Placement, Diabetes TCM-Third Degree Hea rt Block, Pace Maker Placement, Diabetes[*CONFIRMED GR 06/09/2024] Start: 11-29-2023 Advance Directive Discussion Advance Directive Discussion [facility] Start: 11-29-2023 Behavioral Health Screening Behavioral Health Screening [facility] Start: 11-29-2023 Depression Assessment Depression Assessment [facility] Start: 07-30-2023 Covid-19 Vaccine () Covid-19 Vaccine () [facility] Start: 07-30-2023 Influenza vaccination [facility] Start: 07-05-2023 End: 09-04-2023 CBC W Auto Differential panel - Blood CBC + DIFF Lab Routine Screening for deficiency anemia Expected: 07/05/2023, Expires: 09/04/2023 [facility] Work Phone: Comment on above: Expected: 07/05/2023, Expires: Start: 07-05-2023 End: 09-04-2023 Comprehensive metabolic 2000 panel - Serum or Plasma COMP METABOLIC PANEL Lab Routine Hyperlipidemia, unspecified hyperlipidemia type Wellness examination Expected: 07/05/2023, Expires: 09/04/2023 [facility] Work Phone: Comment on above: Expected: 07/05/2023, Expires: 3 Start: 07-05-2023 End: 09-04-2023 Lipid 1996 panel - Serum or Plasma LIPID PANEL BASIC Lab Routine Hyperlipidemia, unspecified hyperlipidemia type Expected: 07/05/2023, Expires: 09/04/2023 [facility] Work Phone: Comment on above: Expected: 07/05/2023, Expires: 3 Start: 07-05-2023 End: 09-04-2023 PSA/PROSTSPECAG SCRN PSA/PROSTSPECAG SCRN Lab Routine Screening PSA (prostate specific antigen) Expected: 07/05/2023, Expires: 09/04/2023 [facility] Work Phone: Comment on above: Expected: 07/05/2023, Expires: 3 Start: 11-29-2022 ADVANCE DIRECTIVE DISCUSSION ADVANCE DIRECTIVE DISCUSSION [facility] Start: 11-29-2022 DEPRESSION ASSESSMENT DEPRESSION ASSESSMENT [facility] Start: 07-30-2022 Influenza vaccination INFLUENZA (#1) [facility] Start: 2018 Pneumococcal Vaccine: 65+ (1 of 1 - PCV) Pneumococcal Vaccine: 65+ (1 of 1 - PCV) [facility] Start: 2018 PNEUMOCOCCAL: 65+ (1 - PCV) PNEUMOCOCCAL: 65+ (1 - PCV) [facility] Start: 2013 RSV Vaccine (1 - 1-dose 60+ series) RSV Vaccine (1 - 1-dose 60+ series) [facility] Start: 2013 RSV Vaccine (1 - Risk 60-74 years 1-dose series) RSV Vaccine (1 - Risk 60-74 years 1-dose series) [facility] Start: 08-18-2011 DIABETES SCREEN DIABETES SCREEN [facility] Start: 08-18-2011 Diabetes Screening Diabetes Screening [facility] Start: 2003 SHINGRIX VACCINE (1 of 2) SHINGRIX VACCINE (1 of 2) [facility] Start: 1998 COLOGUARD (FIT-DNA) COLOGUARD (FIT-DNA) [facility] Start: 1998 Colonoscopy COLONOSCOPY [facility] Start: 1998 COLORECTAL CANCER SCREENING COLORECTAL CANCER SCREENING [facility] Start: [address] COLONOGRAPHY [facility] Start: 1998 FECAL OCCULT BLOOD FECAL OCCULT BLOOD [facility] Start: 1998 Screening for malignant neoplasm of colon [facility] Start: 1998 SIGMOIDOSCOPY SIGMOIDOSCOPY [facility] Start: 1988 Lipid panel Lipid Screening [facility] Start: 1988 LIPID SCREEN LIPID SCREEN [facility] Start: 1972 Pneumococcal Vaccine: 50+ (1 of 2 - PCV) Pneumococcal Vaccine: 50+ (1 of 2 - PCV) [facility] Start: 1972 Urine microalbumin profile [facility] Start: 1971 Anxiety Screening Anxiety Screening [facility] Start: 1971 Depression Screening Depression Screening [facility] Start: 1971 Hepatitis B surface antibody level LDL Cholesterol [facility] Start: 1971 HEPATITIS C SCREENING HEPATITIS C SCREENING [facility] Start: 1971 Hepatitis C screening Hepatitis C Screening [facility] Start: 1963 Diabetic foot examination Diabetic Foot Exam [facility] Start: 1963 Glaucoma screening Dilated Retinal Exam [facility] Start: 1963 Hepatitis B screening Urine Albumin:Creatinine Ratio [facility] Start: 1959 Pneumococcal Vaccine: 65+ (1 of 2 - PCV) Pneumococcal Vaccine: 65+ (1 of 2 - PCV) [facility] Start: 1958 Hemoglobin A1c measurement HbA1C [facility] Start: 1953 COVID-19 VACCINE (#1) COVID-19 VACCINE (#1) [facility] Start: 1953 ABDOMINAL AORTIC ANEURYSM SCREENING ABDOMINAL AORTIC ANEURYSM SCREENING [facility] Start: 1953 Abdominal aortic aneurysm screening Abdominal Aortic Aneurysm Screening [facility] COLOGUARD COLOGUARD Lab Ro utine Screening for colon cancer Ordered: 07/05/2023 [facility] Work Phone: Comment on above: Ordered: 07/05/2023 End: 03-17-2025 NM Heart Perfusion W multiple states of exercise NM CARDIAC PERF STRESS/EXERCISE Radiology Routine CARCAMO (dyspnea on exertion) 1 Occurrences starting 02/16/2024 until 03/17/2025 [facility] Work Phone: Comment on above: 1 Occurrences starting 02/16/2024 until 03/17/2025 End: 06-23-2026 US Abdomen RUQ US ABD RIGHT UPPER QUADRANT Radiology Routine Elevated LFTs 1 Occurrences starting 05/24/2025 until 06/23/2026 [facility] Comment on above: 1 Occurrences starting 05/24/2025 until 06/23/2026 US Abdomen RUQ US ABD RIGHT UPP ER QUADRANT Radiology Routine Elevated LFTs 05/25/2025 8:02 AM EDT [facility] Work Phone: [facility] Payers Date Payer Category Payer Self-pay [id number] 2024 Private Health Insurance MEDICAR E SUPPLEMENT [id number] 2024 Unknown [id number] 2019 Unknown 2018 Medicare [id number] 2018 Medicare [id number] 2016 Unknown [id number] 1953 Unknown [id number]. [id number] Unknown [id number] Unknown [id number] Unknown [employer] [facility] DO NOT USE [id number] Unknown [id number]. 2.462 Unknown [id number] 2.840.1.709427.3.579. 2.462 Unknown [id number] 2.840.1.376147.3.579. 2.462 Unknown [id number] 2.840.1.014011.3.579. 2.462 Unknown [id number] 2.840.1.484592.3.579. 2.462 Unknown [id number] 2.840.1.701792.3.579. 2.462 Unknown [id number] 2.840.1.717138.3.579. 2.462 Unknown [id number] 2.840.1.708100.3.579. 2.462 Unknown [id number] .[id number]. 2.462 Unknown [id number] .840.1.276743.3.579. 2.462 Unknown [id number] 2.840.1.973213.3.579. 2.462 Unknown [id number] .840.1.569024.3.579. 2.462 Unknown [id number] .840.1.115902.3.579. 2.462 Unknown [id number] .[id number]. 2.462 Unknown [id number] 2.840.1.797883.3.579. 2.462 Unknown [id number] 2.840.1.960705.3.579. 2.462 Unknown [id number] 2.840.1.157862.3.579. 2.462 Unknown [id number] [id number]. 2.462 Social History Date Type Detail Facility [facility] Start: 09-15-2021 Tobacco smoking consumption unknown [facility] Start: 07-05-2023 End: 10-10-2025 Tobacco smoking status NHIS Ex-smoker [facility] History of tobacco use Current smoker [facility] History of tobacco use Cigarette Smoker [facility] Start: 07-03-2008 Alcohol intake Not Asked [facility] Start: 1955 Sex Assigned At Not on file [facility] Start: 07-05-2023 End: 08-07-2024 Tobacco use and exposure Smokeless tobacco non-user [facility] Start: 07-05-2023 End: 02-19-2025 Alcohol intake Current drinker of alcohol (finding) [facility] Start: 07-05-2023 End: 07-05-2024 History of Social function [facility] Start: 07-05-2023 End: 07-05-2024 Social connection and isolation panel [facility] Do you belong to any clubs or organizations such as islam groups, unions, fraternal or athletic groups, or school groups? No [facility] Are you now , , , , never or living with a partner? [facility] How often to you hav e a drink containing alcohol? 2-4 times a month [facility] How many standard dr inks containing alcohol do you have on a typical day? 1 or 2 [facility] How often do you hav e 6 or more drinks on 1 occasion? Never [facility] Start: 10-30-2012 How hard is it for you to pay for the very basics like food, housing, medical care, and heating Not hard at all [facility] Do you feel stress - tense, restless, nervous, or anxious, or unable to sleep at night because your mind is troubled all the time - these days [OSQ] Not at all [facility] (I/We) worried tripp er (my/our) food would run out before (I/we) got money to buy more. Never true [facility] Start: 07-05-2023 Tobacco Comment quit 20 yrs ago [facility] Start: 08-07-2023 Alcohol Comment occasional [facility] Start: 1955 Sex Assigned At Male [facility] Start: 06-10-2024 Gender identity Identifies as male gender (finding) [facility] Start: 06-10-2024 Sexual orientation Heterosexual (finding) [facility] Medical Equipment Procedure Code Equipment Code Equipment Original Text Equipment Identifier Dates Inject 1 Each subcutaneously once daily. [id number] Start: 06-06-2024 End: 07-05-2024 Test blood sugar once daily and as needed. [id number] Start: 06-19-2024 End: 07-05-2024 Test blood sugar once daily and as needed. [id number] Start: 07-05-2024 End: 08-02-2024 Inject 1 Each subcutaneously once daily. [id number] Start: 07-05-2024 End: 07-05-2025 Test blood sugar once daily and as needed. [id number] Start: 08-03-2024 End: 08-07-2024 Inject 1 Each subcutaneously once daily. [id number] Start: 08-07-2024 End: 08-07-2025 Test blood sugar once daily and as needed. [id number] Start: 08-07-2024 End: 08-07-2024 Monitor blood gl ucose twice a day. [id number] Start: 08-07-2024 Use with blood g lucose to test twice a day [id number] Start: 08-07-2024 ([id number]) Dual-chamber implantable pacemaker, rate-responsive ()[id number] FDA Start: 06-05-2024 ([id number]) Endocardial pacing lead () [id number] FDA Start: 06-05-2024 ([id number]) Endocardial pacing lead () [id number] FDA Start: 06-05-2024 Pen Needle, Diab etic 31 gauge x 5/32 needle Start: 06-06-2024 Pen Needle, Diab etic 31 gauge x 5/32 needle Start: 06-06-2024 Pen Needle, Diab etic 31 gauge x 5/32 needle Start: 06-06-2024 Pen Needle, Diab etic 31 gauge x 5/32 needle Start: 06-06-2024 Pen Needle, Diab etic 31 gauge x 32 needle Start: 06-06-2024 Pen Needle, Diab etic 31 gauge x 32 needle Start: 06-06-2024 Goals Date Patient Goal Desired Activity /State Functional Status Date Assessment Result Facility 10-10-2025 Functional status Independent [facility] Work Phone: Mental Status Date Assessment Result Facility 10-10-2025 Cognitive function Voice/Name [facility] Work Phone: Clinical Notes 01-19-2023 to 08-26-2025 Telephone Encounter - Robert Finney LPN - 07/19/2025 7:42 AM EDTTelephone Encounter - Robert Finney LPN - 07/19/2025 7:42 AM EDTTelephone Encounter - Jacquie Araya MA - 07/16/2025 9:11 AM EDT Note Date & Type Note Facility 08-26-2025 Note HNO ID: [id number] Author: SHEBA JIMENEZ MD Service: ? Author Type: Physician Type: Progress Notes Filed: 08/26/2025 13:40 Note Text: Subjective Chief Complaint: Calin Lira is a 70-year-old male with a history of type 2 diabetes mellitus, pacemaker, and hepatic steatosis, presenting for a Medicare Annual Wellness Visit. History of Present Illness: Calin reports a persistent daily cough, primarily in the mornings, characterized by expectoration of clear to slightly green sputum. He denies postnasal drip or known allergies. He uses a CPAP machine at night. He also experiences nightly hyperhidrosis, which he attributes to vivid dreams. He reports feeling overheated during sleep, necessitating the use of a fan, fewer covers, and sleeping on his side with one leg exposed to maintain comfort. He denies the ability to sleep on his back. Calin has a pacemaker and recently underwent a [facility] physical examination, which he passed except for the requirement of a letter from his [employer] confirming his fitness to drive with a pacemaker. He expresses frustration about this requirement. He has lost 55 lbs over the past year and aims to lose an additional 10 lbs. He adheres to a strict diet, avoiding candy, soda, and sweetened beverages. His most recent HbA1c was 5.5%. He currently takes metformin BID and Lantus 16 units daily. He expresses a preference for continuing Lantus over increasing metformin dosage. Recent laboratory results showed elevated liver enzymes, and an abdominal ultrasound revealed hepatic steatosis and cholelithiasis. A hepatitis panel was negative. Review of Systems GENERAL: Positive for night sweats and sleep disturbance. Negative for weight loss, malaise, or fever. HEENT: Negative for frequent or significant headaches, no changes in vision or hearing, no nose bleeds or other nasal problems. NECK: Negative for lumps, goiter, pain, and significant neck swelling. RESPIRATORY: Positive for daily cough with occasional clear to green sputum, negative for dyspnea or shortness of breath. CARDIOVASCULAR: Negative for chest pain, leg swelling, CHF, or palpitations. GI: No nausea, vomiting, diarrhea, heartburn, abdominal pain, blood in stool, or black stool. GENITOURINARY: No history of dysuria, frequency, or incontinence. MUSCULOSKELETAL: Negative for joint pain or swelling, or muscle pain. No back pain. SKIN: Negative for lesions, rash, and itching. PSYCH: Negative for anxiety or depression. HEMATOLOGY/LYMPHOLOGY: No bleeding concerns. NEURO: No history of headaches, syncope, paralysis, seizures, or tremors. ENDOCRINE: No history of polydipsia, increased thirst, or other endocrine symptoms. History reviewed. No pertinent surgical history. History reviewed. No pertinent past medical history. History reviewed. No pertinent family history. SOCIAL HISTORY[1] ALLERGIES No Known Allergies MEDICATIONS: LANTUS SOLOSTAR U-100 INSULIN 100 unit/mL (3 mL) INJECT 16 UNITS SUBCUTANEOUSLY DAILY AT BEDTIME. atorvastatin (LIPITOR) 40 mg tablet TAKE 1 TABLET BY MOUTH EVERYDAY AT BEDTIME metFORMIN ER (GLUCOPHAGE XR) 500 mg 24 hr tablet Take 2 tablets by mouth daily with breakfast. blood sugar diagnostic test strip Monitor blood glucose twice a day. Lancets Use with blood glucose to test twice a day Allergies, past surgical history, family history and past medical history were reviewed per this encounter. Medications were reviewed and verified. 02/19/2025 08/22/2025 INTAKE PAIN ASSESSMENT Are you having pain associated with your visit today? No No If pain assessment is 0, no action needed. If pain assessment is positive, please see assessment and plain. Objective Labs: - Liver enzymes: Elevated - Hepatitis Panel: Negative - Hemoglobin A1c: 5.5 (normal) Imaging: - Ultrasound of the liver: Fatty liver and gallstones BP 110/72 (BP Site: Left Arm, BP Position: Sitting, BP Cuff Size: Regular Adult) Pulse 62 Temp 36.2 ?C (97.1 ?F) (Temporal) Resp 18 Ht 185.4 cm (6' 1) Wt 102.5 kg (226 lb) SpO2 95% BMI 29.82 kg/m? Physical Exam GENERAL: NAD, alert and oriented SKIN: Unremarkable, no rash or skin lesions. HEAD: Normocephalic EYES: PERRLA, EOMI, conjunctiva clear EARS: External ears normal, canals clear, TM's normal. NOSE/SINUSES: Nares normal. Septum midline. OROPHARYNX: Lips, mucosa, and tongue normal, good dentition. No oral lesions noted. NECK: Supple, no lymphadenopathy, normal thyroid, no carotid bruits. LUNGS: Clear to auscultation bilaterally, no wheezes/rhonchi/rales. HEART: Regular rate and rhythm, no murmurs. No ectopy. EXTREMITIES: Normal, no deformities, no skin discoloration, no edema. NEURO: Awake, alert and oriented x3, cranial nerves II-XII grossly intact, normal gait, no involuntary motions Procedures Assessment and Plan 1. Wellness examination (Z00.00) 2. Screening for depression (Z13.31) 3. E (more content not included)... [facility] 08-22-2025 Note HNO ID: [id number] Author: GABRIELLE TREVINO LPN Service: ? Author Type: Licensed Nurse Type: Progress Notes Filed: 08/26/2025 13:40 Note Text: [facility]TE[employer]CE Abdominal Aortic Aneurysm Screening declined Urine Albumin:Creatinine Ratio declined Dilated Retinal Exam [facility] Diabetic Foot Exam declined DTaP,Tdap,Td Vaccine(1 - Tdap) declined Pneumococcal Vaccine: 50+(1 of 2 - PCV) declined Shingrix Vaccine(1 of 2) declined RSV Vaccine(1 - Risk 60-74 years 1-dose series) declined Influenza Vaccine(1) declined Patient states he has occasional productive cough. Gabrielle Trevino LPN August 22, 2025 10:59 AM [facility] 07-19-2025 Telephone encount er Note Last Office Visit: 02/19/25 Next visit: 08/22/25 Requested Prescriptions Pending Prescriptions Disp Refills atorvastatin (LIPITOR) 40 mg tablet [Pharmacy Med Name: ATORVASTATIN 40 MG TABLET] 90 tablet 3 Sig: TAKE 1 TABLET BY MOUTH EVERYDAY AT BEDTIME Robert Finney LPN July 19, 2025 7:42 AM [facility] 07-19-2025 Miscellaneous Notes Formattin g of this note is different from the original. Last Office Visit: 02/19/25 Next visit: 08/22/25 Requested Prescriptions Pending Prescriptions Disp Refills atorvastatin (LIPITOR) 40 mg tablet [Pharmacy Med Name: ATORVASTATIN 40 MG TABLET] 90 tablet 3 Sig: TAKE 1 TABLET BY MOUTH EVERYDAY AT BEDTIME Robert Finney LPN July 19, 2025 7:42 AM documented in this encounter [facility] 07-17-2025 Telephone encount er Note Patient has been notified and expressed understanding. Kelsey Beltre MA July 17, 2025 2:41 PM [facility] 07-17-2025 Miscellaneous Notes Formattin g of this note might be different from the original. Patient has been notified and expressed understanding. Kelsey Beltre MA July 17, 2025 2:41 PM Pt called desiring lab and imaging results from the last week of April. Please advise. SHOBHA De La Paz July 16, 2025 9:12 AM documented in this encounter [facility] 07-16-2025 Telephone encount er Note Pt called desiring lab and imaging results from the last week of April. Please advise. SHOBHA De La Paz July 16, 2025 9:12 AM [facility] Work Phone: 07-09-2025 Procedure note [facility] 07-09-2025 Evaluation note Diagnosis Onset Date Resolution Presence of cardiac pacemaker acute July 09 8:18am High-grade atrioventricular block chronic July 092024 8:18am Presence of cardiac pacemaker acute July 09 8:19am Type 2 diabetes mellitus acute July 09, 2025 8:19am High-grade atrioventricular block chronic July 092024 8:19am [facility] Work Phone: 1(236) 796-869508-11-2025 Evaluation note* Diagnosis Onset Date Resolution Status Admit Date Presence of cardiac pacemaker acute July 09, 2025 8:18am High-grade atrioventricular block chronic July 09 8:18am Presence of cardiac pacemaker acute July 09, 2025 8:19am Type 2 diabetes mellitus acute July 09, 2025 8:19am High-grade atrioventricular block chronic July 09 8:19am LV dysfunction acute September 292024 10:20am Receptive aphasia acute 2024 10:20am Type 2 diabetes mellitus acute October 09, 2025 10:20am High-grade atrioventricular block chronic October 09, 2 025 10:20am [facility] Work Phone: 1(135) 675-440506-27-2025 History of Present illness Narrative* Celia Nguyễn, [facility] - 05/25/2025 7:30 AM EDT Radiology Service Progress Note PATIENT NAME: Calin Lira DATE OF SERVICE: May 25, 2025 TIME: 11:24 AM PATIENT IDENTITY VERIFICATION COMPLETED USING TWO (2) IDENTIFIERS: Name and Date of confirmedby patient verbally. FALL SCREENING: Has the patient had 2 falls in the last year or 1 fall with injury or currently using an Ambulatory Assistive Device (Walker, Cane, Wheelchair, Crutches, etc.)? No PATIENT GENDER DATA: Assigned male at PATIENT RELEVANT IMPLANT DATA REVIEWED: Not Applicable PATIENT PRESENTS WITH AN IMPLANTABLE OR ATTACHED MACHINE WELDER: No RADIOLOGY DEPARTMENT: Ultrasound PERIPHERAL IV DATA: Not applicable SIGNED BY: Celia Nguyễn RDMS RVMitch May 25, 2025 11:24 AM documented in [facility]06-[facility]-2025 NoteHNO ID: [id number] Author: CELIA NGUYỄN RDMS Service: ? Author Type: Forensic Anthropologist Type: Progress Notes Filed: 05/25/2025 11:25 Note Text: Radiology Service Progress Note PATIENT NAME: Calin Lira DATE OF SERVICE: May 25, 2025 TIME: 11:24 AM PATIENT IDENTITY VERIFICATION COMPLETED USING TWO (2) IDENTIFIERS: Name and Date of confirmed by patient verbally. FALL SCREENING: Has the patient had 2 falls in the last year or 1 fall with injury or currently using an Ambulatory Assistive Device (Walker, Cane, Wheelchair, Crutches, etc.)? No PATIENT GENDER DATA: Assigned male at PATIENT RELEVANT IMPLANT DATA REVIEWED: Not Applicable PATIENT PRESENTS WITH AN IMPLANTABLE OR ATTACHED MACHINE WELDER: No RADIOLOGY DEPARTMENT: Ultrasound PERIPHERAL IV DATA: Not applicable SIGNED BY: Celia Nguyễn RDMS Mitch May 25, 2025 11:24 [facility]06-26-2025 Telephone encounter Note* Telephone Encounter - Robert Finney LPN - 05/24/2025 11:29 AM EDT Patient notified of information, verbalized understanding. No questions, comments, or concerns at this time. Robert Finney LPN May 24, 2025 11:30 AM [facility]06-26-2025 Telephone encounter Note* Telephone Encounter - Robert Finney LPN - 05/24/2025 11:29 AM EDT ----- Message from Sheba Jimenez MD sent at 05/24/2025 10:51 AM EDT ----- Liver enzymes remain elevated. Check hepatitis panel. Ultrasound of the liver [facility]06-26-2025 Miscellaneous Notes* Telephone Encounter - Robert Finney LPN - 05/24/2025 11:29 AM EDT Patient notified of information, verbalized understanding. No questions, comments, or concerns at this time. Robert Finney LPN May 24, 2025 11:30 AM * Telephone Encounter - Robert Finney LPN - 05/24/2025 11:29 AM EDT ----- Message from Sheba Jimenez MD sent at 05/24/2025 10:51 AM EDT ----- Liver enzymes remain elevated. Check hepatitis panel. Ultrasound of the liver documented in this encounterOhio[facility]06-[facility]-2025 Telephone encounter Note * Telephone Encounter - Robert Finney LPN - 05/09/2025 9:03 AM EDT Patient notified of information, verbalized understanding. No questions, comments, or concerns at this time. Robert Finney LPN May 09, 2025 9:03 AM [facility]06-11-2025 Telephone encounter Note* Telephone Encounter - Robert Finney LPN - 05/09/2025 9:03 AM EDT ----- Message from Sheba Jimenez MD sent at 05/09/2025 8:45 AM EDT ----- Liver enzymes elevated. Avoid alcohol and Tylenol. Recheck liver enzymes in 2 weeks. [facility]06-11-2025 Miscellaneous Notes* Telephone Encounter - Robert Finney LPN - 05/09/2025 9:03 AM EDT Patient notified of information, verbalized understanding. No questions, comments, or concerns at this time. Robert Finney LPN May 09, 2025 9:03 AM * Telephone Encounter - Robert Finney LPN - 05/09/2025 9:03 AM EDT ----- Message from Sheba Jimenez MD sent at 05/09/2025 8:45 AM EDT ----- Liver enzymes elevated. Avoid alcohol and Tylenol. Recheck liver enzymes in 2 weeks. documented in this encounterOhio[facility]03-[facility]-2025 NoteHNO ID: [id number] Author: SHEBA JIMENEZ MD Service: ? Author Type: Physician Type: Progress Notes Filed: 02/19/2025 14:46 Note Text: Kaylee Lira is a 69 year old male.Patient presents today for follow-up for multiple medical problems. See list. His chronic medical problems been stable. He is compliant with his medications. Sugars have been under good control on current regimen. Averaging between 100-120. He continues on his Lipitor. He is getting some occasional leg aching at night. Review of Systems Constitutional: Negative. HENT: Negative. Eyes: Negative. Respiratory: Negative. Cardiovascular: Negative. Gastrointestinal: Negative. Endocrine: Negative. Genitourinary: Negative. Musculoskeletal: Negative. Skin: Negative. Allergic/Immunologic: Negative. Neurological: Negative. Hematological: Negative. Psychiatric/Behavioral: Negative. History reviewed. No pertinent surgical history. History reviewed. No pertinent past medical history. History reviewed. No pertinent family history. Social History Tobacco Use Smoking status: Former Types: Cigarettes Smokeless tobacco: Never Tobacco comments: quit 20 yrs ago Substance Use Topics Alcohol use: Yes Comment: occasional Drug use: Not Currently ALLERGIES No Known Allergies MEDICATIONS: LANTUS SOLOSTAR U-100 INSULIN 100 unit/mL (3 mL) Inject 16 Units subcutaneously daily at bedtime. metFORMIN ER (GLUCOPHAGE XR) 500 mg 24 hr tablet Take 2 tablets by mouth daily with breakfast. UNIFINE PENTIPS 31 gauge x 5/16 Inject 1 Each subcutaneously once daily. blood sugar diagnostic test strip Monitor blood glucose twice a day. Lancets Use with blood glucose to test twice a day atorvastatin (LIPITOR) 40 mg tablet Take 1 tablet by mouth daily at bedtime. Allergies, past surgical history, family history and past medical history were reviewed per this encounter. Medications were reviewed and verified. 08/07/2024 02/19/2025 INTAKE PAIN ASSESSMENT Are you having pain associated with your visit today? No No If pain assessment is 0, no action needed. If pain assessment is positive, please see assessment and plain. Objective BP 104/68 Pulse 65 Temp 36.7 ?C (98.1 ?F) (Temporal) Resp 20 Ht (!) 274.3 cm (9') Wt 106.6 kg (235 lb) SpO2 97% BMI 14.17 kg/m? Physical Exam Vitals reviewed. Constitutional: Appearance: Normal appearance. HENT: Head: Normocephalic and atraumatic. Nose: Nose normal. Eyes: Extraocular Movements: Extraocular movements intact. Pupils: Pupils are equal, round, and reactive to light. Cardiovascular: Rate and Rhythm: Normal rate and regular rhythm. Pulmonary: Effort: Pulmonary effort is normal. Breath sounds: Normal breath sounds. Abdominal: General: Bowel sounds are normal. Palpations: Abdomen is soft. Musculoskeletal: General: Normal range of motion. Cervical back: Normal range of motion and neck supple. Skin: General: Skin is warm and dry. Capillary Refill: Capillary refill takes less than 2 seconds. Neurological: General: No focal deficit present. Mental Status: He is alert and oriented to person, place, and time. Mental status is at baseline. Psychiatric: Mood and Affect: Mood normal. Behavior: Behavior normal. Procedures Assessment and Plan Encounter Diagnosis ICD-10-CM 1. Diabetes beginning in adulthood (type 2/adult onset) ([facility]) E11.9 COMPREHENSIVE METABOLIC PANEL HEMOGLOBIN A1C Continue present meds. Check A1c. Continue low carbohydrate diet. 2. Pure hypercholesterolemia E78.00 COMPREHENSIVE METABOLIC PANEL LIPID PANEL, FASTING Continue atorvastatin. Check cholesterol panel. Continue present medications. Check labs as above. Monitor blood pressure regularly. Exercise as tolerated. Maintain good diet. Follow-up in 6 months. Sheba Jimenez MD February 19, 2025 02/19/2025[facility]03-24-2025 History of Present illness Narrative* Sheba Jimenez MD - 02/19/2025 10:22 AM EDT Subjective Calin Lira is a 69 year old male.Patient presents today for follow-up for multiple medical problems. See list. His chronic medical problems been stable. He is compliant with his medications. Sugars have been under good control on current regimen. Averaging between 100-120. He continues on hisLipitor. He is getting some occasional leg aching at night. Review of Systems Constitutional: Negative. HENT: Negative. Eyes: Negative. Respiratory: Negative. Cardiovascular: Negative. Gastrointestinal: Negative. Endocrine: Negative. Genitourinary: Negative. Musculoskeletal: Negative. Skin: Negative. Allergic/Immunologic: Negative. Neurological: Negative. Hematological: Negative. Psychiatric/Behavioral: Negative. History reviewed. No pertinent surgical history. History reviewed. No pertinent past medical history. History reviewed. No pertinent family history. Social History Tobacco Use Smoking status: Former Types: Cigarettes Smokeless tobacco: Never Tobacco comments: quit 20 yrs ago Substance Use Topics Alcohol use: Yes Comment: occasional Drug use: Not Currently ALLERGIES No Known Allergies MEDICATIONS: LANTUS SOLOSTAR U-100 INSULIN 100 unit/mL (3 mL) Inject 16 Units subcutaneously daily at bedtime. metFORMIN ER (GLUCOPHAGE XR) 500 mg 24 hr tablet Take 2 tablets by mouth daily with breakfast. UNIFINE PENTIPS 31 gauge x 5/16 Inject 1 Each subcutaneously once daily. blood sugar diagnostic test strip Monitor blood glucose twice a day. Lancets Use with blood glucose to test twice a day atorvastatin (LIPITOR) 40 mg tablet Take 1 tablet by mouth daily at bedtime. Allergies, past surgical history, family history and past medical history were reviewed per this encounter. Medications were reviewed and verified. 08/07/2024 02/19/2025 INTAKE PAIN ASSESSMENT Are you having pain associated with your visit today? No No If pain assessment is 0, no action needed. If pain assessment is positive, please see assessment and plain. Objective BP 104/68 Pulse 65 Temp 36.7 C (98.1 F) (Temporal) Resp 20 Ht (!) 274.3 cm (9') Wt 106.6 kg (235 lb) SpO2 97% BMI 14.17 kg/m Physical Exam Vitals reviewed. Constitutional: Appearance: Normal appearance. HENT: Head: Normocephalic and atraumatic. Nose: Nose normal. Eyes: Extraocular Movements: Extraocular movements intact. Pupils: Pupils are equal, round, and reactive to light. Cardiovascular: Rate and Rhythm: Normal rate and regular rhythm. Pulmonary: Effort: Pulmonary effort is normal. Breath sounds: Normal breath sounds. Abdominal: General: Bowel sounds are normal. Palpations: Abdomen is soft. Musculoskeletal: General: Normal range of motion. Cervical back: Normal range of motion and neck supple. Skin: General: Skin is warm and dry. Capillary Refill: Capillary refill takes less than 2 seconds. Neurological: General: No focal deficit present. Mental Status: He is alert and oriented to person, place, and time. Mental status is at baseline. Psychiatric: Mood and Affect: Mood normal. Behavior: Behavior normal. Procedures Assessment and Plan Encounter Diagnosis ICD-10-CM 1. Diabetes beginning in adulthood (type 2/adult onset) ([facility]) E11.9 COMPREHENSIVE METABOLIC PANEL HEMOGLOBIN A1C Continue present meds. Check A1c. Continue low carbohydrate diet. 2. Pure hypercholesterolemia E78.00 COMPREHENSIVE METABOLIC PANEL LIPID PANEL, FASTING Continue atorvastatin. Check cholesterol panel. Continue present medications. Check labs as above. Monitor blood pressure regularly. Exercise as tolerated. Maintain good diet. Follow-up in 6 months. Sheba Jimenez MD February 19, 2025 02/19/2025 * Joe Perea LPN - 02/19/2025 9:52 AM EDT Patient is here for a 6-month follow-up. Joe Perea LPN February 19, 2025 9:59 AM documented in this encounterOhio[facility]03-24-2025 NoteHNO ID: [id number] Author: JOE PEREA LPN Service: ? Author Type: LICENSED NURSE Type: Progress Notes Filed: 02/19/2025 09:59 Note Text: Patient is here for a 6-month follow-up. Joe Perea LPN February 19, 2025 9:59 [facility]09-12-2024 Telephone encounter Note* Telephone Encounter - Mechelle Bonilla MA - 08/10/2024 11:27 AM EDT Items addressed in this encounter: Telephone Encounter I called [facility] regarding Mounjaro and the pharmacy services representative stated that they are not able to get Mounjaro in stock. She recommended to have patient call the [facility] or [facility], since the bigger pharmacy's are able to get it in stock. Patient notified of my findings. Able to close encounter. Mechelle Bonilla MA August 10, 2024 11:27 AM 11:27 AM [facility]09-12-2024 Miscellaneous Notes* Telephone Encounter - Mechelle Bonilla MA - 08/10/2024 11:27 AM EDT Items addressed in this encounter: Telephone Encounter I called [facility] regarding Mounjaro and the pharmacy services representative stated that they are not able to get Mounjaro in stock. She recommended to have patient call the [facility] or [facility], since the bigger pharmacy's are able to get it in stock. Patient notified of my findings. Able to close encounter. Mechelle Bonilla MA August 10, 2024 11:27 AM 11:27 AM documented in this encounterOhio[facility]09-12-2024 Telephone encounter Note * Telephone Encounter - Mechelle Bonilla MA - 08/10/2024 11:26 AM EDT Items addressed in this encounter: Prior Authorization Patient notified that Lantus has been approved via Able to close encounter. Mechelle Bonilla MA August 10, 2024 11:26 AM 11:26 AM [facility]09-12-2024 Miscellaneous Notes* Telephone Encounter - ChadMechelle barbozaANGIE - 08/10/2024 11:26 AM EDT Items addressed in this encounter: Prior Authorization Patient notified that Lantus has been approved via [facility]ble to close encounter. Mechelle Bonilla MA August 10, 2024 11:26 AM 11:26 AM documented in this encounterOhio[facility]09-12-2024 Telephone encounter Note * Telephone Encounter - Mechelle Bonilla MA - 08/10/2024 5:41 AM EDT Items addressed in this encounter: Prior Authorization Approved, Lant Solostar Authorization Expiration Date: 11/28/2099 Able to close encounter. Mechelle Bonilla MA August 10, 2024 5:41 AM 5:41 AM [facility]09-12-2024 Miscellaneous Notes* Telephone Encounter - Mechelle Bonilla MA - 08/10/2024 5:41 AM EDT Items addressed in this encounter: Prior Authorization Approved, Lantus Solostar Authorization Expiration Date: 11/28/2099 Able to close encounter. Mechelle Bonilla MA August 10, 2024 5:41 AM 5:41 AM documented in this encounterOhiohealth [facility]09-11-2024 Telephone encounter Note * Telephone Encounter - Mechelle Bonlila MA - 08/09/2024 1:00 PM EDT Items addressed in this encounter: Prior Authorization I attempted a PA for MOUNJARO 2.5 mg/0.5 mL and plan responded back to my request with that no PA required Davis: [id number] Cover My Meds Able to close encounter. Mechelle Bonilla MA August 09, 2024 1:00 PM 1:00 PM [facility] Miscellaneous Notes* Telephone Encounter - Mechelle Bonilla MA - 08/09/2024 1:00 PM EDT Items addressed in this encounter: Prior Authorization I attempted a PA for MOUNJARO 2.5 mg/0.5 mL and plan responded back to my request with that no PA required Davis: [id number] Cover My Meds Able to close encounter. Mechelle Bonilla MA August 09, 2024 1:00 PM 1:00 PM documented in this encounterOhiohealth Mans[facility]09-11-2024 Telephone encounter Note * Telephone Encounter - Mechelle Bonilla MA - 08/09/2024 12:49 PM EDT Items addressed in this encounter: Prior Authorization PendingAndre Davis: [id number] Cover My Meds Able to close encounter. Mechelle Bonilla MA August 09, 2024 12:49 PM 12:49 PM [facility] Miscellaneous Notes* Telephone Encounter - Mechelle Bonilla MA - 08/09/2024 12:49 PM EDT Items addressed in this encounter: Prior Authorization Pending, Andre Driver Davis: [id number] Cover My Meds Able to close encounter. Mechelle Bonilla MA August 09, 2024 12:49 PM 12:49 PM documented in this encounterOhiohealth [facility]09-09-2024 Telephone encounter Note * Telephone Encounter - Marlin Zacarias LPN - 08/07/2024 2:55 PM EDT Test strips and lancets Rx attached for signature Please advise Thank you Requested Prescriptions Pending Prescriptions Disp Refills blood sugar diagnostic test strip 200 Strip 3 Sig: Monitor blood glucose twice a day. Lancets 200 Each 3 Sig: Use with blood glucose to test twice a day Marlin Zacarias LPN August 07, 2024 3:11 PM [facility] Miscellaneous Notes* Telephone Encounter - Marlin Zacarias LPN - 08/07/2024 2:55 PM EDT Test strips and lancets Rx attached for signature Please advise Thank you Requested Prescriptions Pending Prescriptions Disp Refills blood sugar diagnostic test strip 200 Strip 3 Sig: Monitor blood glucose twice a day. Lancets 200 Each 3 Sig: Use with blood glucose to test twice a day Marlin Zacarias LPN August 07, 2024 3:11 PM documented in this encounterOhiohealth Mansfield Hospital09-09-2024 History of Present illness Narrative* Sheba Jimenez MD - 08/07/2024 10:10 AM EDT Kaylee Lira is a 69 year old male.Patient presents today for follow-up for multiple medical problems. See list. His chronic medical problems been stable. He is compliant with his medications. His sugars are improved to 90-1 30 range in the morning with increase in his insulin. He continues on metformin as well. He has no new complaints today. Review of Systems Constitutional: Negative. HENT: Negative. Eyes: Negative. Respiratory: Negative. Cardiovascular: Negative. Gastrointestinal: Negative. Endocrine: Negative. Genitourinary: Negative. Musculoskeletal: Negative. Skin: Negative. Allergic/Immunologic: Negative. Neurological: Negative. Hematological: Negative. Psychiatric/Behavioral: Negative. History reviewed. No pertinent surgical history. History reviewed. No pertinent past medical history. History reviewed. No pertinent family history. Social History Tobacco Use Smoking status: Former Types: Cigarettes Smokeless tobacco: Never Tobacco comments: quit 20 yrs ago Substance Use Topics Alcohol use: Yes Comment: occasional Drug use: Not Currently ALLERGIES No Known Allergies MEDICATIONS: atorvastatin (LIPITOR) 40 mg tablet Take 1 tablet by mouth daily at bedtime. blood sugar diagnostic (BLOOD GLUCOSE TEST) test strip Test blood sugar once daily and as needed. LANTUS SOLOSTAR U-100 INSULIN 100 unit/mL (3 mL) Inject 16 Units subcutaneously daily at bedtime. metFORMIN ER (GLUCOPHAGE XR) 500 mg 24 hr tablet Take 2 tablets by mouth daily with breakfast. UNIFINE PENTIPS 31 gauge x 5/16 Inject 1 Each subcutaneously once daily. tirzepatide (MOUNJARO) 2.5 mg/0.5 mL pen injector Inject 2.5 mg subcutaneously one time a week. (Patient not taking: Reported on 08/07/2024) Allergies, past surgical history, family history and past medical history were reviewed per this encounter. Medications were reviewed and verified. 06/30/2024 08/07/2024 INTAKE PAIN ASSESSMENT Are you having pain associated with your visit today? No No If pain assessment is 0, no action needed. If pain assessment is positive, please see assessment and plain. Objective BP 124/82 (BP Site: Left Arm, BP Position: Sitting, BP Cuff Size: Large Adult) Pulse 71 Temp 36.2 C (97.2 F) (Temporal) Resp 16 Ht 185.4 cm (6' 1) Wt 113.1 kg (249 lb 6 oz) SpO2 94% BMI 32.90 kg/m Physical Exam Vitals reviewed. Constitutional: Appearance: Normal appearance. HENT: Head: Normocephalic and atraumatic. Nose: Nose normal. Eyes: Extraocular Movements: Extraocular movements intact. Pupils: Pupils are equal, round, and reactive to light. Cardiovascular: Rate and Rhythm: Normal rate and regular rhythm. Pulmonary: Effort: Pulmonary effort is normal. Breath sounds: Normal breath sounds. Abdominal: General: Bowel sounds are normal. Palpations: Abdomen is soft. Musculoskeletal: General: Normal range of motion. Cervical back: Normal range of motion and neck supple. Skin: General: Skin is warm and dry. Capillary Refill: Capillary refill takes less than 2 seconds. Neurological: General: No focal deficit present. Mental Status: He is alert and oriented to person, place, and time. Mental status is at baseline. Psychiatric: Mood and Affect: Mood normal. Behavior: Behavior normal. Assessment and Plan Encounter Diagnosis ICD-10-CM 1. Diabetes beginning in adulthood (type 2/adult onset) (HCC) E11.9 HEMOGLOBIN A1C COMPREHENSIVE METABOLIC PANEL 2. Pure hypercholesterolemia E78.00 LIPID PANEL BASIC COMPREHENSIVE METABOLIC PANEL 3. Screening PSA (prostate specific antigen) Z12.5 PSA/PROSTATE SPECIFIC ANTIGEN SCREENING 4. Elevated blood-pressure reading, without diagnosis of hypertension R03.0 Continue present medications. Check labs as above. Monitor blood pressure regularly. Exercise as tolerated. Maintain good diet. Follow-up in 6 months. Sheba Jimenez MD * Marlin Zacarias LPN - 08/07/2024 9:08 AM EDT Patient in the office today to discuss lab results. Patient denies any new medical issues or concerns today. Refills entered. Marlin Zacarias LPN August 07, 2024 9:24 AM documented in this encounterOhiohealth [facility]09-04-2024 Telephone encounter Note * Telephone Encounter - Gabrielle Trevino LPN - 08/02/2024 5:16 PM EDT Last Office Visit: 07-05-2024 Next Scheduled Office Visit: 08-07-2024 Requested Prescriptions Pending Prescriptions Disp Refills blood sugar diagnostic (BLOOD GLUCOSE TEST) test strip 100 Strip 2 Sig: Test blood sugar once daily and as needed. atorvastatin (LIPITOR) 40 mg tablet 90 tablet 3 Sig: Take 1 tablet by mouth daily at bedtime. Gabrielle Trevino LPN August 02, 2024 5:17 PM [facility] Miscellaneous Notes* Telephone Encounter - Gabrielle Trevino LPN - 08/02/2024 5:16 PM EDT Last Office Visit: 07-05-2024 Next Scheduled Office Visit: 08-07-2024 Requested Prescriptions Pending Prescriptions Disp Refills blood sugar diagnostic (BLOOD GLUCOSE TEST) test strip 100 Strip 2 Sig: Test blood sugar once daily and as needed. atorvastatin (LIPITOR) 40 mg tablet 90 tablet 3 Sig: Take 1 tablet by mouth daily at bedtime. Gabrielle Trevino LPN August 02, 2024 5:17 PM documented in this encounterOhiohealth [facility]08-15-2024 Telephone encounter Note * Telephone Encounter - Gabrielle Trevino LPN - 07/13/2024 4:41 PM EDT Notified on jericho Trevino LPN July 13, 2024 4:41 PM [facility] Miscellaneous Notes* Telephone Encounter - Gabrielle Trevino LPN - 07/13/2024 4:41 PM EDT Notified on jericho Trevino LPN July 13, 2024 4:41 PM * Telephone Encounter - Sheba Jimenez MD - 07/13/2024 11:39 AM EDT May increase Lantus as needed to morning sugars of less than 130. Increase dose by 2 units a day per week until this is achieved. * Telephone Encounter - Gabrielle Trevino LPN - 07/13/2024 8:41 AM EDT Patients contacted office in regards to pricing for Mounjaro. This nurse advised to contact [facility] [place] as well, to see if it was more cost efficient, and it was not. Patients is questioning if you would like to increase patients daily insulin. Patient is currently taking 14 units of Lantus daily patient is also on 1000 mg of Metformin daily as well. Gabrielle Trevino LPN July 13, 2024 8:48 AM documented in this encounterOhiohealth [facility]08-15-2024 Telephone encounter Note * Telephone Encounter - Sheba Jimenez MD - 07/13/2024 11:39 AM EDT May increase Lantus as needed to morning sugars of less than 130. Increase dose by 2 units a day per week until this is achieved. [facility] Telephone encounter Note* Telephone Encounter - Gabrielle Trevino LPN - 07/13/2024 8:41 AM EDT Patients contacted office in regards to pricing for Mounjaro. This nurse advised to contact [facility] [place] as well, to see if it was more cost efficient, and it was not. Patients is questioning if you would like to increase patients daily insulin. Patient is currently taking 14 units of Lantus daily patient is also on 1000 mg of Metformin daily as well. Gabrielle Trevino LPN July 13, 2024 8:48 AM [facility]-11-[facility]24 Note* Addendum Note - Sheba Jimenez MD - 07/09/2024 7:36 PM EDTAddended by: SHEBA JIMENEZ on: 07/09/2024 07:36 PM Modules accepted: Orders [facility] Instructions* Patient Instructions* Sheba Jimenez MD - 07/09/2024 7:36 PM EDT Screening schedule The following prevention plan is recommended: Abdominal Aortic Aneurysm Screening Never done Hepatitis C Screening Never done DTaP,Tdap,Td Vaccine(1 - Tdap) Never done Lipid Screening Never done Shingrix Vaccine(1 of 2) Never done Diabetes Screening due on 08/18/2011 RSV Vaccine(1 - 1-dose 60+ series) Never done Pneumococcal Vaccine: 65+(1 of 1 - PCV) Never done Covid-19 Vaccine( - 2022- season) Never done Advance Directive Discussion due on 11/29/2023 WHAT YOU CAN DO TO PREVENT FALLS Many falls can be prevented. By making some changes, you can lower your chances of falling. Four things YOU can do to prevent falls for you* and your caregiver 1. Begin a regular exercise program Exercise is one of the most important ways to lower your chances of falling. It makes you stronger and helps you feel better. Exercises that improve balance and coordination (like Tobi Chi) are the most helpful. Lack of exercise leads to weakness and increases your chances of falling. Ask your doctor or health care provider about the best type of exercise program for you. 2. Have your health care provider review your medicines Have your doctor or pharmacist review all the medicines you take, even ocjf-vff-fcwfqom medicines. As you get older, the way medicines work in your body can change. Some medicines, or combinations of medicines, can make you sleepy or dizzy andcan cause you to fall. 3. Have your vision checked Have your eyes checked by an eye doctor at least once a year. You may be wearing the wrong glasses or have a condition like glaucoma or cataracts that limits your vision. Poor vision can increase your chances of falling. 4. Make your home safer About half of all falls happen at home. To make your home safer: Remove things you can trip over (like papers, books, clothes, and shoes) from stairs and places where you walk. Remove small throw rugs or use double-sided tape to keep the rugs from slipping. Keep items you use often in cabinets you can reach easily without using a step stool. Have grab bars put in next to your toilet and in the tub or shower. Use non-slip mats in the bathtub and on shower floors. Improve the lighting in your home. As you get older, you need brighter lights to see well. Hang light-weight curtains or shades to reduce glare. Have handrails and lights put in on all staircases. Wear shoes both inside and outside the house. Avoid going barefoot or wearing slippers. For more information, contact: Centers for Disease Control and Prevention www.cdc.gov/injury * This information may not apply if you have certain medical conditions. documented in this encounterOhiohealth [facility]field Hospital08-11-2024 Miscellaneous Notes* Addendum Note - Sheba Jimenez MD - 07/09/2024 7:36 PM EDTAddended by: SHEBA JIMENEZ on: 07/09/2024 07:36 PM Modules accepted: Orders documented in this encounterOhiohealth Mansfield Hospital08-11-2024 History of Present illness Narrative* Sheba Jimenez MD - 07/09/2024 7:25 PM EDT Images from the original note were not included. Subjective Calin Lira is a 69 year old male. Calin presents today for his Medicare wellness visit. Additionally he follows up for multiple medical problems. See list. His chronic medical problems have been stable. His blood pressure is under good control. Sugars are improved on his current regimen. he remains on Lipitor for treatment of his high cholesterol. He would like to try medication for treatment of his diabetes that also helps with weight loss. He is having significant diarrhea on his metformin. Review of Systems Constitutional: Negative. HENT: Negative. Eyes: Negative. Respiratory: Negative. Cardiovascular: Negative. Gastrointestinal: Negative. Endocrine: Negative. Genitourinary: Negative. Musculoskeletal: Negative. Skin: Negative. Allergic/Immunologic: Negative. Neurological: Negative. Hematological: Negative. Psychiatric/Behavioral: Negative. History reviewed. No pertinent surgical history. History reviewed. No pertinent past medical history. History reviewed. No pertinent family history. Social History Tobacco Use Smoking status: Former Years: 15 Types: Cigarettes Smokeless tobacco: Never Tobacco comments: quit 20 yrs ago Substance Use Topics Alcohol use: Yes Comment: occasional Drug use: Not Currently ALLERGIES No Known Allergies MEDICATIONS: atorvastatin (LIPITOR) 40 mg tablet Take 1 tablet by mouth daily at bedtime. blood sugar diagnostic (BLOOD GLUCOSE TEST) test strip Test blood sugar once daily and as needed. LANTUS SOLOSTAR U-100 INSULIN 100 unit/mL (3 mL) Inject 10 Units subcutaneously daily at bedtime. UNIFINE PENTIPS 31 gauge x 5/16 Inject 1 Each subcutaneously once daily. metFORMIN ER (GLUCOPHAGE XR) 500 mg 24 hr tablet Take 2 tablets by mouth daily with breakfast. tirzepatide (MOUNJARO) 2.5 mg/0.5 mL pen injector Inject 2.5 mg subcutaneously one time a week. Allergies, past surgical history, family history and past medical history were reviewed per this encounter. Medications were reviewed and verified. Objective BP 110/70 (BP Site: Left Arm, BP Position: Sitting, BP Cuff Size: Large Adult) Pulse 66 Temp 36.7 C (98 F) (Temporal) Resp 18 Ht 185.4 cm (6' 1) Wt 114.4 kg (252 lb 2 oz) SpO2 98% BMI 33.26 kg/m Physical Exam Vitals reviewed. Constitutional: Appearance: Normal appearance. HENT: Head: Normocephalic and atraumatic. Nose: Nose normal. Eyes: Extraocular Movements: Extraocular movements intact. Pupils: Pupils are equal, round, and reactive to light. Cardiovascular: Rate and Rhythm: Normal rate and regular rhythm. Pulmonary: Effort: Pulmonary effort is normal. Breath sounds: Normal breath sounds. Abdominal: General: Bowel sounds are normal. Palpations: Abdomen is soft. Musculoskeletal: General: Normal range of motion. Cervical back: Normal range of motion and neck supple. Skin: General: Skin is warm and dry. Capillary Refill: Capillary refill takes less than 2 seconds. Neurological: General: No focal deficit present. Mental Status: He is alert and oriented to person, place, and time. Mental status is at baseline. Psychiatric: Mood and Affect: Mood normal. Behavior: Behavior normal. Assessment and Plan Encounter Diagnosis ICD-10-CM 1. Wellness examination Z00.00 2. Encounter for screening examination for other mental health and behavioral disorders Z13.39 ANXIETY SCREENING 3. Screening for depression Z13.31 DEPRESSION SCREENING 4. Diabetes beginning in adulthood (type 2/adult onset) (HCC) E11.9 5. Pure hypercholesterolemia E78.00 6. Elevated blood-pressure reading, without diagnosis of hypertension R03.0 All open preventative health maintenance topics discussed with patient in detail. This includes risks and benefits regarding vaccines, cancer screening, healthy life style, and diet. Reduce dose of metformin to 1000 mg daily. Add Mounjaro 2.5 mg weekly to regimen. Titrate to 5 mg in 1 month if well-tolerated. Continue Lantus at bedtime. Otherwise continue present medications. Check labs as above. Monitor blood pressure regularly. Exercise as tolerated. Maintain good diet. Follow-up in 6 months. Medicare Health Risk Assessment General Health Very good Exercise: Minutes/Day 30 min Exercise: Days/Week 3 days Alcohol: Daily Use Never Alcohol: Drinks/Day Patient does not drink Alcohol: 6 or more drinks Never Feel off balance No Concerns: Teeth/Dentures No Concerns: Sexual function No Troubled by feelings None of the above Frequency: Eating healthy diet Nearly every day ADLs requiring help None of the above Safety precautions in home/vehicle No Smoke, vape, chews tobacco No Difficulty hearing No Difficulty seeing No Current Providers Specialists: I have reviewed specialist-related care of the patient in the medical record. Medical/Family history review Reviewed and updated problem list, medical/surgical/family/social history, medications, and allergies. Opioid use review Opioid Medications (last 90 days) No data to display Anxiety/Depression screening PHQ-2 Score: 0 (Lower risk for depression) ANIKA-2 Score: 0 (Lower risk for anxiety) Recommendation: no further intervention at this time Cognitive screening Mini Cog Score: 3 Cognitive screening reviewed and No further action needed (score 3-5). Functional Observation Was the patient's Timed Up & Go test unsteady or ? 12 seconds? No Advance Care Planning Surrogate decision maker and/or advance care plan documented Measurements BP 110/70 (BP Site: Left Arm, BP Position: Sitting, BP Cuff Size: Large Adult) Pulse 66 Temp 36.7 C (98 F) (Temporal) Resp 18 Ht 185.4 cm (6' 1) Wt 114.4 kg (252 lb 2 oz) SpO2 98% BMI 33.26 kg/m Vision Screening: Follows with optometry/ophthalmology Assessment/Plan Medicare annual wellness visit, subsequent (Z00.00) - Counseled on healthy diet and regular exercise - Fall avoidance information provided - Personalized prevention plan provided * Marlin Zacarias LPN - 07/05/2024 8:06 AM EDT Patient in the office today for an annual Medicare Wellness exam. Rn Chronic - Dr. Arreola in [place] Patient hospitalized for Health Maintenance Due: Abdominal Aortic Aneurysm Screening Depression Screening DONE Anxiety Screening DONE Hepatitis C Screening DTaP,Tdap,Td Vaccine(1 - Tdap) Lipid Screening Shingrix Vaccine(1 of 2) Diabetes Screening RSV Vaccine(1 - 1-dose 60+ series) Pneumococcal Vaccine: 65+(1 of 1 - PCV) Covid-19 Vaccine(1 - season) Advance Directive Discussion DONE Refills entered. Marlin Zacarias LPN July 05, 2024 8:26 AM documented in this encounterOhiohealth [facility]field [facility]07-25-2024 History of Present illness Narrative* Abigail Paige RN - 06/22/2024 1:22 PM EDT Unable to make contact Provider Action/FYI Patient identified by name and date of : YES An attempt was made to contact: Patient, Spouse Was a voicemail left? Yes including my name, role, and return number Outreach Plan: Follow up call needed:No Abigail Paige, RN documented in this encounterOhiohealth Mansfield Hospital07-22-2024 Telephone encounter Note * Telephone Encounter - Gabrielle Trevino LPN - 06/19/2024 9:39 AM EDT Last Office Visit: 06-12-2024 Next Scheduled Office Visit: 07-05-2024 Requested Prescriptions Pending Prescriptions Disp Refills blood sugar diagnostic (BLOOD GLUCOSE TEST) test strip 100 Strip 2 Sig: Test blood sugar once daily and as needed. Gabrielle Trevino LPN June 19, 2024 9:41 AM [facility]-22-2024 Miscellaneous Notes* Telephone Encounter - Gabrielle Trevino LPN - 06/19/2024 9:39 AM EDT Last Office Visit: 06-12-2024 Next Scheduled Office Visit: 07-05-2024 Requested Prescriptions Pending Prescriptions Disp Refills blood sugar diagnostic (BLOOD GLUCOSE TEST) test strip 100 Strip 2 Sig: Test blood sugar once daily and as needed. Gabrielle Trevino LPN June 19, 2024 9:41 AM documented in this encounterOhiohealth Mansfield Hospital07-15-2024 Instructions* Patient Instructions* Alexis Pascal APRN.CNP - 06/12/2024 1:38 PM EDT Return for annual wellness visit in June as scheduled or sooner as needed. Continue diabetic medications and blood sugar monitoring. Diabetic diet. Regular exercise. Goal blood sugar 80-120 fasting. Bring sugar log to next appointment. If fasting sugars are over 200, pleasenotify the office. Keep follow up with cardiology tomorrow. Obtain fasting labs within the next 3 weeks before returning. These can be completed at [facility] in [place]. Nothing but water or black coffee for 12 hours prior to having labs drawn. No food. Take all medications as prescribed. Continue to follow with specialist providers. Healthy diet and regular aerobic exercise recommended. Please call the office at [phone] Llgpby 4 or send a message via [employer] with any questions related to your visit today. documented in this encounterOhiohealth Mansfield Hospital07-15-2024 History of Present illness Narrative* Alexis Pascal APRN.CNP - 06/12/2024 1:23 PM EDT This note was created using [employer]. Kaylee Lira is a 69 year old male patient of Dr. Sheba Jimenez presenting today for transitional care management after brief hospitalization at [facility]. Then he is feeling well today and voices no complaints. is present during visit. 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 Reports feeling tired, dizzy with position changes, short of breath, and experienced bradycardia with heart rate of 30 bpm prompting ER evaluation. Dr. Taylor placed a pacemaker. Reports scheduled follow-up with Dr. Taylor's nurse tomorrow for pacemaker check. Dressing is dry and intact. Site nontender with minimal residual edema, and free of erythema or drainage. Patient is now following with the [place] [facility] Dr. Arreola. Pulse stable at 60 bpm today. Patient underwent stress testing in February at [facility] per Dr. Jimenez. Patient's presents with copy of stress test results, which were reviewed with the couple during visit today. Patient is is a newly diagnosed diabetic. Fasting sugars ranging between 148 and 200 mg/dL during hospitalization. Patient is tracking and recording sugars regularly. Denies increased thirst, urination, or appetite. Necessary diet and exercise modifications discussed at length today with patient and . Was offered referral to elementary educator today. Also with TARIK. Creatinine 1.1-1.26. Has been drinking more water but notes this has been a struggle. Is urinating adequate amounts of clear yellow urine. Discussed need to increase water intake, avoid NSAIDs, and limit sodium/added salt. History reviewed. No pertinent past medical history. ACTIVE PROBLEM LIST Trigeminal Neuralgia Diverticulitis Elevated Blood-Pressure Reading, Without Diagnosis of Hypertension Hyperlipidemia Idiopathic Chronic Gout, Unspecified Ankle and Foot, Without Tophus (Tophi) Current Outpatient Medications Medication Sig Dispense Refill atorvastatin (LIPITOR) 40 mg tablet Take 40 mg by mouth daily at bedtime. metFORMIN (GLUCOPHAGE) 1,000 mg tablet Take 1,000 mg by mouth two times a day with meals. UNIFINE PENTIPS 31 gauge x 5/16 Inject 1 Each subcutaneously once daily. LANTUS SOLOSTAR U-100 INSULIN 100 unit/mL (3 mL) Inject 10 Units subcutaneously daily at bedtime. No current facility-administered medications for this visit. Medications were reviewed and verified. Social History Tobacco Use Smoking status: Former Years: 15 Types: Cigarettes Smokeless tobacco: Never Tobacco comments: quit 20 yrs ago Substance Use Topics Alcohol use: Yes Comment: occasional Drug use: Not Currently History reviewed. No pertinent family history. Review of Systems Constitutional: Negative for activity change, appetite change, chills, diaphoresis, fatigue, fever and unexpected weight change. Eyes: Negative for visual disturbance. Respiratory: Negative for cough and shortness of breath. Cardiovascular: Negative for chest pain, palpitations and leg swelling. Gastrointestinal: Negative for abdominal distention, abdominal pain, blood in stool, constipation, diarrhea and nausea. Endocrine: Negative for polydipsia, polyphagia and polyuria. Genitourinary: Negative for decreased urine volume, difficulty urinating and hematuria. Musculoskeletal: Negative for myalgias. Skin: Positive for wound (Surgical wound pacemaker site chest- healing well). Negative for rash. Allergic/Immunologic: Negative. Neurological: Negative for dizziness, syncope, weakness, light-headedness and headaches. Hematological: Negative. Objective BP 118/80 Pulse 60 Temp (Src) 97.4 (Temporal) Resp 16 Ht 6' 1 (1.85m) Wt 256 lb 6.4 oz (116.3kg) SpO2 98% BMI 33.84 kg/(m^2). Physical Exam Vitals and nursing note reviewed. Constitutional: General: He is not in acute distress. Appearance: Normal appearance. He is well-developed. He is not ill-appearing or diaphoretic. HENT: Head: Normocephalic and atraumatic. Right Ear: External ear normal. Left Ear: External ear normal. Nose: Nose normal. Mouth/Throat: Lips: Shoals. Eyes: General: Lids are normal. Vision grossly intact. Gaze aligned appropriately. Extraocular Movements: Extraocular movements intact. Conjunctiva/sclera: Conjunctivae normal. Pupils: Pupils are equal, round, and reactive to light. Neck: Vascular: No carotid bruit. Trachea: Trachea normal. Cardiovascular: Rate and Rhythm: Normal rate and regular rhythm. Pulses: Normal pulses. No decreased pulses. Radial pulses are 2+ on the right side and 2+ on the left side. Heart sounds: Normal heart sounds. Pulmonary: Effort: Pulmonary effort is normal. No tachypnea or respiratory distress. Breath sounds: Normal breath sounds. No decreased breath sounds, wheezing, rhonchi or rales. Abdominal: General: Bowel sounds are normal. There is no distension. Palpations: Abdomen is soft. Tenderness: There is no abdominal tenderness. There is no guarding. Musculoskeletal: General: Normal range of motion. Cervical back: Normal range of motion and neck supple. Right lower leg: No edema. Left lower leg: No edema. Lymphadenopathy: Cervical: No cervical adenopathy. Skin: General: Skin is warm and dry. Capillary Refill: Capillary refill takes less than 2 seconds. Findings: Wound (Surgical incision chest. Dressing dry and intact. No evidence of erythema, drainage, warmth, or other signs of infection) present. No rash. Neurological: General: No focal deficit present. Mental Status: He is alert and oriented to person, place, and time. Cranial Nerves: Cranial nerves 2-12 are intact. Sensory: Sensation is intact. Motor: Motor function is intact. No weakness. Coordination: Coordination is intact. Gait: Gait is intact. Gait normal. Psychiatric: Mood and Affect: Mood normal. Speech: Speech normal. Behavior: Behavior normal. Behavior is cooperative. Assessment & Plan ASSESSMENT/PLAN: 1. Encounter for support and coordination of transition of care - ICD9: V65.8, ICD10: Z76.89 (primary diagnosis) Complete. 2. Bradycardia - ICD9: 427.89, ICD10: R00.1 Stable. Continue to monitor blood pressure, heart rate. 3. Third degree heart block (HCC) - ICD9: 426.0, ICD10: I44.2 Continue follow with cardiology for management. Keep appointment for nurse visit tomorrow. 4. Atrioventricular block - ICD9: 426.10, ICD10: I44.30 See plan #3. 5. New onset type 2 diabetes mellitus (HCC) - ICD9: 250.00, ICD10: E11.9 - Improving control - Continue current medications - Statin prescribed - atorvastatin - Blood glucose monitoring on a twice daily and as needed schedule - Counseled on healthy diet and regular exercise - Discussed need for and benefit of weight loss. BMI 33.83 kg/(m^2) - Discussed diabetic education issues of diabetes complications and monitoring required, hypoglycemic/hyperglycemic symptoms, medication-specific side effects and monitoring, and diabetic sick day rules - Follow up in 3 weeks, sooner should any other issues arise. Obtain labs within next 3 weeks before returning for wellness: - COMPREHENSIVE METABOLIC PANEL 6. TARIK (acute kidney injury) (HCC) - ICD9: 584.9, ICD10: N17.9 Continue increased water intake. Avoid NSAID medications, added salt, high sodium foods. Obtain labs within next 3 weeks before returning for wellness: - COMPREHENSIVE METABOLIC PANEL Calin Lira will return in 3 week(s) for AWV or sooner as needed. Discussed need for continuedfollow-up with all specialist providers, taking all medications as prescribed, increasing activity level as tolerated, and lowering sodium and processed food intake at today's visit. Patient instructed to call the office or send a message via [employer] with any questions related to this visit. Please Note: This office note has been created using [employer], a speech recognition software program, and may contain errors including punctuation, grammar, spelling, gender, and inappropriate words or phrases that pertain to the system. DATE: June 12, 2024 SIGNATURE: Alexis Pascal APRN.SALES SERVICE COORDINATOR * Chantal Quintero LPN - 06/12/2024 1:00 PM EDT Calin is here today for a transition of care hospital follow up for bradycardia, 3rd degree heart block, artrioventricular block, pacemaker placement, hyperglycemia, and acute kidney injury He is a newly diagnosed diabetic Patient is feeling well today voicing no complaints He is seeing [facility] now Dr Arreola No refills needed Chantal Quintero LPN June 12, 2024 1:17 PM documented in this encounterOhio[facility] History of Present illness Narrative* Abigail Paige RN - 06/08/2024 3:52 PM EDT TRANSITION CARE MANAGEMENT (TCM) INITIAL CONTACT Provider Action/FYI: Patient and spouse possibly interested in a referral to the elementary educator for virtual visits. Initial contact with patient post discharge, spoke to spouse. Patient identified by name and . CALL SUMMARY: EMR reviewed. Introduced myself and my role. Reviewed patient's discharge paperwork that may include any activity restrictions, dietary instructions, follow up labs or tests, and follow up appointments. Medications reconciled. Patient newly diagnosed with diabetes during this hospital admission. Patient is checking his bloodsugars at home. FBS-194, 200. Blood sugars in the evening at 219 and 242. Spouse stated that she has been changing their diet to accommodate a heart healthy and diabetic diet. Educated spouse on elementary educator available at the hospital as a referral and if patient is interested she could discussthis with Dr. Jimenez. She stated that patient has been doing very well since returning home. She stated that he is not short of breath like he had been previously. She denies that patient has any signs or symptoms of infection to the pacemaker site. Encouraged to reach out to PCP or specialty provider if new or worsening symptoms. Routed to PCP: No APPOINTMENTS/SERVICES: Reviewed discharge follow up appointments per discharge summary. Yes PCP: Dr. Sheba Jimenez Scheduling status of appointment: -Follow up appointment already scheduled Appointment dates and times: 06/12/24 at 1pm Specialist: Yes: Mau Arreola MD Scheduling status of appointment: -Follow up appointment already scheduled Appointment dates and times: Per , she already scheduled this, unknown date and time Confirmed patient has transportation to appointments: Yes Reviewed the following services: None Reviewed SDOH: Yes Referral to SW: No DIET/ACTIVITY RESTRICTIONS: Discharge Diet: 1800 Calorie Control Diet Discharge Activity: Return to Normal Activity EDUCATION: May shower in (days): 2Additional Activity Instructions: May shower or bathe on [day 3]. Do not scrub the incision or soak in the tub. Just wash with soap and let the water run over the incision. Gently pat dry with towel. Suture Line Care: Avoid Pulling/Pushing and Avoid Pinching/Bending Cleanse incision/area with: Do not get Incision Wet and Keep Dressing Clean Dry Additional Dressing/Incision Instructions: When dressing is removed, wash and dry incision. Keep covered with a light bandage if it is rubbing against your clothing. Do not cover the incision with anairtight bandage. Change the bandage daily. Do not remove steri strips. The strips will fall off ontheir own MEDICATION REVIEW: Confirmed patient able to obtain medications (new and/or refills): Yes Reviewed medications below in detail. Patient reports compliance with appropriate medications at this time. TCM Eligibility Documentation Program: Transitional Care Management Status: Identified Start Date: 06/06/2024 Responsible Staff: Abigail Paige RN Discharge date: 06/06/2024 (Program start) Date of initial contact: 06/08/2024 Initial contact Target status: Successful; Contact made within 2 business days post-discharge SUMMARY: -Pt discharged from [facility] on 06/06/24. -Follow up appointment on 06/12/24. -Medication review done yes. -Admitted for: Third degree heart block CONCERNS: Patient newly diabetic NEW MEDICATIONS: metformin 1,000 mg tablet 1,000 mg PO BID Qty: 120 insulin glargine [Basaglar KwikPen U-100 Insulin] 100 unit/mL (3 mL) insulin pen 10 unit subcut QPM Qty: 45 (DME) pen needle, diabetic 31 gauge x 5/32 needle See Rx Instructions .ROUTE .MEDSUPPLY Qty: 100 atorvastatin [Lipitor] 40 mg tablet 40 mg PO QHS Qty: 60 MEDS HELD/DISCONTINUED: None BRIEF HOSPITAL COURSE: Patient is a 69-year-old gentleman presenting with progressive shortness of breath as well as lightheadedness found to be bradycardic EKG demonstrated third-degree heart block 1. Bradycardia secondary to third-degree heart block -Patient has been admitted to a monitored bed placed on continuous telemetry monitoring consult was placed to cardiology plan is for patient to undergo pacemaker placement -06/06/2024atient underwent successful implantation of a dual chamber pacemaker by Dr. Dee on 06/06/2024 2. Acute kidney injury -Patient's baseline creatinine 1.1 creatinine on admission was 1.26 started on IV hydration with subsequent monitoring of electrolytes 3. Mild hyponatremia -Secondary to suspect -Secondary to suspected hypovolemic hyponatremia patient is being resuscitated with IV fluid 4. Hyperglycemia -Patient is not a known diabetic patient. Ordered hemoglobin A1c please on Accu- Cheks before meals and at bedtime with sliding scale coverage 5. Class I obesity with BMI of 34.3 -Weight loss advised 6. DVT prophylaxis -Low risk Abigail Paige RN [phone] documented in this encounterOhio[facility]07-10-[facility]24 History of Present illness Narrative* Abigail Paige RN - 06/07/2024 1:10 PM EDT Unable to make contact Provider Action/FYI Patient identified by name and date of : YES An attempt was made to contact: Patient, Spouse Was a voicemail left? Yes including my name, role, and return number Outreach Plan: Follow up call needed:Yes Abigail Paige, RN documented in this encounterOhiohealth Mansfield [facility]07-08-2024 NoteHNO ID: [id number] Author: ABHI VILLASENOR MD Service: ? Author Type: Physician Type: Progress Notes Filed: 06/05/2024 09:45 Note Text: Express Care Triage Note: Patient presents to the [facility] with complaint of pulse of 30, dyspnea, and dizziness the last 3 days. He is alert and has no conversational dyspnea. Radial pulse is approximately 30. His will take [facility] History of Present illness Narrative* Abhi Villasenor MD - 06/05/2024 9:39 AM EDT Express Care Triage Note: Patient presents to the [facility] with complaint of pulse of 30, dyspnea, and dizziness the last3 days. He is alert and has no conversational dyspnea. Radial pulse is approximately 30. His will take him to the [facility] for further evaluation. documented in this encounterOhiohealth [facility]field [facility]07-08-2024 Telephone encounter Note * Telephone Encounter - Marlin Zacarias LPN - 06/05/2024 8:44 AM EDT Patient reports his pulse has been in the 30s over the last 3 days and wanted to know what he should do. Patient notified that Dr. Jimenez is out of the office this week and d/t low pulse needs to be evaluated at an Urgent Care or ED. Patient states he is on his way to Urgent Care now. I asked patient to follow up with me later, and patient was agreeable to that. Call ended. Marlin Zacarias LPN June 05, 2024 9:18 AM [facility] Miscellaneous Notes* Telephone Encounter - Marlin Zacarias LPN - 06/05/2024 8:44 AM EDT Patient reports his pulse has been in the 30s over the last 3 days and wanted to know what he should do. Patient notified that Dr. Jimenez is out of the office this week and d/t low pulse needs to be evaluated at an Urgent Care or ED. Patient states he is on his way to Urgent Care now. I asked patient to follow up with me later, and patient was agreeable to that. Call ended. Marlin Zacarias LPN June 05, 2024 9:18 AM documented in this encounterOhiohealth Mansfield Hospital04-15-2024 Miscellaneous Notes* Telephone Encounter - Mechelle Bonilla MA - 03/13/2024 10:04 AM EDT Items addressed in this encounter: Telephone Encounter I called pts health plan regarding Stress Test and rep stated that CPT code 42529 does not require a PA Call ref # [id number] Able to close encounter. Mechelle Bonilla MA March 13, 2024 10:04 AM 10:04 AM documented in this encounterOhiohealth [facility]field Hospital03-20-2024 Miscellaneous Notes* Telephone Encounter - Gabrielle Trevino LPN - 02/16/2024 5:59 PM EDT Patient phoned office in regards to Stress Test. Patient states that [facility] will not do procedure. This nurse faxed orders to [facility] per patient request. Fax confirmation received Gabrielle Trevino LPN February 16, 2024 6:00 PM documented in this encounterOhiohealth [facility]field Hospital03-20-2024 History of Present illness Narrative* Sheba Jimenez MD - 02/16/2024 9:12 AM EDT This note was created using NoteWriter. Kaylee Lira is a 68 year old male. He presents today with a history of increasing shortness ofbreath over the last 6 months. He states it has been worse since he had COVID. This is exertional dyspnea. It happens when he climbs a hill. If it states TPLO he has to stop and rest because of the shortness of breath. Review of Systems Constitutional: Negative. HENT: Negative. Eyes: Negative. Respiratory: Negative. Cardiovascular: Negative. Gastrointestinal: Negative. Endocrine: Negative. Genitourinary: Negative. Musculoskeletal: Negative. Skin: Negative. Allergic/Immunologic: Negative. Neurological: Negative. Hematological: Negative. Psychiatric/Behavioral: Negative. Objective BP 136/80 (BP Site: Left Arm, BP Position: Sitting, BP Cuff Size: Regular Adult) Pulse 80 Temp 36.4 C (97.6 F) (Temporal) Ht 185.4 cm (6' 1) Wt 117.9 kg (260 lb) SpO2 97% BMI 34.30 kg/m Physical Exam Vitals reviewed. Constitutional: Appearance: Normal appearance. HENT: Head: Normocephalic and atraumatic. Nose: Nose normal. Eyes: Extraocular Movements: Extraocular movements intact. Pupils: Pupils are equal, round, and reactive to light. Cardiovascular: Rate and Rhythm: Normal rate and regular rhythm. Pulmonary: Effort: Pulmonary effort is normal. Breath sounds: Normal breath sounds. Abdominal: General: Bowel sounds are normal. Palpations: Abdomen is soft. Musculoskeletal: General: Normal range of motion. Cervical back: Normal range of motion and neck supple. Skin: General: Skin is warm and dry. Capillary Refill: Capillary refill takes less than 2 seconds. Neurological: General: No focal deficit present. Mental Status: He is alert and oriented to person, place, and time. Mental status is at baseline. Psychiatric: Mood and Affect: Mood normal. Behavior: Behavior normal. Assessment and Plan Encounter Diagnosis ICD-10-CM 1. CARCAMO (dyspnea on exertion) R06.09 NM CARDIAC PERF STRESS/EXERCISE CANCELED: CARDIAC STRESS TST,INTERP/REPT ONLY Obtain stress test to assess cardiac function. Follow-up after testing. To ER if chest pain occurs/recurs. Sheba Jimenez MD * Gabrielle Trevino LPN - 02/16/2024 9:00 AM EDT Patient in the office today with complaints of shortness of breath and spots on his forehead that he wants assessed. Patient states that shortness of breath began about 5 to 6 months ago. Patient denies cough. Patient states he had a cough about a month ago, but it has since subsided. Patient states he did smoke about 35 years ago, or more. Patient also states his noticed spots on his forehead that he would like examined today. No refills needed Gabrielle Trevino LPN February 16, 2024 8:45 AM documented in this encounterOhiohealth [facility]field Hospital08-07-2023 Miscellaneous Notes* Telephone Encounter - Gabrielle Trevino LPN - 07/05/2023 2:22 PM EDT Referral has been sent to [facility] per patient request at appointment. Fax confirmation received Gabrielle Trevino LPN July 05, 2023 2:23 PM documented in this encounterOhiohealth [facility] Hospital08-07-2023 History of Present illness Narrative* Sheba Jimenez MD - 07/05/2023 11:43 AM EDT This note was created using Snapguide. Subjective Calin Lira is a 68 year old male. Calin presents today for his annual wellness visit. He is requesting antiemetic for upcoming fishing trip. He gets seasick and throws up. Review of Systems Constitutional: Negative. HENT: Negative. Eyes: Negative. Respiratory: Negative. Cardiovascular: Negative. Gastrointestinal: Negative. Endocrine: Negative. Genitourinary: Negative. Musculoskeletal: Negative. Skin: Negative. Allergic/Immunologic: Negative. Neurological: Negative. Hematological: Negative. Psychiatric/Behavioral: Negative. Objective BP 128/72 (BP Site: Left Arm, BP Position: Sitting, BP Cuff Size: Regular Adult) Pulse 76 Temp 36.3 C (97.3 F) (Temporal) Resp 18 Ht 185.4 cm (6' 1) Wt 119.9 kg (264 lb 6.4 oz) SpO2 98% BMI 34.88 kg/m Physical Exam Vitals reviewed. Constitutional: Appearance: Normal appearance. HENT: Head: Normocephalic and atraumatic. Nose: Nose normal. Eyes: Extraocular Movements: Extraocular movements intact. Pupils: Pupils are equal, round, and reactive to light. Cardiovascular: Rate and Rhythm: Normal rate and regular rhythm. Pulmonary: Effort: Pulmonary effort is normal. Breath sounds: Normal breath sounds. Abdominal: General: Bowel sounds are normal. Palpations: Abdomen is soft. Musculoskeletal: General: Normal range of motion. Cervical back: Normal range of motion and neck supple. Skin: General: Skin is warm and dry. Capillary Refill: Capillary refill takes less than 2 seconds. Neurological: General: No focal deficit present. Mental Status: He is alert and oriented to person, place, and time. Mental status is at baseline. Psychiatric: Mood and Affect: Mood normal. Behavior: Behavior normal. Assessment and Plan Encounter Diagnosis ICD-10-CM 1. Wellness examination Z00.00 COMP METABOLIC PANEL 2. Encounter for counseling regarding advance directives Z71.89 ADVANCE CARE PLAN DISCUSSION 3. Encounter for screening for depression Z13.31 DEPRESSION SCREENING/ASSESSMENT 4. Hyperlipidemia, unspecified hyperlipidemia type E78.5 COMP METABOLIC PANEL LIPID PANEL BASIC 5. Screening for deficiency anemia Z13.0 CBC + DIFF 6. Screening PSA (prostate specific antigen) Z12.5 PSA/PROSTSPECAG SCRN 7. Screening for colon cancer Z12.11 COLOGUARD 8. Dupuytren's contracture of left hand M72.0 CONSULT TO ORTHOPAEDICS All open preventative health maintenance topics discussed with patient in detail. This includes risks and benefits regarding vaccines, cancer screening, healthy life style, and diet. Scopolamine patch prior to getting into the boat. Zofran if he has vomiting. Patient with Dupuytren's contracture to the little finger of the left hand. Severe. Consult to orthopedics. Sheba Jimenez MD * Gabrielle Trevino LPN - 07/05/2023 11:30 AM EDT DUE HEALTH MAINTENANCE ABDOMINAL AORTIC ANEURYSM SCREENING COVID-19 VACCINE(1) declined HEPATITIS C SCREENING DTAP,TDAP,TD(1 - Tdap) aware LIPID SCREEN COLORECTAL CANCER SCREENING aware SHINGRIX VACCINE(1 of 2) aware DIABETES SCREEN PNEUMOCOCCAL: 65+(1 - PCV) aware Patient states he is currently not taking any medications. Gabrielle Trevino LPN July 05, 2023 11:24 AM documented in this encounterOhiohealth Mansfield Hospital02-21-2023 Miscellaneous Notes* Telephone Encounter - Marlin Zacarias LPN - 01/19/2023 9:52 AM EST Patient's Mar[facility]osa called yesterday to request a refill on patient's gout medication. She stated patient is having a gout flare up in in right ankle. She also asked if refill could be sent out of state because patient will be leaving early morning. Mariposa did provide a pharmacy with address if refill can be sent. Neither patient or patient's were able to verify which medication patient used for gout. This nurse did a chart review, and patient was prescribed a tapering dose of Deltasone on 06/08/2019. Medication was added to med list for review. Is refill able to be filled for patient? [place] pharmacy information provided by patient's during phone call today. Last Office Visit: 09/07/2022 No upcoming appt scheduled. Requested Prescriptions Pending Prescriptions Disp Refills predniSONE (DELTASONE) 20 mg tablet 20 tablet 0 Sig: Instructions: 3 tablets by mouth daily for 3 days, then take 2 tablets by mouth daily for 3 days, then take 1 tablet by mouth daily for 3 days then take a 1/2 tablet by mouth daily for 3 days, then stop. Marlin Zacarias LPN January 19, 2023 1:46 PM documented in this encounterOhiohealth Mansfield HospitalEvaluation note* Diagnosis Wellness examination- Primary Encounter for counseling regarding advance directives Encounter for screening for depression Hyperlipidemia, unspecified hyperlipidemia type Screening for deficiency anemia Screening for other and unspecified deficiency anemia Screening PSA (prostate specific antigen) Special screening for malignant neoplasm of prostate Screening for colon cancer Special screening for malignant neoplasms, colon Dupuytren's contracture of left hand Contracture of palmar fascia documented in this encounter [facility]* Diagnosis CARCAMO (dyspnea on exertion)- Primary Other dyspnea and respiratory abnormality documented in this encounter [facility] HospitalEvaluation noteNo assessment information availableWChildren's Hospital for Rehabilitation Work Phone: Evaluation note* Diagnosis Bradycardia- Primary Other specified cardiac dysrhythmias documented in this encounter [facility] HospitalEvalunem[facility] [place] [facility]* Diagnosis Wellness examination- Primary Encounter for screening examination for other mental health and behavioral disorders Screening for depression Diabetes beginning in adulthood (type 2/adult onset) (HCC) Pure hypercholesterolemia Elevated blood-pressure reading, without diagnosis of hypertension Medicare annual wellness visit, subsequent Routine general medical examination at a health care facility documented in this encounter [facility]* Diagnosis Diabetes beginning in adulthood (type 2/adult onset) (HCC)- Primary Pure hypercholesterolemia Screening PSA (prostate specific antigen) Special screening for malignant neoplasm of prostate Elevated blood-pressure reading, without diagnosis of hypertension documented in this encounter [facility]* Diagnosis Diabetes beginning in adulthood (type 2/adult onset) (HCC)- Primary documented in this encounter [facility] [place] [facility] Diagnosis Encounter for support and coordination of transition of care- Primary Bradycardia Other specified cardiac dysrhythmias Third degree heart block (HCC) Atrioventricular block, complete Atrioventricular block Atrioventricular block, unspecified New onset type 2 diabetes mellitus (HCC) TARIK (acute kidney injury) (HCC) Acute kidney failure, unspecified documented in this encounter [facility] [place] [facility]* Diagnosis Diabetes beginning in adulthood (type 2/adult onset) (HCC)- Primary Pure [facility]ch[facility]olemia [facility] Elevated liver enzymes- Primary Other nonspecific abnormal serum enzyme levels [facility] this encounter [facility] Diagnosis Elevated LFTs- Primary Other abnormal blood chemistry [facility] encounter [facility] Diagnosis Elevated LFTs Other abnormal blood chemistry documented [facility] this encounter [facility]* Diagnosis Onset Date Resolution Status Admit Date Presence of cardiac pacemaker acute July 09, 2025 8:19am Type 2 diabetes mellitus acute July 09, 2025 8:19am High-grade atrioventricular block resolved July 09 8:19am [facility] Work Phone: Reason for referral (narrative)* Diagnostic Procedure Only (Routine) - Pending Review Specialty Diagnoses / Procedures Referred By Isrrael meyer Referred To Contact MOLECULAR & FUNCTIONAL IMAGING Diagnoses CARCAMO (dyspnea on exertion) Procedures NM CARDIAC PERF STRESS/EXERCISE MYOCARDIAL SPECT MULTIPLE STUDIES Sheba Jimenez MD [address] [place] [address] Molecular & Functional Imaging [address] [place] [address] Referral ID Status Reason Start Date Expiration Date Visits Requested Visits Authorized [id number] Pending Review Auto-Generat ed Referral 02/16/2024 03/17/2025 1 1 [facility] for referral (narrative)No reason for referral [facility] Work Phone: Summary Purpose Family History Relationship Condition Age at Onset Recorded Date/T joshua father Cardiac disease Unknown Advance Directives Advance Directive Response Recorded Date/ Time Living Will Yes September 15 10:29am Power of Senior Administrative Support Yes September 15, 2021 10:29am Advance Directive Response Recorded Date/ Time Living Will Yes June 05, 2024 3 :37pm Do you have a Healthcare Power of Senior Administrative Support? Yes June 05, 2024 3:37pm Advance Directive Response Recorded Date/ Time Living Will Yes June 05, 2024 2 :37pm Do you have a Healthcare Pow er of Senior Administrative Support? Yes June 05, 2024 2:37pm Do you have a Healthcare Pow er of Senior Administrative Support? Yes October 09, 2025 11:32am Name of Medical Power of Senior Administrative Support Mariposa Lira () October 09, 2025 11:32am Reason for Referral Specialty Diagnoses / Procedures Referred By Isrrael meyer Referred To Contact Orthopedics / FAMILY MEDICINE Diagnoses Dupuytren's contracture of left hand Procedures CONSULT TO ORTHOPAEDICS OFFICE/OUTPATIENT [facility] 60-74 MINUTES Sheba Jimenez MD [address] [place] [address] [facility] [address] [place] [address] Referral ID Status Reason Start Date Expiration Date Visits Requested Visits Authorized [id number] Authorized PCP Requested Referral 07/05/2023 07/04/2024 1 1 Chief Complaint and Reason for Visit Chief Complaint CARCAMO CARCAMO Chief Complaint Admit Date Pacer Check Remote March 05, 2025 2:17 am Pacer Check Remote June 04, 2025 1:52a m Chief Complaint Admit Date Pacer Check Remote June 04, 2025 1:52a m Annual in-clinic check/Sees KR @ 9 2024 8:18am 1 Y FU/Sees Cara @ 8:30 July 09, 2025 8:19am Reason for Visit Admit Date Presence of cardiac pacemaker June 8:19am Type 2 diabetes mellitus July 09 8:19am High-grade atrioventricular block July 09, 2025 8:19am Reason for Visit Admit Date Presence of cardiac pacemaker June 8:18am High-grade atrioventricular block July 09, 2025 8:18am Presence of cardiac pacemaker June 8:19am Type 2 diabetes mellitus July 09 8:19am High-grade atrioventricular block July 09, 2025 8:19am Chief Complaint Admit Date Pacer Check Remote June 04, 2025 1:52a m Annual in-clinic check/Sees KR @ 9 2024 8:18am 1 Y FU/Sees Cara @ 8:30 July 09, 2025 8:19am Pacer Check Remote July 09, 2025 9: 00am Chief Complaint Admit Date Pacer Check Remote June 04, 2025 1:52a m Annual in-clinic check/Sees KR @ 9 Junus 2024 8:18am 1 Y FU/Sees Cara @ 8:30 July 09, 2025 8:19am Pacer Check Remote July 09, 2025 9: 00am Pacer Check Remote July 10, 2025 1: 51am Pacer Check Remote September 10, 2025 1 0:56am Chief Complaint Admit Date Annual in-clinic check/Sees KR @ 9 Augus 2024 8:18am 1 Y FU/Sees Cara @ 8:30 July 09, 2025 8:19am Pacer Check Remote July 09, 2025 9: 00am Pacer Check Remote July 10, 2025 1: 51am Pacer Check Remote September 10, 2025 1 0:56am STROKE RULE OUT October 09, 2025 10:20am STROKE RULE OUT October 09, 2025 10:29am STROKE RULE OUT October 10, 2025 9:16am Reason for Visit Admit Date Presence of cardiac pacemaker June 8:18am High-grade atrioventricular block July 09, 2025 8:18am Presence of cardiac pacemaker June 8:19am Type 2 diabetes mellitus July 09 8:19am High-grade atrioventricular block July 09, 2025 8:19am LV dysfunction October 09, 2025 10:20am Receptive aphasia October 09, 2025 10:20am Type 2 diabetes mellitus October 09, 2025 10:20am High-grade atrioventricular block Novemb er 2024 10:20am Additional Source Comments <item> Privacy Markings (unrecogniz ed section and content) Section Author: Tyra Shrestha PROHIBITION ON REDISCLOSURE OF CONFIDENTIAL INFORMATION This notice accompanies a disclosure of information concerning a client made to you with the consent of such client. (unrecognized sect ion and content) No Status Records FoundNo Status Records FoundNo Status Records FoundNo Status Records FoundNo Status Records Found INFORMATION SOURCE (unrecogn ized section and content) DATE CREATED AUTHOR 08/24/2021 [facility] DATE CREATED AUTHOR AUTHOR'S ORGANIZ ATION 09/27/2021 Derrek Pomerene [facility] DATE CREATED AUTHOR AUTHOR'S ORGANIZ ATION 05/27/2025 [facility] DATE CREATED AUTHOR AUTHOR'S ORGANIZ ATION 10/11/2025 [facility] DATE CREATED AUTHOR AUTHOR'S ORGANIZ ATION 10/11/2025 [facility] Source Comments (unrecognize d section and content) In the event this informatio n is protected by the Federal Confidentiality of Alcohol and Drug Abuse Patient Records regulations: The Federal rules restrict any use of the information to criminally investigate or prosecute any alcohol or drug abuse patient.[facility] HospitalIn the event this information is protected by the Federal Confidentiality of Alcohol and Drug Abuse Patient Records regulations: The Federal rules restrict any use of the information to criminally investigate or prosecute any alcohol or drug abuse patient.[facility] HospitalIn the event this information is protected by the Federal Confidentiality of Alcohol and Drug Abuse Patient Records regulations: The Federal rules restrict any use of the information to criminally investigate or prosecute any alcohol or drug abuse patient.[facility] HospitalIn the event this information is protected by the Federal Confidentiality of Alcohol and Drug Abuse Patient Records regulations: The Federal rules restrict any use of the information to criminally investigate or prosecute any alcohol or drug abuse patient.[facility] HospitalIn the event this information is protected by the Federal Confidentiality of Alcohol and Drug Abuse Patient Records regulations: The Federal rules restrict any use of the information to criminally investigate or prosecute any alcohol or drug abuse patient.[facility] HospitalIn the event this information is protected by the Federal Confidentiality of Alcohol and Drug Abuse Patient Records regulations: The Federal rules restrict any use of the information to criminally investigate or prosecute any alcohol or drug abuse patient.[facility] HospitalIn the event this information is protected by the Federal Confidentiality of Alcohol and Drug Abuse Patient Records regulations: The Federal rules restrict any use of the information to criminally investigate or prosecute any alcohol or drug abuse patient.[facility] HospitalIn the event this information is protected by the Federal Confidentiality of Alcohol and Drug Abuse Patient Records regulations: The Federal rules restrict any use of the information to criminally investigate or prosecute any alcohol or drug abuse patient.[facility] HospitalIn the event this information is protected by the Federal Confidentiality of Alcohol and Drug Abuse Patient Records regulations: The Federal rules restrict any use of the information to criminally investigate or prosecute any alcohol or drug abuse patient.[facility] HospitalIn the event this information is protected by the Federal Confidentiality of Alcohol and Drug Abuse Patient Records regulations: The Federal rules restrict any use of the information to criminally investigate or prosecute any alcohol or drug abuse patient.[facility] HospitalIn the event this information is protected by the Federal Confidentiality of Alcohol and Drug Abuse Patient Records regulations: The Federal rules restrict any use of the information to criminally investigate or prosecute any alcohol or drug abuse patient.[facility] HospitalIn the event this information is protected by the Federal Confidentiality of Alcohol and Drug Abuse Patient Records regulations: The Federal rules restrict any use of the information to criminally investigate or prosecute any alcohol or drug abuse patient.[facility] HospitalIn the event this information is protected by the Federal Confidentiality of Alcohol and Drug Abuse Patient Records regulations: The Federal rules restrict any use of the information to criminally investigate or prosecute any alcohol or drug abuse patient.[facility] HospitalIn the event this information is protected by the Federal Confidentiality of Alcohol and Drug Abuse Patient Records regulations: The Federal rules restrict any use of the information to criminally investigate or prosecute any alcohol or drug abuse patient.[facility] HospitalIn the event this information is protected by the Federal Confidentiality of Alcohol and Drug Abuse Patient Records regulations: The Federal rules restrict any use of the information to criminally investigate or prosecute any alcohol or drug abuse patient.[facility] HospitalIn the event this information is protected by the Federal Confidentiality of Alcohol and Drug Abuse Patient Records regulations: The Federal rules restrict any use of the information to criminally investigate or prosecute any alcohol or drug abuse patient.[facility] HospitalIn the event this information is protected by the Federal Confidentiality of Alcohol and Drug Abuse Patient Records regulations: The Federal rules restrict any use of the information to criminally investigate or prosecute any alcohol or drug abuse patient.[facility] HospitalIn the event this information is protected by the Federal Confidentiality of Alcohol and Drug Abuse Patient Records regulations: The Federal rules restrict any use of the information to criminally investigate or prosecute any alcohol or drug abuse patient.[facility] HospitalIn the event this information is protected by the Federal Confidentiality of Alcohol and Drug Abuse Patient Records regulations: The Federal rules restrict any use of the information to criminally investigate or prosecute any alcohol or drug abuse patient.[facility] HospitalIn the event this information is protected by the Federal Confidentiality of Alcohol and Drug Abuse Patient Records regulations: The Federal rules restrict any use of the information to criminally investigate or prosecute any alcohol or drug abuse patient.[facility] HospitalIn the event this information is protected by the Federal Confidentiality of Alcohol and Drug Abuse Patient Records regulations: The Federal rules restrict any use of the information to criminally investigate or prosecute any alcohol or drug abuse patient.[facility] HospitalIn the event this information is protected by the Federal Confidentiality of Alcohol and Drug Abuse Patient Records regulations: The Federal rules restrict any use of the information to criminally investigate or prosecute any alcohol or drug abuse patient.[facility] HospitalIn the event this information is protected by the Federal Confidentiality of Alcohol and Drug Abuse Patient Records regulations: The Federal rules restrict any use of the information to criminally investigate or prosecute any alcohol or drug abuse patient.[facility] HospitalIn the event this information is protected by the Federal Confidentiality of Alcohol and Drug Abuse Patient Records regulations: The Federal rules restrict any use of the information to criminally investigate or prosecute any alcohol or drug abuse patient.[facility] HospitalIn the event this information is protected by the Federal Confidentiality of Alcohol and Drug Abuse Patient Records regulations: The Federal rules restrict any use of the information to criminally investigate or prosecute any alcohol or drug abuse patient.[facility] HospitalIn the event this information is protected by the Federal Confidentiality of Alcohol and Drug Abuse Patient Records regulations: The Federal rules restrict any use of the information to criminally investigate or prosecute any alcohol or drug abuse patient.[facility] HospitalIn the event this information is protected by the Federal Confidentiality of Alcohol and Drug Abuse Patient Records regulations: The Federal rules restrict any use of the information to criminally investigate or prosecute any alcohol or drug abuse patient.[facility] HospitalIn the event this information is protected by the Federal Confidentiality of Alcohol and Drug Abuse Patient Records regulations: The Federal rules restrict any use of the information to criminally investigate or prosecute any alcohol or drug abuse patient.[facility] HospitalIn the event this information is protected by the Federal Confidentiality of Alcohol and Drug Abuse Patient Records regulations: The Federal rules restrict any use of the information to criminally investigate or prosecute any alcohol or drug abuse patient.[facility] HospitalIn the event this information is protected by the Federal Confidentiality of Alcohol and Drug Abuse Patient Records regulations: The Federal rules restrict any use of the information to criminally investigate or prosecute any alcohol or drug abuse patient.[facility] HospitalIn the event this information is protected by the Federal Confidentiality of Alcohol and Drug Abuse Patient Records regulations: The Federal rules restrict any use of the information to criminally investigate or prosecute any alcohol or drug abuse patient.[facility] HospitalIn the event this information is protected by the Federal Confidentiality of Alcohol and Drug Abuse Patient Records regulations: The Federal rules restrict any use of the information to criminally investigate or prosecute any alcohol or drug abuse patient.[facility] HospitalIn the event this information is protected by the Federal Confidentiality of Alcohol and Drug Abuse Patient Records regulations: The Federal rules restrict any use of the information to criminally investigate or prosecute any alcohol or drug abuse patient.[facility] HospitalIn the event this information is protected by the Federal Confidentiality of Alcohol and Drug Abuse Patient Records regulations: The Federal rules restrict any use of the information to criminally investigate or prosecute any alcohol or drug abuse patient.[facility] HospitalIn the event this information is protected by the Federal Confidentiality of Alcohol and Drug Abuse Patient Records regulations: The Federal rules restrict any use of the information to criminally investigate or prosecute any alcohol or drug abuse patient.[facility] HospitalIn the event this information is protected by the Federal Confidentiality of Alcohol and Drug Abuse Patient Records regulations: The Federal rules restrict any use of the information to criminally investigate or prosecute any alcohol or drug abuse patient.[facility] HospitalIn the event this information is protected by the Federal Confidentiality of Alcohol and Drug Abuse Patient Records regulations: The Federal rules restrict any use of the information to criminally investigate or prosecute any alcohol or drug abuse patient.[facility] HospitalIn the event this information is protected by the Federal Confidentiality of Alcohol and Drug Abuse Patient Records regulations: The Federal rules restrict any use of the information to criminally investigate or prosecute any alcohol or drug abuse patient.[facility] HospitalIn the event this information is protected by the Federal Confidentiality of Alcohol and Drug Abuse Patient Records regulations: The Federal rules restrict any use of the information to criminally investigate or prosecute any alcohol or drug abuse patient.[facility] Reason for Visit (unrecogniz ed section and content) Reason Onset Date Comments Refill Request 01/18/2023 Refill Request 01/19/2023 Reason Comments Wellness Reason Comments Referral Information Reason Comments Shortness of Breath Specialty Diagnoses / Procedures Referred By Contac t Referred To Contact FAMILY MEDICINE Diagnoses Shortness of breath shortnes of breathe and spots on forehead that need checked Procedures est patient Sheba Jimenez MD [address] [place] [address] [facility] [address] [place] [address] Referral ID Status Reason Start Date Expiration Date V isits Requested Visits Authorized [id number] Closed OON/Self Pay Override Patient Cleared - INN Insurance Found 02/08/2024 05/18/2025 1 0 Reason Comments Results Reason Comments Stress Test does no require a PA Reason Comments Returning Patient's Call Regarding Low P ulse x 3 days Reason Onset Date Comments Refill Request 06/19/2024 Reason Comments Medicare Wellness Exam Reason Comments Medication Problem Reason Onset Date Comments Refill Request 08/02/2024 Reason Onset Date Comments Refill Request 08/07/2024 Reason Comments Pending, Lantus SoloStar Reason Comments No PA required for Mounjaro Reason Comments Approved, Lantus Solostar Reason Comments [facility] unalbe to get Mounjaro in stock Reason Comments Patient notified that Lantus has been ap proved via VM Reason Comments Transition Of Care Reason Comments 6 Month Exam Reason Comments Radiology US Specialty Diagnoses / Procedures Referred By Contac t Referred To Contact US IMAGING Diagnoses Elevated LFTs Procedures US ABD RIGHT UPPER QUADRANT US ABDOMINAL REAL TIME W/IMAGE LIMITED Sheba Jimenez MD [address] [place] [address] Phone: tel: fax: [place] [phone] Referral ID Status Reason Start Date Expiration Date V isits Requested Visits Authorized [id number] Closed Auto-Generate d Referral 05/24/2025 06/23/2026 1 1 Reason Comments Refill Request Care Teams (unrecognized sec tion and content) Patient Sitter Relationship Specialty Start Date End Date Sheba Jimenez MD [address] [place] [address] PCP - General Family Medicine 09/03/22 Patient Sitter Relationship Specialty Start Date End Date Sheba Jimenez MD [facility] [place] [address] PCP - General Family Medicine 09/03/22 Patient Sitter Relationship Specialty Start Date End Date Sheba Jimenez MD [address] [place] [address] PCP - General Family Medicine 09/03/22 Patient Sitter Relationship Specialty Start Date End Date Sheba Jimenez MD [address] [place] [address] PCP - General Family Medicine 09/03/22 Patient Sitter Relationship Specialty Start Date End Date Sheba Jimenez MD [address] [place] [address] PCP - General Family Medicine 09/03/22 Patient Sitter Relationship Specialty Start Date End Date Sheba Jimenez MD [address] [place] [address] PCP - General Family Medicine 09/03/22 Team Status: Active Member Role Status Dates Dr. Sheba Jimenez MD Family Provider Active Dr. Sheba Jimenez MD Primary Care Provider Active Team Status: Active Member Role Status Dates Dr. Sheba Jimenez MD Primary Care Prov ider, Referring Provider, Other Provider Active Dr. Cher Armas MD Attending Provider Active Team Status: Inactive Member Role Status Dates Dr. Sheba Jimenez MD Primary Care Prov ider, Attending Provider, Referring Provider Active Patient Sitter Relationship Specialty Start Date End Date Sheba Jimenez MD [address] [place] [address] PCP - General Family Medicine 09/03/22 Patient Sitter Relationship Specialty Start Date End Date Sheba Jimenez MD [address] [place] [address] PCP - General Family Medicine 09/03/22 Abigail Paige, professor of theater Central Supply Worker 06/07/24 Patient Sitter Relationship Specialty Start Date End Date Sheba Jimenez MD [address] [place] [address] PCP - General Family Medicine 09/03/22 Abigail Paige, professor of theater Central Supply Worker 06/07/24 Patient Sitter Relationship Specialty Start Date End Date Sheba Jimenez MD [address] [place] [address] PCP - General Family Medicine 09/03/22 Abigail Paige, professor of theater Central Supply Worker 06/07/24 Patient Sitter Relationship Specialty Start Date End Date Sheba Jimenez MD [address] [facility] [place] [address] PCP - General Family Medicine 09/03/22 Abigail Paige, professor of theater Central Supply Worker 06/07/24 Patient Sitter Relationship Specialty Start Date End Date Sheba Jimenez MD [address] [place] [address] PCP - General Family Medicine 09/03/22 Abigail Paige, professor of theater Central Supply Worker 06/07/24 06/22/24 Patient Sitter Relationship Specialty Start Date End Date Sheba Jimenez MD [address] [place] [address] PCP - General Family Medicine 09/03/22 Patient Sitter Relationship Specialty Start Date End Date Sheba Jimenez MD [address] [place] [address] PCP - General Family Medicine 09/03/22 Patient Sitter Relationship Specialty Start Date End Date Sheba Jimenez MD [address] [facility] [place] [address] PCP - General Family Medicine 09/03/22 Patient Sitter Relationship Specialty Start Date End Date Sheba Jimenez MD [address] [facility] [place] [address] PCP - General Family Medicine 09/03/22 Patient Sitter Relationship Specialty Start Date End Date Sheba Jimenez MD [address] [place] [address] PCP - General Family Medicine 09/03/22 Patient Sitter Relationship Specialty Start Date End Date Sheba Jimenez MD [address] [facility] [place] [address] PCP - General Family Medicine 09/03/22 Patient Sitter Relationship Specialty Start Date End Date Sheba Jimenez MD [address] [place] [address] PCP - General Family Medicine 09/03/22 Abigail Paige, professor of theater Central Supply Worker 06/07/24 06/22/24 Patient Sitter Relationship Specialty Start Date End Date Sheba Jimenez MD [address] [place] [address] PCP - General Family Medicine 09/03/22 Patient Sitter Relationship Specialty Start Date End Date Sheba Jimenez MD [address] [place] [address] PCP - General Family Medicine 09/03/22 Patient Sitter Relationship Specialty Start Date End Date Sheba Jimenez MD [address] [place] [address] PCP - General Family Medicine 09/03/22 Patient Sitter Relationship Specialty Start Date End Date Sheba Jimenez MD [address] [facility] [place] [address] PCP - General Family Medicine 09/03/22 Team Status: Active Member Role/Relationship Status Dates Dr. Sheba Jimenez MD Family Provider Active Dr. Sheba Jimenez MD Primary Care Provider Active Team Status: Inactive Member Role/Relationship Status Dates Dr. Sheba Jimenez MD Primary Care Provider Active Start: March 05, 2025 End: March 05, 2025 Dr. Jimenez Dee MD Attending Provider Active S tart: March 05, 2025 End: March 05, 2025 Team Status: Inactive Member Role/Relationship Status Dates Dr. Sheba Jimenez MD Primary Care Provider Active Start: June 04, 2025 End: June 04, 2025 Dr. Jimenez Dee MD Attending Provider Active S tart: June 04, 2025 End: June 04, 2025 Team Status: Inactive Member Role/Relationship Status Dates Dr. Sheba Jimenez MD Primary Care Provider Active Start: June 04, 2025 End: June 04, 2025 Dr. Jimenez Dee MD Attending Provider Active S tart: June 04, 2025 End: June 04, 2025 Team Status: Active Member Role/Relationship Status Dates Dr. Sheba Jimenez MD Primary Care Provider Active Start: July 09, 2025 Dr. Sheba Jimenez MD Referring Provider Active Start: July 09, 2025 Frances Nunez Attending Provider Active Start: A ugust 2024 Team Status: Inactive Member Role/Relationship Status Dates Dr. Sheba Jimenez MD Primary Care Provider Active Start: July 09, 2025 End: July 09, 2025 Dr. Sheba Jimenez MD Referring Provider Active Start: July 09, 2025 End: July 09, 2025 Stephenie Brody NP, CIGARETTE EXAMINER-C Attending Provider Active Start: July 09, 2025 End: July 09, 2025 Team Status: Inactive Member Role/Relationship Status Dates Dr. Sheba Jimenez MD Primary Care Provider Active Start: July 09, 2025 End: July 09, 2025 Dr. Sheba Jimenez MD Referring Provider Active Start: July 09, 2025 End: July 09, 2025 Frances Nunez Attending Provider Active Start: A ugust 2024 End: July 09, 2025 Team Status: Inactive Member Role/Relationship Status Dates Dr. Sheba Jimenez MD Primary Care Provider Active Start: July 09, 2025 End: July 09, 2025 Dr. Jimenez Dee MD Attending Provider Active S tart: July 09, 2025 End: July 09, 2025 Patient Sitter Relationship Specialty Start Date End Date Sheba Jimenez MD [address] [place] [address] PCP - General Family Medicine 09/03/22 Team Status: Active Member Role/Relationship Status Dates Dr. Sheba Jimenez MD Primary care physician Active Team Status: Inactive Member Role/Relationship Status Dates Dr. Sheba Jimenez MD Primary care physician Active Start: June 04, 2025 End: June 04, 2025 Dr. Jimenez Dee MD Attending physician Active Start: June 04, 2025 End: June 04, 2025 Team Status: Inactive Member Role/Relationship Status Dates Dr. Sheba Jimenez MD Primary care physician Active Start: July 09, 2025 End: July 09, 2025 Dr. Sheba Jimenez MD Referring Provider Active Start: July 09, 2025 End: July 09, 2025 Dr. Jimenez Dee MD Attending physician Active Start: July 09, 2025 End: July 09, 2025 Team Status: Inactive Member Role/Relationship Status Dates Dr. Sheba Jimenez MD Primary care physician Active Start: July 09, 2025 End: July 09, 2025 Dr. Sheba Jimenez MD Referring Provider Active Start: July 09, 2025 End: July 09, 2025 Stephenie Brody CIGARETTE EXAMINER, CIGARETTE EXAMINER-C Attending physician Active Start: July 09, 2025 End: July 09, 2025 Team Status: Inactive Member Role/Relationship Status Dates Dr. Sheba Jimenez MD Primary care physician Active Start: July 09, 2025 End: July 09, 2025 Dr. Jimenez Dee MD Attending physician Active Start: July 09, 2025 End: July 09, 2025 Team Status: Inactive Member Role/Relationship Status Dates Dr. Sheba Jimenez MD Primary care physician Active Start: July 10, 2025 End: July 10, 2025 Dr. Jimenez Dee MD Attending physician Active Start: July 10, 2025 End: July 10, 2025 Team Status: Inactive Member Role/Relationship Status Dates Dr. Sheba Jimenez MD Primary care physician Active Start: September 10, 2025 End: September 10, 2025 Dr. Jimenez Dee MD Attending physician Active Start: September 10, 2025 End: September 10, 2025 Team Status: Inactive Member Role/Relationship Status Dates Dr. Sheba Jimenez MD Primary care physician Active Start: July 09, 2025 End: July 09, 2025 Dr. Sheba Jimenez MD Referring Provider Active Start: July 09, 2025 End: July 09, 2025 Dr. Jimenez Dee MD Attending physician Active Start: July 09, 2025 End: July 09, 2025 Team Status: Inactive Member Role/Relationship Status Dates Dr. Sheba Jimenez MD Primary care physician Active Start: July 09, 2025 End: July 09, 2025 Dr. Sheba Jimenez MD Referring Provider Active Start: July 09, 2025 End: July 09, 2025 Stephenie Brody CIGARETTE EXAMINER, CIGARETTE EXAMINER-C Attending physician Active Start: July 09, 2025 End: July 09, 2025 Team Status: Inactive Member Role/Relationship Status Dates Dr. Sheba Jimenez MD Primary care physician Active Start: July 09, 2025 End: July 09, 2025 Dr. Jimenez Dee MD Attending physician Active Start: July 09, 2025 End: July 09, 2025 Team Status: Inactive Member Role/Relationship Status Dates Dr. Sheba Jimenez MD Primary care physician Active Start: July 10, 2025 End: July 10, 2025 Dr. Jimenez Dee MD Attending physician Active Start: July 10, 2025 End: July 10, 2025 Team Status: Inactive Member Role/Relationship Status Dates Dr. Sheba Jimenez MD Primary care physician Active Start: September 10, 2025 End: September 10, 2025 Dr. Jimenez Dee MD Attending physician Active Start: September 10, 2025 End: September 10, 2025 Team Status: Active Member Role/Relationship Status Dates Dr. Sheba Jimenez MD Primary care physician Active Start: October 09, 2025 Dr. Bernardino Pizano DO Emergency Depart ent Physician Active Start: October 09, 2025 Dr. Nael Quintero MD Admitting physician Active Start: October 09, 2025 Dr. Nael Quintero MD Attending physician Active Start: October 09, 2025 Richard Arrington MD Nurse Practitioner Active Start : October 09, 2025 Dr. Rogers Bella MD Nurse Practitioner Active St art: October 09, 2025 Angie Gonzalez MD Nurse Practitioner Active S tart: October 09, 2025 Dr. Obdulia Rivera DO Nurse Practitioner Active Start: October 09, 2025 Dr. Nevaeh Rodriguez MD Nurse Practitioner Active St art: October 09, 2025 Dr. Moreno Camp MD Nurse Practitioner Active Start: October 09, 2025 Dr. Lore Hess MD Nurse Practitioner Active S tart: October 09, 2025 Dr. Nilton Sam MD Nurse Practitioner Active St art: October 09, 2025 Dr. Landon Amezcua MD Nurse Practitioner Active S tart: October 09, 2025 Dr. Sina Sylvester MD Nurse Practitioner Active Start: October 09, 2025 Dr. Humaira Keating DO Nurse Practitioner Active Start: October 09, 2025 Mariluz Ybarra MD Nurse Practitioner Active S tart: October 09, 2025 Dr. Abhijit Parker MD Nurse Practitioner Active Start: October 09, 2025 Dr. Danielle Olson MD Nurse Practitioner Active S tart: October 09, 2025 Dr. Phong Hernandez MD Nurse Practitioner Active Start: October 09, 2025 Dr. William Main MD Nurse Practitioner Active Start: September Dr. Sloan Rowe MD Nurse Practitioner Active Start: October 09, 2025 Dr. Shilo Grant MD Nurse Practitioner Active Start: October 09, 2025 Dr. Shade Elam MD Nurse Practitioner Active Start: October 09, 2025 Dr. Nahomy Chaidez MD Nurse Practitioner Active St art: October 09, 2025 Radha Romo MD Nurse Practitioner Active St art: October 09, 2025 Dr. Mau Arreola MD Nurse Practitioner Active Start: October 09, 2025 Team Status: Active Member Role/Relationship Status Dates Dr. Sheba Jimenez MD Primary care physician Active Start: October 09, 2025 Dr. Bernardino Pizano DO Emergency Depart ent Physician Active Start: October 09, 2025 Dr. Nael Quintero MD Admitting physician Active Start: October 09, 2025 Dr. Nael Quintero MD Attending physician Active Start: October 09, 2025 Dr. Nael Quintero MD Nurse Practitioner Active Start: October 09, 2025 Richard Arrington MD Nurse Practitioner Active Start : October 09, 2025 Dr. Rogers Bella MD Nurse Practitioner Active St art: October 09, 2025 Angie Gonzalez MD Nurse Practitioner Active S tart: October 09, 2025 Dr. Obdulia Rivera DO Nurse Practitioner Active Start: October 09, 2025 Dr. Nevaeh Rodriguez MD Nurse Practitioner Active St art: October 09, 2025 Dr. Moreno Camp MD Nurse Practitioner Active Start: October 09, 2025 Dr. Lore Hess MD Nurse Practitioner Active S tart: October 09, 2025 Dr. Nilton Sam MD Nurse Practitioner Active St art: October 09, 2025 Dr. Landon Amezcua MD Nurse Practitioner Active S tart: October 09, 2025 Dr. Sina Sylvester MD Nurse Practitioner Active Start: October 09, 2025 Dr. Humaira Keating DO Nurse Practitioner Active Start: October 09, 2025 Mariluz Ybarra MD Nurse Practitioner Active S tart: October 09, 2025 Dr. Abhijit Parker MD Nurse Practitioner Active Start: October 09, 2025 Dr. Danielle Olson MD Nurse Practitioner Active S tart: October 09, 2025 Dr. Phong Hernandez MD Nurse Practitioner Active Start: October 09, 2025 Dr. William Main MD Nurse Practitioner Active Start: September Dr. Sloan Rowe MD Nurse Practitioner Active Start: October 09, 2025 Dr. Shilo Grant MD Nurse Practitioner Active Start: October 09, 2025 Dr. Shade Elam MD Nurse Practitioner Active Start: October 09, 2025 Dr. Nahomy Chaidez MD Nurse Practitioner Active St art: October 09, 2025 Radha Romo MD Nurse Practitioner Active St art: October 09, 2025 Team Status: Active Member Role/Relationship Status Dates Dr. Sheba Jimenez MD Primary care physician Active Start: October 09, 2025 Dr. Cher Armas MD Attending physician Active Start: October 09, 2025 Team Status: Active Member Role/Relationship Status Dates Dr. Sheba Jimenez MD Primary care physician Active Start: October 10, 2025 Dr. Bernardino Pizano , Emergency Depart ent Physician Active Start: October 10, 2025 Dr. Nael Quintero MD Admitting physician Active Start: October 10, 2025 Dr. Nael Quintero MD Nurse Practitioner Active Start: October 10, 2025 Richard Arrington MD Nurse Practitioner Active Start : October 10, 2025 Dr. Rogers Bella MD Nurse Practitioner Active St art: October 10, 2025 Angie Gonzalez MD Nurse Practitioner Active S tart: October 10, 2025 Dr. Obdulia Rivera DO Nurse Practitioner Active Start: October 10, 2025 Dr. Nevaeh Rodriguez MD Nurse Practitioner Active St art: October 10, 2025 Dr. Moreno Camp MD Nurse Practitioner Active Start: October 10, 2025 Dr. Lore Hess MD Nurse Practitioner Active S tart: October 10, 2025 Dr. Nilton Sam MD Nurse Practitioner Active St art: October 10, 2025 Dr. Landon Amezcua MD Nurse Practitioner Active S tart: October 10, 2025 Dr. Sina Sylvester MD Nurse Practitioner Active Start: October 10, 2025 Dr. Humaira Keating DO Nurse Practitioner Active Start: October 10, 2025 Mariluz Yabrra MD Nurse Practitioner Active S tart: October 10, 2025 Dr. Abhijit Parker MD Nurse Practitioner Active Start: October 10, 2025 Dr. Danielle Olson MD Nurse Practitioner Active S tart: October 10, 2025 Dr. Phong Hernandez MD Nurse Practitioner Active Start: October 10, 2025 Dr. William Main MD Nurse Practitioner Active Start: September Dr. Sloan Rowe MD Nurse Practitioner Active Start: October 10, 2025 Dr. Shilo Grant MD Nurse Practitioner Active Start: October 10, 2025 Dr. Shade Elam MD Nurse Practitioner Active Start: October 10, 2025 Dr. Nahomy Chaidez MD Nurse Practitioner Active St art: October 10, 2025 Radha Romo MD Nurse Practitioner Active St art: October 10, 2025 Dr. Mau Arreola MD Attending physician Active Start: October 10, 2025 Dr. Mau Arreola MD Nurse Practitioner Active Start: October 10, 2025 Goals (unrecognized section and content) Goals may be documented in a n alternate sectionGoals may be documented in an alternate sectionGoals may be documented in an alternate sectionGoals may be documented in an alternate sectionGoals may be documented in an alternate sectionGoals may be documented in an alternate section FOR RECORDS PERTAINING TO PATIENTS WHO ARE OR HAVE BEEN ENROLLED IN A CHEMICAL DEPENDENCY/SUBSTANCEABUSE PROGRAM, SOME INFORMATION MAY BE OMITTED. This clinical summary was aggregated from multiple sources. Caution should be exercised in using it in the provision of clinical care. This summary normalizes information from multiple sources, and as a consequence, information in this document may materially change the coding, format and clinical context of patient data. In addition, data may be omitted in some cases. CLINICAL DECISIONS SHOULD BE BASED ON THE PRIMARY CLINICAL RECORDS. [facility]. provides no warranty or guarantee of the accuracy or completeness of information in this document.
[2025-10-15 12:28] LABS: Cholesterol 111 mg/dL (<=200); Low Density Lipoprotein Calc. 53 mg/dL; PSA,Total - Annual Screen 0.27 ng/mL (0.02-4.00); Triglycerides 52 mg/dL; Very Low Density Lipoprotein 10 mg/dL (5-40); cholesterol:hdl ratio screen 2.40
== END | disposition home or self-care (01) ==
LOC: LAB 10:36
PROVIDERS: PCP Family Medicine; Referring Provider Nurse Practitioner Gerontology; Visit Provider Family Medicine
DX: Z13.0 Encounter for screening for diseases of the blood and blood-forming organs and certain disorders involving the immune mechanism (principal); E11.9 Type 2 diabetes mellitus without complications; Z12.5 Encounter for screening for malignant neoplasm of prostate
CPT/HCPCS: 36415; 80053; 80061; 83036; 83880; 84153; 85025; G0103

== ENCOUNTER 2025-10-31 10:00 | Outpatient (RCR) | payer MEDICARE, OTHER, SELFPAY ==
--- NOTE | 2025-10-17 11:04 | HP.SP.EV_ITS ---
Visit History Visit Info Date of Eval: 10/16/25 Today is Visit #: 1 Emergency Technician: MINOR Davis Attending Doctor: Referring Doctor: Reason for Referral: APHASIA/PT HAS RX Previous speech therapy: Yes Results: Pt received speech therapy evaluation on 10/09/25 at [facility] using the QAB and informal assessment of reading and comprehension skills --SEE BELOW. Quick Aphasia Battery 10/09/2025: 1. Level of consciousness ?32. 2. Connected speech ? 39/40. 3. Word comprehension (picture ID) ?. 4. Sentence Comprehension (yes/no questions) ? 48/48. 5. Picture Naming ? . 6.Repetition ? 7. Reading Aloud ? . 8. Motor Speech ? 4 - Normal for dysarthria. 4 ? Normal for apraxia. Summary Word comprehension 9.17 Sentence comprehension 10.00 Word finding 4.00 Grammatical construction 9.63 Speech motor programming 10.00 Repetition 10.00 Reading 6.67 QAB overall 8.64 Informal assessment of writing. Pt wrote his name, , and address w/o error. CLAY DRY PRESS MIXER OPERATOR prompted him for writing 1 sentence. Pt wrote c for e, he not complete certain letters (e.g. crossing t), and he was unable to write the word soup independently (CLAY DRY PRESS MIXER OPERATOR provided min verbal cues for second letter and then he made 4 attempts prior to accurately writing the word). The patient presents w/ mixed expressive and receptive aphasia characterized by agraphia and alexia. Goals added to POC to address these deficits and pt is recommended for OP ST at discharge. ST Note 10/10/2025: Pt participated in further assessment of reading fluency and comprehension today. He did state that he feels reading is somewhat better compared to yesterday. He read 1-3 syllable words w/ 39/40 acc (off by 1 phoneme for the one word in error). Tasked the patient for reading 3-sentence paragraphs. 1st trial, 100% accuracy. 2nd trial, errors reading 2 words. 3rd trial, self correction. Tasked the patient to read 5-sentence paragraphs and answer comprehension questions. 1st trial, he read w/ 2 fluency errors, undetected by pt, 100% for comprehension questions. 2nd trial, he read w/ 3 fluency errors, but self- corrected all, 100% for comprehension. During the session, CLAY DRY PRESS MIXER OPERATOR recommended he slow his rate of reading, reread if something does not make sense when reading (self-monitor errors), and for difficult words, break it down into syllables to sound out. Pt and verbalized good understanding. 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 Vahe and his both attended the evaluation and served as historians when obtaining case history. Pt experienced his CVA on 10/09/25 and was admitted to [facility] for 3 days. He was admitted to the hospital after he woke up in the morning unable to read. Pt reporting no prior hx of CVAs. Pt's reporting that there is damage to his left ventricle, which is now only working at 15% capacity. Per chart review, unable to find imaging reports confirming brain ventricle function, however suspect she was referring to cardiac function d/t findings of a echocardiogram (see below). Pt reporting that he now has difficulty reading at his normal pace and scanning a moving text, such as the screen in [employer] or his phone/laptop. He noted that it recently took him 15 minutes to read an article that would normally take him 5 minutes. Pt noting that his reading and writing have improved since last week, but it takes much more concentration and focus when reading. Pt claiming that his vision, motor skills, math skills, spelling, and expressive language have not been affected by the stroke. He noted that it's easier to process words when the text is larger. Longer multisyllabic words are the most difficult for him to read. For example, Pt read, [facility].... and could not read or say the word, Examination. 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 Pt's reporting that his job involves many tasks that involve written instructions and problem-solving with math skills. His hobbies include hunting and winter activities. IMAGING - 10/09/2025 Head/Neck CT = IMPRESSION: There is pathologic adenopathy in the upper mediastinum with the largest node measuring 1.4 by 2.7 cm in the right paratracheal space, image 98/570. The ascending aorta is dilated to 4.1 cm in AP diameter. There is no significant stenosis or occlusion identified in the carotid system in the head or neck. - 10/09/25 Echocardiogram Interpretation Summary Moderate to severely dilated LV cavity. Severe LV systolic dysfunction. Estimated LVEF 5%. Stage III diastolic dysfunction. Moderate global right ventricular systolic dysfunction. The left atrium is severely enlarged. Severe (4+) mitral valve insufficiency. Mild (1+) tricuspid valve insufficiency. Right ventricular systolic pressure estimated to be 55 mmHg. Mild-Moderate (1-2+) aortic valve insufficiency. Bubble contrast study is negative for PFO/ASD. - 10/10/2025 Brain MRI = IMPRESSION: Acute cortical-subcortical infarcts in the left posterior temporo-parietal lobes. Additional punctate focus of acute infarct in the superior left cerebellar hemisphere. No mass-effect or hemorrhage. Medications related to this diagnosis: Insulin Aspirin Statin Lisinopril Metoprolol Diuretic Smoking Status: Former smoker Diagnosis Diagnosis: Mild Mixed Expressive and Receptive Aphasia Pain Is pain an issue with your current prescribed condition?: No Personal Preferred language: Iranian Patient Allergies Allergies Allergies: Allergies No Known Allergies Allergy (Verified 10/09/25 08:08) Objective Cog/Ling/Com Test Administered Pemesdtxm-Rbhalkwela-Jrjlmkbnyvyfu Assessment Administered: Yes Cfepwzmpe-Gcddiwkgsi-Gstxrzqkqdhgd Assessment: Cognitive ? Linguistic skills were evaluated using patient/family interview, skilled observation and informal evaluation through tasks completed by the patient. Numerical Skills Numerical Work Problems: Trialed a work-related math problem presented orally. 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 Pt determine the correct solution independently on a piece of paper. ST then asking him to convert this to cubic yards. Pt recalling there were 27 cubic feet in a cubic yard independently and benefited from use of a calculator (which he would use at home) to divide 19,200 by 27 to find 711.11 cubic yards independently. Pt reports using [employer] at home for his business but since being d/c from the hospital, has not had the opportunity to practice using it yet. Based on the quickness and independence of Pt's math skills with this trial problem, suspect Pt may not have math-related deficits at this time. Asked Pt to practice with [employer] and other math opportunities this week at home and report back if he had any difficulties. Reference: Neuro-QoL instrument Radiation Oncology Patient Other Comments Informal Aphasia Evaluation: -: Pt participating in informal evaluation to assess his expressive language, reading, writing, spelling, math, and comprehension skills. - EXPRESSIVE LANGUAGE: Pt participating in conversation throughout the time of the assessment with no observed word finding difficulties at this time. - READING: Single words = 100%; Sentences = 80% (Error on: FAMISHED) - READING COMPREHENSION (Fill in the blank): 70% for comprehension, 100% reading sentences. Pt observed frequently pausing and pre-scanning text when reading sentences. Also self correcting 2x. - WRITING: Pt was directed to write about the [employer] image, his address, printed name, and signature. Pt marking lowercase 'c' for 'e' when writing about the [employer] image. This was noted when he was in the hospital as well. Pt noting that he normally dumont his lowercase 'e' like a 'c' and his was unsure. After discussion with ST, Pt was observed self-correcting for remainder of writing tasks, however unclear if this is baseline for him. Asked Pt and to look back at other things he wrote prior to CVA to determine if this is his baseline. - SPELLING: Pt was directed to write down 16 words (with some related to his job) that were orally presented by ST. Pt achieving 68% with errors on: dredging (dregging), aggregate (agrigate), examination (exainating), appreciate (apricacate), and oxidation engineer (enginerr). - READING MULTISYLLABIC WORDS: Pt reporting longer words appeared to be the most difficult for him, so we focused on multi-syllabic words. Pt achieving 76% increasing to 100% given min verbal cues. Errors on: desalinate (cued), irregular (extended processing time), preposition (proposal), phenomenon (femoral), allocation (cued), pomegranate (extended processing time), accelerate (self-corrected), calculator (cued), alternative (cued), aquarium (aqua... - cued), obesity (cued), victorious (vicious), apostrophe (cued), significance (significant -cued). Pt observed having the most difficulty with words he was unfamiliar with, such as desalinate and phenomenon. He reported that these are words he normally wouldn't use. When Pt was cued with ST covering up parts of the word and encouraging him to focus on the syllables, this appeared to help him chunk to word and sound it out. Plan Plan Plan: Will recommend Pt for weekly outpatient speech therapy intervention address mild expressive and receptive aphasia. Pt would benefit from immediate feedback and skilled intervention to address expressive and receptive deficits d/t agraphia and alexia. Without skilled intervention, Pt is at risk for difficulty returning to work and communicating basic, medical, emergent, social wants & needs, and interacting with family/friends at home, during social interactions, and at work. Recommendations Treatment Warranted: Yes Treatment Warranted: Receptive/ Expressive Language Progress Prognosis: Good Frequency Frequency: Monthly Duration: 3 Months Patient/Family Goal Patient/Family Goal: Improve Pt's expressive and receptive communication skills Goals that are Established Determination:: Goals will be added/modified as deemed necessary and appropriate. Therapy will be discontinued when results of re-evaluation indicate therapy is no longer needed or lack of progress has been documented. Goal #1-5 Goal #1: Vahe will will complete functional writing tasks (e.g., filling out simple forms, writing short messages, composing emails) with 90% accuracy with his spelling given min verbal cues across 3 measured sessions. Goal #2: Vahe will use compensatory reading strategies during structured tasks with 90% accuracy given min verbal cues across 3 measured sessions. Education Patient Instruction Patient Education: Diagnosis, Treatment Plan and Goals Person Taught: Patient and Family Teaching Method: Discussion Response to teaching: Verbalize Understanding
--- NOTE | 2025-12-03 10:53 | HP.SP.DC_ITS ---
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 Pt attended initial evaluation with goals created to target complete functional writing tasks (e.g., filling out simple forms, writing short messages, composing emails) targeting encoding as well as compensatory reading strategies during structured tasks. After evaluation, Pt attended two follow up visits and canceled the last one scheduled without rescheduling. Pt being discharged from speech therapy caseload on this date 12/03/2025 d/t Pt absence in scheduling additional treatment visits. We did discuss at each appointment that we were going to schedule one at a time d/t to his deficits being minimal and him progressing every visit. Thank you for allowing me to participate in the care of your patient. Will reevaluate at Pt?s request following script from physician.
== END 2025-10-31 19:00 | disposition home or self-care (01) ==
LOC: SP 10:00
PROVIDERS: PCP Family Medicine; Referring Provider Internal Medicine; Visit Provider Internal Medicine
DX: R47.01 Aphasia (principal)
CPT/HCPCS: 92507; 92523; 96105

== ENCOUNTER → 2025-11-19 | Outpatient (CLI) | payer MEDICARE, OTHER, SELFPAY ==
--- NOTE | 2025-11-19 08:52 | ECHOL_ITS ---
Reason For Study Reason For Study: DCMP Procedure This was a limited 2D transthoracic echocardiogram. The study was technically difficult. Contrast injection was performed. Exam performed in department. Left Ventricle Normal left ventricular thickness. Severely dilated left ventricular cavity. Severe global LV hypokinesis. Estimated LVEF 10%. At least stage I diastolic dysfunction. Right Ventricle Mildly dilated right ventricular cavity with moderate RV systolic dysfunction. Atria The left atrium is severely enlarged. Moderately enlarged right atrium. Catheter artifact noted in right atrium. Mitral Valve Mild (1+) mitral valve insufficiency. Tricuspid Valve Normal tricuspid valve. Aortic Valve Trisinus/trileaflet aortic valve. Mild (1+) aortic valve insufficiency. Pulmonic Valve The pulmonic valve is not well visualized. Great Vessels Normal sized aortic root. Pericardium/Pleural No pericardial effusion. Medication 22 gauge I.V. with prn adaptor inserted into right arm. Diluted definity 1.5ml given slow IV push to enhance endocardial definition. MMode/2D Measurements & Calculations LVIDd: 6.7 cm IVSd: 0.93 cm Ao root diam: 3.8 cm LVIDs: 6.1 cm LVPWd: 0.93 cm FS: 8.5 % LAV(MOD-bp): 78.4 ml LVAd ap4: 51.1 cm2 LVAd ap2: 52.4 cm2 LAV(MOD-bp) Indexed: 35.8 ml/m2 LVLd ap4: 10.4 cm LVLd ap2: 10.5 cm LAV(MOD-sp2): 74.4 ml EDV(MOD-sp4): 204.9 ml EDV(MOD-sp2): 218.0 ml LAV(MOD-sp4): 80.5 ml EDV(sp4-el): 212.5 ml EDV(sp2-el): 222.5 ml LVAs ap4: 43.2 cm2 LVAs ap2: 43.4 cm2 LVLs ap4: 9.6 cm LVLs ap2: 9.6 cm ESV(MOD-sp4): 160.2 ml ESV(MOD-sp2): 162.7 ml ESV(sp4-el): 165.4 ml ESV(sp2-el): 166.5 ml EF(MOD-sp4): 21.8 % EF(MOD-sp2): 25.4 % EF(sp4-el): 22.2 % SV(MOD-sp4): 44.6 ml SV(MOD-sp2): 55.3 ml EDV(MOD-bp): 213.5 ml SI(MOD-sp4): 20.4 ml/m2 SI(MOD-sp2): 25.2 ml/m2 ESV(MOD-bp): 162.5 ml EF(MOD-bp): 23.9 % SV(sp4-el): 47.1 ml LA A4 area: 23.9 cm2 LA dimension(2D): 5.1 cm RA A4 area: 16.6 cm2 ECHO/Echo Limited w/Contrast Interpretation Summary Severely dilated left ventricular cavity. Severe global LV hypokinesis. Estimat ed LVEF 10%. At least stage I diastolic dysfunction. Mildly dilated right ventricular cavity with moderate RV systolic dysfunction. Moderately enlarged right atrium. Catheter artifact noted in right atrium. Mild (1+) mitral valve insufficiency. Mild (1+) aortic valve insufficiency. Ordering Physician: Christi Krishna Referring Physician: Christi Krishna Performed By: Adela Beltran RCS
== END | disposition home or self-care (01) ==
LOC: CVS 08:51
PROVIDERS: PCP Family Medicine; Referring Provider Physician Assistant Medical; Visit Provider Physician Assistant Medical
DX: I42.0 Dilated cardiomyopathy (principal)
CPT/HCPCS: 93308; C8924